=== PATIENT | female | born 1965 | race Caucasian/White ===

== ENCOUNTER 2023-02-08 13:30 | Outpatient (CLI) | payer OTHER, SELFPAY | END 2023-02-08 13:31 | disposition home or self-care (01) | LOC: SPT 02-09 10:35 | PROVIDERS: Visit Provider Nurse Practitioner Family | DX: Z46.89 Encounter for fitting and adjustment of other specified devices (principal); S52.1 Fracture of upper end of radius; X58.XXXD Exposure to other specified factors, subsequent encounter | CPT/HCPCS: 97760; L3761 ==

== ENCOUNTER → 2023-02-28 13:20 | Outpatient (BNVA) | payer OTHER, SELFPAY | PROVIDERS: Visit Provider Nurse Practitioner Family | DX: X58.XXXA Exposure to other specified factors, initial encounter; S52.121A Displaced fracture of head of right radius, initial encounter for closed fracture | CPT/HCPCS: 73070 ==

== ENCOUNTER → 2023-04-13 09:31 | Outpatient (BNVA) | payer MEDICAID, SELFPAY | PROVIDERS: Referring Provider Emergency Medicine; Visit Provider Podiatrist Foot & Ankle Surgery | DX: I73.9 Peripheral vascular disease, unspecified; L98.499 Non-pressure chronic ulcer of skin of other sites with unspecified severity; G62.9 Polyneuropathy, unspecified | CPT/HCPCS: 73630 ==

== ENCOUNTER 2023-06-05 11:08 | Emergency (ER) | payer OTHER, MEDICAID, SELFPAY ==
[2023-06-05 11:36] VITALS: BP 173/121; PULSE 84; RESP 16; TEMP 36.6; O2SAT 97; BMI 36.8
--- NOTE | 2023-06-05 11:39 | XRR_ITS ---
PROCEDURE INFORMATION: Exam: XR Chest Exam date and time: 06/05/2023 11:52 AM Age: 58 years old Clinical indication: Cough; Additional info: Covid symptoms TECHNIQUE: Imaging protocol: Radiologic exam of the chest. Views: 1 view. COMPARISON: No relevant prior studies available. FINDINGS: Lungs: Unremarkable. No consolidation. Pleural spaces: Unremarkable. No pleural effusion. No pneumothorax. Heart/Mediastinum: Unremarkable. No cardiomegaly. Bones/joints: Unremarkable. XR/XR chest 1V portable [id number] IMPRESSION: No acute findings.
--- NOTE | 2023-06-05 12:10 | ED_ITS ---
HPI - COVID General: Chief Complaint: COVID symptoms Stated Complaint: covid symptoms Time Seen by Provider: 06/05/23 11:57 Source: patient Mode of arrival: ambulatory Limitations: no limitations Triage information: Has fever, cough or shortness of breath . Exposure to COVID + person last 14 days History of Present Illness: Patient is a 58-year-old female presents to ED today for concerns of possible COVID. She states her boss and another individual tested positive recently. She is complaining of fever, body aches, shortness of breath, nonproductive cough, congestion, nausea/vomiting, and diarrhea. She states symptoms started on Monday. She is not having any abdominal pain. She denies chest pain. She states shortness of breath is worse with any form of exertion. MD complaint: has COVID symptoms Prior covid testing: no COVID 19 common symptoms: positive fever(s), chills, cough, non-productive cough, dyspnea, body aches, nasal congestion, nausea, vomiting and diarrhea; negative headache(s) COVID 19 other sytmptoms: negative dizziness Onset (ago): day(s) Severity: moderate Pertinent comorbid conditions: obesity Treatment prior to arrival: none COVID Results: SARS-CoV-2 (PCR) Detected (NOT DETECT) A 06/05/23 12:54 Coronavirus Type 229E (PCR) Not detected (NOT DETECT) 06/05/23 12:54 Review of Systems Const: Reports: fever(s), chills and body aches ENMT: Reports: nasal congestion Resp: Reports: dyspnea and non-productive cough GI: Reports: nausea, vomiting and diarrhea Musc: Denies: neck pain, back pain, extremity pain or joint pain Skin/Breast: Denies: rash Neuro: Denies: headache(s), numbness in extremities, weakness in extremities, sensory changes or dizziness Physical Exam Const: COMMON NORMALS: no acute distress, average body habitus, patient oriented x3, no limitations, healthy appearing, alert and well nourished GENERAL APPEARANCE: cooperative ORIENTATION/CONSCIOUSNESS: Yes awake, Yes oriented to person, Yes oriented to place and Yes oriented to time HENMT: COMMON NORMALS: normocephalic and atraumatic HEAD & SCALP: normal to inspection, normocephalic and atraumatic FACE & SINUS: normal facial exam Eye: GENERAL EYE: appearance normal, both eyes and all related structures Neck/C-Spine: COMMON NORMALS: full ROM, no lymphadenopathy, supple, no meningeal signs and no JVD Chest: COMMONS NORMALS: normal inspection of the chest and normal palpation of entire chest wall Resp: COMMON NORMALS: normal respiratory effort and clear to auscultation bilaterally AUSCULTATION: clear to auscultation bilaterally Cardio: COMMON NORMALS: no JVD, regular rate and regular rhythm RATE: regular rate RHYTHM: regular rhythm GI: COMMON NORMALS: Normal to inspection, nondistended, normoactive bowel sounds present, Soft to palpation, non-tender, No hepatosplenomegaly present and no masses PALPATION: Yes Soft to palpation and Yes No hepatosplenomegaly present : COMMON NORMALS: Yes no CVA tenderness BLADDER/KIDNEY EXAM: Yes no CVA tenderness Back/Pelvis: COMMON NORMALS: no CVA tenderness and thoracic and lumbar spine normal to inspection Extremity: COMMON NORMALS: normal to inspection, no clubbing, cyanosis or edema, no calf tenderness and no pedal edema GENERAL: Yes normal exam except as noted Neuro: AMANDA COMA SCALE: document GCS findings [place] coma scale eye opening: Spontaneous [place] coma scale verbal response: Orientated Amanda coma scale motor response: Obey commands Amanda coma scale total score: 15 COMMON NORMALS: patient oriented x3, moves all extremities, no focal motor deficits and no sensory deficits noted SENSORIUM/ORIENTATION: Yes alert, Yes oriented to person, Yes oriented to place and Yes oriented to time MENINGEAL SIGNS: Yes no meningeal signs Skin: COMMON NORMALS: no rashes or lesions noted GENERAL SKIN EXAM: no rashes or lesions noted Course Vital Signs: Vital signs: Vital Signs Temperature 97.9 F 06/05/23 11:36 Pulse Rate 84 06/05/23 11:36 Respiratory Rate 16 06/05/23 11:36 Blood Pressure 173/121 06/05/23 11:36 Pulse Oximetry 98 06/05/23 12:58 Oxygen Delivery Me thod Room Air 06/05/23 12:58 MDM - COVID Medical Decision Making Patient here with COVID symptoms and known positive exposure. Vital signs are stable apart from hypertension. Blood work is unremarkable apart from some hyperglycemia. Patient states she has a known diabetic treated with diet only. Respiratory panel collected and pending. She will be called with results. CXR is normal. Patient was later contacted and told that her COVID test was positive. Recommend she treat with Paxlovid. She requested [facility] so I contacted them but they do not carry oral Paxlovid. Patient was recontacted and stated that she needed a pharmacy that delivered. I reached out to [facility] pharmacy/[facility] and they will deliver patient's prescription tomorrow between the hours of 3-5. She was given quarantine precautions as well as return to ED precautions Lab Data 06/05/23 12:24 06/05/23 12:24 Radiology Impressions Chest X-Ray 06/05/23 11:39 IMPRESSION: No acute findings. Laboratory Results WBC 4.03 10^3/uL (3.29-11.43) 06/05/23 12:24 RBC 4.79 10^6/uL (3.85-5.65) 06/05/23 12:24 Hgb 13.90 g/dL (11.27-16.99) 06/05/23 12:24 Hct 42.2 % (36-47) 06/05/23 12:24 MCV 88.1 fl (85-98) 06/05/23 12:24 MCH 29.0 pg (27-33) 06/05/23 12:24 MCHC 32.9 g/dL (30-55) 06/05/23 12:24 RDW 14.4 % (12.1-15.1) 06/05/23 12:24 Plt Count 238 10^3/cmm (157-399) 06/05/23 12:24 MPV 10.5 fL (7.4-10.4) H 06/05/23 12:24 Neut % (Auto) 48.2 % 06/05/23 12:24 Lymph % (Auto) 29.5 % 06/05/23 12:24 [place] % (Auto) 17.1 % 06/05/23 12:24 Eos % (Auto) 4.5 % 06/05/23 12:24 Baso % (Auto) 0.5 % 06/05/23 12:24 Neut # (Auto) 1.94 10^3/uL (1.8-7.7) 06/05/23 12:24 Lymph # (Auto) 1.2 10^3/uL (0.8-4.8) 06/05/23 12:24 [place] # (Auto) 0.7 10^3/uL (0.2-0.9) 06/05/23 12:24 Eos # (Auto) 0.2 10^3/uL (0.0-0.8) 06/05/23 12:24 Baso # (Auto) 0.0 10^3/uL (0.0-0.1) 06/05/23 12:24 Nucleated RBC % (auto) 0 % 06/05/23 12:24 Nucleated RBCs # 0.0 /100WBC 06/05/23 12:24 Sodium 137 mmol/L (136-145) 06/05/23 12:24 Potassium 4.3 mmol/L (3.5-5.1) 06/05/23 12:24 Chloride 101 mmol/L (98-107) 06/05/23 12:24 Carbon Dioxide 25 mmol/L (22-29) 06/05/23 12:24 Anion Gap 15.3 (5-19) 06/05/23 12:24 BUN 13 mg/dL (6-20) 06/05/23 12:24 Creatinine 0.7 mg/dL (0.5-0.9) 06/05/23 12:24 GFR Calculation 85.6 mL/min (90-130) L 06/05/23 12:24 Glucose 190 mg/dL (65-115) H 06/05/23 12:24 Calculated Osmolality 289 mOsm/kg (285-295) 06/05/23 12:24 Calcium 8.8 mg/dL (8.5-10.5) 06/05/23 12:24 Total Bilirubin 0.2 mg/dL (0.15-1.2) 06/05/23 12:24 AST 22 U/L (0-32) 06/05/23 12:24 ALT 16 U/L (0-33) 06/05/23 12:24 Alkaline Phosphatase 88 U/L (35-105) 06/05/23 12:24 Total Protein 7.8 g/dL (6.6-8.7) 06/05/23 12:24 Albumin 4.4 g/dL (3.5-5.2) 06/05/23 12:24 Globulin 3.4 g/dL (1.3-4.6) 06/05/23 12:24 Nasal Influ A H1 2009 PCR Not detected (NOT DETECT) 06/05/23 12:54 Adenovirus (PCR) Not detected (NOT DETECT) 06/05/23 12:54 C. pneumoniae DNA (PCR) Not detected (NOT DETECT) 06/05/23 12:54 Coronavirus 229E (PCR) Not detected (NOT DETECT) 06/05/23 12:54 Human Metapneumovir PCR Not detected (NOT DETECT) 06/05/23 12:54 Influenza A (H1) PCR Not detected (NOT DETECT) 06/05/23 12:54 Influenza A (H3) PCR Not detected (NOT DETECT) 06/05/23 12:54 Influenza Type A (PCR) Not detected (NOT DETECT) 06/05/23 12:54 Influenza Type B (PCR) Not detected (NOT DETECT) 06/05/23 12:54 M. pneumoniae (PCR) Not detected (NOT DETECT) 06/05/23 12:54 Parainfluenza 1 (PCR) Not detected (NOT DETECT) 06/05/23 12:54 Parainfluenza 2 (PCR) Not detected (NOT DETECT) 06/05/23 12:54 Parainfluenza 3 (PCR) Not detected (NOT DETECT) 06/05/23 12:54 Parainfluenza 4 (PCR) Not detected (NOT DETECT) 06/05/23 12:54 RSV Type A (PCR) Not detected (NOT DETECT) 06/05/23 12:54 RSV Type B (PCR) Not detected (NOT DETECT) 06/05/23 12:54 Entero/Rhino (PCR) Not detected (NOT DETECT) 06/05/23 12:54 SARS-CoV-2 (PCR) Detected (NOT DETECT) A 06/05/23 12:54 SARS-CoV-2 (PCR) Detected (NOT DETECT) A 06/05/23 12:54 Coronavirus Type 229E (PCR) Not detected (NOT DETECT) 06/05/23 12:54 All radiology interpretation(s) finalized by discharge Discharge Plan Discharge Patient Disposition: Home Clinical Impression: Exposure to severe acute respiratory syndrome coronavirus 2 (SARS-CoV-2) Condition: Stable Discharge Orders: Discharge ED (Routine); Ordered 06/05/23 Ordered By: Ivory Smith Referrals: Shai Hill MD [Primary Care Provider] - Activity Restrictions/Additional Instructions: At this time blood work is unremarkable apart from your blood sugar was elevated. As you discussed you are a known diabetic normally controlled by diet. Chest x-ray was normal. As we discussed respiratory panel should result in several hours. I will reach out to you if something comes back positive. If positive for COVID I will call you in a prescription for Paxlovid to your pharmacy. Coding Level of Care Code ED Director Credit Risk for Ranjana Orellana
[2023-06-05 12:30] LABS: Basophils % 0.5 %; Eosinophils # 0.2 10^3/uL (0.0-0.8); Eosinophils % 4.5 %; Hematocrit 42.2 % (36-47); Lymphocytes # 1.2 10^3/uL (0.8-4.8); Lymphocytes % 29.5 %; Mean Corpuscular HGB Conc 32.9 g/dL (30-55); Mean Corpuscular Volume 88.1 fl (85-98); Mean Platelet Volume 10.5 fL (7.4-10.4); Monocytes # 0.7 10^3/uL (0.2-0.9); Monocytes % 17.1 %; Neutrophils # 1.94 10^3/uL (1.8-7.7); Neutrophils % 48.2 %; Nucleated Red Blood Cells % 0 %; Platelet Count 238 10^3/cmm (157-399); Red Blood Count 4.79 10^6/uL (3.85-5.65); Red Cell Distribution Width 14.4 % (12.1-15.1); White Blood Count 4.03 10^3/uL (3.29-11.43)
[2023-06-05 12:47] LABS: Alanine Aminotransferase 16 U/L (0-33); Albumin Level 4.4 g/dL (3.5-5.2); Alkaline Phosphatase 88 U/L (35-105); Anion Gap 15.3 (5-19); Aspartate Amino Transferase 22 U/L (0-32); Blood Urea Nitrogen 13 mg/dL (6-20); Calcium 8.8 mg/dL (8.5-10.5); Carbon Dioxide 25 mmol/L (22-29); Chloride 101 mmol/L (98-107); Globulin 3.4 g/dL (1.3-4.6); Glomerular Filtration Rate 85.6 mL/min (90-130); Glucose 190 mg/dL (65-115); Osmolality Calculated 289 mOsm/kg (285-295); Potassium 4.3 mmol/L (3.5-5.1); Sodium 137 mmol/L (136-145); Total Bilirubin 0.2 mg/dL (0.15-1.2); Total Protein 7.8 g/dL (6.6-8.7)
[2023-06-05 12:58] VITALS: O2SAT 98
[2023-06-05 14:47] LABS: Adenovirus Not Detected (NOT DETECT); Chlamydia Pneumoniae Not Detected (NOT DETECT); Coronavirus 229E,HKU1,NL63,OC4 Not Detected (NOT DETECT); Human Metapneumovirus Not Detected (NOT DETECT); Human Rhinovirus/Enterovirus Not Detected (NOT DETECT); Influenza A Not Detected (NOT DETECT); Influenza A H1 Not Detected (NOT DETECT); Influenza A H1-2009 Not Detected (NOT DETECT); Influenza A H3 Not Detected (NOT DETECT); Influenza B Not Detected (NOT DETECT); Mycoplasma Pneumoniae Not Detected (NOT DETECT); Parainfluenza Virus Type 1 Not Detected (NOT DETECT); Parainfluenza Virus Type 2 Not Detected (NOT DETECT); Parainfluenza Virus Type 3 Not Detected (NOT DETECT); Parainfluenza Virus Type 4 Not Detected (NOT DETECT); Respiratory Syncytial Virus A Not Detected (NOT DETECT); Respiratory Syncytial Virus B Not Detected (NOT DETECT)
[2023-06-05 14:52] LABS: SARS-COV-2 Detected (NOT DETECT)
--- NOTE | 2023-06-05 14:56 | PC.NURSE ---
PT NOTIFIED OF COVID RESULTS, PT WAS CALLED TO GET PHARMACY FOR PA TO CALL IN MEDICATIONS
--- NOTE | 2023-06-05 15:11 | PC.NURSE ---
Called pt to notify of covid results and get pharmacy to call in prescriptions. Pt requested [facility] but [facility] doesn't have the med.
== END 2023-06-05 13:08 | disposition home or self-care (01) ==
PROVIDERS: Emergency Provider Physician Assistant; PCP Family Medicine
DX: U07.1 COVID-19 (principal)
CPT/HCPCS: 36415; 71045; 80053; 85025; 87486; 87581; 87633; 99284

== ENCOUNTER 2023-07-06 04:17 | Emergency (ER) | payer OTHER, MEDICAID, SELFPAY ==
[2023-07-06 04:22] VITALS: BP 184/99; PULSE 77; RESP 18; TEMP 37.1; O2SAT 100; BMI 34.3
[2023-07-06 04:31] VITALS: BP 179/93; PULSE 73; RESP 18; O2SAT 99
--- NOTE | 2023-07-06 04:31 | XRR_ITS ---
PROCEDURE INFORMATION: Exam: XR Chest Exam date and time: 07/06/2023 4:36 AM Age: 58 years old Clinical indication: Chest wall pain; Patient HX: Chest pain and left arm pain/high blood pressure TECHNIQUE: Imaging protocol: Radiologic exam of the chest. Views: 1 view. COMPARISON: CR XR chest 1V portable [id number] 06/05/2023 11:52 AM FINDINGS: Lungs: No consolidation. Pleural spaces: Unremarkable. No pleural effusion. No pneumothorax. Heart/Mediastinum: Mild cardiomegaly. Bones/joints: Chronic right rib fractures. XR/XR chest 1V portable [id number] IMPRESSION: No acute findings.
--- NOTE | 2023-07-06 04:33 | W.ED.RECABL ---
Documented by User: Mannie DO Any 07/06/23 05:27 HPI - Recheck/Abnormal Lab/Rx General: Chief Complaint: Recheck/Abnormal Lab/Rx Stated Complaint: high bp Time Seen by Provider: 07/06/23 04:18 History of Present Illness: Patient presents to the ER with complaints of high blood pressure and intermittent left chest pain and left shoulder pain. Patient states she woke up not feeling good checked her blood pressure and it was really high. Patient then said she started having chest pain. Patient is on metoprolol for tachycardia. And benazepril for blood pressure. Patient states she has taken both there was not missed any doses. Review of Systems General: Reports: 10 or more systems reviewed and unremarkable except in HPI and below Physical Exam Const: COMMON NORMALS: no acute distress, average body habitus, patient oriented x3, no limitations, healthy appearing, alert and well nourished HENMT: COMMON NORMALS: normocephalic, atraumatic, hearing grossly normal bilaterally, external ears normal, Normal external nose present, moist oral mucous membranes and oropharynx normal HEAD & SCALP: normocephalic and atraumatic NOSE: Normal external nose present EXTERNAL EAR: Yes external ears normal Eye: COMMON NORMALS: Equal, round and reactive pupils present, EOMs intact bilaterally, conjunctivae normal and no scleral icterus CONJUNCTIVA: Yes conjunctivae normal PUPIL: Yes Equal, round and reactive pupils present Neck/C-Spine: COMMON NORMALS: no JVD Chest: COMMONS NORMALS: normal inspection of the chest; negative for normal palpation of entire chest wall (Tenderness with palpation over left side of the chest.) Resp: COMMON NORMALS: normal respiratory effort, No retractions, No use of accessory muscles and clear to auscultation bilaterally AUSCULTATION: clear to auscultation bilaterally Cardio: COMMON NORMALS: no JVD, regular rate, regular rhythm, S1 normal heart sound present, S2 normal heart sound present, No gallops present (Cardio), No clicks present (Cardio), No murmurs present (Cardio) and No rub (Cardio) RATE: regular rate RHYTHM: regular rhythm HEART SOUNDS: S1 normal heart sound present and S2 normal heart sound present GI: COMMON NORMALS: Normal to inspection, nondistended, normoactive bowel sounds present, Soft to palpation, non-tender, No hepatosplenomegaly present and no masses PALPATION: Yes Soft to palpation and Yes No hepatosplenomegaly present Neuro: COMMON NORMALS: patient oriented x3 SENSORIUM/ORIENTATION: Yes alert Course Vital Signs: Vital signs: Vital Signs Temperature 98.8 F 07/06/23 04:22 Pulse Rate 86 07/06/23 06:00 Respiratory Rate 16 07/06/23 06:00 Blood Pressure 184/81 07/06/23 06:32 Pulse Oximetry 99 07/06/23 06:00 MDM - Recheck/Abnormal Lab/Rx Differential Diagnosis Unlikely encounter for medication refill, encounter for wound recheck, encounter for recheck of burn, encounter for removal of sutures or warfarin-induced coagulopathy Medical Records I reviewed the patient's medical records. Lab Data I reviewed the patient's lab results. 07/06/23 04:07 07/06/23 04:07 Radiology Impressions Chest X-Ray 07/06/23 04:31 IMPRESSION: No acute findings. Laboratory Results WBC 7.13 10^3/uL (3.29-11.43) 07/06/23 04:07 RBC 4.29 10^6/uL (3.85-5.65) 07/06/23 04:07 Hgb 12.90 g/dL (11.27-16.99) 07/06/23 04:07 Hct 38.4 % (36-47) 07/06/23 04:07 MCV 89.5 fl (85-98) 07/06/23 04:07 MCH 30.1 pg (27-33) 07/06/23 04:07 MCHC 33.6 g/dL (30-55) 07/06/23 04:07 RDW 14.5 % (12.1-15.1) 07/06/23 04:07 Plt Count 288 10^3/cmm (157-399) 07/06/23 04:07 MPV 10.6 fL (7.4-10.4) H 07/06/23 04:07 Neut % (Auto) 56.4 % 07/06/23 04:07 Lymph % (Auto) 26.1 % 07/06/23 04:07 [place] % (Auto) 11.5 % 07/06/23 04:07 Eos % (Auto) 4.6 % 07/06/23 04:07 Baso % (Auto) 0.6 % 07/06/23 04:07 Neut # (Auto) 4.02 10^3/uL (1.8-7.7) 07/06/23 04:07 Lymph # (Auto) 1.9 10^3/uL (0.8-4.8) 07/06/23 04:07 [place] # (Auto) 0.8 10^3/uL (0.2-0.9) 07/06/23 04:07 Eos # (Auto) 0.3 10^3/uL (0.0-0.8) 07/06/23 04:07 Baso # (Auto) 0.0 10^3/uL (0.0-0.1) 07/06/23 04:07 Nucleated RBC % (auto) 0 % 07/06/23 04:07 Nucleated RBCs # 0.0 /100WBC 07/06/23 04:07 Sodium 135 mmol/L (136-145) L 07/06/23 04:07 Potassium 4.4 mmol/L (3.5-5.1) 07/06/23 04:07 Chloride 101 mmol/L (98-107) 07/06/23 04:07 Carbon Dioxide 24 mmol/L (22-29) 07/06/23 04:07 Anion Gap 14.4 (5-19) 07/06/23 04:07 BUN 16 mg/dL (6-20) 07/06/23 04:07 Creatinine 0.6 mg/dL (0.5-0.9) 07/06/23 04:07 GFR Calculation 102.3 mL/min (90-130) 07/06/23 04:07 Glucose 230 mg/dL (65-115) H 07/06/23 04:07 Calculated Osmolality 288 mOsm/kg (285-295) 07/06/23 04:07 Calcium 9.1 mg/dL (8.5-10.5) 07/06/23 04:07 Total Bilirubin 0.3 mg/dL (0.15-1.2) 07/06/23 04:07 AST 27 U/L (0-32) 07/06/23 04:07 ALT 20 U/L (0-33) 07/06/23 04:07 Alkaline Phosphatase 91 U/L (35-105) 07/06/23 04:07 Troponin T Baseline 65 ng/L (0-10) H 07/06/23 04:07 Troponin T 120 Minute 62.03 ng/L (0-10) H 07/06/23 06:00 Delta Troponin T -2.97 ABS# (0-10) L 07/06/23 06:00 Total Protein 7.4 g/dL (6.6-8.7) 07/06/23 04:07 Albumin 4.3 g/dL (3.5-5.2) 07/06/23 04:07 Globulin 3.1 g/dL (1.3-4.6) 07/06/23 04:07 Urine Color Yellow (Yellow) 07/06/23 06:14 Urine Appearance Clear (CLEAR) 07/06/23 06:14 Urine pH 6 (5-7) 07/06/23 06:14 Ur Specific [place] 1.005 (1.005-1.030) 07/06/23 06:14 Urine Protein Neg (Negative) 07/06/23 06:14 Urine Glucose (UA) Trace (Normal) H 07/06/23 06:14 Urine Ketones Negative (Negative) 07/06/23 06:14 Urine Blood Neg (Negative) 07/06/23 06:14 Urine Nitrate Negative (Negative) 07/06/23 06:14 Urine Bilirubin Neg (Negative) 07/06/23 06:14 Urine Urobilinogen Norm mg/dL (Negative) 07/06/23 06:14 Ur Leukocyte Esterase Trace (Negative) H 07/06/23 06:14 Urine RBC Rare /hpf (0-2) 07/06/23 06:14 Urine WBC 0-4 /hpf (0-5) H 07/06/23 06:14 Ur Squamous Epith Cells 0-4 /hpf (0-5) H 07/06/23 06:14 Amorphous Sediment Not Reportable 07/06/23 06:14 Urine Bacteria Trace /hpf (NONE) 07/06/23 06:14 Hyaline Casts Rare /lpf 07/06/23 06:14 Urine Opiates Screen Negative ng/mL (Negative) 07/06/23 06:14 Ur Barbiturates Screen Negative ng/mL (Negative) 07/06/23 06:14 Ur Phencyclidine Scrn Negative ng/mL (Negative) 07/06/23 06:14 Ur Amphetamines Screen Negative ng/mL (Negative) 07/06/23 06:14 U Benzodiazepines Scrn Negative ng/mL (Negative) 07/06/23 06:14 Urine Cocaine Screen Negative ng/mL (Negative) 07/06/23 06:14 U Marijuana (THC) Screen Negative ng/mL (Negative) 07/06/23 06:14 Ethyl Alcohol < 10 mg/dL (0-10) 07/06/23 04:07 All radiology interpretation(s) finalized by discharge EKG Data EKG 1: I personally reviewed and interpreted this EKG as follows: EKG interpretation date: 07/06/23 EKG interpretation time: 04:22 Prior EKG tracings: not available for review Interpretation: EKG shows ventricular rate 73 beats minute, AL interval 183, QRS duration 95, QTc of 418, sinus rhythm, possible right ventricular conduction delay Discharge Plan Discharge Patient Disposition: Home Clinical Impression: HTN (hypertension) Condition: Stable Prescriptions: New lisinopril 40 mg tablet 40 mg PO DAILY Qty: 30 0RF Toprol XL 25 mg tablet extended release 24 hr 25 mg PO DAILY Qty: 30 0RF Discharge Orders: Discharge ED (Routine); Ordered 07/06/23 Ordered By: Govind Hyde Referrals: Shai Hill MD [Primary Care Provider] - Discharge Diet: Usual diet Discharge Activity: Increase activity as tolerated Patient Instructions: Hypertension (ED), Opioid Safety, Pain Management Activity Restrictions/Additional Instructions: You were seen for hypertension. Your cardiac enzymes and EKGs were normal. Recommend that you increase your benazepril to 40 mg daily and metoprolol succinate to 25 mg once daily. Follow up with your prior doctor within the nest week. Sign Out Sign Out Data: Patient Sign Out occurred on 07/06/23 at 05:40. Patient's care was discussed, and care was transferred from to Govind Hyde DO. Coding Level of Care Code ED Ruby On Rails Engineer for Chg Fwd Documented by User: Govind Hyde DO 07/06/23 10:09 HPI - Recheck/Abnormal Lab/Rx General: Chief Complaint: Recheck/Abnormal Lab/Rx Stated Complaint: high bp Time Seen by Provider: 07/06/23 04:18 Course Vital Signs: Vital signs: Vital Signs Temperature 98.8 F 07/06/23 04:22 Pulse Rate 86 07/06/23 06:00 Respiratory Rate 16 07/06/23 06:00 Blood Pressure 184/81 07/06/23 06:32 Pulse Oximetry 99 07/06/23 06:00 MDM - Recheck/Abnormal Lab/Rx Medical Decision Making 07/06/2023 6:17 Chart reviewed. Patient reports taking metoprolol and benazepril at home for blood pressure is unsure of dose She was given hydralazine last night which improved her blood pressure for period of time now is worsening again. First Trope was elevated at 65 her second troponin is trending down she has no acute EKG changes. Given her IV push labetalol amlodipine and metoprolol 12.5 for her blood pressure. Discussing with her she takes 20 mg lisinopril daily and 12.5 mg of metoprolol once daily. Her second troponin is trending down. Increase metoprolol to 25 daily and lisinopril to 40 daily follow-up with her primary care doctor within the next week to reevaluate blood pressure. Lab Data 07/06/23 04:07 07/06/23 04:07 Radiology Impressions Chest X-Ray 07/06/23 04:31 IMPRESSION: No acute findings. Laboratory Results WBC 7.13 10^3/uL (3.29-11.43) 07/06/23 04:07 RBC 4.29 10^6/uL (3.85-5.65) 07/06/23 04:07 Hgb 12.90 g/dL (11.27-16.99) 07/06/23 04:07 Hct 38.4 % (36-47) 07/06/23 04:07 MCV 89.5 fl (85-98) 07/06/23 04:07 MCH 30.1 pg (27-33) 07/06/23 04:07 MCHC 33.6 g/dL (30-55) 07/06/23 04:07 RDW 14.5 % (12.1-15.1) 07/06/23 04:07 Plt Count 288 10^3/cmm (157-399) 07/06/23 04:07 MPV 10.6 fL (7.4-10.4) H 07/06/23 04:07 Neut % (Auto) 56.4 % 07/06/23 04:07 Lymph % (Auto) 26.1 % 07/06/23 04:07 [place] % (Auto) 11.5 % 07/06/23 04:07 Eos % (Auto) 4.6 % 07/06/23 04:07 Baso % (Auto) 0.6 % 07/06/23 04:07 Neut # (Auto) 4.02 10^3/uL (1.8-7.7) 07/06/23 04:07 Lymph # (Auto) 1.9 10^3/uL (0.8-4.8) 07/06/23 04:07 [place] # (Auto) 0.8 10^3/uL (0.2-0.9) 07/06/23 04:07 Eos # (Auto) 0.3 10^3/uL (0.0-0.8) 07/06/23 04:07 Baso # (Auto) 0.0 10^3/uL (0.0-0.1) 07/06/23 04:07 Nucleated RBC % (auto) 0 % 07/06/23 04:07 Nucleated RBCs # 0.0 /100WBC 07/06/23 04:07 Sodium 135 mmol/L (136-145) L 07/06/23 04:07 Potassium 4.4 mmol/L (3.5-5.1) 07/06/23 04:07 Chloride 101 mmol/L (98-107) 07/06/23 04:07 Carbon Dioxide 24 mmol/L (22-29) 07/06/23 04:07 Anion Gap 14.4 (5-19) 07/06/23 04:07 BUN 16 mg/dL (6-20) 07/06/23 04:07 Creatinine 0.6 mg/dL (0.5-0.9) 07/06/23 04:07 GFR Calculation 102.3 mL/min (90-130) 07/06/23 04:07 Glucose 230 mg/dL (65-115) H 07/06/23 04:07 Calculated Osmolality 288 mOsm/kg (285-295) 07/06/23 04:07 Calcium 9.1 mg/dL (8.5-10.5) 07/06/23 04:07 Total Bilirubin 0.3 mg/dL (0.15-1.2) 07/06/23 04:07 AST 27 U/L (0-32) 07/06/23 04:07 ALT 20 U/L (0-33) 07/06/23 04:07 Alkaline Phosphatase 91 U/L (35-105) 07/06/23 04:07 Troponin T Baseline 65 ng/L (0-10) H 07/06/23 04:07 Troponin T 120 Minute 62.03 ng/L (0-10) H 07/06/23 06:00 Delta Troponin T -2.97 ABS# (0-10) L 07/06/23 06:00 Total Protein 7.4 g/dL (6.6-8.7) 07/06/23 04:07 Albumin 4.3 g/dL (3.5-5.2) 07/06/23 04:07 Globulin 3.1 g/dL (1.3-4.6) 07/06/23 04:07 Urine Color Yellow (Yellow) 07/06/23 06:14 Urine Appearance Clear (CLEAR) 07/06/23 06:14 Urine pH 6 (5-7) 07/06/23 06:14 Ur Specific [place] 1.005 (1.005-1.030) 07/06/23 06:14 Urine Protein Neg (Negative) 07/06/23 06:14 Urine Glucose (UA) Trace (Normal) H 07/06/23 06:14 Urine Ketones Negative (Negative) 07/06/23 06:14 Urine Blood Neg (Negative) 07/06/23 06:14 Urine Nitrate Negative (Negative) 07/06/23 06:14 Urine Bilirubin Neg (Negative) 07/06/23 06:14 Urine Urobilinogen Norm mg/dL (Negative) 07/06/23 06:14 Ur Leukocyte Esterase Trace (Negative) H 07/06/23 06:14 Urine RBC Rare /hpf (0-2) 07/06/23 06:14 Urine WBC 0-4 /hpf (0-5) H 07/06/23 06:14 Ur Squamous Epith Cells 0-4 /hpf (0-5) H 07/06/23 06:14 Amorphous Sediment Not Reportable 07/06/23 06:14 Urine Bacteria Trace /hpf (NONE) 07/06/23 06:14 Hyaline Casts Rare /lpf 07/06/23 06:14 Urine Opiates Screen Negative ng/mL (Negative) 07/06/23 06:14 Ur Barbiturates Screen Negative ng/mL (Negative) 07/06/23 06:14 Ur Phencyclidine Scrn Negative ng/mL (Negative) 07/06/23 06:14 Ur Amphetamines Screen Negative ng/mL (Negative) 07/06/23 06:14 U Benzodiazepines Scrn Negative ng/mL (Negative) 07/06/23 06:14 Urine Cocaine Screen Negative ng/mL (Negative) 07/06/23 06:14 U Marijuana (THC) Screen Negative ng/mL (Negative) 07/06/23 06:14 Ethyl Alcohol < 10 mg/dL (0-10) 07/06/23 04:07 Discharge Plan Discharge Patient Disposition: Home Clinical Impression: HTN (hypertension) Condition: Stable Prescriptions: New lisinopril 40 mg tablet 40 mg PO DAILY Qty: 30 0RF Toprol XL 25 mg tablet extended release 24 hr 25 mg PO DAILY Qty: 30 0RF Discharge Orders: Discharge ED (Routine); Ordered 07/06/23 Ordered By: Govind Hyde Referrals: Shai Hill MD [Primary Care Provider] - Discharge Diet: Usual diet Discharge Activity: Increase activity as tolerated Patient Instructions: Hypertension (ED), Opioid Safety, Pain Management Activity Restrictions/Additional Instructions: You were seen for hypertension. Your cardiac enzymes and EKGs were normal. Recommend that you increase your benazepril to 40 mg daily and metoprolol succinate to 25 mg once daily. Follow up with your prior doctor within the nest week. Sign Out Sign Out Data: Patient Sign Out occurred on 07/06/23 at 05:40. Patient's care was discussed, and care was transferred from to Govind Hyde DO. Coding Level of Care Code ED Ruby On Rails Engineer for Ranjana Orellana
[2023-07-06 04:36] LABS: Basophils % 0.6 %; Eosinophils # 0.3 10^3/uL (0.0-0.8); Eosinophils % 4.6 %; Hematocrit 38.4 % (36-47); Lymphocytes # 1.9 10^3/uL (0.8-4.8); Lymphocytes % 26.1 %; Mean Corpuscular HGB Conc 33.6 g/dL (30-55); Mean Corpuscular Hemoglobin 30.1 pg (27-33); Mean Corpuscular Volume 89.5 fl (85-98); Mean Platelet Volume 10.6 fL (7.4-10.4); Monocytes # 0.8 10^3/uL (0.2-0.9); Monocytes % 11.5 %; Neutrophils # 4.02 10^3/uL (1.8-7.7); Neutrophils % 56.4 %; Nucleated Red Blood Cells % 0 %; Platelet Count 288 10^3/cmm (157-399); Red Blood Count 4.29 10^6/uL (3.85-5.65); Red Cell Distribution Width 14.5 % (12.1-15.1); White Blood Count 7.13 10^3/uL (3.29-11.43)
[2023-07-06 04:48] LABS: Alanine Aminotransferase 20 U/L (0-33); Albumin Level 4.3 g/dL (3.5-5.2); Alkaline Phosphatase 91 U/L (35-105); Blood Urea Nitrogen 16 mg/dL (6-20); Calcium 9.1 mg/dL (8.5-10.5); Carbon Dioxide 24 mmol/L (22-29); Chloride 101 mmol/L (98-107); Globulin 3.1 g/dL (1.3-4.6); Glomerular Filtration Rate 102.3 mL/min (90-130); Glucose 230 mg/dL (65-115); Osmolality Calculated 288 mOsm/kg (285-295); Sodium 135 mmol/L (136-145); Total Bilirubin 0.3 mg/dL (0.15-1.2); Total Protein 7.4 g/dL (6.6-8.7)
[2023-07-06 04:49] LABS: Troponin(5th) Baseline 65 ng/L (0-10)
[2023-07-06 04:50] LABS: Alcohol Level < 10 mg/dL (0-10); Anion Gap 14.4 (5-19); Aspartate Amino Transferase 27 U/L (0-32); Potassium 4.4 mmol/L (3.5-5.1)
[2023-07-06] MEDS: aspirin 81 mg Chew Tablet 324 MG PO (05:02)
[2023-07-06] MEDS: hyDRALAzine 20 mg/mL INJ 1 mL IVP (05:02)
[2023-07-06 05:04] VITALS: BP 179/104; PULSE 70; RESP 18; O2SAT 98
[2023-07-06 06:00] VITALS: BP 165/87; PULSE 86; RESP 16; O2SAT 99
[2023-07-06 06:27] LABS: Troponin 5 2HR 62.03 ng/L (0-10)
--- NOTE | 2023-07-06 06:31 | ECG_ITS ---
[facility] Test Date: 2023-07-06 Pat Name: Lucita Torres Department: Room: Gender: Female Outpatient Case Manager: : 1965 Requested By: Mannie Agarwal Order Number: [id number] Sanket MD: Aliya Lees M.D. Measurements Intervals [place] Rate: 73 P: 65 MD: 183 QRS: -17 QRSD: 95 T: -2 QT: 392 QTc: 434 Interpretive Statements SINUS RHYTHM LOW QRS VOLTAGE IN PRECORDIAL LEADS [QRS DEFLECTION < 1.0 mV IN CHEST LEADS] POSSIBLE RIGHT VENTRICULAR CONDUCTION DELAY [RSR (QR) IN V1/V2] VOLTAGE CRITERIA FOR LVH [MEETS CRITERIA IN ONE OF: R(aVL), S(V1), R(V5), R(V5/V6)+S(V1)] POSSIBLE ANTERIOR MYOCARDIAL INFARCTION , PROBABLY OLD [30 ms Q WAVE IN V3/V4, OR R < 0.2 mV IN V4] No previous ECG available for comparison Electronically Signed On 07-06-2023 11:33:28 CDT by Aliya Lees M.D. [id number]
[2023-07-06 06:32] VITALS: BP 184/81
[2023-07-06 06:32] LABS: Troponin 5 2HR Delta -2.97 ABS# (0-10)
[2023-07-06 06:36] LABS: Amphetamines Screen Urine Negative (Negative); Barbiturates Screen Urine Negative (Negative); Benzodiazepines Screen Urine Negative (Negative); Cocaine Screen Urine Negative (Negative); Opiate Screen Urine Negative (Negative); PCP Screen Urine Negative (Negative); THC Screen Urine Negative (Negative)
[2023-07-06] MEDS: amlodipine 10 mg Tablet PO (06:38)
[2023-07-06] MEDS: labetalol 5 mg/mL SDV 20mL 10 MG IVP (06:38)
[2023-07-06] MEDS: ondansetron 2 mg/ML SDV 2 mL 4 MG IVP (06:38)
[2023-07-06] MEDS: metoprolol tartrate 25 mg Tablet 12.5 MG PO (06:45)
--- NOTE | 2023-07-06 06:46 | ECG_ITS ---
[facility] Test Date: 2023-07-06 Pat Name: Lucita Torres Department: Room: Gender: Female Superintendent Tests: : 1965 Requested By: Mannie Agarwal Order Number: [id number] Sanket MD: Aliya Lees M.D. Measurements Intervals [place] Rate: 69 P: 65 MT: 186 QRS: -21 QRSD: 97 T: -15 QT: 406 QTc: 435 Interpretive Statements SINUS RHYTHM LOW QRS VOLTAGE IN PRECORDIAL LEADS [QRS DEFLECTION < 1.0 mV IN CHEST LEADS] INCOMPLETE RIGHT BUNDLE BRANCH BLOCK [90+ ms QRS DURATION, TERMINAL R IN V1/V2, 40+ ms S IN I/aVL/V4/V5/V6] VOLTAGE CRITERIA FOR LVH [MEETS CRITERIA IN ONE OF: R(aVL), S(V1), R(V5), R(V5/V6)+S(V1)] POSSIBLE ANTERIOR MYOCARDIAL INFARCTION , PROBABLY OLD [30 ms Q WAVE IN V3/V4, OR R < 0.2 mV IN V4] Compared to ECG 07/06/2023 04:22:36 Incomplete right bundle-branch block now present Myocardial infarct finding still present Electronically Signed On 07-06-2023 11:32:18 CDT by Aliya Lees M.D. [id number]
[2023-07-06 06:49] LABS: Add Urine Microscopic? YES; Bilirubin Urine Neg (Negative); Blood Urine Neg (Negative); Glucose Urine UA Trace (Normal); Ketones Urine Negative (Negative); Leukocyte Esterase Urine Trace (Negative); Nitrate Urine Negative (Negative); Protein Urine Neg (Negative); Specific Gravity, Urine 1.005 (1.005-1.030); Urine Appearance Clear (CLEAR); Urine Color Yellow (Yellow); Urobilinogen Urine Norm (Negative); pH Urine 6 (5-7)
[2023-07-06 06:50] LABS: Add Urine Culture? No; Bacteria Urine TRACE /hpf; Hyaline Casts Urine RARE /lpf; RBC Urine RARE /hpf (0-2); Squamous Epithelial Cell Urine 0-4 /hpf (0-5); WBC Urine 0-4 /hpf (0-5)
== END 2023-07-06 07:28 | disposition home or self-care (01) ==
PROVIDERS: Emergency Medicine; Emergency Provider Family Medicine; PCP Family Medicine
DX: I10 Essential (primary) hypertension (principal)
CPT/HCPCS: 36415; 71045; 80053; 80306; 80307; 81001; 84484; 85025; 93005; 96374; 96375; 99285; J0360; J2405; J3490

== ENCOUNTER 2023-07-25 10:44 | Inpatient (IN) | payer OTHER, MEDICAID, SELFPAY ==
--- NOTE | 2023-07-25 10:47 | ED.C_ITS ---
HPI - Psych General: Chief Complaint: Psychiatric Symptoms Stated Complaint: MHE Time Seen by Provider: 07/25/23 10:46 Source: patient Mode of arrival: ambulatory Limitations: no limitations History of Present Illness: Patient is a 58-year-old female presents to the ED today after the director of the [facility] told her to come to the emergency department for further evaluation. Patient tells me she does not know why she is here. She states she is not suicidal or homicidal. She states she was told to come here because the director thought she was depressed following a break-up with her boyfriend. On exam patient is very evasive and answers the majority of questions with one-word answers. We were able to contact the director who tells us over the past week patient has been delusional. She believes she has a boyfriend in the [place]. She feels like FBI agents are constantly trying to come and get her. She has been cussing out staff and other tenants. Director states she is currently sharing a room with a mother and a 4-year-old and feel like are in harm's way with her current mental state. , public relations director eventually faxed over an affidavit. According to affidavit patient believes she is to a professional concrete mixing plant superintendent from [place]. She tells people she does not know his name but that they are getting . She is showing people stock photos online of above tattooed man that she states is her boyfriend. She was getting depressed after this nonexistent boyfriend broke up with her. She reportedly told staff that she contacted the commander and that they were coming to get her along with a [employer] goodwill representative and 5 black SUVs and that the director should expect them at the residential shortly. 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 Director states her behaviors have been escalating and is now yelling and cursing at other residents. complaint: other ([facility] staff states she is delusional) Associated symptoms: Deny auditory hallucinations, visual hallucinations, depression, homicidal ideation or suicidal ideation Treatments prior to arrival: none Review of Systems Const: Denies: fever(s) or chills Card: Denies: chest pain, palpitations, lightheadedness or syncope Resp: Denies: dyspnea GI: Denies: abdominal pain, nausea, vomiting or diarrhea Skin/Breast: Denies: rash Neuro: Denies: headache(s), numbness in extremities, weakness in extremities or sensory changes Psych: Denies: anxiety, depression, visual hallucinations, auditory hallucinations, suicidal ideation or homicidal ideation Physical Exam Const: COMMON NORMALS: no acute distress, patient oriented x3, alert and well nourished GENERAL APPEARANCE: cooperative and well kempt Resp: COMMON NORMALS: normal respiratory effort and clear to auscultation bilaterally AUSCULTATION: clear to auscultation bilaterally Cardio: COMMON NORMALS: regular rate and regular rhythm RATE: regular rate RHYTHM: regular rhythm Neuro: COMMON NORMALS: patient oriented x3 SENSORIUM/ORIENTATION: Yes alert Psych: COMMON NORMALS: mental status grossly normal, normal affect, denies hallucinations, denies homicidal ideation and denies suicidal ideation APPEARANCE: Yes grossly normal and Yes well kempt ATTITUDE: Yes evasive ACTIVITY/MOTOR BEHAVIOR: Yes appropriate eye contact and No psychomotor agitation SPEECH: Yes minimal MOOD & AFFECT: Yes euthymic mood THOUGHT CONTENT: Yes Normal thought content present ATTENTION/CONCENTRATION: Yes attention grossly intact and Yes concentration grossly intact MEMORY/COGNITION: Yes memory grossly intact and Yes cognition grossly intact INSIGHT: Limited insight present (Psych) JUDGEMENT: Fair judgement present (Psych) Skin: COMMON NORMALS: no rashes or lesions noted GENERAL SKIN EXAM: no rashes or lesions noted Course ED course: We will fax affidavit to [facility] director so she can complete and we can keep patient. Vital Signs: Vital signs: Vital Signs Temperature 98.2 F 07/25/23 10:50 Pulse Rate 98 07/25/23 10:50 Respiratory Rate 18 07/25/23 12:46 Blood Pressure 157/102 07/25/23 12:59 Pulse Oximetry 99 07/25/23 10:50 Oxygen Delivery Me thod Room Air 07/25/23 10:50 MDM - Psych Medical Decision Making Patient will be an admit to NPU for treatment/evaluation of delusions. She has been placed on a 96-hour hold. Dr. Agarwal will write admit orders. Lab Data 07/25/23 11:48 07/25/23 11:48 Laboratory Results WBC 6.81 10^3/uL (3.29-11.43) 07/25/23 11:48 RBC 4.69 10^6/uL (3.85-5.65) 07/25/23 11:48 Hgb 14.00 g/dL (11.27-16.99) 07/25/23 11:48 Hct 42.9 % (36-47) 07/25/23 11:48 MCV 91.5 fl (85-98) 07/25/23 11:48 MCH 29.9 pg (27-33) 07/25/23 11:48 MCHC 32.6 g/dL (30-55) 07/25/23 11:48 RDW 14.5 % (12.1-15.1) 07/25/23 11:48 Plt Count 277 10^3/cmm (157-399) 07/25/23 11:48 MPV 10.5 fL (7.4-10.4) H 07/25/23 11:48 Neut % (Auto) 65.0 % 07/25/23 11:48 Lymph % (Auto) 22.0 % 07/25/23 11:48 [place] % (Auto) 9.8 % 07/25/23 11:48 Eos % (Auto) 2.2 % 07/25/23 11:48 Baso % (Auto) 0.6 % 07/25/23 11:48 Neut # (Auto) 4.42 10^3/uL (1.8-7.7) 07/25/23 11:48 Lymph # (Auto) 1.5 10^3/uL (0.8-4.8) 07/25/23 11:48 [place] # (Auto) 0.7 10^3/uL (0.2-0.9) 07/25/23 11:48 Eos # (Auto) 0.2 10^3/uL (0.0-0.8) 07/25/23 11:48 Baso # (Auto) 0.0 10^3/uL (0.0-0.1) 07/25/23 11:48 Nucleated RBC % (auto) 0 % 07/25/23 11:48 Nucleated RBCs # 0.0 /100WBC 07/25/23 11:48 Sodium 136 mmol/L (136-145) 07/25/23 11:48 Potassium 5.1 mmol/L (3.5-5.1) 07/25/23 11:48 Chloride 100 mmol/L (98-107) 07/25/23 11:48 Carbon Dioxide 25 mmol/L (22-29) 07/25/23 11:48 Anion Gap 16.1 (5-19) 07/25/23 11:48 BUN 18 mg/dL (6-20) 07/25/23 11:48 Creatinine 0.7 mg/dL (0.5-0.9) 07/25/23 11:48 GFR Calculation 85.6 mL/min (90-130) L 07/25/23 11:48 Glucose 208 mg/dL (65-115) H 07/25/23 11:48 Calculated Osmolality 290 mOsm/kg (285-295) 07/25/23 11:48 Calcium 9.7 mg/dL (8.5-10.5) 07/25/23 11:48 Total Bilirubin 0.4 mg/dL (0.15-1.2) 07/25/23 11:48 AST 26 U/L (0-32) 07/25/23 11:48 ALT 26 U/L (0-33) 07/25/23 11:48 Alkaline Phosphatase 97 U/L (35-105) 07/25/23 11:48 Total Protein 8.0 g/dL (6.6-8.7) 07/25/23 11:48 Albumin 4.4 g/dL (3.5-5.2) 07/25/23 11:48 Globulin 3.6 g/dL (1.3-4.6) 07/25/23 11:48 Salicylates < 0.3 mg/dL (3-10) L 07/25/23 11:48 Acetaminophen < 5.0 ug/mL (10-30) L 07/25/23 11:48 Ethyl Alcohol < 10 mg/dL (0-10) 07/25/23 11:48 No radiology studies performed this visit Discharge Plan Discharge Patient Disposition: Admitted As Inpatient Clinical Impression: Delusional ideas, Aggressive behavior Condition: Stable Prescriptions: No Action promethazine-DM 6.25-15 mg/5 mL Syrup 5 ml PO Q4H PRN (Reason: Cough) amitriptyline 75 mg tablet 75 mg PO BEDTIME gabapentin 300 mg capsule 600 mg PO TID allopurinol 300 mg tablet 300 mg PO QAM furosemide 20 mg tablet 20 mg PO BID PRN (Reason: Edema) Ventolin HFA 90 mcg/actuation Hfa Aerosol Inhaler 2 puff INHALATION Q4H PRN (Reason: Shortness Of Breath) colchicine (gout) 0.6 mg tablet 0.6 mg PO DAILY PRN (Reason: flares) Toprol XL 25 mg tablet extended release 24 hr 25 mg PO QAM lisinopril 40 mg tablet 40 mg PO QAM Referrals: Shai Hill MD [Primary Care Provider] - Coding Level of Care Code ED Furniture Painter for Ranjana Orellana
[2023-07-25 10:50] VITALS: BP 201/105; PULSE 98; RESP 18; TEMP 36.8; O2SAT 99; BMI 34.1
--- NOTE | 2023-07-25 11:24 | PC.PHAR ---
pt states she takes care of her own medications-pt states she is no longer taking benazepril 40mg daily rameys last filled 05/26/23 30d/s states has refills pt states came to er and er dr prescribed lisinopril 40mg qam and toprol xl 25mg daily both filled 07/07/23 30d/s-pt states she takes lasix 20mg bid prn filled 05/26/23 30d/s 20mg bid -pt states she also takes colchicine 0.6mg daily prn flares rx filled 05/26/23 30d/s 0.6mg daily-pt states had a build up and still takes gabapentin 300mg takes 600mg tid and allopurinol 300mg daily filled 05/26/23 30d/s
[2023-07-25] MEDS: metoprolol succinate ER (24 HR) 25 mg Tablet PO (11:43)
[2023-07-25] MEDS: lisinopril 20 mg Tablet 40 MG PO (11:43)
[2023-07-25 11:55] LABS: Basophils % 0.6 %; Eosinophils # 0.2 10^3/uL (0.0-0.8); Eosinophils % 2.2 %; Hematocrit 42.9 % (36-47); Lymphocytes # 1.5 10^3/uL (0.8-4.8); Mean Corpuscular HGB Conc 32.6 g/dL (30-55); Mean Corpuscular Hemoglobin 29.9 pg (27-33); Mean Corpuscular Volume 91.5 fl (85-98); Mean Platelet Volume 10.5 fL (7.4-10.4); Monocytes # 0.7 10^3/uL (0.2-0.9); Monocytes % 9.8 %; Neutrophils # 4.42 10^3/uL (1.8-7.7); Nucleated Red Blood Cells % 0 %; Platelet Count 277 10^3/cmm (157-399); Red Blood Count 4.69 10^6/uL (3.85-5.65); Red Cell Distribution Width 14.5 % (12.1-15.1); White Blood Count 6.81 10^3/uL (3.29-11.43)
[2023-07-25 12:22] LABS: Alanine Aminotransferase 26 U/L (0-33); Albumin Level 4.4 g/dL (3.5-5.2); Alkaline Phosphatase 97 U/L (35-105); Anion Gap 16.1 (5-19); Aspartate Amino Transferase 26 U/L (0-32); Blood Urea Nitrogen 18 mg/dL (6-20); Calcium 9.7 mg/dL (8.5-10.5); Carbon Dioxide 25 mmol/L (22-29); Chloride 100 mmol/L (98-107); Globulin 3.6 g/dL (1.3-4.6); Glomerular Filtration Rate 85.6 mL/min (90-130); Glucose 208 mg/dL (65-115); Osmolality Calculated 290 mOsm/kg (285-295); Potassium 5.1 mmol/L (3.5-5.1); Sodium 136 mmol/L (136-145); Total Bilirubin 0.4 mg/dL (0.15-1.2)
[2023-07-25 12:25] LABS: Acetaminophen < 5.0 ug/mL (10-30); Alcohol Level < 10 mg/dL (0-10); Salicylate < 0.3 mg/dL (3-10)
[2023-07-25 12:46] VITALS: RESP 18
[2023-07-25 12:59] VITALS: BP 157/102
--- NOTE | 2023-07-25 13:05 | PC.NURSE ---
96 hour hold rights reviewed and read to patient. Patient verbalized understandings. She stated she has an appointment to help get housing in two days. This nurse told patient she would notify case management. Copy of rights given to patient.
[2023-07-25 14:43] VITALS: BP 167/111; PULSE 87; RESP 15; TEMP 36.5; O2SAT 99
[2023-07-25] MEDS: flu vacc pf 2023-24 (6 mos+) 60 MCG IM (16:02)
--- NOTE | 2023-07-25 17:04 | PC.NURSE ---
patient takes benazepril 40mg PO 1 daily. Talked to Tadeo at Pharmacy. Because we don't carry this, the patient can take 10mg Lisinopril in its place. change made in orders
[2023-07-25 17:29] LABS: Glucose Point of Care 145 mg/dL (70-110)
[2023-07-25 20:28] LABS: Glucose Point of Care 140 mg/dL (70-110)
[2023-07-25] MEDS: gabapentin 300 mg Capsule 600 MG PO (20:37)
[2023-07-25] MEDS: amitriptyline 25 mg Tablet 75 MG PO (20:37)
[2023-07-25] MEDS: FUROsemide 20 mg Tablet PO (20:37)
[2023-07-25 20:52] VITALS: BP 125/78; PULSE 82; RESP 16; O2SAT 97
[2023-07-25 21:19] LABS: Amphetamines Screen Urine Negative (Negative); Barbiturates Screen Urine Negative (Negative); Benzodiazepines Screen Urine Negative (Negative); Cocaine Screen Urine Negative (Negative); Opiate Screen Urine Negative (Negative); PCP Screen Urine Negative (Negative); THC Screen Urine Negative (Negative)
[2023-07-25 22:49] VITALS: PULSE 83; O2SAT 98
[2023-07-26 06:00] VITALS: BP 138/84; PULSE 65; RESP 16; O2SAT 98
[2023-07-26] MEDS: allopurinol 100 mg Tablet 300 MG PO (06:10)
[2023-07-26] MEDS: metoprolol succinate ER (24 HR) 25 mg Tablet PO (06:10)
[2023-07-26 07:41] LABS: Glucose Point of Care 176 mg/dL (70-110)
[2023-07-26] MEDS: FUROsemide 20 mg Tablet PO ×2 (09:20→20:15)
[2023-07-26] MEDS: lisinopril 20 mg Tablet 10 MG PO (09:20)
[2023-07-26] MEDS: gabapentin 300 mg Capsule 600 MG PO ×3 (09:20→20:14)
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
[2023-07-26 11:49] LABS: Glucose Point of Care 163 mg/dL (70-110)
[2023-07-26 14:00] VITALS: BP 126/85; PULSE 84; RESP 17; TEMP 36.4; O2SAT 96
[2023-07-26] MEDS: acetaminophen 325 mg Tablet 650 MG PO (14:59)
[2023-07-26 15:06] LABS: Glucose Point of Care 168 mg/dL (70-110)
[2023-07-26 17:26] LABS: Glucose Point of Care 200 mg/dL (70-110)
--- NOTE | 2023-07-26 18:24 | PC.NURSE ---
ORDERED ONDANSETRON FOR NAUSEA FOR PATIENT. ONDANSETRON IS FLAGGED BECAUSE OF HER ALLERGY TO PEANUTS. TALKED TO PHARMACY. THEY SAID THAT IF SHE HAS HAD IT BEFORE WITH NO ISSUE, THEN IT IS OKAY. PATIENT REPORTS ROUTINE USE OF THIS MEDICATION. PHARMACY COULDN'T FIND ANYTHING IN THEIR RESEARCH THAT WOULD CAUSE A REACTION. PATIENT STATES THAT PHENERGAN MAKES HER NAUSEOUS
[2023-07-26] MEDS: ondansetron 4 MG Tablet 8 MG PO (18:33)
[2023-07-26] MEDS: amitriptyline 25 mg Tablet 75 MG PO (20:15)
[2023-07-26 20:41] LABS: Glucose Point of Care 187 mg/dL (70-110)
[2023-07-26 21:00] VITALS: O2SAT 97
[2023-07-26 21:24] VITALS: BP 100/63; PULSE 64; RESP 16; TEMP 36.6; O2SAT 96
[2023-07-27 06:00] VITALS: BP 101/69; PULSE 100; RESP 14; TEMP 36.4; O2SAT 95
[2023-07-27] MEDS: metoprolol succinate ER (24 HR) 25 mg Tablet PO (06:26)
[2023-07-27] MEDS: lisinopril 20 mg Tablet 10 MG PO (06:26)
[2023-07-27] MEDS: allopurinol 100 mg Tablet 300 MG PO (06:26)
[2023-07-27 06:38] LABS: Glucose Point of Care 176 mg/dL (70-110)
[2023-07-27 07:57] LABS: Glucose Point of Care 180 mg/dL (70-110)
[2023-07-27] MEDS: gabapentin 300 mg Capsule 600 MG PO ×3 (09:28→20:05)
[2023-07-27] MEDS: FUROsemide 20 mg Tablet PO ×2 (09:28→20:05)
[2023-07-27] MEDS: acetaminophen 325 mg Tablet 650 MG PO ×2 (09:34→20:08)
--- NOTE | 2023-07-27 10:04 | W.PM.NPUPNS ---
Subjective NPU Subjective: Patient presented today reporting that she is feeling okay. She continues to endorse the delusional content from yesterday and somewhat reluctantly agreed to a trial of Abilify after discussion of the risks, benefits and alternatives she understood and agreed to proceed as documented in this note. Mental Status Exam MSE Comments: This is an overweight versus obese, white female, in hospital scrubs, with limited grooming and adequate eye contact, looking older than her stated age. No abnormal movement, except for mild psychomotor retardation. Cooperative with exam in no acute distress. Speech was decreased rate and volume. Mood described as good; affect congruent. Thought process, organized. Thought content: patient denied any suicidal or homicidal ideation; no delusions reported but concerns for delusional thinking present; patient denied any auditory or visual hallucinations. Attention, concentration, and memory appeared intact, but none were formally tested. Alert and oriented times three. Insight and judgment appear limited. Impulse control is impaired. Vitals/I&O/Wt Last Vital Signs Temp 97.2 F 07/27/23 06:00 Pulse 100 07/27/23 06:00 Resp 14 07/27/23 06:00 BP 101/69 07/27/23 06:00 Pulse Ox 95 07/27/23 06:00 O2 Del Method Room Air 07/27/23 06:00 Data NPU 07/25/23 11:48 07/25/23 11:48 A&P Assessment and plan (1) Delusional ideas: (2) Aggressive behavior: (3) Psychosis: Plan This is a 58-year-old, white female, with a limited reported history of mental health issues or treatment, who presents on a 96-hour hold secondary to the homeless [place] [facility] she is staying at requiring that she be seen related to concerns they have about some odd behaviors and possible psychosis. 1.? Encourage individual, group, and milieu therapy. 2.? Continue q-15-minute checks for safety. 3. Start Abilify 5 mg now and 10 mg p.o. every morning starting tomorrow. Involuntary Hold Information 96 Hour Hold: 96 Hour Involuntary Admission: Yes 96 Hour Hold Ending Date: 07/31/23 96 Hour Hold Ending Time: 12:55 Attestations NPU Medical Necessity Statement*: Inpatient hospitalization is medically necessary and the clinically appropriate intervention, at this time. We will monitor medications and make changes as indicated. Likely length of stay is three to five days. Coding Level of Care Code Acute Code for Chg Fwd Diagnoses Delusional ideas F22 Aggressive behavior R46.89 Psychosis F29
[2023-07-27] MEDS: ARIPiprazole 10 mg Tablet 5 MG PO (11:31)
--- NOTE | 2023-07-27 11:33 | PC.NURSE ---
WHILE ADMINISTERING PT ONE TIME DOSE OF 5MG PO ABILIFY THIS NURSE REQUESTED TO SEE THAT SHE HAD SWALLOWED THE MEDICATION. PT THE STATED TO THIS NURSE GO GET MY SOME ICE WATER. THIS NURSE STATED THAT I NEED TO SEE THAT SHE HAD SWALLOWED THE PILL. PT THEN SHOWED THIS NURSE THAT SHE HAD NOT SWALLOWED THE PILL. THIS NURSE THEN GOT PT WATER OUT OF THE SINK AND GAVE IT TO THE PT SO SHE COULD TAKE THE MEDICATION. PT THE DRANK THE WATER AND THIS NURSE AGAIN ASKED IF SHE COULD VERIFY THAT THE PT HAD TAKEN THE MEDICATION THE PT DID SHOW THIS NURSE THAT HER MOUTH WAS EMPTY. THIS NURSE THEN CAME BACK TO THE NURSES STATION. THIS PT THEN CAME TO THE NURSES STATION AND REQUESTED THIS NURSE TO HAVE THEM STOP BRINGING HER MEALS. THIS NURSE STATED THAT SHE WOULD BE UNABLE TO DO THIS WE HAVE TO FEED EVERYBODY. PT THEN STATED WELL IM NOT HUNGRY ANYMORE. THIS NURSE OFFERED TO HELP PT FIND SOMETHING THAT SHE WOULD BE WILLING TO EAT AND PT STATED I JUST AM NOT EATING ANYMORE. PHYSICIAN HAS BEEN NOTIFIED NO NEW ORDERS AT THIS TIME.
[2023-07-27 13:54] VITALS: BP 114/71; PULSE 63; RESP 16; TEMP 36.6; O2SAT 96
[2023-07-27] MEDS: ondansetron 4 MG Tablet 8 MG PO (16:19)
[2023-07-27 16:49] LABS: Glucose Point of Care 148 mg/dL (70-110)
[2023-07-27] MEDS: amitriptyline 25 mg Tablet 75 MG PO (20:05)
[2023-07-27 20:25] LABS: Glucose Point of Care 213 mg/dL (70-110)
[2023-07-27 20:42] VITALS: BP 93/65; PULSE 73; RESP 18; TEMP 36.7; O2SAT 94
[2023-07-27 21:35] VITALS: PULSE 88; O2SAT 98
[2023-07-28 06:00] VITALS: BP 108/70; PULSE 89; RESP 16; TEMP 36.6; O2SAT 97
[2023-07-28] MEDS: lisinopril 20 mg Tablet 10 MG PO (06:41)
[2023-07-28] MEDS: allopurinol 100 mg Tablet 300 MG PO (06:41)
[2023-07-28] MEDS: metoprolol succinate ER (24 HR) 25 mg Tablet PO (06:42)
[2023-07-28 07:45] LABS: Glucose Point of Care 163 mg/dL (70-110)
[2023-07-28] MEDS: gabapentin 300 mg Capsule 600 MG PO ×3 (09:14→20:37)
[2023-07-28] MEDS: FUROsemide 20 mg Tablet PO ×2 (09:14→20:37)
[2023-07-28] MEDS: ARIPiprazole 10 mg Tablet PO (09:14)
[2023-07-28 12:14] LABS: Glucose Point of Care 182 mg/dL (70-110)
[2023-07-28] MEDS: ondansetron 4 MG Tablet 8 MG PO (12:53)
--- NOTE | 2023-07-28 13:10 | P.NPUPN_ITS ---
Subjective NPU Subjective: Patient presented today reporting that she is feeling okay. She denied any side effects from the Abilify and reports that she thinks it is helping her think more clearly. She assigned other benefits to it like her joints aching less. No overt psychotic thoughts forwarded. She inquired about discharge. We discussed the likelihood of her stay possibly extending beyond 07/31/2023. We discussed that we would need to submit a 21-day hold request if that were the case. Mental Status Exam MSE Comments: This is an overweight versus obese, white female, in hospital scrubs, with limited grooming and adequate eye contact, looking older than her stated age. No abnormal movement, except for mild psychomotor retardation. Cooperative with exam in no acute distress. Speech was decreased rate and volume. Mood described as good; affect congruent. Thought process, organized. Thought content: patient denied any suicidal or homicidal ideation; no delusions reported but concerns for delusional thinking present; patient denied any auditory or visual hallucinations. Attention, concentration, and memory appeared intact, but none were formally tested. Alert and oriented times three. Insight and judgment appear limited. Impulse control is impaired. Vitals/I&O/Wt Last Vital Signs Temp 97.8 F 07/28/23 06:00 Pulse 89 07/28/23 06:00 Resp 16 07/28/23 06:00 BP 108/70 07/28/23 06:00 Pulse Ox 97 07/28/23 06:00 O2 Del Method Room Air 07/28/23 06:00 FiO2 21 07/27/23 21:35 Data NPU 07/25/23 11:48 07/25/23 11:48 A&P Assessment and plan (1) Delusional ideas: (2) Aggressive behavior: (3) Psychosis: Plan This is a 58-year-old, white female, with a limited reported history of mental health issues or treatment, who presents on a 96-hour hold secondary to the homeless care home she is staying at requiring that she be seen related to concerns they have about some odd behaviors and possible psychosis. 1.? Encourage individual, group, and milieu therapy. 2.? Continue q-15-minute checks for safety. 3. Started Abilify 5 mg 07/27/2023 and 10 mg p.o. every morning today. Involuntary Hold Information 96 Hour Hold: 96 Hour Involuntary Admission: Yes 96 Hour Hold Ending Date: 07/31/23 96 Hour Hold Ending Time: 12:55 Attestations NPU Medical Necessity Statement*: Inpatient hospitalization is medically necessary and the clinically appropriate intervention, at this time. We will monitor medications and make changes as indicated. Likely length of stay is three to five days. Coding Level of Care Code Acute Code for Chg Fwd Diagnoses Delusional ideas F22 Aggressive behavior R46.89 Psychosis F29
[2023-07-28 14:00] VITALS: BP 135/74; PULSE 75; RESP 16; TEMP 37; O2SAT 98
[2023-07-28 17:46] LABS: Glucose Point of Care 178 mg/dL (70-110)
[2023-07-28 19:51] VITALS: BP 76/43; PULSE 85; RESP 18; TEMP 36.6; O2SAT 98
[2023-07-28 20:06] LABS: Glucose Point of Care 149 mg/dL (70-110)
[2023-07-28] MEDS: loperamide 2 mg Capsule PO (20:37)
[2023-07-28] MEDS: amitriptyline 25 mg Tablet 75 MG PO (20:37)
[2023-07-28 21:25] VITALS: O2SAT 97
[2023-07-29 06:00] VITALS: BP 136/85; PULSE 84; RESP 18; TEMP 36.4; O2SAT 96
--- NOTE | 2023-07-29 08:00 | P.NPUPN_ITS ---
Subjective NPU Subjective: Patient presented today reporting that she was feeling okay. When asked directly about some of her previously related likely delusional reports she endorsed that she was not thinking about those things and suggested being unclear about whether they were real. She was also asking about discharge so it is unclear whether that change is authentic or represents her trying to get discharge. We discussed that Dr. Connelly would be here tomorrow and he will be the arbiter of discharge. We discussed the possibility of a 21-day hold being filed Monday as concerns for psychosis remain. Mental Status Exam MSE Comments: This is an overweight versus obese, white female, in hospital scrubs, with limited grooming and adequate eye contact, looking older than her stated age. No abnormal movement, except for mild psychomotor retardation. Cooperative with exam in no acute distress. Speech was decreased rate and volume. Mood described as good; affect congruent. Thought process, organized. Thought content: patient denied any suicidal or homicidal ideation; no delusions reported but concerns for delusional thinking present; patient denied any auditory or visual hallucinations. Attention, concentration, and memory appeared intact, but none were formally tested. Alert and oriented times three. Insight and judgment appear limited. Impulse control is impaired. Vitals/I&O/Wt Last Vital Signs Temp 98.2 F 07/29/23 19:47 Pulse 77 07/29/23 21:40 Resp 14 07/29/23 19:47 BP 140/86 07/29/23 19:47 Pulse Ox 99 07/29/23 21:40 O2 Del Method Room Air 07/29/23 19:47 FiO2 21 07/29/23 21:40 Weight last 48 hrs Weight 99.337 kg Data NPU 07/25/23 11:48 07/25/23 11:48 A&P Assessment and plan (1) Delusional ideas: (2) Aggressive behavior: (3) Psychosis: Plan This is a 58-year-old, white female, with a limited reported history of mental health issues or treatment, who presents on a 96-hour hold secondary to the homeless assisted she is staying at requiring that she be seen related to concerns they have about some odd behaviors and possible psychosis. 1.? Encourage individual, group, and milieu therapy. 2.? Continue q-15-minute checks for safety. 3. Started Abilify 5 mg 07/27/2023 and 10 mg p.o. every morning thereafter.. Involuntary Hold Information 96 Hour Hold: 96 Hour Involuntary Admission: Yes 96 Hour Hold Ending Date: 07/31/23 96 Hour Hold Ending Time: 12:55 Attestations NPU Medical Necessity Statement*: Inpatient hospitalization is medically necessary and the clinically appropriate intervention, at this time. We will monitor medications and make changes as indicated. Likely length of stay is three to five days. Coding Level of Care Code Acute Code for Chg Fwd Diagnoses Delusional ideas F22 Aggressive behavior R46.89 Psychosis F29
[2023-07-29 08:06] LABS: Glucose Point of Care 206 mg/dL (70-110)
[2023-07-29] MEDS: allopurinol 100 mg Tablet 300 MG PO (08:25)
[2023-07-29] MEDS: ARIPiprazole 10 mg Tablet PO (08:25)
[2023-07-29] MEDS: gabapentin 300 mg Capsule 600 MG PO ×3 (08:25→20:29)
[2023-07-29] MEDS: lisinopril 20 mg Tablet 10 MG PO (08:25)
[2023-07-29] MEDS: FUROsemide 20 mg Tablet PO ×2 (08:26→20:29)
[2023-07-29] MEDS: metoprolol succinate ER (24 HR) 25 mg Tablet PO (08:26)
[2023-07-29 12:13] LABS: Glucose Point of Care 165 mg/dL (70-110)
[2023-07-29 12:37] VITALS: BP 159/93; PULSE 77; RESP 14; TEMP 36.3; O2SAT 99
[2023-07-29] MEDS: meclizine 25 mg tablet PO (14:38)
[2023-07-29 17:43] LABS: Glucose Point of Care 176 mg/dL (70-110)
[2023-07-29] MEDS: hyDROXYzine 25 mg Capsule 50 MG PO (18:43)
[2023-07-29 19:47] VITALS: BP 140/86; PULSE 78; RESP 14; TEMP 36.8; O2SAT 98
[2023-07-29] MEDS: amitriptyline 25 mg Tablet 75 MG PO (20:29)
[2023-07-29 20:53] LABS: Glucose Point of Care 175 mg/dL (70-110)
[2023-07-29 21:40] VITALS: PULSE 77; O2SAT 99
[2023-07-30 06:00] VITALS: BP 106/59; PULSE 71; RESP 16; TEMP 36.6; O2SAT 96
--- NOTE | 2023-07-30 07:58 | PC.NURSE ---
Watching tv in the dayroom this morning. Patient denies avh and si/hi. She denies any anxiety or depression as well. She stated, I just feel like drawing. This RN got the patient crayons, paper, and a pen. She endorses back pain at an 8/10.
[2023-07-30 08:10] LABS: Glucose Point of Care 190 mg/dL (70-110)
[2023-07-30] MEDS: lisinopril 20 mg Tablet 10 MG PO (09:18)
[2023-07-30] MEDS: ARIPiprazole 10 mg Tablet PO (09:18)
[2023-07-30] MEDS: FUROsemide 20 mg Tablet PO ×2 (09:18→20:04)
[2023-07-30] MEDS: allopurinol 100 mg Tablet 300 MG PO (09:18)
[2023-07-30] MEDS: metoprolol succinate ER (24 HR) 25 mg Tablet PO (09:19)
[2023-07-30] MEDS: gabapentin 300 mg Capsule 600 MG PO ×3 (09:19→20:04)
--- NOTE | 2023-07-30 10:02 | PC.NURSE ---
Patient resting in bed with eyes open. She did come ask this RN to come to her room to look at something. Once in the room, she pointed to a patchy spot on the wall and asked if it was moving. This RN stated it was not, but that it might appear that way due to the paint being patchy. Then the patient said, I think it might be a bug. Patient was reassured there was not a bug in or on the wall.
[2023-07-30 12:35] LABS: Glucose Point of Care 141 mg/dL (70-110)
[2023-07-30 13:33] VITALS: BP 114/67; PULSE 91; RESP 17; TEMP 36.5; O2SAT 98
[2023-07-30] MEDS: benzocaine 20% 7 gm 1 APPLIC MUCOUS MEM (14:19)
--- NOTE | 2023-07-30 15:02 | W.PM.NPUPNS ---
Subjective NPU Subjective: The patient is a 58-year-old white female with no previous history of inpatient hospitalizations who was admitted due to concerns of bizarre behavior while residing in the homeless group home. Patient had reported no side effects to her Abilify. She appeared to isolate herself on the milieu but stated that she had been stressed as she had been living in her homeless group home after enduring a divorce that it occurred approximately 10 months ago. She reported feeling depressed at this time due to her living situation. She had minimized any thoughts about being targeted by others. She did report that she felt like something was inside the [place] of her room. She had minimized any ideas or thoughts of having been brought here because she was unsafe at her group home. Mental Status Exam MSE Comments: This is an overweight versus obese, white female, in hospital scrubs, with poor grooming and adequate eye contact, looking older than her stated age. No abnormal movement, except for mild psychomotor retardation. She was cooperative with exam in no acute distress. Speech was decreased in rate and normal in volume. Mood described as okay. Her affect was flat. Her thought process was organized. Thought content: patient denied any suicidal or homicidal ideation; there was some paranoia present; patient denied any auditory or visual hallucinations. Attention, concentration, and memory appeared intact, but none were formally tested. Alert and oriented times three. Insight and judgment appear limited. Impulse control is impaired. Vitals/I&O/Wt Last Vital Signs Temp 97.7 F 07/30/23 13:33 Pulse 91 07/30/23 13:33 Resp 17 07/30/23 13:33 BP 114/67 07/30/23 13:33 Pulse Ox 98 07/30/23 13:33 O2 Del Method Room Air 07/30/23 06:00 FiO2 21 07/29/23 21:40 Weight last 48 hrs Weight 99.337 kg Weight 99.337 kg Data NPU 07/25/23 11:48 07/25/23 11:48 A&P Assessment and plan (1) Delusional ideas: (2) Aggressive behavior: (3) Psychosis: Plan This is a 58-year-old, white female, with a limited reported history of mental health issues or treatment, who presents on a 96-hour hold secondary to the homeless group home she is staying at requiring that she be seen related to concerns they have about some odd behaviors and possible psychosis. 1.? Encourage individual, group, and milieu therapy. 2.? Continue q-15-minute checks for safety. 3. Continue Abilify 10mg daily. Consider SSRI. Patient still appears quite paranoid. She may require continued stay here. Involuntary Hold Information 96 Hour Hold: 96 Hour Involuntary Admission: Yes 96 Hour Hold Ending Date: 07/31/23 96 Hour Hold Ending Time: 12:55 Attestations NPU Medical Necessity Statement*: Inpatient hospitalization is medically necessary and the clinically appropriate intervention, at this time. We will monitor medications and make changes as indicated. The patient's likely length of stay is three to five days. Coding Level of Care Code Acute Code for [facility] Fwd Diagnoses Delusional ideas F22 Aggressive behavior R46.89 Psychosis F29
[2023-07-30] MEDS: acetaminophen 325 mg Tablet 650 MG PO (15:16)
[2023-07-30 17:18] LABS: Glucose Point of Care 188 mg/dL (70-110)
--- NOTE | 2023-07-30 18:05 | PC.NURSE ---
Patient approached the nurses' station and asked, is any of this going to ruin my career later? This RN explained that we aren't allowed to discuss her information or her stay with anyone due to HIPAA.
[2023-07-30] MEDS: amitriptyline 25 mg Tablet 75 MG PO (20:04)
[2023-07-30 20:08] VITALS: BP 111/72; PULSE 90; RESP 16; O2SAT 99
[2023-07-30 21:38] LABS: Glucose Point of Care 262 mg/dL (70-110)
[2023-07-30 22:09] VITALS: PULSE 74; O2SAT 98
--- NOTE | 2023-07-30 23:52 | PC.NURSE ---
Pt states she no longer wants to wear cpap device at this time. Device removed and sitter removed.
[2023-07-31] MEDS: ibuprofen 600 mg Tablet PO (00:12)
[2023-07-31 06:00] VITALS: BP 94/62; PULSE 79; RESP 16; O2SAT 96
[2023-07-31] MEDS: acetaminophen 325 mg Tablet 650 MG PO (07:57)
[2023-07-31] MEDS: gabapentin 300 mg Capsule 600 MG PO ×2 (08:13→15:05)
[2023-07-31] MEDS: allopurinol 100 mg Tablet 300 MG PO (08:13)
[2023-07-31] MEDS: ARIPiprazole 10 mg Tablet PO (08:14)
[2023-07-31] MEDS: FUROsemide 20 mg Tablet PO (08:14)
[2023-07-31] MEDS: metoprolol succinate ER (24 HR) 25 mg Tablet PO (08:14)
[2023-07-31] MEDS: lisinopril 20 mg Tablet 10 MG PO (08:14)
[2023-07-31 08:30] LABS: Glucose Point of Care 197 mg/dL (70-110)
[2023-07-31 11:57] LABS: Glucose Point of Care 191 mg/dL (70-110)
[2023-07-31 12:26] LABS: Basophils # 0.1 10^3/uL (0.0-0.1); Basophils % 0.5 %; Eosinophils # 0.3 10^3/uL (0.0-0.8); Hematocrit 39.2 % (36-47); Lymphocytes # 1.8 10^3/uL (0.8-4.8); Lymphocytes % 19.6 %; Mean Corpuscular HGB Conc 33.7 g/dL (30-55); Mean Corpuscular Volume 89.1 fl (85-98); Mean Platelet Volume 10.8 fL (7.4-10.4); Monocytes # 1.3 10^3/uL (0.2-0.9); Monocytes % 13.7 %; Neutrophils # 5.69 10^3/uL (1.8-7.7); Neutrophils % 62.5 %; Nucleated Red Blood Cells % 0 %; Platelet Count 293 10^3/cmm (157-399); Red Cell Distribution Width 14.3 % (12.1-15.1); White Blood Count 9.11 10^3/uL (3.29-11.43)
[2023-07-31 14:00] VITALS: BP 90/64; PULSE 65; RESP 20; TEMP 36.9; O2SAT 97
[2023-07-31] MEDS: cephALEXin 500 mg Capsule PO (15:05)
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
[2023-07-31 16:11] VITALS: BP 90/64; PULSE 65; RESP 20; TEMP 36.9; O2SAT 97
== END 2023-07-31 17:06 | disposition home or self-care (01) | DRG 885 ==
LOC: ER 13:08 → NP 13:30
PROVIDERS: Psychiatry & Neurology Psychiatry; Admitting Provider Psychiatry & Neurology Psychiatry; Emergency Provider Physician Assistant; PCP Family Medicine; Visit Provider Psychiatry & Neurology Psychiatry
DX: F22 Delusional disorders (principal); Z59.00 Homelessness unspecified; Z81.8 Family history of other mental and behavioral disorders; Z81.4 Family history of other substance abuse and dependence; Z62.810 Personal history of physical and sexual abuse in childhood; Z62.811 Personal history of psychological abuse in childhood
CPT/HCPCS: 36415; 36416; 80053; 80306; 80307; 82962; 85025; 90471; 90686; 94660; 97150; 97165; 99285; J8597; Q0162

== ENCOUNTER 2023-09-12 08:03 | Emergency (ER) | payer OTHER, MEDICAID, SELFPAY ==
[2023-09-12 08:05] VITALS: BP 160/87; PULSE 79; TEMP 36.6; O2SAT 99; BMI 34.0
--- NOTE | 2023-09-12 08:26 | PC.PHAR ---
pt states she takes care of her own medications-pt states she dced her aripiprazole 10mg daily ext shows last filled 07/31/23 30d/s-
--- NOTE | 2023-09-12 08:29 | XRR_ITS ---
PROCEDURE INFORMATION: Exam: XR Right Knee Exam date and time: 09/12/2023 8:35 AM Age: 58 years old Clinical indication: Injury or trauma; Fall; Blunt trauma; Knee; Bilateral TECHNIQUE: Imaging protocol: Radiologic exam of the right knee. Views: 3 views. COMPARISON: No relevant prior studies available. FINDINGS: Bones/joints: Normal. No fracture or dislocation. No acute osseous or joint abnormality. Soft tissues: Normal. XR/XR knee RT 3V* [id number] IMPRESSION: No acute findings.
--- NOTE | 2023-09-12 08:29 | XRR_ITS ---
PROCEDURE INFORMATION: Exam: XR Left Knee Exam date and time: 09/12/2023 8:35 AM Age: 58 years old Clinical indication: Injury or trauma; Fall; Blunt trauma; Knee; Bilateral TECHNIQUE: Imaging protocol: Radiologic exam of the left knee. Views: 3 views. COMPARISON: No relevant prior studies available. FINDINGS: Bones/joints: Ghost tracks from prior hardware in the proximal tibia. Degenerative changes the faint chondrocalcinosis mild/moderate marginal spurring. No erosive changes. No fracture or dislocation. Soft tissues: Normal. XR/XR knee LT 3V* [id number] IMPRESSION: No acute findings.
--- NOTE | 2023-09-12 08:32 | W.ED.EXTPRO ---
HPI - Extremity Problem General: Chief complaint: Extremity Injury, Lower Stated complaint: fall Time Seen by Provider: 09/12/23 08:23 Source: patient Mode of arrival: EMS History of Present Illness: 58-year-old female who fell while taking out her trash complaining of bilateral knee pain she has contusions to her knees. She did note denies any other injuries not strike her head there is no loss of consciousness. No other injuries. She has previously had right knee arthroplasty. MD Complaint: joint pain Onset (ago): minute(s) Location: left, right and knee Quality: sharp Exacerbating factors: range of motion, weight bearing and palpation Associated symptoms: Deny chest pain, fever(s) or rash Review of Systems Const: Denies: fever(s) or chills Card: Denies: chest pain Resp: Denies: dyspnea GI: Denies: abdominal pain : Denies: dysuria, urinary frequency or urinary urgency Musc: Reports: joint pain; Denies: neck pain or back pain Skin/Breast: Denies: rash PFSH ED PFSH: Medical History Psychiatric care Physical Exam Const: GENERAL APPEARANCE: cooperative and comfortable ORIENTATION/CONSCIOUSNESS: Yes awake, Yes oriented to person, Yes oriented to place and Yes oriented to time HENMT: COMMON NORMALS: normocephalic, atraumatic and hearing grossly normal bilaterally HEAD & SCALP: normocephalic and atraumatic Resp: COMMON NORMALS: normal respiratory effort, No retractions, No use of accessory muscles and clear to auscultation bilaterally AUSCULTATION: clear to auscultation bilaterally Cardio: COMMON NORMALS: regular rate, regular rhythm and No murmurs present (Cardio) RATE: regular rate RHYTHM: regular rhythm GI: COMMON NORMALS: Soft to palpation and No hepatosplenomegaly present AUSCULTATION: Yes normoactive bowel sounds PALPATION: Yes Soft to palpation, No Tenderness to palpation present (GI), No Guarding due to palpation present (GI) and Yes No hepatosplenomegaly present Extremity: COMMON NORMALS: normal to inspection, capillary refill normal, no clubbing, cyanosis or edema, no calf tenderness and no pedal edema OTHER: Superficial abrasion to the left knee minor scrapes on the right knee. No acute obvious deformities Neuro: SENSORIUM/ORIENTATION: Yes oriented to person, Yes oriented to place and Yes oriented to time Skin: COMMON NORMALS: no rashes or lesions noted GENERAL SKIN EXAM: no rashes or lesions noted Course Vital Signs: Vital signs: Vital Signs Temperature 98 F 09/12/23 08:05 Pulse Rate 67 09/12/23 09:47 Blood Pressure 185/91 09/12/23 09:47 Pulse Oximetry 100 09/12/23 09:47 Oxygen Delivery Me thod Room Air 09/12/23 08:05 MDM - Extremity (Nontraumatic) Medical Decision Making No acute fractures increase activity as tolerated diclofenac for pain Medical Records I reviewed the patient's medical records. Lab Data Radiology Impressions Knee X-Ray 09/12/23 08:29 IMPRESSION: No acute findings. All radiology interpretation(s) finalized by discharge Discharge Plan Discharge Patient Disposition: Home Clinical Impression: Acute knee pain, Fall Condition: Stable Prescriptions: New diclofenac sodium 75 mg tablet,delayed release (DR/EC) 75 mg PO Q12H PRN (Reason: pain) Qty: 20 0RF No Action amitriptyline 75 mg tablet 75 mg PO BEDTIME gabapentin 300 mg capsule 600 mg PO TID allopurinol 300 mg tablet 300 mg PO QAM furosemide 20 mg tablet 20 mg PO BID PRN (Reason: Edema) albuterol sulfate [Ventolin HFA] 90 mcg/actuation Hfa Aerosol Inhaler 2 puff INHALATION Q4H PRN (Reason: Shortness Of Breath) colchicine 0.6 mg tablet 0.6 mg PO DAILY PRN (Reason: flares) metoprolol succinate [Toprol XL] 25 mg tablet extended release 24 hr 25 mg PO QAM benazepril 40 mg tablet 40 mg PO QPM Discharge Orders: Discharge ED (Routine); Ordered 09/12/23 Ordered By: Govind Hyde Referrals: Shai Hill MD [Primary Care Provider] - Discharge Diet: Usual diet Discharge Activity: Increase activity as tolerated Patient Instructions: Opioid Safety, Pain Management Activity Restrictions/Additional Instructions: Thank you for choosing [facility] for your healthcare needs today. Please realize this is an emergency room and that we are providing you with a medical screening exam and this may not be complete and all inclusive of all the testing and or work up that you may need to determine your ailment or severity of your illness. It is very important that you follow up as instructed or that you return to the Emergency Department should you have concerns or if your condition changes or worsens in any way. You are seen today after a fall x-rays of your knees are negative for acute fractures. You are likely to be uncomfortable for the next several days due to soft tissue injury. You were given diclofenac to use as needed for discomfort recommend ice your tetanus was updated as well follow-up with primary care doctor if not improving Coding Level of Care Code ED Health Care Aide for Ranjana Orellana
[2023-09-12] MEDS: HYDROcodone-acetaminophen 5-325 mg Tablet 1 TAB PO (08:56)
[2023-09-12] MEDS: tetanus-dipt-pertussis 0.5 mL SDV IM (08:57)
[2023-09-12 09:47] VITALS: BP 185/91; PULSE 67; O2SAT 100
== END 2023-09-12 09:48 | disposition home or self-care (01) ==
PROVIDERS: Emergency Provider Family Medicine; PCP Family Medicine
DX: M25.562 Pain in left knee (principal); M25.561 Pain in right knee; Z23 Encounter for immunization
CPT/HCPCS: 73562; 90471; 90715; 99283

== ENCOUNTER 2023-11-29 21:36 | Inpatient (IN) | payer OTHER, MEDICAID, SELFPAY ==
[2023-11-29 21:37] VITALS: BP 182/96; PULSE 82; RESP 18; TEMP 36.8; O2SAT 97; BMI 38.0
--- NOTE | 2023-11-29 21:46 | ECG_ITS ---
[facility] Test Date: 2023-11-29 Pat Name: Lucita Dunaway Department: Room: 102 Gender: Female Chief Clerk Shelter: : 1965 Requested By: Luis Harman Order Number: [id number] Sanket MD: Sonido Pablo M.D. Measurements Intervals [place] Rate: 75 P: 63 SD: 173 QRS: -7 QRSD: 94 T: 31 QT: 409 QTc: 457 Interpretive Statements SINUS RHYTHM POSSIBLE RIGHT VENTRICULAR CONDUCTION DELAY [RSR (QR) IN V1/V2] VOLTAGE CRITERIA FOR LVH [MEETS CRITERIA IN ONE OF: R(aVL), S(V1), R(V5), R(V5/V6)+S(V1)] No previous ECG available for comparison Electronically Signed On 11-30-2023 7:51:50 CDT by Sonido Pablo M.D. [id number]
[2023-11-29 22:08] LABS: Basophils % 0.5 %; Eosinophils # 0.4 10^3/uL (0.0-0.8); Eosinophils % 5.1 %; Hematocrit 38.3 % (36-47); Lymphocytes # 2.5 10^3/uL (0.8-4.8); Lymphocytes % 29.8 %; Mean Corpuscular HGB Conc 34.2 g/dL (30-55); Mean Corpuscular Hemoglobin 30.6 pg (27-33); Mean Corpuscular Volume 89.5 fl (85-98); Mean Platelet Volume 10.2 fL (7.4-10.4); Monocytes # 0.9 10^3/uL (0.2-0.9); Monocytes % 11.1 %; Neutrophils # 4.34 10^3/uL (1.8-7.7); Neutrophils % 52.6 %; Nucleated Red Blood Cells % 0 %; Platelet Count 274 10^3/cmm (157-399); Red Blood Count 4.28 10^6/uL (3.85-5.65); Red Cell Distribution Width 13.2 % (12.1-15.1); White Blood Count 8.23 10^3/uL (3.29-11.43)
[2023-11-29 22:28] LABS: HCG, Serum Qual Negative (Negative)
[2023-11-29 22:38] LABS: Alanine Aminotransferase 27 U/L (0-33); Albumin Level 3.9 g/dL (3.5-5.2); Alkaline Phosphatase 80 U/L (35-105); Aspartate Amino Transferase 21 U/L (0-32); Blood Urea Nitrogen 19 mg/dL (6-20); Calcium 8.8 mg/dL (8.5-10.5); Carbon Dioxide 23 mmol/L (22-29); Chloride 103 mmol/L (98-107); Globulin 3.3 g/dL (1.3-4.6); Glomerular Filtration Rate 163.4 mL/min (90-130); Glucose 235 mg/dL (65-115); Lipase 53 U/L (13-60); Osmolality Calculated 298 mOsm/kg (285-295); Sodium 139 mmol/L (136-145); Total Bilirubin 0.2 mg/dL (0.15-1.2); Total Protein 7.2 g/dL (6.6-8.7)
[2023-11-29 22:39] LABS: Creatinine Clr Calc Pharmacy 174.7528
[2023-11-29 22:41] LABS: Troponin(5th) Baseline 103 ng/L (0-10)
[2023-11-29 22:42] VITALS: BP 179/96; PULSE 71; RESP 18; O2SAT 97
[2023-11-29] MEDS: aspirin 81 mg Chew Tablet 324 MG PO (23:01)
[2023-11-29 23:18] LABS: NT Pro B Type Natriuretic Pept 433 pg/mL (0-125)
[2023-11-29 23:22] VITALS: BP 197/119; PULSE 70; RESP 18; O2SAT 99
[2023-11-29] MEDS: nitroglycerin 0.4 mg sublingual Tablet 0.400000000000000022 MG SUBLINGUAL (23:45)
[2023-11-29] MEDS: heparin 5,000 unit/mL INJ 1 mL 4000 UNIT IVP (23:45)
[2023-11-29] MEDS: heparin drip 25,000 UNIT/500 ML PREMIX 28.1999999999999993 UNIT IV (23:47)
[2023-11-29] MEDS: nitroglycerin 1 gm/inch oint Pkt 2 INCH TOPICAL (23:49)
[2023-11-30] VITALS (13 sets, daily range): BP systolic 105–177; BP diastolic 64–99; PULSE 65–98; RESP 14–19; TEMP 36.4–37.2; O2SAT 95–98
--- NOTE | 2023-11-30 00:07 | P.HP_ITS ---
Providers/Chief Complaint 2 Primary Care Provider: Shai Hill MD Chief Complaint: sob chest and back pressure History of Present Illness Lucita Dunaway is a 58 year old female without significant past medical or surgical history presenting today with chief complaint of shortness of breath nausea and chest pain. Patient stating that for last 2 months she has been vomiting, she is endorsing menopausal symptoms but stating that she could be stating that she has an embryo a month ago, she is not in distress, not complaining active chest pain has a Nitropaste, stating that her nausea and vomiting has worsened she has been struggling with her nausea and vomiting for last 2 months there is no relationship with food she has not noticed any fever now she started experiencing shortness of breath and chest pain. Chest pain started yesterday around 10 PM, she could not sleep all night this morning she decided to come to the hospital for further evaluation. She described her chest pain as pressure-like sensation, substernal radiating towards her back, improved with nitroglycerin paste, she was hypertensive, blood pressure 157/81 mmHg at the time of evaluation. She does not seem delusional or psychotic but she is firm on her perspective of . She thinks there is still a chance of . Troponin 103, negative delta, BNP 433, Review of Systems 2 Const: Denies: fever(s) Eyes: Denies: change in vision ENMT: Denies: throat pain Card: Reports: chest pain Resp: Reports: dyspnea GI: Reports: nausea and vomiting : Denies: flank pain Musc: Denies: neck pain Skin/Breast: Denies: rash Medications/Allergies Home Medications Medication Instructions Recorded Confirmed Last Taken Type Hinge Elbow Brace #1 ea 02/08/23 10/23/23 Unknown Rx hydrocodone 5 mg-acetaminophen 325 1 tab PO Q6H PRN pain 5 days #20 02/08/23 10/23/23 Unknown Rx mg tablet tabs gabapentin 300 mg capsule 300 mg PO BID #28 caps 04/13/23 10/23/23 Unknown Rx albuterol sulfate 90 mcg/actuation 2 puff inhalation Q4H PRN 07/25/23 10/23/23 Unknown History aerosol inhaler (Ventolin HFA) Shortness Of Breath allopurinol 300 mg tablet 300 mg PO QAM 07/25/23 10/23/23 09/11/23 History amitriptyline 75 mg tablet 75 mg PO BEDTIME 07/25/23 10/23/23 09/11/23 History colchicine 0.6 mg tablet 0.6 mg PO DAILY PRN flares 07/25/23 10/23/23 Unknown History furosemide 20 mg tablet 20 mg PO BID PRN Edema 07/25/23 10/23/23 Unknown History gabapentin 300 mg capsule 600 mg PO TID 07/25/23 10/23/23 07/24/23 History metoprolol succinate 25 mg 25 mg PO QAM 07/25/23 10/23/23 09/11/23 History tablet,extended release 24 hr (Toprol XL) benazepril 40 mg tablet 40 mg PO QPM 09/12/23 10/23/23 09/11/23 History diclofenac sodium 75 mg 75 mg PO Q12H PRN pain #20 tabs 09/12/23 10/23/23 Unknown Rx tablet,delayed release Allergies Allergy/AdvReac Type Severity Reaction Status Date / Time meperidine [From Demerol] Allergy Unknown Verified 10/23/23 16:34 peanut Allergy ALGY-Anaphy Verified 10/23/23 16:34 laxis Penicillins Allergy ALGY-Hives Verified 10/23/23 16:34 PFSH Acute 2 PFSH: Medical History Ischemic ulcer Pain in both feet Ischemic ulcer diabetic foot Right radial head fracture Fracture, radius, distal Psychiatric care Surgical History No pertinent past surgical history Family History Denies family history of CAD (coronary artery disease) Social History Smoking and tobacco/nicotine status: never used tobacco/nicotine Alcohol intake: never Vitals/I&O/Wt Last Vital Signs Temp 98.2 F 11/29/23 21:37 Pulse 70 11/29/23 23:22 Resp 18 11/29/23 23:22 BP 197/119 11/29/23 23:22 Pulse Ox 99 11/29/23 23:22 O2 Del Method Room Air 11/29/23 23:22 Weight last 48 hrs Weight 100.698 kg Physical Exam 2 Narrative: Euvolemic GCS 15 Awake and alert S1, S2 Hypertensive Nonfocal neuroexam No active chest pain Pleasant cough No sign of schizophrenia or delusional disorder Appears stated age Nonfocal neuroexam Currently doing well on room air Data 11/29/23 21:58 11/29/23 21:58 A&P Assessment and plan (1) PAD (peripheral artery disease): (2) Peripheral neuropathy: (3) NSTEMI (non-ST elevated myocardial infarction): (4) Hypertension, uncontrolled: Plan Non-STEMI No previous history of coronary disease or CHF Request echo Start ACS protocol Will give therapeutic dose of heparin along with loading dose of Plavix she has received loading dose of aspirin already Currently has Nitropaste Please call cardiology in the morning Uncontrolled hypertension Blood pressure currently controlled after getting nitroglycerin Will add lisinopril and metoprolol Check A1c level, TSH, Beta-hCG is negative Patient does not seem delusional or schizophrenic she still think there is a possibility of at her age although she is postmenopausal Nausea for last 2 months No sign of peritonitis or rigidity Request CT abdomen pelvis No abnormal liver enzymes She may need evaluation for gallbladder Full code Cardiac diet Attestations 2 Medical Necessity Statement*: More than 2 midnights anticipated Diagnoses PAD (peripheral artery disease) I73.9 Peripheral neuropathy G62.9 NSTEMI (non-ST elevated myocardial infarction) I21.4 Hypertension, uncontrolled I10
--- NOTE | 2023-11-30 00:10 | W.ED.CHESTPA ---
HPI - Chest Pain General: Chief Complaint: Shortness of Breath/Dyspnea Stated Complaint: sob chest and back pressure Time Seen by Provider: 11/29/23 21:54 History of Present Illness: 58-year-old female presents emergency department with complaints of substernal chest pain that radiates to her right shoulder and back. She states that she is also short of breath and unable to lie flat. She states that lying flat increases her shortness of breath and chest pain. She states this has been intermittently ongoing for several days and also states that she thinks that it may have occurred several times over the previous 9 weeks. She states she has had several episodes of nausea and vomiting with her chest pain. She states that her chest pain upon presentation today is a 8 out of 10. She does have significantly elevated blood pressure upon initial presentation. She states the pain is a pressure heavy type pain. Patient also states that she thinks she is 9 weeks . Associated symptoms: Reports dyspnea, nausea and vomiting Review of Systems General: Reports: 10 or more systems reviewed and unremarkable except in HPI and below Card: Reports: chest pain Resp: Reports: dyspnea; Denies: productive cough, non-productive cough or wheezing GI: Reports: nausea and vomiting [facility] ED PFSH: Medical History Psychiatric care Physical Exam Narrative: EXAM NARRATIVE: Constitutional: the patient appears well nourished and with normal development. Vital signs reviewed as documented. HENMT: Normocephalic, atraumatic. External ears normal appearance without drainage. Nose without drainage, normal appearance. Mucus membranes moist. Neck is supple, No jugular venous distension, trachea is midline, no appreciable carotid bruits. No lymphadenopathy. No meningeal signs. Flexion, extension and lateral rotation is without pain. Eyes: Pupils are equal, round, reactive to light and accommodation. No scleral icterus. Extra-ocular movement are intact. Thorax is symmetrical and with equal rise and fall with respirations. Resp: Lungs are clear to auscultation. No wheezes, rales, crackles or ronchi at present. Cardio: Regular rate and rhythm. Positive S1, S2. No appreciable murmurs, rubs or gallops. GI: Abdominal exam reveals normal bowel sounds to all quadrants. No organomegaly. No obvious palpable masses noted. No hepatomegally appreciated. Soft, non-tender to palpation. Extremity: Extremities are non-edematous and both femoral and pedal pulses are 2+ and equal bilaterally. Moves all extremities well, sensation in all extremities. Neuro: Alert and oriented x4, person, place, time and situation. Cranial nerves II through XII are grossly intact, there is no focal neurological deficits that I can appreciate at present. Sensation intact to all extremities. 2-point discrimination intact. Light touch intact to all extremities. Motor strength in the upper and lower extremities are equal and bilateral 5/5. Psych: Cooperative, calm, normal thought process, appropriate judgment. Skin: No lesions, rashes. No gross abnormalities noted. Back: Symmetrical, no obvious deformity, No CVA tenderness Course Vital Signs: Vital signs: Vital Signs Temperature 98.2 F 11/29/23 21:37 Pulse Rate 98 11/30/23 00:08 Respiratory Rate 18 11/30/23 00:08 Blood Pressure 157/81 11/30/23 00:08 Pulse Oximetry 98 11/30/23 00:08 Oxygen Delivery Me thod Room Air 11/30/23 00:08 MDM - Chest Pain Medical Decision Making Physical exam completed and documented, I will obtain serial cardiac enzymes, serial twelve-lead EKGs, chest x-ray, CBC, CMP, urinalysis, B-type natriuretic peptide, PT/PTT/INR, and a chest x-ray. I did obtain a serum hCG which was also negative and advised the patient that she was not . I will provide cardiac dose aspirin and nitroglycerin administration if indicated. I will also provide loading dose of heparin and heparin drip. I have reviewed previous and pertinent medical records for assist in obtaining beneficial medical information to improved the care and treatment of the patient. I have contacted the hospitalist to request admission given the patient's elevated cardiac enzymes and chest pain for concerns of a non-ST elevated myocardial infarction, uncontrolled hypertension. I did review the patient's previous medical record from her primary care provider's office on 10/23/2023 which did demonstrate a negative test. Medical Records I reviewed the patient's medical records. Lab Data I reviewed the patient's lab results. 11/29/23 21:58 11/29/23 21:58 Laboratory Results WBC 8.23 10^3/uL (3.29-11.43) 11/29/23 21:58 RBC 4.28 10^6/uL (3.85-5.65) 11/29/23 21:58 Hgb 13.10 g/dL (11.27-16.99) 11/29/23 21:58 Hct 38.3 % (36-47) 11/29/23 21:58 MCV 89.5 fl (85-98) 11/29/23 21:58 MCH 30.6 pg (27-33) 11/29/23 21:58 MCHC 34.2 g/dL (30-55) 11/29/23 21:58 RDW 13.2 % (12.1-15.1) 11/29/23 21:58 Plt Count 274 10^3/cmm (157-399) 11/29/23 21:58 MPV 10.2 fL (7.4-10.4) 11/29/23 21:58 Neut % (Auto) 52.6 % 11/29/23 21:58 Lymph % (Auto) 29.8 % 11/29/23 21:58 Blair % (Auto) 11.1 % 11/29/23 21:58 Eos % (Auto) 5.1 % 11/29/23 21:58 Baso % (Auto) 0.5 % 11/29/23 21:58 Neut # (Auto) 4.34 10^3/uL (1.8-7.7) 11/29/23 21:58 Lymph # (Auto) 2.5 10^3/uL (0.8-4.8) 11/29/23 21:58 Blair # (Auto) 0.9 10^3/uL (0.2-0.9) 11/29/23 21:58 Eos # (Auto) 0.4 10^3/uL (0.0-0.8) 11/29/23 21:58 Baso # (Auto) 0.0 10^3/uL (0.0-0.1) 11/29/23 21:58 Nucleated RBC % (auto) 0 % 11/29/23 21:58 Nucleated RBCs # 0.0 /100WBC 11/29/23 21:58 Sodium 139 mmol/L (136-145) 11/29/23 21:58 Potassium 4.0 mmol/L (3.5-5.1) 11/29/23 21:58 Chloride 103 mmol/L (98-107) 11/29/23 21:58 Carbon Dioxide 23 mmol/L (22-29) 11/29/23 21:58 Anion Gap 17.0 (5-19) 11/29/23 21:58 BUN 19 mg/dL (6-20) 11/29/23 21:58 Creatinine 0.4 mg/dL (0.5-0.9) L 11/29/23 21:58 GFR Calculation 163.4 mL/min (90-130) H 11/29/23 21:58 Glucose 235 mg/dL (65-115) H 11/29/23 21:58 Calculated Osmolality 298 mOsm/kg (285-295) H 11/29/23 21:58 Calcium 8.8 mg/dL (8.5-10.5) 11/29/23 21:58 Total Bilirubin 0.2 mg/dL (0.15-1.2) 11/29/23 21:58 AST 21 U/L (0-32) 11/29/23 21:58 ALT 27 U/L (0-33) 11/29/23 21:58 Alkaline Phosphatase 80 U/L (35-105) 11/29/23 21:58 Troponin T Baseline 103 ng/L (0-10) H* 11/29/23 21:58 NT-Pro-B Natriuret Pep 433 pg/mL (0-125) H 11/29/23 21:58 Total Protein 7.2 g/dL (6.6-8.7) 11/29/23 21:58 Albumin 3.9 g/dL (3.5-5.2) 11/29/23 21:58 Globulin 3.3 g/dL (1.3-4.6) 11/29/23 21:58 Lipase 53 U/L (13-60) 11/29/23 21:58 HCG, Qual Negative (Negative) 11/29/23 21:58 All radiology interpretation(s) finalized by discharge EKG Data EKG 1: Interpretation: Twelve-lead EKG obtained at 2145 and reviewed at 2147 demonstrates sinus rhythm with a ventricular rate of 75 bpm, [place] interval 173, QRS duration 94, QT 409 QTc [address] elevation or depression to demonstrate acute ischemia or infarction at present. Discharge Plan Discharge Patient Disposition: Admitted As Inpatient Clinical Impression: Non-ST elevation [place] (NSTEMI), Hypertension, uncontrolled Condition: Stable Prescriptions: No Action (DME) Hinge Elbow Brace See Rx Instructions .Route .MEDSUPPLY Qty: 1 0RF Rx Instructions: As directed hydrocodone-acetaminophen 5-325 mg tablet 1 tab PO Q6H PRN (Reason: pain) 5 Days Qty: 20 0RF gabapentin 300 mg capsule 300 mg PO BID Qty: 28 0RF amitriptyline 75 mg tablet 75 mg PO BEDTIME gabapentin 300 mg capsule 600 mg PO TID allopurinol 300 mg tablet 300 mg PO QAM furosemide 20 mg tablet 20 mg PO BID PRN (Reason: Edema) albuterol sulfate [Ventolin HFA] 90 mcg/actuation Hfa Aerosol Inhaler 2 puff INHALATION Q4H PRN (Reason: Shortness Of Breath) colchicine 0.6 mg tablet 0.6 mg PO DAILY PRN (Reason: flares) metoprolol succinate [Toprol XL] 25 mg tablet extended release 24 hr 25 mg PO QAM benazepril 40 mg tablet 40 mg PO QPM diclofenac sodium 75 mg tablet,delayed release (DR/EC) 75 mg PO Q12H PRN (Reason: pain) Qty: 20 0RF Referrals: Shai Hill MD [Primary Care Provider] - Coding Level of Care Code ED Call Or Contact Centre Operator for Ranjana Orellana
--- NOTE | 2023-11-30 00:16 | XRR_ITS ---
PROCEDURE INFORMATION: Exam: XR Chest Exam date and time: 11/30/2023 12:33 AM Age: 58 years old Clinical indication: Chest wall pain; Additional info: Chest pain TECHNIQUE: Imaging protocol: Radiologic exam of the chest. Views: 1 view. COMPARISON: CR (CHEST, ) 07/06/2023 4:36 AM FINDINGS: Lungs: Mild bibasilar opacities could represent superimposition of breast shadows, atelectasis, inflammation, or infection.. No consolidation. Pleural spaces: Unremarkable. No pleural effusion. No pneumothorax. Heart/Mediastinum: The cardiomediastinal silhouette is stable in appearance. Bones/joints: Unremarkable. XR/XR chest 1V portable [id number] IMPRESSION: 1. Mild bibasilar opacities could represent superimposition of breast shadows, atelectasis, inflammation, or subtle infection. 2. Otherwise, no acute radiographic findings in the chest.
[2023-11-30 00:22] LABS: D Dimer 0.36 ug/mLFEU (0-0.59)
--- NOTE | 2023-11-30 00:27 | CTR_ITS ---
PROCEDURE INFORMATION: Exam: CT Abdomen And Pelvis Without Contrast Exam date and time: 11/30/2023 12:45 AM Age: 58 years old Clinical indication: Vomiting; Additional info: Vomiting for 2 months TECHNIQUE: Imaging protocol: Computed tomography of the abdomen and pelvis without contrast. Radiation optimization: All CT scans at this facility use at least one of these dose optimization techniques: automated exposure control; mA and/or kV adjustment per patient size (includes targeted exams where dose is matched to clinical indication); or iterative reconstruction. COMPARISON: CR (CHEST, ) 11/30/2023 12:33 AM RADIATION DOSE METRICS: Total DLP (mGy-cm): 960.64 FINDINGS: Lungs: Minimal focal area of tree-in-bud opacities in the left lower lobe, (series 3, image 21 on lung windows sitting), could represent mild bronchiolitis. Otherwise, the visualized lung bases appear grossly clear. No pleural effusion. There is a calcified granuloma in the right middle lobe. There is a 5 mm indeterminate nodule in the lingula of the left lung. Heart: Suspected trace pericardial effusion or pericardial thickening. Mild cardiomegaly and left atrial enlargement. Esophagus: Mild thickening of the gastroesophageal duckworth. The lower esophagus is patulous versus small hiatal hernia. Liver: Mild hepatic steatosis. Borderline hepatomegaly. No hepatic focal lesions. Gallbladder and bile ducts: The gallbladder contains no calcified gallbladder stones. No intra or extrahepatic biliary dilation. Pancreas: The pancreas appears grossly unremarkable. Spleen: The spleen appears grossly unremarkable. Adrenal glands: Mild nodularity of the left adrenal gland with a prominent nodule measuring approximately 1.5 x 1.1 cm, (series 3, image 52), and additional nodule measuring approximately 1.6 x 1.1 cm, (3, image 59). The adrenal glands appear otherwise grossly unremarkable. Kidneys and ureters: There is a tiny calcific density in the left lung which could represent small papillary calcification or nonobstructing renal stone, (series, image 96). Additional nonobstructing renal stone in the lower calyx of the left kidney measuring less than 2 mm, (series 5, image 96). There is a tiny exophytic nodule also seen along the inferior aspect of the right kidney measuring less than 8 mm, (series 5, image 79). No hydronephrosis. Stomach and bowel: Scattered small amount of gas and minimal fluid within the small bowel. No evidence of small bowel obstruction. Scattered fecal matter and gas is in the colon. No large bowel obstruction. Appendix: No evidence of appendicitis. Intraperitoneal space: Unremarkable. No free air. No significant fluid collection. Vasculature: There are atherosclerotic calcifications of the abdominal aorta and its branches. Lymph nodes: Unremarkable. No enlarged lymph nodes. Urinary bladder: Unremarkable as visualized. Reproductive: Evidence of bilateral tubal ligation. Bones/joints: Grade 1 anterolisthesis of L4 on L5 with uncovering of the disc and diffuse disc bulge. Developmental lumbar spinal canal stenosis and superimposed multilevel degenerative disc and joint disease resulting in severe spinal canal stenosis at multiple levels. For reference, severe spinal canal stenosis noted at L3-L4 due to diffuse disc bulge, hypertrophy of the ligamentum flavum, and hypertrophic facet arthropathy. There is associated mild bilateral lateral recess stenosis and mild right and moderate left neural foraminal stenosis. There is moderate spinal canal stenosis at the level of L4-L5 due to diffuse disc bulge, with associated severe bilateral lateral recess stenosis and advanced facet arthrosis severely there is at least moderate bilateral neural foraminal stenosis at this level. Diffuse disc bulge at the L5-S1 without high-grade spinal canal stenosis. There is bilateral facet arthropathy and severe left and mild right neural foraminal stenosis at this level. Soft tissues: Evidence of prior repair of ventral abdominal hernia. Other findings: There is divarication of the recti. CT/CT abdomen pelvis wo con [id number] IMPRESSION: 1. Minimal tree-in-bud opacities in the left lower lobe may represent bronchiolitis. 2. Indeterminate 5 mm nodule in the lingula of the left lung. Optional 12 month follow-up chest CT could be obtained for further evaluation, according to Fleischner criteria. 3. Thickening of the gastric/gastroesophageal duckworth there is a nonspecific finding but can be seen in the setting of gastroesophageal reflux disease or gastritis, in the appropriate clinical setting. Clinical correlation is recommended. 4. Nonobstructing tiny left renal stones measuring less than 2 mm. There is correlate with urine analysis. Small exophytic lung renal are nonspecific. 5. Multilevel degenerative disc and joint disease of the lumbosacral spine, worst at L3-L4 and L4-L5 with associated severe spinal canal stenosis at L3-L4 and severe bilateral lateral recess stenosis at L4-L5, and varying degrees of neural foramina stenosis as outlined. MRI of the lumbar spine could be obtained for further evaluation, if clinically warranted. 6. Additional findings in the body of the report. COMMENTS: Consistent with the [employer]'s Incidental Findings Committee white paper (J Am Tuan Radiol 2017): For any incidental adrenal lesion greater than or equal to 1 cm but less than or equal to 4 cm classified in this report as benign, likely benign, or containing fat (including classification as an adenoma or myelolipoma), no follow-up imaging is recommended per consensus recommendations based on imaging criteria. Further lab evaluation could be pursued if warranted based on clinical findings.
[2023-11-30 01:03] LABS: Estmated Average Glucose 183
--- NOTE | 2023-11-30 01:27 | USCV_ITS ---
Lucita Dunaway Age: 58 Gender: F : 1965 Exam Date: 11/30/2023 01:54 Ordering Phys: Ra Shea MD Technologist: THANG Exam Location: [facility] [place] Indication: chest pain, shortness of breath, elevated Troponin. No history of cardiac intervention per patient. BP: 167 / 80 HR: 65 Rhythm: Sinus Technical Quality: Adequate MEASUREMENTS (Male / Female) Normal Values 2D ECHO LV Diastolic Diameter PLAX 4.9 cm 4.2 - 5.9 / 3.9 - 5.3 cm IVS Diastolic Thickness 1.3 cm 0.6 - 1.0 / 0.6 - 0.9 cm IVS Systolic Thickness 1.8 cm LVPW Diastolic Thickness 1.4 cm 0.6 - 1.0 / 0.6 - 0.9 cm LVPW Systolic Thickness 1.8 cm LVOT Diameter 1.8 cm LV Ejection Fraction 2D Teich 56.1 % LV Ejection Fraction MOD 2C 73.6 % LV Ejection Fraction 2C AL 74.5 % LA Diameter 2.9 cm Aorta at Sinotubular Diameter 2.4 cm IVC Diameter 1.5 cm M-MODE LA Ao Ratio MM 1.2 AV Cusp Separation MM 1.5 cm DOPPLER AV Peak Velocity 177.0 cm/s LVOT Peak Velocity 135.0 cm/s AV Area Cont Eq vti 2.4 cm squared AV Area Cont Eq pk 1.9 cm squared MV Peak Velocity 94.0 cm/s MV Area PHT 2.1 cm squared Mitral E to A Ratio 0.8 TV Peak E Velocity 52.0 cm/s PV Peak Velocity 99.0 cm/s FINDINGS Left Ventricle Normal left ventricular size and systolic function, EF 73%.mild left ventricular hypertrophy. No regional wall motion abnormalities. Right Ventricle The right ventricle is normal in size and function. Right Atrium The right atrium is normal in size. Left Atrium Mildly increased left atrial size. Mitral Valve No gross abnormalities noted Aortic Valve Thickened aortic valve. Tricuspid Valve No gross abnormalities noted Pulmonic Valve No gross abnormalities noted Pericardium Normal pericardium without effusion. Aorta Normal ascending aorta dimension. IVC The inferior vena cava appears normal. CONCLUSIONS Normal left ventricular size and systolic function, EF 73%.mild left ventricular hypertrophy. No regional wall motion abnormalities. Thickened aortic valve. There is no pericardial effusion. There are no intracardiac masses. No similar previous studies are available for comparison Dr Moy Cordero MD FACC (Electronically Signed) Final Date: 30 November 2023 15:29 S
[2023-11-30 02:28] LABS: Thyroid Stimulating Hormone 2.65 uIU/mL (0.27-4.20); Vitamin B12 418 pg/mL (232-1245)
[2023-11-30] MEDS: acetaminophen 500 mg Tablet PO ×3 (02:35→12:07)
[2023-11-30] MEDS: clopidogrel 300 mg Tablet PO (02:35)
[2023-11-30] MEDS: heparin drip 25,000 UNIT/500 ML PREMIX 28.1000000000000014 UNIT IV (02:37)
[2023-11-30] MEDS: allopurinol 300 mg Tablet PO (05:47)
[2023-11-30 05:50] LABS: Troponin 5 6HR 92.34 ng/L (0-10)
[2023-11-30 05:52] LABS: Troponin 5 6HR Delta -10.66 ng/L (0-12)
[2023-11-30 06:22] LABS: Basophils % 0.5 %; Eosinophils # 0.4 10^3/uL (0.0-0.8); Eosinophils % 5.4 %; Lymphocytes # 2.3 10^3/uL (0.8-4.8); Lymphocytes % 30.6 %; Mean Corpuscular Hemoglobin 30.7 pg (27-33); Mean Corpuscular Volume 90.4 fl (85-98); Monocytes # 0.9 10^3/uL (0.2-0.9); Monocytes % 12.5 %; Neutrophils # 3.72 10^3/uL (1.8-7.7); Neutrophils % 50.1 %; Nucleated Red Blood Cells % 0 %; Platelet Count 247 10^3/cmm (157-399); Red Blood Count 3.87 10^6/uL (3.85-5.65); Red Cell Distribution Width 13.2 % (12.1-15.1); White Blood Count 7.44 10^3/uL (3.29-11.43)
[2023-11-30 06:41] LABS: Partial Thromboplastin Time 79.3 SECONDS (23.9-36.7)
[2023-11-30 06:48] LABS: Blood Urea Nitrogen 18 mg/dL (6-20); C Reactive Protein 7.1 mg/L (0.0-4.9); Calcium 8.2 mg/dL (8.5-10.5); Carbon Dioxide 21 mmol/L (22-29); Chloride 103 mmol/L (98-107); Creatinine Clr Calc Pharmacy 174.9259; Glomerular Filtration Rate 163.4 mL/min (90-130); Glucose 219 mg/dL (65-115); Magnesium 1.6 mg/dL (1.7-2.3); Osmolality Calculated 291 mOsm/kg (285-295); Sodium 136 mmol/L (136-145)
--- NOTE | 2023-11-30 08:05 | PC.PHAR ---
PT STATES SHE STOPPED TAKING ALL MEDICATIONS 9 WEEKS AGO DUE TO THINKING SHE WAS . WE VERIFIED ALL MEDS SHE SHOULD BE TAKING AND LEFT THEM ON HER MEDICAL RECORD. 11/30/23
[2023-11-30] MEDS: ondansetron 2 mg/ML SDV 2 mL 4 MG IVP ×2 (08:18→08:47)
[2023-11-30] MEDS: metoprolol tartrate 25 mg Tablet PO ×2 (08:18→21:35)
[2023-11-30] MEDS: HYDROcodone-acetaminophen 5-325 mg Tablet 1 TAB PO (08:18)
[2023-11-30] MEDS: clopidogrel 75 mg Tablet PO (08:19)
[2023-11-30] MEDS: lisinopril 10 mg Tablet 40 MG PO (08:19)
[2023-11-30] MEDS: aspirin 81 mg EC Tablet PO (08:19)
--- NOTE | 2023-11-30 08:42 | ECG_ITS ---
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 Interpretive Statements NAME OF STUDY: LEXISCAN SESTAMIBI STRESS TEST INDICATION: Nstemi, PROCEDURE: At the baseline, the EKG revealed normal sinus rhythm with some nonspecific ST changes. The baseline heart was 143/93 bpm with a blood pressue of 71 mm of Hg Lexiscan was infused over a period of 20 seconds. A total of 0.4 milligrams of Lexiscan was infused. The stress phase was continued for a total of 5 minutes. Heart rate at the end of the stress phase was 83 bpm with a blood pressure 126/69 mm of Hg. The EKG at the peak infusion revealed no significant changes. Sestamibi was injected 20 seconds after the Lexiscan infusion. Heart rate at the end of the recovery phase was 79 bpm with a blood pressure of 128/66 mm of Hg. CONCLUSION: 1. No significant EKG changes with the LexiScan infusion 2. No LexiScan induced chest pain or cardiac arrhythmia 3. Normal blood pressure and heart rate response 4. Sestamibi/sestamibi perfusion scan pending; see separate report. Electronically Signed On 12-03-2023 20:26:43 CDT by Moy Cordero M.D. [email or web address]
--- NOTE | 2023-11-30 08:42 | PC.NURSE ---
Per phone call with Dr. Maldonado, an additional 4mg of Zofran will be given to patient. Dr Maldonado requested a total of 8mg. Patient to remain NPO for stress test.
[2023-11-30] MEDS: gabapentin 300 mg Capsule PO ×3 (09:35→21:35)
[2023-11-30 09:52] LABS: Chol HDL Ratio 4.89 mg/dL (0.0-4.40); Cholesterol 186 mg/dL (0-200); HDL Cholesterol 38 mg/dL (60-100); Iron 52 ug/dL (37-145); LDL Cholesterol Calculated 104 mg/dL (50-129); Percent Saturation 16.7 % (20-50); Total Iron Binding Capacity 311 mcg/dl; Triglycerides 220 mg/dL (0-150); Unsaturated Iron Binding 259 ug/dL (112-347); VLDL Cholestrol Calculation 44 mg/dL (0-30)
[2023-11-30 09:54] LABS: Alcohol Level < 10 mg/dL (0-10)
[2023-11-30 10:13] LABS: Amphetamines Screen Urine Negative (Negative); Barbiturates Screen Urine Negative (Negative); Benzodiazepines Screen Urine Negative (Negative); Cocaine Screen Urine Negative (Negative); Opiate Screen Urine Negative (Negative); PCP Screen Urine Negative (Negative); THC Screen Urine Positive (Negative)
[2023-11-30 10:21] LABS: Add Urine Microscopic? YES; Bilirubin Urine Neg (Negative); Blood Urine Neg (Negative); Glucose Urine UA Norm (Normal); Ketones Urine Negative (Negative); Leukocyte Esterase Urine 1+ (Negative); Nitrate Urine Negative (Negative); Protein Urine Neg (Negative); Specific Gravity, Urine 1.005 (1.005-1.030); Urine Appearance Clear (CLEAR); Urine Color Straw (Yellow); Urobilinogen Urine Norm (Negative); pH Urine 6 (5-7)
[2023-11-30 10:24] LABS: RBC Urine 0-4 /hpf (0-2); WBC Urine 0-4 /hpf (0-5)
[2023-11-30 10:25] LABS: Add Urine Culture? No; Bacteria Urine TRACE /hpf; Mucus Urine TRACE /hpf; Squamous Epithelial Cell Urine 0-4 /hpf (0-5)
--- NOTE | 2023-11-30 10:38 | PC.NURSE ---
Per Dr. Maldonado, heparin drip stopped.
[2023-11-30] MEDS: insulin lispro 100 unit/1 mL SUBCUT ×2 (12:07→21:34)
[2023-11-30 12:26] LABS: Glucose Point of Care 230 mg/dL (70-110)
[2023-11-30 13:35] LABS: Partial Thromboplastin Time 27.3 SECONDS (23.9-36.7)
[2023-11-30] MEDS: ipratropium-albuterol 3 mL Neb INHALATION ×2 (13:41→20:53)
--- NOTE | 2023-11-30 13:59 | P.PN_ITS ---
Subjective 2 Subjective: Admitted overnight. H&P and labs appreciated. Today morning seen with family at bedside. Patient denies any further chest pain. Complaining of nausea on eating anything. Complaining of epigastric heaviness on and off. Has remained hemodynamically stable and afebrile. Currently on heparin drip. Vitals/I&O/Wt Last Vital Signs Temp 98.1 F 11/30/23 11:35 Pulse 68 11/30/23 13:47 Resp 18 11/30/23 13:47 BP 105/64 11/30/23 11:35 Pulse Ox 98 11/30/23 13:47 O2 Del Method Room Air 11/30/23 13:47 11/29/23 11/30/23 11/30/23 22:59 06:59 14:59 Intake Total 597.352 / 597.352 593.6 / 593.6 Output Total 200 / 200 Balance 397.352 / 397.352 593.6 / 593.6 Weight last 48 hrs Weight 100.879 kg Weight 100.879 kg Weight 100.698 kg Physical Exam 2 Narrative: General: No acute distress, AO x3, anxious, obese HEENT: PERRLA, pupils bilaterally equal and reactive Chest: Normal vesicular breath sounds, no added sounds, equal good air entry bilaterally CVS: S1-S2 regular, no murmurs, no tachycardia, no gallops, no rubs Abdomen: Soft, nontender, no organomegaly, bowel sounds present Neuro: No focal deficits, no facial deformity, AO x3, power 5/5 in all limbs Data 11/30/23 06:07 11/30/23 06:07 Micro: Microbiology 11/30/23 09:09 Legionella Urinary Antigen - Final Unknown Source 11/30/23 09:09 Bacterial Antigens - Final Urine Kidney A&P Assessment and plan (1) Chest pain: Troponins elevated on admission but trended down. Delta troponins negative. Cannot rule out non-ST elevation OK versus demand ischemia versus symptoms in setting of GERD. No active chest pain. Appreciate A1c, check lipid panel. Aspirin 81 mg, continue with Plavix and metoprolol. Start on atorvastatin 40 mg daily. Stop heparin drip. For now we will switch to full dose Lovenox 1 mg/kg body weight every 12 hourly. Plan for Lexiscan stress test. N.p.o. after midnight. (2) Hypertension, uncontrolled: Goal blood pressure less than 140/90 mmHg. Continue with home dose of MELI inhibitor, beta-rakesh. Will uptitrate as for goal blood pressures. (3) Gastritis: Seen on CT abdomen pelvis with thickening of gastric mucosa and lower end of esophagus. Protonix 40 mg IV twice daily. Zofran as needed. Clear liquid diet for now. (4) GERD (gastroesophageal reflux disease): (5) Type 2 diabetes mellitus: Past history of diabetes. Patient states he has usually been prediabetic. Currently A1c around 8. Discussed in detail with the patient for her need to be on oral hypoglycemics. For now insulin sliding scale ACHS. Will plan to discharge on OHA's. Will advise patient to speak with a primary care provider about once weekly injectables. Plan Full code Clear liquid diet Protonix for PUD prophylaxis Full dose Lovenox will be sufficient for DVT prophylaxis. Attestations 2 Medical Necessity Statement*: Requires further hospitalization for further evaluation and management of chest pain in setting of GERD, possible non-ST elevation OK while ACS workup was completed Diagnoses Chest pain R07.9 Hypertension, uncontrolled I10 Gastritis K29.70 GERD (gastroesophageal reflux disease) K21.9 Type 2 diabetes mellitus E11.9
[2023-11-30 17:03] LABS: Glucose Point of Care 126 mg/dL (70-110)
--- NOTE | 2023-11-30 17:28 | PC.NURSE ---
Unable to collect accurate ins and outs because significant other is urinating in the patient's collection hate.
[2023-11-30] MEDS: pantoprazole 40 mg SDV IVP (17:53)
[2023-11-30] MEDS: enoxaparin 100 mg/mL Syringe SUBCUT (19:52)
[2023-11-30 21:22] LABS: Glucose Point of Care 169 mg/dL (70-110)
[2023-11-30] MEDS: atorvastatin 40 mg Tablet PO (21:34)
[2023-11-30] MEDS: amitriptyline 25 mg Tablet 75 MG PO (21:34)
[2023-12-01] VITALS (13 sets, daily range): BP systolic 103–152; BP diastolic 60–85; PULSE 67–81; RESP 13–21; TEMP 36.6–37; O2SAT 94–97
[2023-12-01 05:25] LABS: Basophils % 0.5 %; Eosinophils # 0.4 10^3/uL (0.0-0.8); Eosinophils % 5.8 %; Hematocrit 34.6 % (36-47); Lymphocytes % 31.6 %; Mean Corpuscular HGB Conc 32.9 g/dL (30-55); Mean Corpuscular Hemoglobin 30.4 pg (27-33); Mean Corpuscular Volume 92.3 fl (85-98); Mean Platelet Volume 10.4 fL (7.4-10.4); Monocytes # 0.9 10^3/uL (0.2-0.9); Monocytes % 13.6 %; Neutrophils % 47.9 %; Nucleated Red Blood Cells % 0 %; Platelet Count 228 10^3/cmm (157-399); Red Blood Count 3.75 10^6/uL (3.85-5.65); Red Cell Distribution Width 13.3 % (12.1-15.1); White Blood Count 6.26 10^3/uL (3.29-11.43)
[2023-12-01] MEDS: allopurinol 300 mg Tablet PO (05:40)
[2023-12-01 05:44] LABS: Magnesium 1.6 mg/dL (1.7-2.3)
[2023-12-01 05:45] LABS: Alanine Aminotransferase 23 U/L (0-33); Albumin Level 3.4 g/dL (3.5-5.2); Alkaline Phosphatase 74 U/L (35-105); Aspartate Amino Transferase 18 U/L (0-32); Blood Urea Nitrogen 15 mg/dL (6-20); Calcium 8.3 mg/dL (8.5-10.5); Carbon Dioxide 22 mmol/L (22-29); Chloride 107 mmol/L (98-107); Creatinine Clr Calc Pharmacy 116.3571; Globulin 2.9 g/dL (1.3-4.6); Glomerular Filtration Rate 102.3 mL/min (90-130); Glucose 184 mg/dL (65-115); Osmolality Calculated 296 mOsm/kg (285-295); Sodium 140 mmol/L (136-145); Total Bilirubin 0.3 mg/dL (0.15-1.2); Total Protein 6.3 g/dL (6.6-8.7)
[2023-12-01 06:03] LABS: Folate Level 13.5 ng/mL (4.8-37.3)
[2023-12-01 06:25] LABS: Glucose Point of Care 174 mg/dL (70-110)
[2023-12-01] MEDS: regadenoson 0.4 Mg/5 ml Syringe 0.400000000000000022 MG IVP (07:13)
--- NOTE | 2023-12-01 08:00 | NMCV_ITS ---
NM yancy perf SPECT r/s* [id number] Lucita Dunaway Age: 58 Gender: F : 1965 Exam Date: 12/01/2023 06:24 Ordering Phys: Ranjan Maldonado MD Technologist: JAROCHO Talbert Exam Location: [facility] Indications: CHEST PAIN STRESS TEST Please see separate stress test report in [facility] for full findings IMAGE PROTOCOL Rest/Stress 1 Lexiscan Day Radiopharmaceutical Dose (mCi) Administration Site Administered by Rest: Tc-99m 10.4 IV JAROCHO Mckenna Sestamibi Stress:Tc-99m 32.6 IV JAROCHO Mckenna Sestamibi Rest: 01-Dec-2023 60 Discovery 630 Stress: 01-Dec-2023 30 Discovery 630 0.4mg Lexiscan. Images obtained in supine and prone position. SPECT RESULTS Technical Quality: Excellent Raw Data Analysis: Normal Image Corrections: No attenuation or motion correction applied Summed Stress Score: 8 Summed Rest Score: 4 Summed Difference Score: 4 PERFUSION FINDINGS Moderate area of moderately decreased tracer uptake in the inferior and basal inferolateral wall segments. Significant reversibility was noted in the basal inferior and inferolateral segments. FUNCTIONAL RESULTS (calculated via Gated SPECT) Stress Image LV EF (%): 42 Stress EDV (mL):146 TID: 1.16 Stress ESV (mL):84 FUNCTIONAL FINDINGS: Segmental wall motion analysis revealed mild diffuse hypokinesia of the apex. Mildly dilated LV cavity with end-systolic volume of 84 mm IMPRESSIONS 1. Myocardial perfusion imaging revealing moderate area of moderately decreased tracer uptake in the inferior and inferolateral regions with significant reversibility suggesting myocardial scarring with ischemia in the distribution of the right coronary artery and left circumflex artery. Slightly elevated transischemic dilatation ratio (1.16) also may suggest endocardial ischemia 2. Slightly diminished LV ejection fraction of 42%. 3. LV wall motion analysis revealed mild diffuse hypokinesia of the LV apex. 4. Dilated LV cavity with an end-systolic volume of 84 mL No similar previous studies are available for comparison Dr Moy Cordero MD [facility] (Electronically Signed) Final Date: 01 December 2023 09:51 S
[2023-12-01] MEDS: aspirin 81 mg EC Tablet PO (08:34)
[2023-12-01] MEDS: clopidogrel 75 mg Tablet PO (08:34)
[2023-12-01] MEDS: enoxaparin 100 mg/mL Syringe SUBCUT ×2 (08:34→20:08)
[2023-12-01] MEDS: lisinopril 10 mg Tablet 40 MG PO (08:34)
[2023-12-01] MEDS: pantoprazole 40 mg SDV IVP ×2 (08:35→18:03)
[2023-12-01] MEDS: ipratropium-albuterol 3 mL Neb INHALATION ×2 (08:41→15:39)
[2023-12-01] MEDS: gabapentin 300 mg Capsule PO ×3 (08:48→20:07)
[2023-12-01] MEDS: metoprolol tartrate 25 mg Tablet PO ×2 (08:50→20:07)
[2023-12-01 10:44] LABS: Glucose Point of Care 188 mg/dL (70-110)
[2023-12-01] MEDS: insulin lispro 100 unit/1 mL SUBCUT ×3 (11:50→21:23)
--- NOTE | 2023-12-01 11:51 | P.PN_ITS ---
Subjective 2 Subjective: No acute vents overnight. Patient has remained chest pain-free. Denies any abdominal heaviness. Nausea and vomiting seems to be improving. Underwent stress test earlier in the morning today. Vitals/I&O/Wt Last Vital Signs Temp 98.0 F 12/01/23 08:00 Pulse 69 12/01/23 08:42 Resp 16 12/01/23 08:42 BP 152/85 12/01/23 08:00 Pulse Ox 97 12/01/23 08:42 O2 Del Method Room Air 12/01/23 08:42 11/30/23 12/01/23 12/01/23 22:59 06:59 14:59 Intake Total 900 / 1493.6 850 / 2343.6 Output Total 1300 / 1300 Balance -400 / 193.6 850 / 1043.6 Weight last 48 hrs Weight 100.471 kg Weight 100.879 kg Weight 100.879 kg Weight 100.698 kg Physical Exam 2 Narrative: General: No acute distress, AO x3, anxious, obese HEENT: PERRLA, pupils bilaterally equal and reactive Chest: Normal vesicular breath sounds, no added sounds, equal good air entry bilaterally CVS: S1-S2 regular, no murmurs, no tachycardia, no gallops, no rubs Abdomen: Soft, nontender, no organomegaly, bowel sounds present Neuro: No focal deficits, no facial deformity, AO x3, power 5/5 in all limbs Data 12/01/23 05:00 12/01/23 05:00 Micro: Microbiology 11/30/23 09:09 Legionella Urinary Antigen - Final Unknown Source 11/30/23 09:09 Bacterial Antigens - Final Urine Kidney A&P Assessment and plan (1) Chest pain: Blood work consistent with non-ST elevation MS. But cannot rule out symptoms in setting of severe GERD. Stress test positive. No further chest pain. Continue with full dose anticoagulation with Lovenox. Continue with aspirin, Plavix, statin, beta-rakesh. Will consult cardiology for further recommendation possible cardiac angiogram. Echocardiogram negative for regional wall motion abnormality with normal EF. (2) Hypertension, uncontrolled: Goal blood pressure less than 140/90 mmHg. Blood pressure is elevated. Continue with lisinopril 40 mg, metoprolol 25 mg twice daily. Add amlodipine 5 mg daily. Will uptitrate further as per goal blood pressures. (3) Gastritis: Seen on CT abdomen pelvis with thickening of gastric mucosa and lower end of esophagus. Protonix 40 mg IV twice daily. Zofran as needed. Clear liquid diet for now. (4) GERD (gastroesophageal reflux disease): (5) Type 2 diabetes mellitus: Past history of diabetes. Patient states he has usually been prediabetic. Currently A1c around 8. Discussed in detail with the patient for her need to be on oral hypoglycemics. For now insulin sliding scale ACHS. Will plan to discharge on OHA's. Will advise patient to speak with a primary care provider about once weekly injectables. Plan Full code Clear liquid diet Protonix for PUD prophylaxis Full dose Lovenox will be sufficient for DVT prophylaxis. Attestations 2 Medical Necessity Statement*: Requires further hospitalization for management of non-ST elevation MS with positive stress test as patient requires further management of ACS with possible cardiac angiogram Diagnoses Chest pain R07.9 Hypertension, uncontrolled I10 Gastritis K29.70 GERD (gastroesophageal reflux disease) K21.9 Type 2 diabetes mellitus E11.9
[2023-12-01] MEDS: HYDROcodone-acetaminophen 5-325 mg Tablet 1 TAB PO (12:12)
[2023-12-01] MEDS: amlodipine 5 mg Tablet PO (12:13)
--- NOTE | 2023-12-01 13:40 | P.CONIM_ITS ---
Providers/Reason For Consult 2 Consulting Physician/Specialty*: Sonido Pablo MD / Cardiology Reason for Consult*: Abnormal stress test/troponin elevationd Requesting Physician: Dr Maldonado Attending Physician: Ranjan Maldonado MD Primary Care Provider: Shai Hill MD History of Present Illness History of Present Illness Lucita Dunaway is a 58 year old female With no prior cardiac history presented to hospital with chest discomfort, nausea shortness of breath. She had stress test performed that is showing significant. Ischemia in RCA and left circumflex artery territory. EF on echocardiogram is normal. Troponin was elevated initiallyat 92 and trended down. No more chest pain episodes EKG not showing significant ST-T wave changes Review of Systems 2 Const: Denies: fever(s) Eyes: Denies: change in vision ENMT: Denies: throat pain Card: Reports: chest pain Resp: Reports: dyspnea GI: Reports: nausea and vomiting : Denies: flank pain Musc: Denies: neck pain Skin/Breast: Denies: rash Medications/Allergies Home Medications Medication Instructions Recorded Confirmed Last Taken Type Hinge Elbow Brace #1 ea 02/08/23 11/30/23 Unknown Rx albuterol sulfate 90 mcg/actuation 2 puff inhalation Q4H PRN 07/25/23 11/30/23 Unknown History aerosol inhaler (Ventolin HFA) Shortness Of Breath allopurinol 300 mg tablet 300 mg PO QAM 07/25/23 11/30/23 09/11/23 History amitriptyline 75 mg tablet 75 mg PO BEDTIME 07/25/23 11/30/23 09/11/23 History colchicine 0.6 mg tablet 0.6 mg PO DAILY PRN flares 07/25/23 11/30/23 Unknown History furosemide 20 mg tablet 20 mg PO BID PRN Edema 07/25/23 11/30/23 Unknown History gabapentin 300 mg capsule 600 mg PO TID 07/25/23 11/30/23 07/24/23 History metoprolol succinate 25 mg 25 mg PO QAM 07/25/23 11/30/23 09/11/23 History tablet,extended release 24 hr (Toprol XL) benazepril 40 mg tablet 40 mg PO QPM 09/12/23 11/30/23 09/11/23 History diclofenac sodium 75 mg 75 mg PO Q12H PRN pain #20 tabs 09/12/23 11/30/23 Unknown Rx tablet,delayed release Allergies Allergy/AdvReac Type Severity Reaction Status Date / Time meperidine [From Demerol] Allergy Unknown Verified 10/23/23 16:34 peanut Allergy ALGY-Anaphy Verified 10/23/23 16:34 laxis Penicillins Allergy ALGY-Hives Verified 10/23/23 16:34 Current Medications Generic Name Dose Route Start Last Admin Trade Name David PRN Reason Stop Dose Admin Acetaminophen 500 mg 11/30/23 01:27 11/30/23 12:07 Acetaminophen 500 Mg Tablet PO 500 mg Q4H PRN Administration fever Hydrocodone Bitart/Acetaminophen 1 tab 11/30/23 01:27 12/01/23 12:12 Hydrocodone-Acetaminophen 5-325 Mg Tablet PO 1 tab Q6H PRN Administration pain Albuterol/Ipratropium 3 ml 11/30/23 01:27 12/01/23 08:41 Ipratropium-Albuterol 3 Ml Neb INHALATION 3 ml Q6H PRN Administration SHORTNESS OF BREATH Allopurinol 300 mg 11/30/23 06:00 12/01/23 05:40 Allopurinol 300 Mg Tablet PO 300 mg QAM JUSTIN Administration Amitriptyline HCl 75 mg 11/30/23 21:00 11/30/23 21:34 Amitriptyline 25 Mg Tablet PO 75 mg BEDTIME JUSTIN Administration Amlodipine Besylate 5 mg 12/01/23 11:55 12/01/23 12:13 Amlodipine 5 Mg Tablet PO 5 mg DAILY JUSTIN Administration Aspirin 81 mg 11/30/23 09:00 12/01/23 08:34 Aspirin 81 Mg Ec Tablet PO 81 mg DAILY JUSTIN Administration Atorvastatin Calcium 40 mg 11/30/23 21:00 11/30/23 21:34 Atorvastatin 40 Mg Tablet PO 40 mg BEDTIME JSUTIN Administration Clopidogrel Bisulfate 75 mg 11/30/23 09:00 12/01/23 08:34 Clopidogrel 75 Mg Tablet PO 75 mg DAILY JUSTIN Administration Enoxaparin Sodium 100 mg 11/30/23 19:30 12/01/23 08:34 Enoxaparin 100 Mg/Ml Syringe 1 mg/kg (100 mg) 100 mg SUBCUT Administration Q12H JUSTIN Gabapentin 300 mg 11/30/23 09:00 12/01/23 08:48 Gabapentin 300 Mg Capsule PO 300 mg TID JUSTIN Administration Insulin Human Lispro 0 unit 11/30/23 12:00 12/01/23 11:50 Insulin Lispro 100 Unit/1 Ml SUBCUT 1 unit WM&BEDTIME JUSTIN Administration Protocol Lisinopril 40 mg 11/30/23 09:00 12/01/23 08:34 Lisinopril 10 Mg Tablet PO 40 mg DAILY JUSTIN Administration Metoprolol Tartrate 25 mg 11/30/23 09:00 12/01/23 08:50 Metoprolol Tartrate 25 Mg Tablet PO 25 mg BID@0900,2100 JUSTIN Administration Ondansetron HCl 4 mg 11/30/23 01:27 11/30/23 08:47 Ondansetron 2 Mg/Ml Sdv 2 Ml IVP 4 mg Q6H PRN Administration NAUSEA AND VOMITING Pantoprazole Sodium 40 mg 11/30/23 18:00 12/01/23 08:35 Pantoprazole 40 Mg Sdv IVP 40 mg BID JUSTIN Administration PFSH Acute 2 PFSH: Medical History Ischemic ulcer Pain in both feet Ischemic ulcer diabetic foot Right radial head fracture Fracture, radius, distal Psychiatric care Surgical History No pertinent past surgical history Family History Denies family history of CAD (coronary artery disease) Social History Smoking and tobacco/nicotine status: never used tobacco/nicotine Alcohol intake: never Vitals/I&O/Wt Last Vital Signs Temp 98.5 F 12/01/23 11:58 Pulse 75 12/01/23 11:58 Resp 17 12/01/23 11:58 BP 139/61 12/01/23 11:58 Pulse Ox 97 12/01/23 11:58 O2 Del Method Room Air 12/01/23 11:58 11/30/23 12/01/23 12/01/23 22:59 06:59 14:59 Intake Total 900 / 1493.6 850 / 2343.6 480 / 480 Output Total 1300 / 1300 Balance -400 / 193.6 850 / 1043.6 480 / 480 Weight last 48 hrs Weight 221 lb 8 oz Weight 222 lb 6.4 oz Weight 222 lb 6.4 oz Weight 222 lb Physical Exam 2 Narrative: GENERAL: Patient is alert, awake and oriented x3. [] NECK: No jugular vein distension. [] HEENT: No cyanosis. No icterus. No pallor. [] HEART: Regular S1 and S2. No murmur, rub or gallop. [] LUNGS: Clear to auscultate bilaterally. [] CENTRAL NERVOUS SYSTEM: Grossly nonfocal. [] EXTREMITIES: Lower extremities with 1+ edema bilaterally. Data 12/02/23 03:35 12/02/23 03:35 Micro: Microbiology 11/30/23 09:09 Legionella Urinary Antigen - Final Unknown Source 11/30/23 09:09 Bacterial Antigens - Final Urine Kidney A&P Assessment and plan (1) Chest pain: (2) Hypertension, uncontrolled: (3) Gastritis: (4) GERD (gastroesophageal reflux disease): (5) Type 2 diabetes mellitus: Plan Patient has presented with chest discomfort that has some atypical features. Troponins were elevated and stress test is abnormal. Will proceed with coronary angiogram with possible percutaneous coronary intervention. Risks and benefits of the procedure have been discussed. She understands them and wants to proceed. Continue aspirin and Plavix. Continue anticoagulation. N.p.o. past midnight Thank you for involving us with care of this patient. We will continue to follow. Please call with questions Consult Attestations 2 Medical Necessity Statement: Care expected to cross 2 midnights. Coding Level of Care Code Acute Code for [facility] Diagnoses Chest pain R07.9 Hypertension, uncontrolled I10 Gastritis K29.70 GERD (gastroesophageal reflux disease) K21.9 Type 2 diabetes mellitus E11.9
[2023-12-01 16:55] LABS: Glucose Point of Care 178 mg/dL (70-110)
[2023-12-01] MEDS: atorvastatin 40 mg Tablet PO (20:07)
[2023-12-01] MEDS: amitriptyline 25 mg Tablet 75 MG PO (20:08)
[2023-12-01 20:56] LABS: Glucose Point of Care 234 mg/dL (70-110)
[2023-12-02] VITALS (7 sets, daily range): BP systolic 101–152; BP diastolic 60–80; PULSE 60–79; RESP 14–21; TEMP 36.7–37; O2SAT 94–98
[2023-12-02 05:15] LABS: Basophils % 0.5 %; Eosinophils # 0.4 10^3/uL (0.0-0.8); Eosinophils % 7.5 %; Hematocrit 36.4 % (36-47); Lymphocytes # 1.8 10^3/uL (0.8-4.8); Lymphocytes % 30.6 %; Mean Corpuscular HGB Conc 32.1 g/dL (30-55); Mean Corpuscular Hemoglobin 30.9 pg (27-33); Mean Platelet Volume 10.7 fL (7.4-10.4); Monocytes # 0.9 10^3/uL (0.2-0.9); Monocytes % 15.1 %; Neutrophils # 2.68 10^3/uL (1.8-7.7); Neutrophils % 45.5 %; Nucleated Red Blood Cells % 0 %; Platelet Count 208 10^3/cmm (157-399); Red Blood Count 3.79 10^6/uL (3.85-5.65); Red Cell Distribution Width 13.4 % (12.1-15.1); White Blood Count 5.89 10^3/uL (3.29-11.43)
[2023-12-02 05:34] LABS: Magnesium 1.5 mg/dL (1.7-2.3)
[2023-12-02 05:35] LABS: Alanine Aminotransferase 23 U/L (0-33); Albumin Level 3.4 g/dL (3.5-5.2); Alkaline Phosphatase 72 U/L (35-105); Aspartate Amino Transferase 19 U/L (0-32); Blood Urea Nitrogen 13 mg/dL (6-20); Calcium 8.2 mg/dL (8.5-10.5); Carbon Dioxide 24 mmol/L (22-29); Chloride 109 mmol/L (98-107); Creatinine Clr Calc Pharmacy 119.2775; Globulin 2.5 g/dL (1.3-4.6); Glomerular Filtration Rate 102.3 mL/min (90-130); Glucose 189 mg/dL (65-115); Osmolality Calculated 299 mOsm/kg (285-295); Sodium 142 mmol/L (136-145); Total Bilirubin 0.3 mg/dL (0.15-1.2); Total Protein 5.9 g/dL (6.6-8.7)
[2023-12-02 06:23] LABS: Glucose Point of Care 180 mg/dL (70-110)
[2023-12-02] MEDS: diphenhydrAMINE 50 mg Capsule PO (06:54)
[2023-12-02] MEDS: sodium chloride 0.9% 1,000 ML 50 ML IV (06:54)
--- NOTE | 2023-12-02 07:30 | XACV_ITS ---
Exam Room: 2 Ht: 163 cm Wt: 100 kg BSA: 2.18 m2 Gender: Female : 1965 Any Known Allergies: Other Exam Priority: Routine Procedure(s): Procedure Description: Diagnostic procedure Procedure Description: Left Heart Catheterization Procedure Description: Left ventriculography Procedure Description: Coronary Angiography Diagnostic Cath Status: Elective Diagnostic Findings * INDICATION: Chest pain/abnromal stress test/ troponin elevation. * No significant disease noted in the Left Main, Left Anterior Descending, Right, or Circumflex coronary arteries. * Coronary angiography shows right dominance. Conclusions 1. No significant disease noted in the Left Main, Left Anterior Descending, Right, or Circumflex coronary arteries. 2. Mild left ventricular systolic dysfunction. Ejection fraction of 45%. Recommendations * Patient's symptoms likely secondary to vasospasms. Can be discharged on amlodipine and beta blockers. * Outpatient cardiology follow up in 4 weeks. Interventional RX Recommendation: medical therapy and/or counseling Diagnostic RX Recommendation: medical therapy and/or counseling Ventriculography Ejection Fraction: 45.0 % Pressures Phase:Rest AO : 104 / 67 ( 83 ) @ 9:16:00 AM 152 / 68 ( 99 ) @ 9:23:00 AM 146 / 65 ( 95 ) @ 9:23:00 AM LV : 161 / -4 / 19 @ 9:22:00 AM 155 / -1 / 22 @ 9:23:00 AM 152 / -3 / 19 @ 9:23:00 AM Valves Phase:DefaultPhase AV : 1.0 @ 8:37:34 AM AV Mean Gradient: 0.0 @ 8:37:34 AM 0.0 @ 8:37:34 AM Clinical Evaluation EBL: 5mL-10mL Procedural Details Procedure Consent Obtained. Current Diagnosis : Chest Pain. Pre-Procedure Time Out. Identified patient by full name and date of as verbalized by the patient/guarantor. Does the consent match the physician's order: Yes. Accurate & Complete Informed Consent: Yes. Inpatient/Outpatient History & Physical on Chart: Yes. If H&P is completed, is and addenduem needed: No; If yes, is the addendum complete: N/A. Visualize and Verify Site with Patient/Guarantor: N/A. Relevant Radiology Images available: Yes. Pre-op teaching completed and patient verbalized understanding. The risks, benefits, and alternatives of sedation and/or procedure were discussed by physician. The patient agrees to continue. Procedure started. [facility] Clinical Fraility Score: 4: Vulnerable. Cash Posting Specialist Indications: Worsening Angina. Chest Pain Symptom Assessment: Typical Angina Symptoms. Correct patient, site and procedure confirmed by cath team. Current diagnosis: Chest Pain. PERRLA. Strong, equal hand eyelet maker bilaterally. Lungs clear x 5 lobes. IV Site on Arrival: 18 gauge in the right anticubital. IV Fluids: 0.9% NaCl at KVO. 0 mL infused prior to clinical lab technologist. Pre Procedural Pulses: right radial was 1+. Oxygen started at 2liters/min via nasal canula. right groin was prepped with chloroprep then draped in the usual sterile fashion. right radial was prepped with chloroprep then draped in the usual sterile fashion. Physician notified. Baseline sample Acquired. HR: 68 BPM. Physician arrived. Physician scrubbed in. Immediate Pre-Procedure Time Out. Correct Patient: Yes; Correct Procedure: Yes; Correct Site: Yes; Correct Patient Position: Yes; Correct Supplies: Yes; Dried Flammable Prep: Yes; Blood Products Available: N/A;. Lidocaine 1% infiltrated to the right radial. Arterial access obtained. Wire and needle removed. Unable to obtain radial access. MD attempting to gain access in the Femoral artery. TR band placed. Hemostasis obtained. Lidocaine 1% infiltrated to the right groin. Arterial access obtained with micropuncture set. A 5 mexican JL4 catheter in over wire. Multiple views taken of left coronary artery. Catheter removed over the exchange wire. A 5 mexican JR4 catheter in over wire. Multiple views taken of right coronary artery. Catheter removed over the standard wire. A 5 mexican Angled Pig catheter in over wire. EDP Sample taken: LV 161/-5,19; HR: 70 BPM; SpO2: 99%. LV gram performed in CARR @ 10 mL/second for a total of 30 mL. EDP Sample taken: LV 155/-2,22; HR: 70 BPM; SpO2: 99%. Pullback taken: LV 152/-4,19; AO 152/68(99); Mean: 0mmHg, Peak to Peak: 1mmHg, SEP: 16sec/min; HR: 69 BPM; SpO2: 99%. Catheter removed over the standard wire. A Right femoral angiogram was performed to determine safe placement of closure device. A Mynx was successful obtaining hemostatsis at the Right Femoral artery insertion site. Post Procedure: Pulses reassessed and unchanged. PERRLA. Strong, equal hand eyelet maker bilaterally. No VTE prophylaxis required. Medication's Wasted: Heparin = 1000 units. Medication's Wasted: Nitro = 50 mg. Medication's Wasted: Other = Fentanyl 50 mcg. Total IV fluids: 25 mL. Complications: None. Estimated blood loss: 5mL-10mL. Responsiveness - Normal response to verbal stimuli; alert and oriented, PERRLA. Airway - Unaffected, no intervention required; spontaneous ventilation. Circulation: W/N/L, pulses unchanged. Nausea/Vomiting: No. Procedure completed. Patient transferred by bed to 1st floor. Vital chart was stopped. Access Site Site: Right Femoral artery Sheath Size: 6 Fr Hemostasis Method: Mynx Hemostasis Success: Successful Procedure Medications Start: 7:59 AM Stop: 7:59 AM Medication: Fentanyl Amount: 25 mcg Route: I.V. Start: 8:01 AM Stop: 8:01 AM Medication: Versed Amount: 1 mg Route: I.V. Start: 8:06 AM Stop: 8:06 AM Medication: Fentanyl Amount: 25 mcg Route: I.V. Start: 8:14 AM Stop: 8:14 AM Medication: Versed Amount: 1 mg Route: I.V. I, the attending physician, have reviewed and verified all procedure medications. Yes, all medications given per verbal order History/Risk Factors Hypertension: Yes Dyslipidemia: No Peripheral Arterial Disease (PAD): Yes Myocardial Infarction (ID): No Obesity: No Renal Disease: No Tobacco Use: Never Prior Interventions PCI: No CABG: No Valve Surgery: No Report Signatures Finalized by Sonido Pablo MD on 12/09/2023 11:22 AM
--- NOTE | 2023-12-02 07:54 | PC.NURSE ---
off unit pt taken to rn cardiac cath via bed.
--- NOTE | 2023-12-02 08:01 | W.PM.OPSUD ---
Surgery/Procedure H&P Update DATE OF PROCEDURE: December 02, 2023 DATE H&P PERFORMED: 12/01/23 H&P UPDATE INFORMATION: I have reviewed H&P completed within last 30 days, I have examined patient prior to procedure and No changes to prior documentation PREOP DIAGNOSIS: Chest pain/abnromal stress test/ troponin elevation PRIMARY INDICATION FOR PROCEDURE: Chest pain/abnromal stress test/ troponin elevation PLANNED PROCEDURE: Left heart cath with possible percutaneous coronary intervention PATIENT REASSESSED PRIOR TO SEDATION, WITH NO CHANGE NOTED: Yes PHYSICAL EXAM: alert, oriented x 3, clear to auscultation bilaterally and regular rate & rhythm AIRWAY EVAL/ANESTHESIA PLAN: normal airway, ASA III, Local Anesthesia, Risks, benefits & alternatives of sedation and/or procedure discussed and Patient agrees to continue as planned ADDITIONAL INFORMATION: Moderate sedation
[2023-12-02] MEDS: ipratropium-albuterol 3 mL Neb INHALATION (09:02)
--- NOTE | 2023-12-02 09:02 | PM.PN ---
Subjective Subjective: Patient underwent coronary angiogram showing non-obstructive CAD. No chest pain Vitals/I&O/Wt Last Vital Signs Temp 98.0 F 12/02/23 07:04 Pulse 70 12/02/23 07:04 Resp 21 H 12/02/23 04:00 BP 152/76 12/02/23 07:04 Pulse Ox 96 12/02/23 07:04 O2 Del Method Room Air 12/02/23 07:04 FiO2 28 12/02/23 04:30 12/01/23 12/02/23 12/02/23 22:59 06:59 14:59 Intake Total 980 / 1460 Balance 980 / 1460 Weight last 48 hrs Weight 231 lb 9.6 oz Weight 221 lb 8 oz Physical Exam Narrative: GENERAL: Patient is alert, awake and oriented x3. [] NECK: No jugular vein distension. [] HEENT: No cyanosis. No icterus. No pallor. [] HEART: Regular S1 and S2. No murmur, rub or gallop. [] LUNGS: Clear to auscultate bilaterally. [] CENTRAL NERVOUS SYSTEM: Grossly nonfocal. [] EXTREMITIES: Lower extremities with 1+ edema bilaterally. Data 12/02/23 03:35 12/02/23 03:35 A&P Assessment and plan (1) Chest pain: (2) Hypertension, uncontrolled: (3) Gastritis: (4) GERD (gastroesophageal reflux disease): (5) Type 2 diabetes mellitus: Plan Coronary angiogram demonstrates nonobstructive CAD. Presentation likely secondary to vasospasms. Can discharge home on aspirin, beta-rakesh and amlodipine. EF is mildly reduced to normal on LV gram. Thank you for involving us with care of this patient. Please call with questions Attestations Medical Necessity Statement*: Care expected to cross 2 midnights. Coding Level of Care Code Acute Code for [facility] Diagnoses Chest pain R07.9 Hypertension, uncontrolled I10 Gastritis K29.70 GERD (gastroesophageal reflux disease) K21.9 Type 2 diabetes mellitus E11.9
--- NOTE | 2023-12-02 09:30 | PC.NURSE ---
pt got out of bed by herself when rounding pt educated on activity restrictions that she needs a bedrest for 4 hrs, right groin area has no hematoma, bleeding or swelling. Right radial pulse is palpable +3. No hematoma, bleeding or swelling. tr band intact. Bed Alarm on.
[2023-12-02] MEDS: HYDROcodone-acetaminophen 5-325 mg Tablet 1 TAB PO (09:31)
[2023-12-02] MEDS: amlodipine 5 mg Tablet PO (09:31)
[2023-12-02] MEDS: gabapentin 300 mg Capsule PO (09:31)
[2023-12-02] MEDS: lisinopril 10 mg Tablet 40 MG PO (09:31)
[2023-12-02] MEDS: clopidogrel 75 mg Tablet PO (09:31)
[2023-12-02] MEDS: aspirin 81 mg EC Tablet PO (09:31)
[2023-12-02] MEDS: pantoprazole 40 mg SDV IVP (09:32)
--- NOTE | 2023-12-02 10:05 | P.DS_ITS ---
Discharge Providers Date of Admission: 11/30/23 00:47 Date of Discharge: December 02, 2023 Attending Provider at Admission: Ra Shea MD Attending Provider at Discharge: Ranjan Maldonado MD Consults: Cardiology: Dr. Pablo Primary Care Provider: Shai Hill MD Diagnoses at Discharge Discharge Diagnosis (1) Chest pain: Status: Acute (2) Hypertension, uncontrolled: Status: Acute (3) Gastritis: Status: Acute (4) GERD (gastroesophageal reflux disease): Status: Acute (5) Type 2 diabetes mellitus: Status: Acute Reason for Visit Reason for Visit: sob chest and back pressure Brief History: History as per HPI: Lucita Dunaway is a 58 year old female without significant past medical or surgical history presenting today with chief complaint of shortness of breath nausea and chest pain. Patient stating that for last 2 months she has been vomiting, she is endorsing menopausal symptoms but stating that she could be stating that she has an embryo a month ago, she is not in distress, not complaining active chest pain has a Nitropaste, stating that her nausea and vomiting has worsened she has been struggling with her nausea and vomiting for last 2 months there is no relationship with food she has not noticed any fever now she started experiencing shortness of breath and chest pain. Chest pain started yesterday around 10 PM, she could not sleep all night this morning she decided to come to the hospital for further evaluation. She described her chest pain as pressure-like sensation, substernal radiating towards her back, improved with nitroglycerin paste, she was hypertensive, blood pressure 157/81 mmHg at the time of evaluation. She does not seem delusional or psychotic but she is firm on her perspective of . She thinks there is still a chance of . Hospital Course Hospital Course Patient was admitted to the hospital further evaluation and management of chest pain. was ruled out with negative urine test. For persistent nausea she underwent CT abdomen pelvis on admission which was consistent with GERD or gastritis. During hospitalization she was found to have elevated troponins. She was started on treatment as per ACS protocol. She underwent cardiac stress test which was concerning for tristin-infarct ischemia in RCA and left circumflex Respiratory. Echocardiogram was done which showed normal EF without any wall motion abnormality. Cardiology was consulted and she underwent cardiac angiogram on 12/01 which showed nonobstructive CAD. During hospitalization she was also found to have elevated blood pressures for which her antihypertensives were adjusted and she was found to have type diabetes mellitus with elevated HbA1c. She is been discharged in stable condition on adjusted antihypertensives and OHA's. Physical Exam Narrative: General: No acute distress, AO x3, anxious, obese HEENT: PERRLA, pupils bilaterally equal and reactive Chest: Normal vesicular breath sounds, no added sounds, equal good air entry bilaterally CVS: S1-S2 regular, no murmurs, no tachycardia, no gallops, no rubs Abdomen: Soft, nontender, no organomegaly, bowel sounds present Neuro: No focal deficits, no facial deformity, AO x3, power 5/5 in all limbs Discharge Data Studies Completed and Pending Completed Studies During Hospitalization Category Date Time Status CT abdomen pelvis wo con [id number] Stat Cat Scan 11/30/23 00:27 Completed Sestamibi Stress Test Request Routine Exams 11/30/23 08:42 Draft XR chest 1V portable [id number] Stat Exams 11/30/23 00:16 Completed NM yancy perf SPECT r/s* [id number] Routine Nuc Med 12/01/23 08:00 Completed CV. echo complete* [id number] Routine Ultrasound 11/30/23 01:27 Completed Pending at discharge Category Date Time Status FABRICATION TECHNICIAN request for service Routine Exams 12/02/23 07:30 Ordered MAG [Magnesium] AM LABS Lab 12/03/23 04:00 Ordered Radiology Impressions Chest X-Ray 11/30/23 00:16 IMPRESSION: 1. Mild bibasilar opacities could represent superimposition of breast shadows, atelectasis, inflammation, or subtle infection. 2. Otherwise, no acute radiographic findings in the chest. Abdomen/Pelvis CT 11/30/23 00:27 IMPRESSION: 1. Minimal tree-in-bud opacities in the left lower lobe may represent bronchiolitis. 2. Indeterminate 5 mm nodule in the lingula of the left lung. Optional 12 month follow-up chest CT could be obtained for further evaluation, according to Fleischner criteria. 3. Thickening of the gastric/gastroesophageal duckworth there is a nonspecific finding but can be seen in the setting of gastroesophageal reflux disease or gastritis, in the appropriate clinical setting. Clinical correlation is recommended. 4. Nonobstructing tiny left renal stones measuring less than 2 mm. There is correlate with urine analysis. Small exophytic lung renal are nonspecific. 5. Multilevel degenerative disc and joint disease of the lumbosacral spine, worst at L3-L4 and L4-L5 with associated severe spinal canal stenosis at L3-L4 and severe bilateral lateral recess stenosis at L4-L5, and varying degrees of neural foramina stenosis as outlined. MRI of the lumbar spine could be obtained for further evaluation, if clinically warranted. 6. Additional findings in the body of the report. COMMENTS: Consistent with the [employer]'s Incidental Findings Committee white paper (J Am Tuan Radiol 2017): For any incidental adrenal lesion greater than or equal to 1 cm but less than or equal to 4 cm classified in this report as benign, likely benign, or containing fat (including classification as an adenoma or myelolipoma), no follow-up imaging is recommended per consensus recommendations based on imaging criteria. Further lab evaluation could be pursued if warranted based on clinical findings. Echocardiography: CONCLUSIONS Normal left ventricular size and systolic function, EF 73%.mild left ventricular hypertrophy. No regional wall motion abnormalities. Thickened aortic valve. There is no pericardial effusion. There are no intracardiac masses. No similar previous studies are available for comparison Myocardial Perfusion Scan PERFUSION FINDINGS Moderate area of moderately decreased tracer uptake in the inferior and basal inferolateral wall segments. Significant reversibility was noted in the basal inferior and inferolateral segments. FUNCTIONAL RESULTS (calculated via Gated SPECT) Stress Image LV EF (%): 42 Stress EDV (mL):146 TID: 1.16 Stress ESV (mL):84 FUNCTIONAL FINDINGS: Segmental wall motion analysis revealed mild diffuse hypokinesia of the apex. Mildly dilated LV cavity with end-systolic volume of 84 mm IMPRESSIONS 1. Myocardial perfusion imaging revealing moderate area of moderately decreased tracer uptake in the inferior and inferolateral regions with significant reversibility suggesting myocardial scarring with ischemia in the distribution of the right coronary artery and left circumflex artery. Slightly elevated transischemic dilatation ratio (1.16) also may suggest endocardial ischemia 2. Slightly diminished LV ejection fraction of 42%. 3. LV wall motion analysis revealed mild diffuse hypokinesia of the LV apex. 4. Dilated LV cavity with an end-systolic volume of 84 mL No similar previous studies are available for comparison Laboratory Results WBC 5.89 10^3/uL (3.29-11.43) 12/02/23 03:35 RBC 3.79 10^6/uL (3.85-5.65) L 12/02/23 03:35 Hgb 11.70 g/dL (11.27-16.99) 12/02/23 03:35 Hct 36.4 % (36-47) 12/02/23 03:35 MCV 96.0 fl (85-98) 12/02/23 03:35 MCH 30.9 pg (27-33) 12/02/23 03:35 MCHC 32.1 g/dL (30-55) 12/02/23 03:35 RDW 13.4 % (12.1-15.1) 12/02/23 03:35 Plt Count 208 10^3/cmm (157-399) 12/02/23 03:35 MPV 10.7 fL (7.4-10.4) H 12/02/23 03:35 Neut % (Auto) 45.5 % 12/02/23 03:35 Lymph % (Auto) 30.6 % 12/02/23 03:35 [place] % (Auto) 15.1 % 12/02/23 03:35 Eos % (Auto) 7.5 % 12/02/23 03:35 Baso % (Auto) 0.5 % 12/02/23 03:35 Neut # (Auto) 2.68 10^3/uL (1.8-7.7) 12/02/23 03:35 Lymph # (Auto) 1.8 10^3/uL (0.8-4.8) 12/02/23 03:35 [place] # (Auto) 0.9 10^3/uL (0.2-0.9) 12/02/23 03:35 Eos # (Auto) 0.4 10^3/uL (0.0-0.8) 12/02/23 03:35 Baso # (Auto) 0.0 10^3/uL (0.0-0.1) 12/02/23 03:35 Nucleated RBC % (auto) 0 % 12/02/23 03:35 Nucleated RBCs # 0.0 /100WBC 12/02/23 03:35 APTT 27.3 SECONDS (23.9-36.7) D 11/30/23 12:52 D-Dimer 0.36 ug/mLFEU (0-0.59) 11/29/23 21:58 Sodium 142 mmol/L (136-145) 12/02/23 03:35 Potassium 4.0 mmol/L (3.5-5.1) 12/02/23 03:35 Chloride 109 mmol/L (98-107) H 12/02/23 03:35 Carbon Dioxide 24 mmol/L (22-29) 12/02/23 03:35 Anion Gap 13.0 (5-19) 12/02/23 03:35 BUN 13 mg/dL (6-20) 12/02/23 03:35 Creatinine 0.6 mg/dL (0.5-0.9) 12/02/23 03:35 GFR Calculation 102.3 mL/min (90-130) 12/02/23 03:35 Glucose 189 mg/dL (65-115) H 12/02/23 03:35 POC Glucose 180 mg/dL (70-110) H 12/02/23 06:18 Estimat Average Glucose 183 11/29/23 21:58 Hemoglobin A1c 8.0 % (4.0-6.0) H 11/29/23 21:58 Calculated Osmolality 299 mOsm/kg (285-295) H 12/02/23 03:35 Calcium 8.2 mg/dL (8.5-10.5) L 12/02/23 03:35 Magnesium 1.5 mg/dL (1.7-2.3) L 12/02/23 03:35 Iron 52 ug/dL (37-145) 11/29/23 21:58 TIBC 311 mcg/dl 11/29/23 21:58 % Saturation 16.7 % (20-50) L 11/29/23 21:58 Unsat Iron Binding 259 ug/dL (112-347) 11/29/23 21:58 Total Bilirubin 0.3 mg/dL (0.15-1.2) 12/02/23 03:35 AST 19 U/L (0-32) 12/02/23 03:35 ALT 23 U/L (0-33) 12/02/23 03:35 Alkaline Phosphatase 72 U/L (35-105) 12/02/23 03:35 Troponin T Baseline 103 ng/L (0-10) H* 11/29/23 21:58 Troponin T 120 Minute 95.50 ng/L (0-10) H 11/29/23 23:46 Delta Troponin T -7.50 ABS# (0-10) L 11/29/23 23:46 Troponin T Hi Sens 6Hr 92.34 ng/L (0-10) H 11/30/23 03:58 Troponin T Hi Sens 6Hr Delta -10.66 ng/L (0-12) L 11/30/23 03:58 C-Reactive Protein 7.1 mg/L (0.0-4.9) H 11/30/23 06:07 NT-Pro-B Natriuret Pep 433 pg/mL (0-125) H 11/29/23 21:58 Total Protein 5.9 g/dL (6.6-8.7) L 12/02/23 03:35 Albumin 3.4 g/dL (3.5-5.2) L 12/02/23 03:35 Globulin 2.5 g/dL (1.3-4.6) 12/02/23 03:35 Triglycerides 220 mg/dL (0-150) H 11/29/23 21:58 Cholesterol 186 mg/dL (0-200) 11/29/23 21:58 LDL Cholesterol, Calc 104 mg/dL (50-129) 11/29/23 21:58 Total VLDL Cholesterol 44 mg/dL (0-30) H 11/29/23 21:58 HDL Cholesterol 38 mg/dL (60-100) L 11/29/23 21:58 Cholesterol/HDL Ratio 4.89 mg/dL (0.0-4.40) H 11/29/23 21:58 Lipase 53 U/L (13-60) 11/29/23 21:58 Vitamin B12 418 pg/mL (232-1245) 11/29/23 23:46 Folate 13.5 ng/mL (4.8-37.3) 12/01/23 05:00 TSH 2.65 uIU/mL (0.27-4.20) 11/29/23 23:46 HCG, Qual Negative (Negative) 11/29/23 21:58 Urine Color Straw (Yellow) 11/30/23 09:09 Urine Appearance Clear (CLEAR) 11/30/23 09:09 Urine pH 6 (5-7) 11/30/23 09:09 Ur Specific [place] 1.005 (1.005-1.030) 11/30/23 09:09 Urine Protein Neg (Negative) 11/30/23 09:09 Urine Glucose (UA) Norm (Normal) 11/30/23 09:09 Urine Ketones Negative (Negative) 11/30/23 09:09 Urine Blood Neg (Negative) 11/30/23 09:09 Urine Nitrate Negative (Negative) 11/30/23 09:09 Urine Bilirubin Neg (Negative) 11/30/23 09:09 Urine Urobilinogen Norm mg/dL (Negative) 11/30/23 09:09 Ur Leukocyte Esterase 1+ (Negative) H 11/30/23 09:09 Urine RBC 0-4 /hpf (0-2) H 11/30/23 09:09 Urine WBC 0-4 /hpf (0-5) H 11/30/23 09:09 Ur Squamous Epith Cells 0-4 /hpf (0-5) H 11/30/23 09:09 Amorphous Sediment Not Reportable 11/30/23 09:09 Urine Bacteria Trace /hpf (NONE) 11/30/23 09:09 Urine Mucus Trace /hpf 11/30/23 09:09 Urine Opiates Screen Negative ng/mL (Negative) 11/30/23 09:09 Ur Barbiturates Screen Negative ng/mL (Negative) 11/30/23 09:09 Ur Phencyclidine Scrn Negative ng/mL (Negative) 11/30/23 09:09 Ur Amphetamines Screen Negative ng/mL (Negative) 11/30/23 09:09 U Benzodiazepines Scrn Negative ng/mL (Negative) 11/30/23 09:09 Urine Cocaine Screen Negative ng/mL (Negative) 11/30/23 09:09 U Marijuana (THC) Screen Positive ng/mL (Negative) H 11/30/23 09:09 Ethyl Alcohol < 10 mg/dL (0-10) 11/29/23 21:58 Vitals Last Vital Signs Temp 98.0 F 12/02/23 07:04 Pulse 63 12/02/23 09:03 Resp 18 12/02/23 09:03 BP 152/76 12/02/23 07:04 Pulse Ox 94 12/02/23 09:03 O2 Del Method Room Air 12/02/23 09:03 FiO2 28 12/02/23 04:30 Discharge Plan Discharge Patient Disposition: Home Condition: Stable Prescriptions: New atorvastatin 40 mg Tablet 40 mg PO BEDTIME Qty: 30 0RF amlodipine 5 mg Tablet 5 mg PO DAILY Qty: 30 0RF aspirin 81 mg Tablet,Delayed Release (Dr/Ec) 81 mg PO DAILY Qty: 30 0RF Janumet 50-500 mg tablet 1 tab PO BID Qty: 60 0RF Protonix 40 mg tablet,delayed release (DR/EC) 40 mg PO DAILY Qty: 60 0RF Rx Instructions: Twice daily for 4 weeks an then daily. Continued (DME) Hinge Elbow Brace See Rx Instructions .Route .MEDSUPPLY Qty: 1 0RF Rx Instructions: As directed amitriptyline 75 mg tablet 75 mg PO BEDTIME gabapentin 300 mg capsule 600 mg PO TID allopurinol 300 mg tablet 300 mg PO QAM furosemide 20 mg tablet 20 mg PO BID PRN (Reason: Edema) albuterol sulfate [Ventolin HFA] 90 mcg/actuation Hfa Aerosol Inhaler 2 puff INHALATION Q4H PRN (Reason: Shortness Of Breath) colchicine 0.6 mg tablet 0.6 mg PO DAILY PRN (Reason: flares) metoprolol succinate [Toprol XL] 25 mg tablet extended release 24 hr 25 mg PO QAM benazepril 40 mg tablet 40 mg PO QPM diclofenac sodium 75 mg tablet,delayed release (DR/EC) 75 mg PO Q12H PRN (Reason: pain) Qty: 20 0RF Discharge Orders: Discharge Order (Routine); Ordered 12/02/23 Ordered By: Ranjan Maldonado Referrals: Shai Hill MD [Primary Care Provider] - 1 week (Please call Dr. Hill's Office on Monday at [phone] to schedule a follow up appointment for 1 week. Thank you.) Lavern Santamaria FNP [Nurse Practitioner] - (Please call Lavern Santamaria's Office on Monday at [phone] to schedule a follow up appointment. Thank you.) Discharge Diet: Cardiac and Diabetic Discharge Activity: Resume usual activity and Increase activity as tolerated Patient Instructions: Aspirin (By mouth) (Collin Extra Strength, Collin Aspirin Children[facility],..., Amlodipine (By mouth) (Hypertenipine-2.5, Norvasc, Norliqva), Atorvastatin (By mouth) (Lipitor, Atorvaliq), Pantoprazole (By mouth) (Protonix), Sitagliptin/Metformin (By mouth) (Janumet, Janumet XR), Opioid Safety, Post Angiogram Home Care Instructions Activity Restrictions/Additional Instructions: Please follow-up with a primary care provider within next 1 week. Your high blood pressure medications have been adjusted. Amlodipine 5 mg daily has been added to your medication list. For diabetes you will be taking Janumet which is a combination of Januvia and metformin. You will need to take that medication twice daily. Repeat A1c in neck 6 months. Discharge Attestations Time Spent in Discharge Care*: greater than 30 min Specific Discharge Activities: educating patient, educating and/or supporting family/caregiver, discussing with pcp/other providers, discussing with catalytic case operator/social workers/dc planners, documenting/other paperwork and evaluating patient/reviewing data Status at Discharge: Cognitive status at discharge: cognitively intact , Behavioral status at discharge: cooperative , Functional status at discharge: independent ambulation , Overall status at discharge: patient is back to baseline Quality Metrics Clinical Quality Measures [ No reported AMI, CVA or VTE this stay] Coding Level of Care Code 01433 Total time (in minutes) for Discharge: 60 Diagnoses Chest pain R07.9 Hypertension, uncontrolled I10 Gastritis K29.70 GERD (gastroesophageal reflux disease) K21.9 Type 2 diabetes mellitus E11.9
[2023-12-02] MEDS: metoprolol tartrate 25 mg Tablet PO (10:31)
[2023-12-02 12:12] LABS: Glucose Point of Care 158 mg/dL (70-110)
[2023-12-02] MEDS: insulin lispro 100 unit/1 mL SUBCUT (12:52)
--- NOTE | 2023-12-02 15:41 | PC.NURSE ---
pt now stated she does not have a ride we are calling car tender or ready transport.
--- NOTE | 2023-12-02 17:05 | PC.NURSE ---
Discharge Note Patient discharged to home via private vehicle accompanied by SO. Discharge instructions reviewed with patient and/or service representative. Mobile pharmacy medications and/or prescriptions provided. Belongings/home medications returned-ipad, cellphone, bags.
== END 2023-12-02 16:22 | disposition home or self-care (01) | DRG 287 ==
LOC: ER 11-30 00:18 → CSU 11-30 00:47
PROVIDERS: Internal Medicine; Admitting Provider Internal Medicine; Emergency Provider Internal Medicine; PCP Family Medicine; Visit Provider Student in an Organized Health Care Education/Training Program
DX: I25.10 Atherosclerotic heart disease of native coronary artery without angina pectoris (principal); I10 Essential (primary) hypertension; K29.70 Gastritis, unspecified, without bleeding; K21.9 Gastro-esophageal reflux disease without esophagitis; E11.9 Type 2 diabetes mellitus without complications
CPT/HCPCS: 36415; 36416; 71045; 74176; 78452; 80048; 80053; 80061; 80306; 80307; 81001; 81015; 82607; 82746; 82962; 83036; 83540; 83550; 83690; 83735; 83880; 84443; 84484; 84703; 85025; 85378; 85730; 86140; 86403; 87449; 93005; 93017; 93306; 93458; 94640; 96365; 96367; 96372; 96374; 96375; 96376; 99152; 99153; 99285; A9500; C1760; C1769; C1887; C1894; C9113; J1644; J1650; J1815; J2250; J2405; J2785; J3010; J3490; J7030; Q0163; Q9967

== ENCOUNTER 2023-12-30 13:12 | Emergency (ER) | payer MEDICAID, SELFPAY ==
[2023-12-30 13:15] VITALS: BP 195/103; PULSE 91; RESP 14; TEMP 36.8; O2SAT 96
--- NOTE | 2023-12-30 13:57 | W.ED.ABDPA2 ---
HPI - Abdominal Pain General: Chief Complaint: Abdominal Pain Stated Complaint: abd pain, lower back pain Time Seen by Provider: 12/30/23 13:19 History of Present Illness: Radha Dunaway is a 58-year-old female who presents to the emergency department with complaints of nausea for 4 months. Patient is not very forthcoming with details initially but during the course of my exam she reports that she believes she is . She reports . She says she recently underwent a tubal reversal and feels like she is She reports she is sexually acitve and went through menopause 20 years ago. She denies seeing her PCP or other provider recently. She was seen by family practice 3 days ago Admitted here 1 month ago Saw family practice in [place] for test. She is hypertensive here. She is a poor historian but reports she is on antihypertensives. She states she has not taken her morning meds. Associated Symptoms: Reports diarrhea, nausea and vomiting; Denies bloating, chills, constipation, GI cramping, dysuria, fever(s), hematochezia and hematuria Review of Systems General: Reports: 10 or more systems reviewed and unremarkable except in HPI and below Const: Reports: change in appetite; Denies: fever(s), chills, change in weight, fatigue or malaise Card: Denies: chest pain, palpitations, irregular heart rhythm, edema, dyspnea on exertion, orthopnea or leg pain with exertion Resp: Denies: dyspnea, productive cough, non-productive cough, wheezing, stridor or chest congestion GI: Reports: nausea, vomiting and diarrhea; Denies: abdominal pain, constipation, bloating, GI cramping or hematochezia : Denies: flank pain, difficulty voiding, dysuria, urinary frequency, urinary urgency, urinary hesitancy, oliguria, hematuria, vaginal bleeding, vaginal discharge or dysmenorrhea Musc: Denies: neck pain, back pain, extremity pain, joint pain, joint swelling, joint redness, joint warmth or muscle weakness Skin/Breast: Denies: rash, pruritus, erythema, photosensitivity or new lesions Neuro: Denies: headache(s), numbness in extremities, weakness in extremities, sensory changes, lack of coordination, difficulty walking, frequent falls, dizziness, confusion, Slurred speech present, difficulty communicating thoughts, seizure-like activity or involuntary movements Endo: Denies: polyuria, polydipsia or tired all the time Ash/Lymph: Denies: easy bruising or easy bleeding PFSH ED PFSH: Medical History Peripheral neuropathy Ischemic ulcer Pain in both feet Ischemic ulcer diabetic foot Right radial head fracture Fracture, radius, distal Psychiatric care Surgical History No pertinent past surgical history Family History Denies family history of CAD (coronary artery disease) Social History Smoking and tobacco/nicotine status: never used tobacco/nicotine Alcohol intake: never Physical Exam Const: COMMON NORMALS: no acute distress, patient oriented x3 and alert GENERAL APPEARANCE: cooperative ORIENTATION/CONSCIOUSNESS: Yes awake, Yes oriented to person, Yes oriented to place and Yes oriented to time HENMT: COMMON NORMALS: normocephalic and atraumatic HEAD & SCALP: normocephalic and atraumatic FACE & SINUS: normal facial exam MOUTH: Normal oral and palatal mucosa present THROAT: posterior oropharynx normal Eye: COMMON NORMALS: Equal, round and reactive pupils present, EOMs intact bilaterally, conjunctivae normal and no scleral icterus GENERAL EYE: appearance normal, both eyes and all related structures ALIGNMENT: Yes alignment normal PERIORBITAL: periorbital findings normal CONJUNCTIVA: Yes conjunctivae normal PUPIL: Yes Equal, round and reactive pupils present Neck/C-Spine: COMMON NORMALS: full ROM GENERAL: Yes normal visual inspection Lymph: LYMPHATIC: no lymphadenopathy noted Chest: COMMONS NORMALS: normal inspection of the chest Breast/axilla inspection: Yes no chest deformity, asymmetry, normal contours, no nodules, masses, tenderness Resp: COMMON NORMALS: normal respiratory effort, No retractions, No use of accessory muscles and clear to auscultation bilaterally EFFORT & INSPECTION: Yes able to speak in complete sentences and Yes symmetric chest movement AUSCULTATION: clear to auscultation bilaterally Cardio: COMMON NORMALS: regular rate, regular rhythm and Peripheral pulses 2+ throughout RATE: regular rate RHYTHM: regular rhythm PERIPHERAL PULSES: Peripheral pulses 2+ throughout GI: COMMON NORMALS: Normal to inspection, nondistended, normoactive bowel sounds present, Soft to palpation, non-tender and No hepatosplenomegaly present INSPECTION: Yes normal to inspection AUSCULTATION: Yes normoactive bowel sounds PALPATION: Yes Soft to palpation and Yes No hepatosplenomegaly present RECTAL EXAM: deferred Extremity: COMMON NORMALS: normal to inspection GENERAL: Yes normal exam except as noted Neuro: COMMON NORMALS: patient oriented x3 SENSORIUM/ORIENTATION: Yes alert, Yes oriented to person, Yes oriented to place and Yes oriented to time CRANIAL NERVES: Yes CN normal except as noted Psych: COMMON NORMALS: mental status grossly normal, Normal thought process present, cooperative, activity/motor behavior normal, denies homicidal ideation and denies suicidal ideation THOUGHT PROCESS: Normal thought process present Skin: COMMON NORMALS: no rashes or lesions noted, no wounds and turgor normal GENERAL SKIN EXAM: no rashes or lesions noted and turgor normal Course Vital Signs: Vital signs: Vital Signs Temperature 98.2 F 12/30/23 13:15 Pulse Rate 91 12/30/23 13:15 Respiratory Rate 14 12/30/23 13:15 Blood Pressure 195/103 12/30/23 13:15 Pulse Oximetry 96 12/30/23 13:15 Oxygen Delivery Me thod Room Air 12/30/23 13:15 MDM - Abdominal Pain Medical Decision Making Patient was evaluated in the emergency department today for complaints of nausea and vomiting x 4 months. Patient ultimately is concerned about . She is 20 years postmenopausal She has had numerous visit with family practice and inpatient services that included evaluation. All exams have been negative. She really wants an ultrasound today. I was concerned about her hypertension. Blood pressures were 240/120 patient states she has not taken any antihypertensives. Recheck of her blood pressure when she was calm and situated in bed was 195/103. To evaluate it further I ordered a urine test, CBC, CMP, lipase. Prior to any further evaluation, patient left AGAINST MEDICAL ADVICE. Documentation completed by nurse Lab Data Labs/Radiology: Laboratory Results HCG, Qual Negative (Negative) 12/30/23 13:13 No radiology studies performed this visit Discharge Plan Discharge Patient Disposition: Left Against Medical Advice Condition: Stable Prescriptions: No Action (DME) Hinge Elbow Brace See Rx Instructions .Route .MEDSUPPLY Qty: 1 0RF Rx Instructions: As directed amitriptyline 75 mg tablet 75 mg PO BEDTIME gabapentin 300 mg capsule 600 mg PO TID allopurinol 300 mg tablet 300 mg PO QAM furosemide 20 mg tablet 20 mg PO BID PRN (Reason: Edema) albuterol sulfate [Ventolin HFA] 90 mcg/actuation Hfa Aerosol Inhaler 2 puff INHALATION Q4H PRN (Reason: Shortness Of Breath) colchicine 0.6 mg tablet 0.6 mg PO DAILY PRN (Reason: flares) metoprolol succinate [Toprol XL] 25 mg tablet extended release 24 hr 25 mg PO QAM benazepril 40 mg tablet 40 mg PO QPM diclofenac sodium 75 mg tablet,delayed release (DR/EC) 75 mg PO Q12H PRN (Reason: pain) Qty: 20 0RF atorvastatin 40 mg Tablet 40 mg PO BEDTIME Qty: 30 0RF amlodipine 5 mg Tablet 5 mg PO DAILY Qty: 30 0RF aspirin 81 mg Tablet,Delayed Release (Dr/Ec) 81 mg PO DAILY Qty: 30 0RF Janumet 50-500 mg tablet 1 tab PO BID Qty: 60 0RF Protonix 40 mg tablet,delayed release (DR/EC) 40 mg PO DAILY Qty: 60 0RF Rx Instructions: Twice daily for 4 weeks an then daily. Coding Level of Care Code ED Technical Training Specialist for Ranjana Orellana
[2023-12-30 14:26] LABS: HCG Qualitative Urine. Negative (Negative)
== END 2023-12-30 14:20 | disposition left against medical advice (07) ==
PROVIDERS: Emergency Provider Nurse Practitioner; PCP Family Medicine
DX: R10.9 Unspecified abdominal pain (principal); R11.0 Nausea; Z53.29 Procedure and treatment not carried out because of patient's decision for other reasons; Z79.82 Long term (current) use of aspirin; I10 Essential (primary) hypertension
CPT/HCPCS: 81025; 99283

== ENCOUNTER 2024-01-13 11:16 | Emergency (ER) | payer MEDICAID, SELFPAY ==
[2024-01-13 11:35] VITALS: BP 212/96; PULSE 85; RESP 16; TEMP 36.9; O2SAT 96
--- NOTE | 2024-01-13 12:09 | W.ED.ABDPA2 ---
HPI - Abdominal Pain General: Chief Complaint: Abdominal Pain Stated Complaint: right side abd pain Time Seen by Provider: 01/13/24 11:45 History of Present Illness: Patient presents to the emergency room with right lower quadrant pain over the last couple of days. She says she is been nauseous for months now. And just started over the last day or so. She complains of a severe pain in her right lower quadrant. No diarrhea. No chest pain. No fevers. Review of Systems Narrative: Constitutional symptoms: Negative except as documented in HPI. Skin symptoms: Negative except as documented in HPI. Eye symptoms: Negative except as documented in HPI. ENMT symptoms: Negative except as documented in HPI. Respiratory symptoms: Negative except as documented in HPI. Cardiovascular symptoms: Negative except as documented in HPI. Gastrointestinal symptoms: Negative except as documented in HPI. Genitourinary symptoms: Negative except as documented in HPI. Musculoskeletal symptoms: Negative except as documented in HPI. Neurologic symptoms: Negative except as documented in HPI. Psychiatric symptoms: Negative except as documented in HPI. Endocrine symptoms: Negative except as documented in HPI. PFSH ED PFSH: Medical History Peripheral neuropathy Ischemic ulcer Pain in both feet Ischemic ulcer diabetic foot Right radial head fracture Fracture, radius, distal Psychiatric care Surgical History No pertinent past surgical history Family History Denies family history of CAD (coronary artery disease) Social History Smoking and tobacco/nicotine status: never used tobacco/nicotine Alcohol intake: never Physical Exam Narrative: EXAM NARRATIVE: General: Alert, no acute distress. Skin: Warm, dry. Head: Normocephalic, atraumatic. Neck: Supple, trachea midline. Eye: Extraocular movements are intact. Ears, nose, mouth and throat: mucosa moist. Cardiovascular: Regular, Normal peripheral perfusion. Respiratory: Lungs are clear to auscultation, respirations are non-labored, breath sounds are equal, Symmetrical chest wall expansion. Gastrointestinal: Soft, tenderness palpation in the right lower quadrant, Non distended, Normal bowel sounds. Musculoskeletal: Normal ROM, no deformity. Neurological: Alert and oriented, No focal neurological deficit observed. Psychiatric: Cooperative, appropriate mood & affect. Course Vital Signs: Vital signs: Vital Signs Temperature 98.4 F 01/13/24 11:35 Pulse Rate 77 01/13/24 13:05 Respiratory Rate 16 01/13/24 11:35 Blood Pressure 212/96 01/13/24 11:35 Pulse Oximetry 98 01/13/24 13:05 Oxygen Delivery Me thod Room Air 01/13/24 11:35 MDM - Abdominal Pain Medical Decision Making Medical decision making: Differential diagnosis for this patient with right lower quadrant abdominal pain including but not limited to and based on the above HPI, review of systems and physical exam: Ureterolithiasis. Urinary tract infection. Appendicitis. colitis. small bowel obstruction. Crohn's flare. Pancreatitis. Cholelithiasis or cholecystitis. Hepatitis. Diverticulitis. Constipation. ovarian cyst. ovarian torsion Workup: Orders were placed to evaluate differential diagnosis based on the above differential, HPI and exam: Lab Review: Laboratory results were reviewed and interpreted by myself the emergency room physician. Patient has a white count of 8. Hemoglobin is 13. BUN and creatinine are 15 and 0.6. Her glucose is high at 264. She has a urinary tract infection as well. I reviewed the patient's medical record Reexamination: Patient remained stable. Some improvement in her abdominal pain with Dilaudid. No altered mental status. No increased work of breathing. Assessment and plan: Urinary tract infection -IV Dilaudid, IV Zofran and IV Rocephin - Discharged home - Discussed findings and plan with patient. Answered any questions. - All laboratory values were reviewed and interpreted personally by myself, the ER physician - All imaging was reviewed and interpreted personally by myself, the ER physician. - Evaluation and treatment of this problem were appropriate in the emergency setting Lab Data 01/13/24 12:34 01/13/24 12:34 Labs/Radiology: Radiology Impressions Abdomen/Pelvis CT 01/13/24 13:51 IMPRESSION: No acute findings. Laboratory Results WBC 8.08 10^3/uL (3.29-11.43) 01/13/24 12:34 RBC 4.30 10^6/uL (3.85-5.65) 01/13/24 12:34 Hgb 13.10 g/dL (11.27-16.99) 01/13/24 12:34 Hct 39.7 % (36-47) 01/13/24 12:34 MCV 92.3 fl (85-98) 01/13/24 12:34 MCH 30.5 pg (27-33) 01/13/24 12:34 MCHC 33.0 g/dL (30-55) 01/13/24 12:34 RDW 13.3 % (12.1-15.1) 01/13/24 12:34 Plt Count 303 10^3/cmm (157-399) 01/13/24 12:34 MPV 10.1 fL (7.4-10.4) 01/13/24 12:34 Neut % (Auto) 59.2 % 01/13/24 12:34 Lymph % (Auto) 22.6 % 01/13/24 12:34 Dickey % (Auto) 12.5 % 01/13/24 12:34 Eos % (Auto) 4.5 % 01/13/24 12:34 Baso % (Auto) 0.6 % 01/13/24 12:34 Neut # (Auto) 4.78 10^3/uL (1.8-7.7) 01/13/24 12:34 Lymph # (Auto) 1.8 10^3/uL (0.8-4.8) 01/13/24 12:34 Dickey # (Auto) 1.0 10^3/uL (0.2-0.9) H 01/13/24 12:34 Eos # (Auto) 0.4 10^3/uL (0.0-0.8) 01/13/24 12:34 Baso # (Auto) 0.1 10^3/uL (0.0-0.1) 01/13/24 12:34 Nucleated RBC % (auto) 0 % 01/13/24 12:34 Nucleated RBCs # 0.0 /100WBC 01/13/24 12:34 Sodium 133 mmol/L (136-145) L 01/13/24 12:34 Potassium 4.3 mmol/L (3.5-5.1) 01/13/24 12:34 Chloride 96 mmol/L (98-107) L 01/13/24 12:34 Carbon Dioxide 23 mmol/L (22-29) 01/13/24 12:34 Anion Gap 18.3 (5-19) 01/13/24 12:34 BUN 15 mg/dL (6-20) 01/13/24 12:34 Creatinine 0.6 mg/dL (0.5-0.9) 01/13/24 12:34 GFR Calculation 102.3 mL/min (90-130) 01/13/24 12:34 Glucose 264 mg/dL (65-115) H 01/13/24 12:34 Calculated Osmolality 286 mOsm/kg (285-295) 01/13/24 12:34 Lactic Acid 2.5 mmol/L (0.5-2.2) H 01/13/24 12:34 Calcium 9.2 mg/dL (8.5-10.5) 01/13/24 12:34 Total Bilirubin 0.4 mg/dL (0.15-1.2) 01/13/24 12:34 AST 27 U/L (0-32) 01/13/24 12:34 ALT 28 U/L (0-33) 01/13/24 12:34 Alkaline Phosphatase 79 U/L (35-105) 01/13/24 12:34 C-Reactive Protein 10.9 mg/L (0.0-4.9) H 01/13/24 12:34 Total Protein 7.6 g/dL (6.6-8.7) 01/13/24 12:34 Albumin 4.0 g/dL (3.5-5.2) 01/13/24 12:34 Globulin 3.6 g/dL (1.3-4.6) 01/13/24 12:34 Urine Color Yellow (Yellow) 01/13/24 11:51 Urine Appearance Clear (CLEAR) 01/13/24 11:51 Urine pH 5 (5-7) 01/13/24 11:51 Ur Specific [place] 1.010 (1.005-1.030) 01/13/24 11:51 Urine Protein Neg (Negative) 01/13/24 11:51 Urine Glucose (UA) Trace (Normal) H 01/13/24 11:51 Urine Ketones Negative (Negative) 01/13/24 11:51 Urine Blood Neg (Negative) 01/13/24 11:51 Urine Nitrate Negative (Negative) 01/13/24 11:51 Urine Bilirubin Neg (Negative) 01/13/24 11:51 Urine Urobilinogen Norm mg/dL (Negative) 01/13/24 11:51 Ur Leukocyte Esterase Trace (Negative) H 01/13/24 11:51 Urine RBC None /hpf (0-2) 01/13/24 11:51 Urine WBC 5-10 /hpf (0-5) H 01/13/24 11:51 Ur Squamous Epith Cells 0-4 /hpf (0-5) H 01/13/24 11:51 Amorphous Sediment Not Reportable 01/13/24 11:51 Urine Bacteria 1+ /hpf (NONE) H 01/13/24 11:51 All radiology interpretation(s) finalized by discharge Discharge Plan Discharge Patient Disposition: Home Clinical Impression: Urinary tract infection, Abdominal pain, Hyperglycemia Condition: Stable Prescriptions: New tramadol 50 mg tablet 50 mg PO Q8H PRN (Reason: pain) Qty: 20 0RF ondansetron 8 mg tablet,disintegrating 8 mg PO .q6 PRN (Reason: nausea and vomiting) Qty: 14 0RF cefdinir 300 mg capsule 300 mg PO BID 5 Days Qty: 10 0RF No Action (DME) Hinge Elbow Brace See Rx Instructions .Route .MEDSUPPLY Qty: 1 0RF Rx Instructions: As directed amitriptyline 75 mg tablet 75 mg PO BEDTIME gabapentin 300 mg capsule 600 mg PO TID allopurinol 300 mg tablet 300 mg PO QAM furosemide 20 mg tablet 20 mg PO BID PRN (Reason: Edema) albuterol sulfate [Ventolin HFA] 90 mcg/actuation Hfa Aerosol Inhaler 2 puff INHALATION Q4H PRN (Reason: Shortness Of Breath) colchicine 0.6 mg tablet 0.6 mg PO DAILY PRN (Reason: flares) metoprolol succinate [Toprol XL] 25 mg tablet extended release 24 hr 25 mg PO QAM benazepril 40 mg tablet 40 mg PO QPM atorvastatin 40 mg Tablet 40 mg PO BEDTIME Qty: 30 0RF amlodipine 5 mg tablet 5 mg PO BEDTIME aspirin 81 mg tablet,delayed release (DR/EC) 81 mg PO BEDTIME Protonix 40 mg tablet,delayed release (DR/EC) See Rx Instructions .ROUTE .COMPLEX Rx Instructions: 40mg po bid for 4 weeks then 40mg daily. Adult Multivitamin Gummies 200 mcg Tablet,Chewable 1 tab PO DAILY Discharge Orders: Discharge ED (Routine); Ordered 01/13/24 Ordered By: Jazlyn Garza Referrals: Shai Hill MD [Primary Care Provider] - (You have been screened and evaluated and felt safe for discharge. Health conditions do change or evolve sometimes and as such it is important that you follow up with your Primary Doctor to be re checked, 3-5 days is a general good time frame for follow up. You are always welcome to return to the ED for re assessment if your symptoms are worsening or you have new concerns) Discharge Diet: Usual diet Discharge Activity: Resume usual activity Patient Instructions: Urinary Tract Infection in Women (ED), Abdominal Pain (ED) Coding Level of Care Code ED Foreign [employer] Student Coordinator for Ranjana Orellana
[2024-01-13 12:45] LABS: Basophils # 0.1 10^3/uL (0.0-0.1); Basophils % 0.6 %; Eosinophils # 0.4 10^3/uL (0.0-0.8); Eosinophils % 4.5 %; Hematocrit 39.7 % (36-47); Lymphocytes # 1.8 10^3/uL (0.8-4.8); Lymphocytes % 22.6 %; Mean Corpuscular Hemoglobin 30.5 pg (27-33); Mean Corpuscular Volume 92.3 fl (85-98); Mean Platelet Volume 10.1 fL (7.4-10.4); Monocytes % 12.5 %; Neutrophils # 4.78 10^3/uL (1.8-7.7); Neutrophils % 59.2 %; Nucleated Red Blood Cells % 0 %; Platelet Count 303 10^3/cmm (157-399); Red Cell Distribution Width 13.3 % (12.1-15.1); White Blood Count 8.08 10^3/uL (3.29-11.43)
--- NOTE | 2024-01-13 13:00 | PC.PHAR ---
pt states she takes care of her own medications-pt states she didnt take any medications today-pt states she hasnt taken janument 50-500mg bid for a month states she had to many bad side effects ext shows last filled 12/02/23 30d/s-pt states she is still taking metoprolol succ er 25mg qam ext shows last filled 08/01/23 30d/s and benazepril 40mg daily filled 09/06/23 30d/s and allopurinol 300mg daily filled 08/01/23 30d/s-notes are made in the pharmacy comments
[2024-01-13 13:05] VITALS: PULSE 77; O2SAT 98
[2024-01-13 13:05] LABS: Lactic Sepsis W/Reflex 2.5 mmol/L (0.5-2.2)
[2024-01-13 13:07] LABS: Alanine Aminotransferase 28 U/L (0-33); Alkaline Phosphatase 79 U/L (35-105); Anion Gap 18.3 (5-19); Aspartate Amino Transferase 27 U/L (0-32); Blood Urea Nitrogen 15 mg/dL (6-20); C Reactive Protein 10.9 mg/L (0.0-4.9); Calcium 9.2 mg/dL (8.5-10.5); Carbon Dioxide 23 mmol/L (22-29); Chloride 96 mmol/L (98-107); Creatinine Clr Calc Pharmacy 116.5019; Globulin 3.6 g/dL (1.3-4.6); Glomerular Filtration Rate 102.3 mL/min (90-130); Glucose 264 mg/dL (65-115); Osmolality Calculated 286 mOsm/kg (285-295); Potassium 4.3 mmol/L (3.5-5.1); Sodium 133 mmol/L (136-145); Total Bilirubin 0.4 mg/dL (0.15-1.2); Total Protein 7.6 g/dL (6.6-8.7)
[2024-01-13] MEDS: ondansetron 2 mg/ML SDV 2 mL 8 MG IVP (13:11)
[2024-01-13] MEDS: HYDROmorphone 1 mg/mL INJ 1 mL IVP (13:12)
--- NOTE | 2024-01-13 13:51 | CTR_ITS ---
PROCEDURE INFORMATION: Exam: CT Abdomen And Pelvis Without Contrast Exam date and time: 01/13/2024 1:56 PM Age: 58 years old Clinical indication: Abdominal pain; Localized; Right lower quadrant (rlq); Additional info: Abdominal pain, right lower quadrant TECHNIQUE: Imaging protocol: Computed tomography of the abdomen and pelvis without contrast. Radiation optimization: All CT scans at this facility use at least one of these dose optimization techniques: automated exposure control; mA and/or kV adjustment per patient size (includes targeted exams where dose is matched to clinical indication); or iterative reconstruction. COMPARISON: CT abdomen pelvis con [id number] 11/30/2023 12:45 AM RADIATION DOSE METRICS: Total DLP (mGy-cm): 987.74 FINDINGS: Liver: No acute findings Gallbladder and bile ducts: No acute findings. Pancreas: No ductal dilation. Spleen: No splenomegaly. Adrenal glands: Left adreniform thickening. Kidneys and ureters: Punctate nonobstructing left renal calculus. Stomach and bowel: No obstruction. Appendix: Normal appendix. Intraperitoneal space: No free air. No significant fluid collection. Vasculature: No abdominal aortic aneurysm. Lymph nodes: No enlarged lymph nodes. Urinary bladder: No acute findings. Reproductive: No acute findings. Bones/joints: No acute findings. Soft tissues: No acute findings. CT/CT abdomen pelvis con [id number] IMPRESSION: No acute findings.
[2024-01-13 14:03] LABS: Urine Color Yellow (Yellow)
[2024-01-13 14:04] LABS: Add Urine Culture? No; Bacteria Urine 1+ /hpf; Bilirubin Urine Neg (Negative); Blood Urine Neg (Negative); Glucose Urine UA Trace (Normal); Ketones Urine Negative (Negative); Leukocyte Esterase Urine Trace (Negative); Nitrate Urine Negative (Negative); Protein Urine Neg (Negative); Squamous Epithelial Cell Urine 0-4 /hpf (0-5); Urine Appearance Clear (CLEAR); Urobilinogen Urine Norm (Negative); pH Urine 5 (5-7)
[2024-01-13 14:27] LABS: Reflex Lactate Order REFLEX LACTIC ORDERD
[2024-01-13] MEDS: cefTRIAXone 1,000 MG in sodium chloride 0.9% (plus) 50 ML 100 MG IV (15:18)
[2024-01-13 15:29] LABS: Lactic Acid level (Lactate) 1.6 mmol/L (0.5-2.2)
== END 2024-01-13 16:10 | disposition home or self-care (01) ==
PROVIDERS: Emergency Provider Emergency Medicine; PCP Family Medicine
DX: N39.0 Urinary tract infection, site not specified (principal); R10.31 Right lower quadrant pain; R73.9 Hyperglycemia, unspecified
CPT/HCPCS: 36415; 74176; 80053; 81001; 83605; 85025; 86140; 96365; 96375; 99285; J0696; J1170; J2405

== ENCOUNTER 2024-01-19 03:07 | Emergency (ER) | payer MEDICAID, SELFPAY ==
[2024-01-19 03:11] VITALS: BP 155/103; PULSE 87; RESP 18; TEMP 36.4; O2SAT 95; BMI 37.8
--- NOTE | 2024-01-19 03:14 | CTR_ITS ---
PROCEDURE INFORMATION: Exam: CT Head Without Contrast Exam date and time: 01/19/2024 3:39 AM Age: 58 years old Clinical indication: Injury or trauma; Fall; Other: Pain; Additional info: Fall, head trauma, hematoma post occip, + loc TECHNIQUE: Imaging protocol: Computed tomography of the head without contrast. Radiation optimization: All CT scans at this facility use at least one of these dose optimization techniques: automated exposure control; mA and/or kV adjustment per patient size (includes targeted exams where dose is matched to clinical indication); or iterative reconstruction. COMPARISON: No relevant prior studies available. RADIATION DOSE METRICS: Total DLP (mGy-cm): 1076.6 FINDINGS: Brain: There is no evidence of acute parenchymal hemorrhage, extra-axial collection, or acute infarction. There is no mass effect, midline shift, or downward herniation. Cerebral ventricles: No ventriculomegaly. Paranasal sinuses: There is [id number] paranasal sinus mucosal thickening. Mastoid air cells: Visualized mastoid air cells are well aerated. Bones: Unremarkable. No acute fracture. Soft tissues: There is parietal scalp hematoma. CT/CT head wo con* [id number] IMPRESSION: No evidence of acute intracranial process.
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
[2024-01-19 05:37] VITALS: BP 132/63; PULSE 73; O2SAT 97
== END 2024-01-19 05:28 | disposition home or self-care (01) ==
PROVIDERS: Emergency Provider Emergency Medicine; PCP Family Medicine
DX: S00.03XA Contusion of scalp, initial encounter (principal); Z79.82 Long term (current) use of aspirin; W17.89XA Other fall from one level to another, initial encounter
CPT/HCPCS: 70450; 99284

== ENCOUNTER 2024-02-06 07:28 | Emergency (ER) | payer MEDICAID, SELFPAY ==
--- NOTE | 2024-02-06 07:42 | XR_ITS ---
WS: [id number] LEFT ANKLE: 3 VIEW(S) TECHNIQUE: AP, oblique(s) and lateral. HISTORY: pain COMPARISON: None available. Moderate degenerative changes at the tibiotalar joint. Age-indeterminate fracture involving the distal fibula. There is a small amount of adjacent edema. Ma rgins are well-corticated. Moderate size calcaneal spur. No significant joint effusion. XR/XR ankle LT min 3V* [id number] IMPRESSION: 1. Age-indeterminate distal fibular fracture. No significant joint effusion an d no significant soft tissue edema. May not be acute. 2. Moderate size calcaneal spur.
[2024-02-06 08:12] VITALS: BP 193/98; PULSE 79; RESP 16; TEMP 36.8; O2SAT 97
--- NOTE | 2024-02-06 08:42 | W.ED.EXTPRO ---
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 Complaint: joint pain Associated symptoms: Deny chest pain, fever(s) or rash Review of Systems Const: Denies: fever(s) or chills Card: Denies: chest pain Resp: Denies: dyspnea Musc: Denies: neck pain or back pain Skin/Breast: Denies: rash PFSH ED PFSH: Medical History Peripheral neuropathy Ischemic ulcer Pain in both feet Ischemic ulcer diabetic foot Right radial head fracture Fracture, radius, distal Psychiatric care Surgical History No pertinent past surgical history Family History Denies family history of CAD (coronary artery disease) Social History Smoking and tobacco/nicotine status: never used tobacco/nicotine Alcohol intake: never Physical Exam Const: COMMON NORMALS: no acute distress GENERAL APPEARANCE: cooperative and comfortable ORIENTATION/CONSCIOUSNESS: Yes awake, Yes oriented to person, Yes oriented to place and Yes oriented to time HENMT: COMMON NORMALS: normocephalic, atraumatic and hearing grossly normal bilaterally HEAD & SCALP: normocephalic and atraumatic Resp: COMMON NORMALS: normal respiratory effort, No retractions, No use of accessory muscles and clear to auscultation bilaterally AUSCULTATION: clear to auscultation bilaterally Cardio: COMMON NORMALS: regular rate, regular rhythm and No murmurs present (Cardio) RATE: regular rate RHYTHM: regular rhythm Neuro: SENSORIUM/ORIENTATION: Yes oriented to person, Yes oriented to place and Yes oriented to time Skin: COMMON NORMALS: no rashes or lesions noted GENERAL SKIN EXAM: no rashes or lesions noted Course Vital Signs: Vital signs: Vital Signs Temperature 98.3 F 02/06/24 08:12 Pulse Rate 79 02/06/24 08:12 Respiratory Rate 16 02/06/24 08:12 Blood Pressure 193/98 02/06/24 08:12 Pulse Oximetry 97 02/06/24 08:12 MDM - Extremity (Nontraumatic) Medical Decision Making Left distal fibula fracture she does have acute pain and radiology read it is possible that think it is likely acute. She also has a left second toe distal tuft fracture nondisplaced. Nonweightbearing in the splint referral to podiatry pain medications given follow-up with podiatry as recommended. Medical Records I reviewed the patient's medical records. Lab Data I reviewed the patient's lab results. Radiology Impressions Ankle X-Ray 02/06/24 07:42 IMPRESSION: 1. Age-indeterminate distal fibular fracture. No significant joint effusion and no significant soft tissue edema. May not be acute. 2. Moderate size calcaneal spur. Foot X-Ray 02/06/24 08:48 IMPRESSION: 1. Nondisplaced distal tuft fracture of the second toe with soft tissue swelling. All radiology interpretation(s) finalized by discharge Discharge Plan Discharge Patient Disposition: Home Clinical Impression: Fracture of distal end of fibula, Fracture of toe Condition: Stable Prescriptions: New tramadol 50 mg tablet 50 mg PO Q8H PRN (Reason: pain) Qty: 10 0RF No Action (DME) Hinge Elbow Brace See Rx Instructions .Route .MEDSUPPLY Qty: 1 0RF Rx Instructions: As directed amitriptyline 75 mg tablet 75 mg PO BEDTIME gabapentin 300 mg capsule 600 mg PO TID allopurinol 300 mg tablet 300 mg PO QAM furosemide 20 mg tablet 20 mg PO BID PRN (Reason: Edema) albuterol sulfate [Ventolin HFA] 90 mcg/actuation Hfa Aerosol Inhaler 2 puff INHALATION Q4H PRN (Reason: Shortness Of Breath) colchicine 0.6 mg tablet 0.6 mg PO DAILY PRN (Reason: flares) metoprolol succinate [Toprol XL] 25 mg tablet extended release 24 hr 25 mg PO QAM benazepril 40 mg tablet 40 mg PO QPM atorvastatin 40 mg Tablet 40 mg PO BEDTIME Qty: 30 0RF amlodipine 5 mg tablet 5 mg PO BEDTIME aspirin 81 mg tablet,delayed release (DR/EC) 81 mg PO BEDTIME Protonix 40 mg tablet,delayed release (DR/EC) See Rx Instructions .ROUTE .COMPLEX Rx Instructions: 40mg po bid for 4 weeks then 40mg daily. Adult Multivitamin Gummies 200 mcg Tablet,Chewable 1 tab PO DAILY tramadol 50 mg tablet 50 mg PO Q8H PRN (Reason: pain) Qty: 20 0RF ondansetron 8 mg tablet,disintegrating 8 mg PO .q6 PRN (Reason: nausea and vomiting) Qty: 14 0RF Discharge Orders: Discharge ED (Routine); Ordered 02/06/24 Ordered By: Govind Hyde Referrals: Shai Hill MD [Primary Care Provider] - Discharge Diet: Usual diet Discharge Activity: Resume usual activity Patient Instructions: Opioid Safety, Pain Management Activity Restrictions/Additional Instructions: Thank you for choosing [facility] for your healthcare needs today. Please realize this is an emergency room and that we are providing you with a medical screening exam and this may not be complete and all inclusive of all the testing and or work up that you may need to determine your ailment or severity of your illness. It is very important that you follow up as instructed or that you return to the Emergency Department should you have concerns or if your condition changes or worsens in any way. You were seen today with ankle and foot pain. There is a nondisplaced fracture of the distal part of your second toe on the left foot. There is also a nondisplaced distal fibula fracture on the left ankle. Case management will set you up for follow-up with podiatry. Leave the splint in place and you should be nonweightbearing on your left leg until released by podiatry Coding Level of Care Code ED Dynamometer Tester Engine for Ranjana Orellana
--- NOTE | 2024-02-06 08:48 | XR_ITS ---
NOTE: Report was unsigned for reason: Order was edited. Original Signature date and time was: 02/06/24 @0926 WS: [id number] Exam: XR foot LEFT min 3V* [id number] Date/Time of Exam: 02/06/2024 8:48 AM Reason For Exam: Pain trauma There is a nondisplaced fracture involving the distal tuft of the second toe with soft tissue swelling. No other acute fractures of the foot are noted. A fiberglass splint obscures some detail. Degenerative changes in the midfoot joints. Calcaneal spurs. [facility] XR/XR foot LT min 3V* [id number] IMPRESSION: 1. Nondisplaced distal tuft fracture of the second toe with soft tissue swellin g.
== END 2024-02-06 10:57 | disposition home or self-care (01) ==
PROVIDERS: Emergency Provider Family Medicine; PCP Family Medicine
DX: S82.832A Other fracture of upper and lower end of left fibula, initial encounter for closed fracture (principal); S92.535A Nondisplaced fracture of distal phalanx of left lesser toe(s), initial encounter for closed fracture; Z79.82 Long term (current) use of aspirin; X58.XXXA Exposure to other specified factors, initial encounter
CPT/HCPCS: 29515; 73610; 73630; 99283; E0114

== ENCOUNTER → 2024-02-26 06:44 | Outpatient (BNVA) | payer MEDICAID, SELFPAY | PROVIDERS: PCP Family Medicine; Visit Provider Podiatrist Foot & Ankle Surgery | DX: S82.832D Other fracture of upper and lower end of left fibula, subsequent encounter for closed fracture with routine healing; X58.XXXD Exposure to other specified factors, subsequent encounter | CPT/HCPCS: 73610 ==

== ENCOUNTER → 2024-02-29 14:30 | Outpatient (BNVA) | payer MEDICAID, SELFPAY | PROVIDERS: PCP Family Medicine; Referring Provider Family Medicine; Visit Provider Student in an Organized Health Care Education/Training Program | DX: M23.91 Unspecified internal derangement of right knee (principal); M23.92 Unspecified internal derangement of left knee | CPT/HCPCS: 73560; 73565 ==

== ENCOUNTER 2024-03-05 08:48 | Emergency (ER) | payer MEDICAID, SELFPAY ==
[2024-03-05 08:57] VITALS: BP 179/95; PULSE 84; TEMP 36.9; O2SAT 95; BMI 37.8
--- NOTE | 2024-03-05 09:12 | CTR_ITS ---
PROCEDURE INFORMATION: Exam: CT Abdomen And Pelvis With Contrast Exam date and time: 03/05/2024 9:56 AM Age: 58 years old Clinical indication: Nausea and vomiting; Abdominal pain; Generalized; Additional info: Abdominal pain, vomiting TECHNIQUE: Imaging protocol: Computed tomography of the abdomen and pelvis with contrast. Radiation optimization: All CT scans at this facility use at least one of these dose optimization techniques: automated exposure control; mA and/or kV adjustment per patient size (includes targeted exams where dose is matched to clinical indication); or iterative reconstruction. Contrast material: OMNI 350; Contrast volume: 100 ml; Contrast route: INTRAVENOUS (IV); COMPARISON: CT abdomen pelvis wo con [id number] 01/13/2024 1:56 PM RADIATION DOSE METRICS: Total DLP (mGy-cm): 930.69 FINDINGS: Lungs: Few small pulmonary nodules measuring up to 4 mm lower lung zones and indistinct focal ground-glass opacity right lower lung zone partially visualized. Liver: Liver is mildly enlarged with diffuse fatty infiltration present. Gallbladder and biliary ducts: Normal. No calcified stones. No ductal dilation. Pancreas: Unremarkable. Main pancreatic duct is not significantly dilated. Spleen: Spleen is borderline enlarged, stable. Adrenal glands: Small bilateral adrenal nodules measuring up to 1.5 cm more pronounced on the left stable from earlier study. Kidneys and ureters: There are few small hypodensities both kidneys some of which are too small to adequately characterize but statistically likely benign, otherwise kidneys are unremarkable. Stomach and bowel: Stomach is mildly distended with fluid retained ingested food. Small bowel loops are unremarkable. Scattered diverticuli large bowel without evidence of acute diverticulitis. Appendix: No evidence of acute appendicitis. Intraperitoneal space: Unremarkable. No free air. No significant fluid collection. Vasculature: Unremarkable. No abdominal aortic aneurysm. Lymph nodes: Mild pelvic lymphadenopathy along the iliac carlos chains, stable. Urinary bladder: Unremarkable as visualized. Reproductive: The uterus has a somewhat lobulated contour secondary to uterine fibroids. Questionable endocervical fibroid that should be confirmed on pelvic ultrasound. In addition endometrial lining is somewhat indistinct and mildly prominent for patient's age should be further assessed on pelvic ultrasound exam. Bones/joints: Degenerative spondylolisthesis L4-L5 accompanying disc bulge resulting in some degree of spinal stenosis unchanged. No acute bony abnormalities. Soft tissues: Thinning of the abdominal wall with lower abdominal wall mesh unchanged in location. CT/CT abdomen pelvis w con* [id number] IMPRESSION: 1. Fluid-filled distended stomach that may be due to ileus with gastritis to be excluded. 2. Colonic diverticulosis. No evidence of acute diverticulitis. 3. Few small pulmonary nodules lower lobes and partially visualized focal ground-glass opacity right lower lung zone. Recommend nonemergent CT chest for complete evaluation. 4. Stable nodularity both adrenal glands favoring benign etiology. One year follow-up study recommended further document stability. 5. Fibroid changes in the uterus with questionable cervical fibroid and nonspecific findings involving the endometrial lining for which follow-up nonemergent pelvic ultrasound recommended further evaluation. 6. Additional nonemergent findings as above.
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
[2024-03-05] MEDS: ondansetron 2 mg/ML SDV 2 mL 4 MG IVP (09:36)
[2024-03-05] MEDS: sodium chloride 0.9% 1,000 ML 999 ML IV (09:37)
[2024-03-05 09:38] VITALS: BP 179/95; PULSE 73; O2SAT 94
[2024-03-05 09:41] LABS: Basophils % 0.6 %; Eosinophils # 0.2 10^3/uL (0.0-0.8); Eosinophils % 2.6 %; Hematocrit 40.4 % (36-47); Lymphocytes # 1.3 10^3/uL (0.8-4.8); Lymphocytes % 20.6 %; Mean Corpuscular HGB Conc 33.2 g/dL (30-55); Mean Corpuscular Hemoglobin 30.5 pg (27-33); Mean Corpuscular Volume 91.8 fl (85-98); Mean Platelet Volume 10.4 fL (7.4-10.4); Monocytes # 0.7 10^3/uL (0.2-0.9); Monocytes % 10.5 %; Neutrophils # 4.07 10^3/uL (1.8-7.7); Neutrophils % 64.9 %; Nucleated Red Blood Cells % 0 %; Platelet Count 265 10^3/cmm (157-399); Red Cell Distribution Width 13.4 % (12.1-15.1); White Blood Count 6.27 10^3/uL (3.29-11.43)
[2024-03-05] MEDS: iohexol 350 mg/mL 500 mL Btl (per mL) IV (09:59)
[2024-03-05 10:01] LABS: Alanine Aminotransferase 24 U/L (0-33); Albumin Level 3.9 g/dL (3.5-5.2); Alkaline Phosphatase 74 U/L (35-105); Aspartate Amino Transferase 23 U/L (0-32); Blood Urea Nitrogen 22 mg/dL (6-20); Calcium 9.2 mg/dL (8.5-10.5); Carbon Dioxide 26 mmol/L (22-29); Chloride 101 mmol/L (98-107); Globulin 3.1 g/dL (1.3-4.6); Glomerular Filtration Rate 102.3 mL/min (90-130); Glucose 184 mg/dL (65-115); Lipase 51 U/L (13-60); Osmolality Calculated 300 mOsm/kg (285-295); Sodium 141 mmol/L (136-145); Total Bilirubin 0.5 mg/dL (0.15-1.2)
[2024-03-05 10:07] LABS: Creatine Phosphokinase 703 U/L (26-192)
[2024-03-05 11:01] VITALS: BP 179/95; PULSE 73; O2SAT 97
[2024-03-05 11:35] LABS: Add Urine Microscopic? YES; Bilirubin Urine Neg (Negative); Blood Urine Neg (Negative); Glucose Urine UA Norm (Normal); Ketones Urine Negative (Negative); Leukocyte Esterase Urine 1+ (Negative); Nitrate Urine Negative (Negative); Protein Urine Trace (Negative); Specific Gravity, Urine 1.005 (1.005-1.030); Urine Appearance Clear (CLEAR); Urine Color Yellow (Yellow); Urobilinogen Urine Norm (Negative); pH Urine 7 (5-7)
[2024-03-05] MEDS: sodium chloride 0.9% 500 ML 999 ML IV (11:35)
[2024-03-05] MEDS: metoprolol tartrate 1 mg/1 mL SDV 5 mL 2.5 MG IVP (11:38)
[2024-03-05] MEDS: metoclopramide 5 mg/mL SDV 2 mL 10 MG IVP (11:40)
[2024-03-05] MEDS: enalaprilat 2.5 mg/2 mL SDV 0.625 MG IVP (11:43)
[2024-03-05 11:49] LABS: Bacteria Urine TRACE /hpf; Hyaline Casts Urine 0-4 /lpf; Mucus Urine TRACE /hpf; RBC Urine RARE /hpf (0-2); Squamous Epithelial Cell Urine 0-4 /hpf (0-5); WBC Urine 0-4 /hpf (0-5)
[2024-03-05 11:50] LABS: Add Urine Culture? No
[2024-03-05] MEDS: acetaminophen 500 mg Tablet 1000 MG PO (12:07)
[2024-03-05] MEDS: metoprolol succinate ER (24 HR) 25 mg Tablet PO (12:07)
[2024-03-05] MEDS: lidocaine 2% viscous 15 ML, aluminum-mag hydrox-simethicon 30 ML, sucralfate oral liq 1 GM PO (12:08)
[2024-03-05 12:29] VITALS: BP 166/81
[2024-03-05 12:49] VITALS: BP 166/81; PULSE 73; TEMP 36.9; O2SAT 97
== END 2024-03-05 12:55 | disposition home or self-care (01) ==
PROVIDERS: Emergency Provider Physician Assistant; PCP Family Medicine
DX: K29.00 Acute gastritis without bleeding (principal); Z79.82 Long term (current) use of aspirin; Z79.85 Long-term (current) use of injectable non-insulin antidiabetic drugs
CPT/HCPCS: 74177; 80053; 81001; 82550; 83690; 85025; 96361; 96374; 96375; 99285; J2405; J2765; J3490; J7030; J7040; Q9967

== ENCOUNTER 2024-03-07 10:50 | Emergency (ER) | payer MEDICAID, SELFPAY ==
[2024-03-07 11:11] VITALS: BP 148/90; PULSE 78; RESP 16; TEMP 37.1; O2SAT 95; BMI 37.8
--- NOTE | 2024-03-07 11:14 | XR_ITS ---
WS: [id number] Exam: XR acute abdomen series [id number] Date/Time of Exam: 03/07/2024 11:51 AM Reason For Exam: abdominal pain AP portable chest compared to previous exam 11/30/2023. The lungs are clear and fully inflated. Normal cardiomediastinal silhouette. No pleural effusions. Un remarkable bony elements. Flat and erect abdomen. No bowel obstruction or free air. No sign of organ enlargement. Postoperative changes that may indicate previous hernia repair and tubal ligation. Surgical clips over the LEFT hi p. XR/XR acute abdomen series [id number] IMPRESSION: 1. Negative chest. 2. No acute abdominal process noted. Postop changes in the abdomen.
[2024-03-07 11:27] LABS: Basophils % 0.6 %; Eosinophils # 0.2 10^3/uL (0.0-0.8); Eosinophils % 2.5 %; Lymphocytes # 1.7 10^3/uL (0.8-4.8); Lymphocytes % 24.8 %; Mean Corpuscular HGB Conc 33.6 g/dL (30-55); Mean Corpuscular Hemoglobin 30.3 pg (27-33); Mean Corpuscular Volume 90.1 fl (85-98); Mean Platelet Volume 10.1 fL (7.4-10.4); Monocytes # 0.8 10^3/uL (0.2-0.9); Monocytes % 12.3 %; Neutrophils # 4.07 10^3/uL (1.8-7.7); Neutrophils % 59.4 %; Nucleated Red Blood Cells % 0 %; Platelet Count 304 10^3/cmm (157-399); Red Blood Count 4.33 10^6/uL (3.85-5.65); Red Cell Distribution Width 13.1 % (12.1-15.1); White Blood Count 6.85 10^3/uL (3.29-11.43)
[2024-03-07] MEDS: ketorolac 30 mg/mL INJ IVP (11:29)
[2024-03-07] MEDS: ondansetron 2 mg/ML SDV 2 mL 8 MG IVP (11:29)
--- NOTE | 2024-03-07 11:29 | W.ED.ABDPA2 ---
HPI - Abdominal Pain General: Chief Complaint: Abdominal Pain Stated Complaint: abd pains Time Seen by Provider: 03/07/24 11:05 History of Present Illness: 58-year-old female who presents to the emergency room with abdominal pain. Apparently she was seen a few days with similar type symptoms and was told she had some fibroids that need follow-up with gynecology with an ultrasound. Says today she started having diffuse cramping. Her abdomen hurts everywhere she says. Nonfocal. She has had some nausea but no vomiting. Review of Systems Narrative: Constitutional symptoms: Negative except as documented in HPI. Skin symptoms: Negative except as documented in HPI. Eye symptoms: Negative except as documented in HPI. ENMT symptoms: Negative except as documented in HPI. Respiratory symptoms: Negative except as documented in HPI. Cardiovascular symptoms: Negative except as documented in HPI. Gastrointestinal symptoms: Negative except as documented in HPI. Genitourinary symptoms: Negative except as documented in HPI. Musculoskeletal symptoms: Negative except as documented in HPI. Neurologic symptoms: Negative except as documented in HPI. Psychiatric symptoms: Negative except as documented in HPI. Endocrine symptoms: Negative except as documented in HPI. PFSH ED PFSH: Medical History Peripheral neuropathy Ischemic ulcer Pain in both feet Ischemic ulcer diabetic foot Right radial head fracture Fracture, radius, distal Psychiatric care Surgical History No pertinent past surgical history Family History Denies family history of CAD (coronary artery disease) Social History Smoking and tobacco/nicotine status: never used tobacco/nicotine Alcohol intake: never Physical Exam Narrative: EXAM NARRATIVE: General: Alert, no acute distress. Skin: Warm, dry. Head: Normocephalic, atraumatic. Neck: Supple, trachea midline. Eye: Extraocular movements are intact. Ears, nose, mouth and throat: mucosa moist. Cardiovascular: Regular, Normal peripheral perfusion. Respiratory: Lungs are clear to auscultation, respirations are non-labored, breath sounds are equal, Symmetrical chest wall expansion. Gastrointestinal: Soft, diffuse abdominal pain, Non distended Musculoskeletal: Normal ROM, no deformity. Neurological: Alert and oriented, No focal neurological deficit observed. Psychiatric: Cooperative, appropriate mood & affect. Course Vital Signs: Vital signs: Vital Signs Temperature 98.7 F 03/07/24 11:11 Pulse Rate 76 03/07/24 12:22 Respiratory Rate 18 03/07/24 12:22 Blood Pressure 159/89 03/07/24 12:22 Pulse Oximetry 97 03/07/24 12:22 Oxygen Delivery Me thod Room Air 03/07/24 12:22 MDM - Abdominal Pain Medical Decision Making Medical decision making: Differential diagnosis including but not limited to and based on the above HPI, review of systems and physical exam: Diffuse abdominal pain. Would have concern for urinary infection, ileus, bowel obstruction, Orders placed to evaluate differential diagnosis based on the above differential, HPI and physical exam Lab Review: Laboratory results were reviewed and interpreted by myself the emergency room physician. Lab work is unremarkable other than urine which shows a slight infection. No leukocytosis. No renal failure. Acute abdominal series: chest x-ray: No acute process. No obvious infiltrates. No pneumothorax. No cardiomegaly. This was reviewed and interpreted by myself the emergency room physician Abdomen x-ray: Nonspecific bowel gas pattern. No evidence of free air or obstruction. This was reviewed and interpreted by myself the emergency room physician. I reviewed the patient's medical record. Assessment and plan: Abdominal pain Urinary tract infection -Toradol and Zofran. Then a [place]. She also received IV Rocephin - Discharged home - Discussed findings and plan with patient. Answered any questions. - All laboratory values were reviewed and interpreted personally by myself, the ER physician - All imaging was reviewed and interpreted personally by myself, the ER physician. - Evaluation and treatment of this problem were appropriate in the emergency setting Lab Data 03/07/24 11:20 03/07/24 11:20 Labs/Radiology: Radiology Impressions Chest/Abdomen X-ray 03/07/24 11:14 IMPRESSION: 1. Negative chest. 2. No acute abdominal process noted. Postop changes in the abdomen. Laboratory Results WBC 6.85 10^3/uL (3.29-11.43) 03/07/24 11:20 RBC 4.33 10^6/uL (3.85-5.65) 03/07/24 11:20 Hgb 13.10 g/dL (11.27-16.99) 03/07/24 11:20 Hct 39.0 % (36-47) 03/07/24 11:20 MCV 90.1 fl (85-98) 03/07/24 11:20 MCH 30.3 pg (27-33) 03/07/24 11:20 MCHC 33.6 g/dL (30-55) 03/07/24 11:20 RDW 13.1 % (12.1-15.1) 03/07/24 11:20 Plt Count 304 10^3/cmm (157-399) 03/07/24 11:20 MPV 10.1 fL (7.4-10.4) 03/07/24 11:20 Neut % (Auto) 59.4 % 03/07/24 11:20 Lymph % (Auto) 24.8 % 03/07/24 11:20 [place] % (Auto) 12.3 % 03/07/24 11:20 Eos % (Auto) 2.5 % 03/07/24 11:20 Baso % (Auto) 0.6 % 03/07/24 11:20 Neut # (Auto) 4.07 10^3/uL (1.8-7.7) 03/07/24 11:20 Lymph # (Auto) 1.7 10^3/uL (0.8-4.8) 03/07/24 11:20 [place] # (Auto) 0.8 10^3/uL (0.2-0.9) 03/07/24 11:20 Eos # (Auto) 0.2 10^3/uL (0.0-0.8) 03/07/24 11:20 Baso # (Auto) 0.0 10^3/uL (0.0-0.1) 03/07/24 11:20 Nucleated RBC % (auto) 0 % 03/07/24 11:20 Nucleated RBCs # 0.0 /100WBC 03/07/24 11:20 Sodium 140 mmol/L (136-145) 03/07/24 11:20 Potassium 4.2 mmol/L (3.5-5.1) 03/07/24 11:20 Chloride 102 mmol/L (98-107) 03/07/24 11:20 Carbon Dioxide 23 mmol/L (22-29) 03/07/24 11:20 Anion Gap 19.2 (5-19) H 03/07/24 11:20 BUN 12 mg/dL (6-20) 03/07/24 11:20 Creatinine 0.6 mg/dL (0.5-0.9) 03/07/24 11:20 GFR Calculation 102.3 mL/min (90-130) 03/07/24 11:20 Glucose 157 mg/dL (65-115) H 03/07/24 11:20 Calculated Osmolality 293 mOsm/kg (285-295) 03/07/24 11:20 Calcium 9.2 mg/dL (8.5-10.5) 03/07/24 11:20 Total Bilirubin 0.6 mg/dL (0.15-1.2) 03/07/24 11:20 AST 27 U/L (0-32) 03/07/24 11:20 ALT 26 U/L (0-33) 03/07/24 11:20 Alkaline Phosphatase 75 U/L (35-105) 03/07/24 11:20 C-Reactive Protein 5.7 mg/L (0.0-4.9) H 03/07/24 11:20 Total Protein 7.4 g/dL (6.6-8.7) 03/07/24 11:20 Albumin 4.0 g/dL (3.5-5.2) 03/07/24 11:20 Globulin 3.4 g/dL (1.3-4.6) 03/07/24 11:20 Urine Color Yellow (Yellow) 03/07/24 11:28 Urine Appearance Slightly cloudy (CLEAR) 03/07/24 11:28 Urine pH 5 (5-7) 03/07/24 11:28 Ur Specific [place] 1.015 (1.005-1.030) 03/07/24 11:28 Urine Protein Neg (Negative) 03/07/24 11:28 Urine Glucose (UA) Norm (Normal) 03/07/24 11:28 Urine Ketones Negative (Negative) 03/07/24 11:28 Urine Blood Neg (Negative) 03/07/24 11:28 Urine Nitrate Negative (Negative) 03/07/24 11:28 Urine Bilirubin Neg (Negative) 03/07/24 11:28 Urine Urobilinogen Norm mg/dL (Negative) 03/07/24 11:28 Ur Leukocyte Esterase 1+ (Negative) H 03/07/24 11:28 Urine RBC 0-4 /hpf (0-2) H 03/07/24 11:28 Urine WBC 5-10 /hpf (0-5) H 03/07/24 11:28 Ur Squamous Epith Cells 5-10 /hpf (0-5) H 03/07/24 11:28 Amorphous Sediment Not Reportable 03/07/24 11:28 Urine Bacteria 2+ /hpf (NONE) H 03/07/24 11:28 Urine Mucus None /hpf 03/07/24 11:28 All radiology interpretation(s) finalized by discharge Discharge Plan Discharge Patient Disposition: Home Clinical Impression: Urinary tract infection Abdominal pain Qualifiers: Abdominal location: unspecified location Qualified Code(s): R10.9 - Unspecified abdominal pain Condition: Stable Prescriptions: New ondansetron 8 mg tablet,disintegrating 8 mg PO .q6 PRN (Reason: nausea and vomiting) Qty: 14 0RF cephalexin 500 mg capsule 500 mg PO BID 5 Days Qty: 10 0RF diclofenac sodium 50 mg tablet,delayed release (DR/EC) 50 mg PO Q12H Qty: 20 0RF No Action (DME) CAM walker See Rx Instructions .Route .MEDSUPPLY Qty: 1 0RF Rx Instructions: As directed (DME) Hinge Elbow Brace See Rx Instructions .Route .MEDSUPPLY Qty: 1 0RF Rx Instructions: As directed (DME) Hinged Knee Brace See Rx Instructions .Route .MEDSUPPLY Qty: 1 0RF Rx Instructions: As directed amitriptyline 75 mg tablet 75 mg PO BEDTIME gabapentin 300 mg capsule 600 mg PO TID furosemide 20 mg tablet 20 mg PO BID PRN (Reason: Edema) albuterol sulfate [Ventolin HFA] 90 mcg/actuation Hfa Aerosol Inhaler 2 puff INHALATION Q4H PRN (Reason: Shortness Of Breath) colchicine 0.6 mg tablet 0.6 mg PO DAILY PRN (Reason: flares) metoprolol succinate [Toprol XL] 25 mg tablet extended release 24 hr 25 mg PO QAM benazepril 40 mg tablet 40 mg PO QPM atorvastatin 40 mg Tablet 40 mg PO BEDTIME Qty: 30 0RF aspirin 81 mg tablet,delayed release (DR/EC) 81 mg PO BEDTIME multivit with min-folic acid [Adult Multivitamin Gummies] 200 mcg Tablet,Chewable 1 tab PO DAILY tramadol 50 mg tablet 50 mg PO Q8H PRN (Reason: pain) Qty: 20 0RF Ozempic 2 mg/dose (8 mg/3 mL) pen injector 2 mg SUBCUT Q7D Rx Instructions: MONDAYS sucralfate [Carafate] 1 gram tablet 1 g PO TID 14 Days Qty: 42 0RF pantoprazole [Protonix] 40 mg tablet,delayed release (DR/EC) 40 mg PO DAILY 28 Days Qty: 28 0RF ondansetron 8 mg tablet,disintegrating 8 mg PO Q6H PRN (Reason: Nausea And Vomiting) Discharge Orders: Discharge ED (Routine); Ordered 03/07/24 Ordered By: Jazlyn Garza Referrals: Shai Hill MD [Primary Care Provider] - Discharge Diet: Advance as tolerated Discharge Activity: Increase activity as tolerated Patient Instructions: Abdominal Pain (ED), Opioid Safety, Pain Management Activity Restrictions/Additional Instructions: Thank you for choosing [facility] for your healthcare needs today. Please realize this is an emergency room and that we are providing you with a medical screening exam and this may not be complete and all inclusive of all the testing and or work up that you may need to determine your ailment or severity of your illness. You have been screened and evaluated and felt safe for discharge. Health conditions do change or evolve sometimes and as such it is important that you follow up with your Primary Doctor to be re checked, 3-5 days is a general good time frame for follow up. You are always welcome to return to the ED for re assessment if your symptoms are worsening or you have new concerns Coding Level of Care Code ED Ex Assistant/Program Director for Ranjana Orellana
[2024-03-07 11:44] LABS: Alanine Aminotransferase 26 U/L (0-33); Alkaline Phosphatase 75 U/L (35-105); Anion Gap 19.2 (5-19); Aspartate Amino Transferase 27 U/L (0-32); Blood Urea Nitrogen 12 mg/dL (6-20); C Reactive Protein 5.7 mg/L (0.0-4.9); Calcium 9.2 mg/dL (8.5-10.5); Carbon Dioxide 23 mmol/L (22-29); Chloride 102 mmol/L (98-107); Globulin 3.4 g/dL (1.3-4.6); Glomerular Filtration Rate 102.3 mL/min (90-130); Glucose 157 mg/dL (65-115); Osmolality Calculated 293 mOsm/kg (285-295); Potassium 4.2 mmol/L (3.5-5.1); Sodium 140 mmol/L (136-145); Total Bilirubin 0.6 mg/dL (0.15-1.2); Total Protein 7.4 g/dL (6.6-8.7)
[2024-03-07 11:45] VITALS: BP 148/90; PULSE 77; RESP 18; O2SAT 95
[2024-03-07 12:18] LABS: Bilirubin Urine Neg (Negative); Blood Urine Neg (Negative); Glucose Urine UA Norm (Normal); Ketones Urine Negative (Negative); Leukocyte Esterase Urine 1+ (Negative); Nitrate Urine Negative (Negative); Protein Urine Neg (Negative); Specific Gravity, Urine 1.015 (1.005-1.030); Urine Appearance Slightly Cloudy (CLEAR); Urine Color Yellow (Yellow); Urobilinogen Urine Norm (Negative); pH Urine 5 (5-7)
[2024-03-07 12:20] LABS: Add Urine Culture? Yes; Bacteria Urine 2+ /hpf; RBC Urine 0-4 /hpf (0-2)
[2024-03-07 12:22] VITALS: BP 159/89; PULSE 76; RESP 18; O2SAT 97
--- NOTE | 2024-03-07 12:45 | PC.PHAR ---
PT STATES SOME OF HER MEDICATIONS WERE STOLEN FROM HER CAR DURING THE CARNIVAL.
[2024-03-07 13:00] VITALS: BP 127/72; PULSE 75; RESP 17; O2SAT 93
[2024-03-07] MEDS: cefTRIAXone 1,000 MG in sodium chloride 0.9% (plus) 50 ML 100 MG IV (13:01)
[2024-03-07] MEDS: HYDROcodone-acetaminophen 5-325 mg Tablet 1 TAB PO (13:05)
[2024-03-07 13:27] VITALS: PULSE 66; O2SAT 95
== END 2024-03-07 13:29 | disposition home or self-care (01) ==
PROVIDERS: Emergency Provider Emergency Medicine; PCP Family Medicine
DX: N39.0 Urinary tract infection, site not specified (principal); R10.9 Unspecified abdominal pain; Z79.82 Long term (current) use of aspirin; Z79.85 Long-term (current) use of injectable non-insulin antidiabetic drugs
CPT/HCPCS: 74022; 80053; 81001; 85025; 86140; 87077; 87086; 87186; 96374; 96375; 99284; J0696; J1885; J2405

== ENCOUNTER → 2024-03-20 07:05 | Outpatient (BNVA) | payer OTHER, MEDICAID, SELFPAY | PROVIDERS: PCP Family Medicine; Visit Provider Podiatrist Foot & Ankle Surgery | DX: S82.832D Other fracture of upper and lower end of left fibula, subsequent encounter for closed fracture with routine healing; X58.XXXD Exposure to other specified factors, subsequent encounter | CPT/HCPCS: 73610 ==

== ENCOUNTER 2024-03-28 15:43 | Outpatient (CLI) | payer OTHER, MEDICAID, SELFPAY ==
--- NOTE | 2024-03-28 16:00 | MR_ITS ---
WS: [id number] MRI LEFT KNEE HISTORY: left knee meniscal injury COMPARISON: None available. Significant amount of motion artifact on this examination. Anterior cruciate ligament: Intact. Posterior cruciate ligament: Intact. Medial collateral ligament: Poorly visualized. There is a small amount of increased T2 signal adjacen t to the proximal MCL but no full-thickness tear. Posterior lateral corner structures: Intact. Medial menisci: Intact. Normal signal, size and shape. Lateral meniscus: Intact. Normal signal, size and shape. Extensor mechanism: Distal quadriceps tendon and patellar tendons are intact. Fluid and soft tissue: Small suprapatellar joint effusion. No Lauren's cyst. Osseous and articular structures: Patellofemoral compartment: Mild chondromalacia lateral patellar facet. Slight lateral subluxation of the patella. No marrow edema. Medial compartment: Moderate narrowing of the medial compartment. Chondromalacia. There is a small am ount of marrow edema in the medial femoral condyle extending along the weightbearing surface. Lateral compartment: Mild narrowing lateral compartment with diffuse chondromalacia. Extent of cartil age disease is not evident with this amount of motion. MR/MR knee LT wo con* [id number] IMPRESSION: 1. This study is significantly compromised by motion. 2. Marrow edema in the medial femoral condyle involving the nonweightbearing s urface. 3. No meniscal or ligament tear identified. 4. Tricompartment osteoarthritis with chondromalacia. 5. Small joint effusion.
== END 2024-03-28 15:44 | disposition home or self-care (01) ==
LOC: RAD 15:46
PROVIDERS: PCP Family Medicine; Visit Provider Student in an Organized Health Care Education/Training Program
DX: S83.8X2A Sprain of other specified parts of left knee, initial encounter (principal); M17.12 Unilateral primary osteoarthritis, left knee; M94.262 Chondromalacia, left knee
CPT/HCPCS: 73721

== ENCOUNTER → 2024-04-01 15:36 | Outpatient (BNVA) | payer OTHER, MEDICAID, SELFPAY | PROVIDERS: PCP Family Medicine; Visit Provider Podiatrist Foot & Ankle Surgery | DX: S82.832G Other fracture of upper and lower end of left fibula, subsequent encounter for closed fracture with delayed healing; X58.XXXD Exposure to other specified factors, subsequent encounter | CPT/HCPCS: 73610 ==

== ENCOUNTER 2024-05-15 00:57 | Emergency (ER) | payer OTHER, MEDICAID, SELFPAY ==
[2024-05-15 00:59] VITALS: BP 201/99; PULSE 96; RESP 18; TEMP 36.9; O2SAT 99
[2024-05-15 01:03] VITALS: BP 193/87; PULSE 87; O2SAT 97
--- NOTE | 2024-05-15 01:20 | W.ED.ALLEREA ---
HPI - Allergic Reaction General: Chief complaint: Allergic Reaction Stated complaint: Allergic Reaction Time Seen by Provider: 05/15/24 01:16 History of Present Illness: HPI narrative: Patient presents to the ER after eating some trail mix of head pain and oral intake. Patient is very allergic to peanuts. Patient feels like she is mildly short of breath with a thick tongue she did use an EpiPen about an hour ago. Patient is able to talk, appears in no acute distress at this time. Related Data Home Medications Medication Instructions Recorded Confirmed albuterol sulfate 90 mcg/actuation 2 puff inhalation Q4H PRN 07/25/23 04/02/24 aerosol inhaler (Ventolin HFA) Shortness Of Breath amitriptyline 75 mg tablet 75 mg PO BEDTIME 07/25/23 04/02/24 colchicine 0.6 mg tablet 0.6 mg PO DAILY PRN flares 07/25/23 04/02/24 furosemide 20 mg tablet 20 mg PO BID PRN Edema 07/25/23 04/02/24 gabapentin 300 mg capsule 600 mg PO TID 07/25/23 04/02/24 metoprolol succinate 25 mg 25 mg PO QAM 07/25/23 04/02/24 tablet,extended release 24 hr (Toprol XL) benazepril 40 mg tablet 40 mg PO QPM 09/12/23 04/02/24 aspirin 81 mg tablet,delayed 81 mg PO BEDTIME 01/13/24 04/02/24 release multivitamin with minerals-folic 1 tab PO DAILY 01/13/24 04/02/24 acid 200 mcg chewable tablet (Adult Multivitamin Gummies) semaglutide 2 mg/dose (8 mg/3 mL) 2 mg SUBCUT Q7D 03/05/24 04/02/24 subcutaneous pen injector (Ozempic) ondansetron 8 mg disintegrating 8 mg PO Q6H PRN Nausea And Vomiting 03/07/24 04/02/24 tablet Previous Rx's Medication Instructions Recorded Hinge Elbow Brace #1 ea 02/08/23 atorvastatin 40 mg tablet 40 mg PO BEDTIME #30 tabs 12/02/23 tramadol 50 mg tablet 50 mg PO Q8H PRN pain #20 tabs 01/13/24 CAM walker #1 ea 02/08/24 Hinged Knee Brace #1 ea 02/29/24 diclofenac sodium 50 mg 50 mg PO Q12H #20 tabs 03/07/24 tablet,delayed release ondansetron 8 mg disintegrating 8 mg PO .q6 PRN nausea and 03/07/24 tablet vomiting #14 tabs aso #1 ea 03/20/24 diazepam 5 mg tablet (Valium) 5 mg PO BID PRN anxiety #2 tabs 04/02/24 epinephrine 0.3 mg/0.3 mL 0.3 mg (0.3 mL) IM Q10M PRN 05/15/24 injection, auto-injector (EpiPen anaphylaxis #2 ea 2-Anthony) Allergies Allergy/AdvReac Type Severity Reaction Status Date / Time meperidine [From Demerol] Allergy Unknown Verified 05/15/24 01:03 peanut Allergy ALGY-Anaphy Verified 05/15/24 01:03 laxis Penicillins Allergy ALGY-Hives Verified 05/15/24 01:03 Review of Systems General: Reports: 10 or more systems reviewed and unremarkable except in HPI and below PFSH ED PFSH: Medical History Peripheral neuropathy Ischemic ulcer Pain in both feet Ischemic ulcer diabetic foot Right radial head fracture Fracture, radius, distal Psychiatric care Surgical History No pertinent past surgical history Family History Denies family history of CAD (coronary artery disease) Social History Smoking and tobacco/nicotine status: never used tobacco/nicotine Alcohol intake: never Physical Exam Const: COMMON NORMALS: no acute distress, average body habitus, patient oriented x3, no limitations, healthy appearing, alert and well nourished HENMT: COMMON NORMALS: normocephalic, atraumatic, hearing grossly normal bilaterally, external ears normal, Normal external nose present and moist oral mucous membranes HEAD & SCALP: normocephalic and atraumatic NOSE: Normal external nose present EXTERNAL EAR: Yes external ears normal Neck/C-Spine: COMMON NORMALS: no JVD Chest: COMMONS NORMALS: normal inspection of the chest and normal palpation of entire chest wall Resp: COMMON NORMALS: normal respiratory effort, No retractions and No use of accessory muscles; negative for clear to auscultation bilaterally (Diffuse wheezing bilaterally) AUSCULTATION: not clear to auscultation bilaterally (Diffuse wheezing bilaterally) Cardio: COMMON NORMALS: no JVD, regular rate, regular rhythm, S1 normal heart sound present, S2 normal heart sound present, No gallops present (Cardio), No clicks present (Cardio), No murmurs present (Cardio) and No rub (Cardio) RATE: regular rate RHYTHM: regular rhythm HEART SOUNDS: S1 normal heart sound present and S2 normal heart sound present GI: COMMON NORMALS: Normal to inspection, nondistended, normoactive bowel sounds present, Soft to palpation, non-tender, No hepatosplenomegaly present and no masses PALPATION: Yes Soft to palpation and Yes No hepatosplenomegaly present Neuro: COMMON NORMALS: patient oriented x3 SENSORIUM/ORIENTATION: Yes alert Course Vital Signs: Vital signs: Vital Signs Temperature 98.5 F 05/15/24 00:59 Pulse Rate 96 05/15/24 00:59 Respiratory Rate 18 05/15/24 00:59 Blood Pressure 201/99 05/15/24 00:59 Pulse Oximetry 99 05/15/24 00:59 Oxygen Delivery Me thod Room Air 05/15/24 00:59 MDM - Allergic Reaction Medical Decision Making Patient was given Benadryl Solu-Medrol and Pepcid and she said she is feeling much better. Patient is ready to go home. We will send in a prescription for an EpiPen to be placed when she used prior to arrival. Differential Diagnosis Likely anaphylaxis and allergic reaction Medical Records I reviewed the patient's medical records. Lab Data I reviewed the patient's lab results. No radiology studies performed this visit Discharge Plan Discharge Patient Disposition: Home Clinical Impression: Allergic reaction Qualifiers: Encounter type: initial encounter Qualified Code(s): T78.40XA - Allergy, unspecified, initial encounter Condition: Stable Prescriptions: New EpiPen 2-Anthony 0.3 mg/0.3 mL auto-injector 0.3 mg IM Q10M PRN (Reason: anaphylaxis) Qty: 2 0RF Rx Instructions: for 2 doses No Action (DME) CAM walker See Rx Instructions .Route .MEDSUPPLY Qty: 1 0RF Rx Instructions: As directed (DME) Hinge Elbow Brace See Rx Instructions .Route .MEDSUPPLY Qty: 1 0RF Rx Instructions: As directed (DME) Hinged Knee Brace See Rx Instructions .Route .MEDSUPPLY Qty: 1 0RF Rx Instructions: As directed (DME) aso See Rx Instructions .Route .MEDSUPPLY Qty: 1 0RF Rx Instructions: As directed diazepam [Valium] 5 mg tablet 5 mg PO BID PRN (Reason: anxiety) Qty: 2 0RF Rx Instructions: Take 1 tab PO 30mins before procedure amitriptyline 75 mg tablet 75 mg PO BEDTIME gabapentin 300 mg capsule 600 mg PO TID furosemide 20 mg tablet 20 mg PO BID PRN (Reason: Edema) albuterol sulfate [Ventolin HFA] 90 mcg/actuation Hfa Aerosol Inhaler 2 puff INHALATION Q4H PRN (Reason: Shortness Of Breath) colchicine 0.6 mg tablet 0.6 mg PO DAILY PRN (Reason: flares) metoprolol succinate [Toprol XL] 25 mg tablet extended release 24 hr 25 mg PO QAM benazepril 40 mg tablet 40 mg PO QPM atorvastatin 40 mg Tablet 40 mg PO BEDTIME Qty: 30 0RF aspirin 81 mg tablet,delayed release (DR/EC) 81 mg PO BEDTIME multivit with min-folic acid [Adult Multivitamin Gummies] 200 mcg Tablet,Chewable 1 tab PO DAILY tramadol 50 mg tablet 50 mg PO Q8H PRN (Reason: pain) Qty: 20 0RF Ozempic 2 mg/dose (8 mg/3 mL) pen injector 2 mg SUBCUT Q7D Rx Instructions: MONDAYS ondansetron 8 mg tablet,disintegrating 8 mg PO Q6H PRN (Reason: Nausea And Vomiting) ondansetron 8 mg tablet,disintegrating 8 mg PO .q6 PRN (Reason: nausea and vomiting) Qty: 14 0RF diclofenac sodium 50 mg tablet,delayed release (DR/EC) 50 mg PO Q12H Qty: 20 0RF Discharge Orders: Discharge ED (Routine); Ordered 05/15/24 Ordered By: Mannie Agarwal Referrals: Shai Hill MD [Primary Care Provider] - 1 week Patient Instructions: Food Allergy (ED) Activity Restrictions/Additional Instructions: An EpiPen 2 pack was sent to your pharmacy, please use as directed. Please follow-up with your family practice physician in the next 7 days for further evaluation and treatment as needed. Coding Level of Care Code ED Vacuum Form Operator for Ranjana Orellana
[2024-05-15 01:33] VITALS: BP 173/89; PULSE 86; O2SAT 97
[2024-05-15] MEDS: methylPREDNISolone sod succ 125 mg/2 mL INJ IVP (01:45)
[2024-05-15] MEDS: hyDRALAzine 20 mg/mL INJ 1 mL 10 MG IVP (01:45)
[2024-05-15] MEDS: famotidine 20 mg/2 mL INJ 40 MG IVP (01:46)
[2024-05-15] MEDS: diphenhydrAMINE 50 mg/mL SDV 1mL IVP (01:46)
[2024-05-15 02:03] VITALS: BP 181/91; PULSE 90; O2SAT 100
--- NOTE | 2024-05-15 02:03 | PC.NURSE ---
WARM BLANKETS PROVIDED PER PT REQUEST, PT DENIES FURTHER NEEDS.
[2024-05-15 02:33] VITALS: BP 165/73; PULSE 93; O2SAT 99
[2024-05-15 02:39] VITALS: BP 158/84; PULSE 85; O2SAT 99
== END 2024-05-15 02:38 | disposition home or self-care (01) ==
PROVIDERS: Emergency Provider Emergency Medicine; PCP Family Medicine
DX: T78.1XXA Other adverse food reactions, not elsewhere classified, initial encounter (principal); Z91.010 Allergy to peanuts; Z79.82 Long term (current) use of aspirin; Z79.85 Long-term (current) use of injectable non-insulin antidiabetic drugs; X58.XXXA Exposure to other specified factors, initial encounter
CPT/HCPCS: 96374; 96375; 99284; J0360; J1200; J2919; J3490

== ENCOUNTER → 2024-06-10 10:26 | Outpatient (BNVA) | payer MEDICAID, SELFPAY | PROVIDERS: PCP Family Medicine; Visit Provider Obstetrics & Gynecology | DX: N92.6 Irregular menstruation, unspecified (principal) | CPT/HCPCS: 81025 ==

== ENCOUNTER 2024-11-02 15:38 | Emergency (ER) | payer OTHER, MEDICAID, SELFPAY ==
[2024-11-02 15:40] VITALS: BP 134/85; PULSE 78; RESP 16; TEMP 36.9; O2SAT 98; BMI 34.0
--- NOTE | 2024-11-02 15:47 | ECG_ITS ---
Augment Test Date: 2024-11-02 Pat Name: Lucita Dunaway Department: Room: Gender: Female Social Media Specialist: : [id number] Requested By: Govind Cisneros Order Number: [id number] Reading MD: NU MAGDALENO Measurements Intervals [place] Rate: 86 P: 87 HI: 156 QRS: -1 QRSD: 106 T: 67 QT: 398 QTc: 478 Interpretive Statements SINUS RHYTHM WITH FREQUENT VENTRICULAR PREMATURE COMPLEXES POSSIBLE RIGHT VENTRICULAR CONDUCTION DELAY [RSR (QR) IN V1/V2] VOLTAGE CRITERIA FOR LVH [MEETS CRITERIA IN ONE OF: R(aVL), S(V1), R(V5), R(V5/V6)+S(V1)] NONSPECIFIC ST & T-WAVE ABNORMALITY Compared to ECG 11/29/2023 21:46:04 Ventricular premature complex(es) now present T-wave abnormality now present Electronically Signed On 11-05-2024 23:41:26 CENTRAL OFFICE ASSOCIATE by NU MAGDALENO [email or web address]
--- NOTE | 2024-11-02 16:09 | XRR_ITS ---
PROCEDURE INFORMATION: Exam: XR Chest Exam date and time: 11/02/2024 4:19 PM Age: 59 years old Clinical indication: Pain; Chest pressure; Additional info: Sudden onset left side chest pain that radiates posteriorly TECHNIQUE: Imaging protocol: Radiologic exam of the chest. Views: 1 view. COMPARISON: CR XR chest 1V portable [id number] 11/30/2023 12:33 AM FINDINGS: Lungs: The lungs are clear. No pulmonary consolidation. Pleural spaces: No pleural effusion or pneumothorax. Heart/Mediastinum: The cardiomediastinal silhouette is within normal limits. Bones/joints: No acute osseous abnormalities are seen. XR/XR chest 1V portable [id number] IMPRESSION: No acute cardiopulmonary disease.
[2024-11-02 16:52] LABS: Basophils # 0.1 10^3/uL (0.0-0.1); Basophils % 0.8 %; Eosinophils # 0.2 10^3/uL (0.0-0.8); Eosinophils % 2.9 %; Hematocrit 42.4 % (36-47); Lymphocytes % 29.5 %; Mean Corpuscular Hemoglobin 29.9 pg (27-33); Mean Corpuscular Volume 90.4 fl (85-98); Mean Platelet Volume 10.5 fL (7.4-10.4); Monocytes # 0.7 10^3/uL (0.2-0.9); Monocytes % 11.2 %; Neutrophils # 3.68 10^3/uL (1.8-7.7); Neutrophils % 55.4 %; Nucleated Red Blood Cells % 0 %; Platelet Count 338 10^3/cmm (157-399); Red Blood Count 4.69 10^6/uL (3.85-5.65); Red Cell Distribution Width 13.7 % (12.1-15.1); White Blood Count 6.62 10^3/uL (3.29-11.43)
[2024-11-02 17:15] LABS: Troponin(5th) Baseline 75 ng/L (0-10)
[2024-11-02 17:24] VITALS: BP 138/82; PULSE 79; O2SAT 98
--- NOTE | 2024-11-02 17:37 | W.ED.CHESTPA ---
HPI - Chest Pain General: Chief Complaint: Chest Pain Stated Complaint: chest pain Time Seen by Provider: 11/02/24 17:21 History of Present Illness: Lucita is a 59-year-old female that presents to the emergency department with complaints of left-sided chest pain that is sharp in nature. Onset of symptoms 3 weeks ago. She denies radiation of pain. She reports nausea and vomiting but that has been going on approximately 6 months longer. She denies fever, chills, shortness of breath. She notes the pain is reproducible and worsens with movement. She describes it as sharp in nature. Patient states pain is worse today than it has been in 3 weeks. Has not seen primary care or cardiology despite cardiac history. She notes that she has been taking her medication as prescribed History includes diabetes, hypertension, hyperlipidemia, cardiovascular disease, prior NSTEMI Associated symptoms: Reports nausea and vomiting; Deny abdominal pain, dyspnea, fever(s), palpitations or syncope Related Data Home Medications ?Medication ?Instructions ?Recorded ?Confirmed albuterol sulfate 90 mcg/actuation 2 puff inhalation Q4H PRN 07/25/23 09/10/24 aerosol inhaler (Ventolin HFA) Shortness Of Breath amitriptyline 75 mg tablet 75 mg PO BEDTIME 07/25/23 09/10/24 colchicine 0.6 mg tablet 0.6 mg PO DAILY PRN flares 07/25/23 09/10/24 furosemide 20 mg tablet 20 mg PO BID PRN Edema 07/25/23 09/10/24 gabapentin 300 mg capsule 600 mg PO TID 07/25/23 09/10/24 metoprolol succinate 25 mg 25 mg PO QAM 07/25/23 09/10/24 tablet,extended release 24 hr (Toprol XL) benazepril 40 mg tablet 40 mg PO QPM 09/12/23 09/10/24 aspirin 81 mg tablet,delayed 81 mg PO BEDTIME 01/13/24 09/10/24 release multivitamin with minerals-folic 1 tab PO DAILY 01/13/24 09/10/24 acid 200 mcg chewable tablet (Adult Multivitamin Gummies) semaglutide 2 mg/dose (8 mg/3 mL) 2 mg SUBCUT Q7D 03/05/24 09/10/24 subcutaneous pen injector (Ozempic) ondansetron 8 mg disintegrating 8 mg PO Q6H PRN Nausea And Vomiting 03/07/24 09/10/24 tablet Previous Rx's ?Medication ?Instructions ?Recorded Hinge Elbow Brace #1 ea 02/08/23 atorvastatin 40 mg tablet 40 mg PO BEDTIME #30 tabs 12/02/23 tramadol 50 mg tablet 50 mg PO Q8H PRN pain #20 tabs 01/13/24 CAM walker #1 ea 02/08/24 Hinged Knee Brace #1 ea 02/29/24 diclofenac sodium 50 mg 50 mg PO Q12H #20 tabs 03/07/24 tablet,delayed release ondansetron 8 mg disintegrating 8 mg PO .q6 PRN nausea and 03/07/24 tablet vomiting #14 tabs aso #1 ea 03/20/24 diazepam 5 mg tablet (Valium) 5 mg PO BID PRN anxiety #2 tabs 04/02/24 epinephrine 0.3 mg/0.3 mL 0.3 mg (0.3 mL) IM Q10M PRN 05/15/24 injection, auto-injector (EpiPen anaphylaxis #2 ea 2-Anthony) prednisone 20 mg tablet 40 mg (2 x 20 mg) PO DAILY 3 days 11/02/24 #6 tabs Allergies Allergy/AdvReac Type Severity Reaction Status Date / Time meperidine (From Demerol) Allergy Unknown Verified 09/10/24 12:02 peanut Allergy ALGY-Anaphy Verified 09/10/24 12:02 laxis Penicillins Allergy ALGY-Hives Verified 09/10/24 12:02 Review of Systems Const: Denies: fever(s), chills, body aches, fatigue or malaise Eyes: Denies: change in vision or blurry vision Card: Reports: chest pain and orthopnea; Denies: palpitations, irregular heart rhythm, lightheadedness, syncope or dyspnea on exertion Resp: Denies: dyspnea, productive cough or pain on inspiration GI: Reports: nausea and vomiting; Denies: abdominal pain, hematemesis, heartburn, diarrhea, hematochezia or melena : Denies: flank pain, difficulty voiding, dysuria, urinary frequency, urinary urgency or urinary hesitancy Musc: Denies: neck pain, back pain, extremity pain, extremity swelling or joint pain Skin/Breast: Denies: rash Neuro: Denies: headache(s), numbness in extremities, weakness in extremities, sensory changes or dizziness PFSH ED PFSH: Medical History Peripheral neuropathy Ischemic ulcer Pain in both feet Ischemic ulcer diabetic foot Right radial head fracture Fracture, radius, distal Surgical History No pertinent past surgical history Family History (Updated 06/10/24 @ 09:06 by Deepthi Rodrigues CMA) Mother Hypertension Thyroid disease Denies family history of CAD (coronary artery disease) Social History Smoking and tobacco/nicotine status: never used tobacco/nicotine Alcohol intake: never Physical Exam Const: COMMON NORMALS: no acute distress, patient oriented x3, no limitations, alert and well nourished GENERAL APPEARANCE: cooperative NUTRITIONAL APPEARANCE: obese ORIENTATION/CONSCIOUSNESS: Yes awake, Yes oriented to person, Yes oriented to place and Yes oriented to time Eye: COMMON NORMALS: no scleral icterus Neck/C-Spine: COMMON NORMALS: no lymphadenopathy GENERAL: Yes normal visual inspection Resp: COMMON NORMALS: normal respiratory effort and clear to auscultation bilaterally AUSCULTATION: clear to auscultation bilaterally Cardio: COMMON NORMALS: regular rate and regular rhythm RATE: regular rate RHYTHM: regular rhythm GI: COMMON NORMALS: Normal to inspection, nondistended, normoactive bowel sounds present, Soft to palpation, No hepatosplenomegaly present and no masses INSPECTION: Yes normal to inspection AUSCULTATION: Yes normoactive bowel sounds PALPATION: Yes Soft to palpation, Yes Tenderness to palpation present (GI) (diffusely ), No Guarding due to palpation present (GI), No Rigid due to palpation and Yes No hepatosplenomegaly present : COMMON NORMALS: No no CVA tenderness BLADDER/KIDNEY EXAM: No no CVA tenderness Back/Pelvis: COMMON NORMALS: thoracic and lumbar spine normal to inspection; negative for no CVA tenderness Extremity: GENERAL: Yes normal exam except as noted Neuro: AMANDA COMA SCALE: document GCS findings Amanda coma scale eye opening: Spontaneous [place] coma scale verbal response: Orientated [place] coma scale motor response: Obey commands [place] coma scale total score: 15 COMMON NORMALS: patient oriented x3, moves all extremities, no focal motor deficits and no sensory deficits noted SENSORIUM/ORIENTATION: Yes alert, Yes oriented to person, Yes oriented to place and Yes oriented to time Skin: COMMON NORMALS: no rashes or lesions noted GENERAL SKIN EXAM: no rashes or lesions noted Course Vital Signs: Vital signs: Vital Signs Temperature 98.5 F 11/02/24 15:40 Pulse Rate 86 11/02/24 19:14 Respiratory Rate 16 11/02/24 19:14 Blood Pressure 144/95 11/02/24 19:14 Pulse Oximetry 100 11/02/24 19:14 Oxygen Delivery Me thod Room Air 11/02/24 17:52 MDM - Chest Pain Medical Decision Making Patient is a 65-year-old female that presents to the emergency department with 3-week history of reproducible positional chest pain. Described as sharp in nature. Differential diagnosis includes cardiac vascular event?AMI, ACS, pleurisy, pneumonia In the emergency department she underwent a chest x-ray which reveals no acute cardiopulmonary abnormalities. Lung fulton are clear on x-ray She does have wheezing diffusely on expiratory. DuoNeb treatment ordered Her CBC reveals no leukocytosis anemias or thrombocytopenia. Her initial troponin was 75 so a 2-hour delta was obtained. 2-hour delta -2 EKGs were completed and reveals a sinus rhythm with a ventricular rate of 77 beats a minute and a QTc of 463. No ectopy, ST elevation or abnormal T wave inversion. Patient responded well to the DuoNeb Her pain improved with ketorolac and steroid And to discharge her home with a short course of steroids. She needs to continue using her inhaler. She is to follow-up with primary care doctor this week Return to the emergency department for new concerning or worsening symptoms Lab Data 11/02/24 16:44 11/02/24 16:44 Radiology Impressions Chest X-Ray 11/02/24 16:09 IMPRESSION: No acute cardiopulmonary disease. Laboratory Results WBC 6.62 10^3/uL (3.29-11.43) 11/02/24 16:44 RBC 4.69 10^6/uL (3.85-5.65) 11/02/24 16:44 Hgb 14.00 g/dL (11.27-16.99) 11/02/24 16:44 Hct 42.4 % (36-47) 11/02/24 16:44 MCV 90.4 fl (85-98) 11/02/24 16:44 MCH 29.9 pg (27-33) 11/02/24 16:44 MCHC 33.0 g/dL (30-55) 11/02/24 16:44 RDW 13.7 % (12.1-15.1) 11/02/24 16:44 Plt Count 338 10^3/cmm (157-399) 11/02/24 16:44 MPV 10.5 fL (7.4-10.4) H 11/02/24 16:44 Neut % (Auto) 55.4 % 11/02/24 16:44 Lymph % (Auto) 29.5 % 11/02/24 16:44 Oliver % (Auto) 11.2 % 11/02/24 16:44 Eos % (Auto) 2.9 % 11/02/24 16:44 Baso % (Auto) 0.8 % 11/02/24 16:44 Neut # (Auto) 3.68 10^3/uL (1.8-7.7) 11/02/24 16:44 Lymph # (Auto) 2.0 10^3/uL (0.8-4.8) 11/02/24 16:44 Oliver # (Auto) 0.7 10^3/uL (0.2-0.9) 11/02/24 16:44 Eos # (Auto) 0.2 10^3/uL (0.0-0.8) 11/02/24 16:44 Baso # (Auto) 0.1 10^3/uL (0.0-0.1) 11/02/24 16:44 Nucleated RBC % (auto) 0 % 11/02/24 16:44 Nucleated RBCs # 0.0 /100WBC 11/02/24 16:44 Sodium 138 mmol/L (136-145) 11/02/24 16:44 Potassium 3.9 mmol/L (3.5-5.1) 11/02/24 16:44 Chloride 103 mmol/L (98-107) 11/02/24 16:44 Carbon Dioxide 21 mmol/L (22-29) L 11/02/24 16:44 Anion Gap 17.9 (5-19) 11/02/24 16:44 BUN 18 mg/dL (8-23) 11/02/24 16:44 Creatinine 0.7 mg/dL (0.5-0.9) 11/02/24 16:44 GFR Calculation 85.4 mL/min (90-130) L 11/02/24 16:44 Glucose 159 mg/dL (65-115) H 11/02/24 16:44 Calculated Osmolality 291 mOsm/kg (285-295) 11/02/24 16:44 Calcium 9.1 mg/dL (8.5-10.5) 11/02/24 16:44 Total Bilirubin 0.4 mg/dL (0.15-1.2) 11/02/24 16:44 AST 19 U/L (0-32) 11/02/24 16:44 ALT 21 U/L (0-33) 11/02/24 16:44 Alkaline Phosphatase 86 U/L (35-105) 11/02/24 16:44 Troponin T Baseline 75 ng/L (0-10) H 11/02/24 16:44 Troponin T 120 Minute 73.60 ng/L (0-10) H 11/02/24 19:14 Delta Troponin T -1.40 ABS# (0-10) L 11/02/24 19:14 Total Protein 7.5 g/dL (6.6-8.7) 11/02/24 16:44 Albumin 4.2 g/dL (3.5-5.2) 11/02/24 16:44 Globulin 3.3 g/dL (1.3-4.6) 11/02/24 16:44 Influenza A (PCR) Negative (Negative) 11/02/24 17:40 Influenza Type B (PCR) Negative (Negative) 11/02/24 17:40 RSV (PCR) Negative (Negative) 11/02/24 17:40 SARS-CoV-2 (PCR) Negative (Negative) 11/02/24 17:40 All radiology interpretation(s) finalized by discharge Discharge Plan Discharge Patient Disposition: Home Clinical Impression: Chest pain, URI (upper respiratory infection) Condition: Stable Prescriptions: New prednisone 20 mg tablet 40 mg PO DAILY 3 Days Qty: 6 0RF No Action (DME) CAM walker See Rx Instructions .Route .MEDSUPPLY Qty: 1 0RF Rx Instructions: As directed (DME) Hinge Elbow Brace See Rx Instructions .Route .MEDSUPPLY Qty: 1 0RF Rx Instructions: As directed (DME) Hinged Knee Brace See Rx Instructions .Route .MEDSUPPLY Qty: 1 0RF Rx Instructions: As directed (DME) aso See Rx Instructions .Route .MEDSUPPLY Qty: 1 0RF Rx Instructions: As directed diazepam [Valium] 5 mg tablet 5 mg PO BID PRN (Reason: anxiety) Qty: 2 0RF Rx Instructions: Take 1 tab PO 30mins before procedure amitriptyline 75 mg tablet 75 mg PO BEDTIME gabapentin 300 mg capsule 600 mg PO TID furosemide 20 mg tablet 20 mg PO BID PRN (Reason: Edema) albuterol sulfate [Ventolin HFA] 90 mcg/actuation Hfa Aerosol Inhaler 2 puff INHALATION Q4H PRN (Reason: Shortness Of Breath) colchicine 0.6 mg tablet 0.6 mg PO DAILY PRN (Reason: flares) metoprolol succinate [Toprol XL] 25 mg tablet extended release 24 hr 25 mg PO QAM benazepril 40 mg tablet 40 mg PO QPM atorvastatin 40 mg Tablet 40 mg PO BEDTIME Qty: 30 0RF aspirin 81 mg tablet,delayed release (DR/EC) 81 mg PO BEDTIME multivit with min-folic acid [Adult Multivitamin Gummies] 200 mcg Tablet,Chewable 1 tab PO DAILY tramadol 50 mg tablet 50 mg PO Q8H PRN (Reason: pain) Qty: 20 0RF Ozempic 2 mg/dose (8 mg/3 mL) pen injector 2 mg SUBCUT Q7D Rx Instructions: MONDAYS EpiPen 2-Anthony 0.3 mg/0.3 mL auto-injector 0.3 mg IM Q10M PRN (Reason: anaphylaxis) Qty: 2 0RF Rx Instructions: for 2 doses ondansetron 8 mg tablet,disintegrating 8 mg PO Q6H PRN (Reason: Nausea And Vomiting) ondansetron 8 mg tablet,disintegrating 8 mg PO .q6 PRN (Reason: nausea and vomiting) Qty: 14 0RF diclofenac sodium 50 mg tablet,delayed release (DR/EC) 50 mg PO Q12H Qty: 20 0RF Discharge Orders: Discharge ED (Routine); Ordered 11/02/24 [facility] By: [facility] [place] Referrals: Shai Hill MD [Primary Care Provider] - Discharge Diet: Advance as tolerated Discharge Activity: Resume usual activity Patient Instructions: Acute Bronchitis (ED), Pain Management Activity Restrictions/Additional Instructions: Please return to the emergency department for new, concerning, worsening symptoms Print Language: Bulgarian Coding Level of Care Code ED Elect Equip Maint Eng for Ranjana Orellana
[2024-11-02 17:45] LABS: Alanine Aminotransferase 21 U/L (0-33); Albumin Level 4.2 g/dL (3.5-5.2); Alkaline Phosphatase 86 U/L (35-105); Anion Gap 17.9 (5-19); Aspartate Amino Transferase 19 U/L (0-32); Blood Urea Nitrogen 18 mg/dL (8-23); Calcium 9.1 mg/dL (8.5-10.5); Carbon Dioxide 21 mmol/L (22-29); Chloride 103 mmol/L (98-107); Creatinine Clr Calc Pharmacy 92.7504; Globulin 3.3 g/dL (1.3-4.6); Glomerular Filtration Rate 85.4 mL/min (90-130); Glucose 159 mg/dL (65-115); Osmolality Calculated 291 mOsm/kg (285-295); Potassium 3.9 mmol/L (3.5-5.1); Sodium 138 mmol/L (136-145); Total Bilirubin 0.4 mg/dL (0.15-1.2); Total Protein 7.5 g/dL (6.6-8.7)
[2024-11-02 17:52] VITALS: PULSE 77; RESP 18; O2SAT 96
[2024-11-02] MEDS: ipratropium-albuterol 3 mL Neb INHALATION (17:52)
--- NOTE | 2024-11-02 18:04 | ECG_ITS ---
ConsiderC zappit Test Date: 2024-11-02 Pat Name: Lucita Dunaway Department: Room: Gender: Female Pharmacy Manager: : 1965 Requested By: Govind Cisneros Order Number: [id number] Reading MD: UN MAGDALENO Measurements Intervals [place] Rate: 77 P: 82 VA: 162 QRS: -4 QRSD: 114 T: 47 QT: 432 QTc: 489 Interpretive Statements SINUS RHYTHM POSSIBLE RIGHT VENTRICULAR CONDUCTION DELAY [RSR (QR) IN V1/V2] VOLTAGE CRITERIA FOR LVH [MEETS CRITERIA IN ONE OF: R(aVL), S(V1), R(V5), R(V5/V6)+S(V1)] NONSPECIFIC ST & T-WAVE ABNORMALITY Compared to ECG 11/02/2024 15:47:47 Ventricular premature complex(es) no longer present T-wave abnormality still present Electronically Signed On 11-05-2024 23:51:15 DAIRY ASSOCIATE by NU MAGDALENO [email or web address]
[2024-11-02 18:27] LABS: Influenza A NEGATIVE (Negative); Influenza B NEGATIVE (Negative); Respiratory Syncytial Virus Ce NEGATIVE (Negative); SARS-CoV-2 PCR NEGATIVE (Negative)
[2024-11-02 19:14] VITALS: BP 144/95; PULSE 86; RESP 16; O2SAT 100
[2024-11-02 19:49] VITALS: BP 154/100; PULSE 86; RESP 16; O2SAT 96
[2024-11-02] MEDS: ketorolac 30 mg/mL INJ IVP (20:11)
[2024-11-02] MEDS: predniSONE 20 mg Tablet 40 MG PO (20:11)
[2024-11-02 20:18] VITALS: BP 144/98; PULSE 90; RESP 16; O2SAT 95
== END 2024-11-02 20:18 | disposition home or self-care (01) ==
PROVIDERS: Family Medicine; Emergency Provider Nurse Practitioner; PCP Family Medicine
DX: R07.9 Chest pain, unspecified (principal); J06.9 Acute upper respiratory infection, unspecified; Z11.52 Encounter for screening for COVID-19; Z79.82 Long term (current) use of aspirin
CPT/HCPCS: 36415; 71045; 80053; 84484; 85025; 87637; 93005; 94640; 96374; 99285; J1885; J7512

== ENCOUNTER 2024-12-18 16:11 | Emergency (ER) | payer OTHER, MEDICAID, SELFPAY ==
[2024-12-18 16:15] VITALS: BP 161/98; PULSE 89; RESP 17; TEMP 36.7; O2SAT 97; BMI 34.0
--- NOTE | 2024-12-18 17:37 | XRR_ITS ---
PROCEDURE INFORMATION: Exam: XR Left Knee Exam date and time: 12/18/2024 6:07 PM Age: 59 years old Clinical indication: Injury or trauma; Fall; Other: Pain; Additional info: Fall/pain TECHNIQUE: Imaging protocol: Radiologic exam of the left knee. Views: 3 views. COMPARISON: MR knee LT wo con* [id number] 04/02/2024 4:11 PM FINDINGS: Bones/joints: Acute displaced fracture. [id number] tricompartmental degenerative changes. No dislocation. Soft tissues: Normal. XR/XR knee LT 3V* [id number] IMPRESSION: No acute findings.
--- NOTE | 2024-12-18 17:37 | XRR_ITS ---
PROCEDURE INFORMATION: Exam: XR Right Foot Exam date and time: 12/18/2024 6:04 PM Age: 59 years old Clinical indication: Pain; Foot; Right TECHNIQUE: Imaging protocol: Radiologic exam of the right foot. Views: 3 or more views. COMPARISON: CR (LOW EXM, ) 12/18/2024 6:03 PM FINDINGS: Bones/joints: No definite acute fracture or traumatic malalignment of the mid and forefoot. Plantar calcaneal spurring. Please see same-day ankle radiograph for further findings. Soft tissues: Soft tissue swelling surrounding the ankle joint. XR/XR foot RT min 3V* [id number] IMPRESSION: As above.
--- NOTE | 2024-12-18 17:37 | XRR_ITS ---
PROCEDURE INFORMATION: Exam: XR Right Knee Exam date and time: 12/18/2024 6:06 PM Age: 59 years old Clinical indication: Injury or trauma; Fall; Other: Pain; Additional info: Fall/pain TECHNIQUE: Imaging protocol: Radiologic exam of the right knee. Views: 3 views. COMPARISON: MR knee RT wo con* [id number] 03/28/2024 3:53 PM FINDINGS: Bones/joints: Moderate to severe tricompartmental degenerative changes of the knee joint. No dislocation. There are ghost tracks within the proximal tibia prior injury. No definite acute displaced fracture. Soft tissues: Normal. XR/XR knee RT 3V* [id number] IMPRESSION: No acute findings. Chronic changes as above.
--- NOTE | 2024-12-18 17:37 | XRR_ITS ---
PROCEDURE INFORMATION: Exam: XR Right Ankle Exam date and time: 12/18/2024 6:03 PM Age: 59 years old Clinical indication: Injury or trauma; Fall; Other: Pain; Additional info: Fall/pain TECHNIQUE: Imaging protocol: Radiologic exam of the right ankle. Views: 3 or more views. COMPARISON: MR knee RT wo con* [id number] 03/28/2024 3:53 PM FINDINGS: Bones/joints: There is a comminuted spiral fracture through the distal fibula at the level of the distal. No dislocation. Additional ossific density identified at the tip of the medial malleolus which may relate to remote injury. Soft tissues: Soft tissue swelling surrounding the ankle joint. XR/XR ankle RT min 3V* [id number] IMPRESSION: As above.
--- NOTE | 2024-12-18 17:40 | W.ED.FALL ---
HPI - Fall General: Chief Complaint: Fall Stated Complaint: fall Time Seen by Provider: 12/18/24 16:29 Source: patient Mode of arrival: wheelchair Limitations: no limitations History of Present Illness: Patient is a 59-year-old female presents the emergency department due to a fall about an hour and a half prior to arrival. States that she simply tripped, and landed on both knees also had injury to right foot and ankle in the process. Previous surgery on the right knee from trauma, also reports scattered abrasions from the fall. Did not hit her head or lose consciousness, and no other injuries are reported with this fall. States that the primary pain is to the arch of the right foot, has not been ambulatory since and does arrive in a wheelchair. No distal neurovascular symptoms reported. No obvious deformity to the extremities. MD complaint: fall Onset (ago): hour(s) Fall from: standing Fall witnessed: yes, by family Place fall occurred: other (Store) Loss of consciousness: None Prolonged down time: no Symptoms prior to fall: none Context: tripped/slipped Location of injury - extremities: Right: ankle and foot and Bilateral: knee Associated symptoms-after fall: Denies abdominal pain, chest pain, headache(s), lightheadedness or neck pain Related Data Home Medications ?Medication ?Instructions ?Recorded ?Confirmed albuterol sulfate 90 mcg/actuation 2 puff inhalation Q4H PRN 07/25/23 09/10/24 aerosol inhaler (Ventolin HFA) Shortness Of Breath amitriptyline 75 mg tablet 75 mg PO BEDTIME 07/25/23 09/10/24 colchicine 0.6 mg tablet 0.6 mg PO DAILY PRN flares 07/25/23 09/10/24 furosemide 20 mg tablet 20 mg PO BID PRN Edema 07/25/23 09/10/24 gabapentin 300 mg capsule 600 mg PO TID 07/25/23 09/10/24 metoprolol succinate 25 mg 25 mg PO QAM 07/25/23 09/10/24 tablet,extended release 24 hr (Toprol XL) benazepril 40 mg tablet 40 mg PO QPM 09/12/23 09/10/24 aspirin 81 mg tablet,delayed 81 mg PO BEDTIME 01/13/24 09/10/24 release multivitamin with minerals-folic 1 tab PO DAILY 01/13/24 09/10/24 acid 200 mcg chewable tablet (Adult Multivitamin Gummies) semaglutide 2 mg/dose (8 mg/3 mL) 2 mg SUBCUT Q7D 03/05/24 09/10/24 subcutaneous pen injector (Ozempic) ondansetron 8 mg disintegrating 8 mg PO Q6H PRN Nausea And Vomiting 03/07/24 09/10/24 tablet Previous Rx's ?Medication ?Instructions ?Recorded Hinge Elbow Brace #1 ea 02/08/23 atorvastatin 40 mg tablet 40 mg PO BEDTIME #30 tabs 12/02/23 tramadol 50 mg tablet 50 mg PO Q8H PRN pain #20 tabs 01/13/24 CAM walker #1 ea 02/08/24 Hinged Knee Brace #1 ea 02/29/24 diclofenac sodium 50 mg 50 mg PO Q12H #20 tabs 03/07/24 tablet,delayed release ondansetron 8 mg disintegrating 8 mg PO .q6 PRN nausea and 03/07/24 tablet vomiting #14 tabs aso #1 ea 03/20/24 diazepam 5 mg tablet (Valium) 5 mg PO BID PRN anxiety #2 tabs 04/02/24 epinephrine 0.3 mg/0.3 mL 0.3 mg (0.3 mL) IM Q10M PRN 05/15/24 injection, auto-injector (EpiPen anaphylaxis #2 ea 2-Anthony) Allergies Allergy/AdvReac Type Severity Reaction Status Date / Time meperidine (From Demerol) Allergy Unknown Verified 12/18/24 16:19 peanut Allergy ALGY-Anaphy Verified 12/18/24 16:19 laxis Penicillins Allergy ALGY-Hives Verified 12/18/24 16:19 cephalexin (From Keflex) AdvReac ADR-Gastrointestinal Verified 12/18/24 16:19 Upset Review of Systems General: Reports: 10 or more systems reviewed and unremarkable except in HPI and below Const: Reports: other (Reports fall); Denies: fever(s), chills or fatigue Eyes: Denies: change in vision ENMT: Denies: throat pain, ear or mastoid pain or nasal discharge Card: Denies: chest pain, palpitations, swelling of feet/ankles or lightheadedness Resp: Denies: dyspnea, productive cough or wheezing GI: Denies: abdominal pain, nausea, vomiting, diarrhea or constipation : Denies: flank pain, difficulty voiding, dysuria or urinary frequency Musc: Reports: extremity pain (Right foot) and joint pain (Bilateral knees and right ankle); Denies: neck pain or back pain Skin/Breast: Reports: new lesions (Abrasions to bilateral knees and right foot); Denies: rash Neuro: Denies: headache(s), numbness in extremities or weakness in extremities PFSH ED PFSH: Medical History Peripheral neuropathy Ischemic ulcer Pain in both feet Ischemic ulcer diabetic foot Right radial head fracture Fracture, radius, distal Surgical History No pertinent past surgical history Family History Mother Hypertension Thyroid disease Denies family history of CAD (coronary artery disease) Social History Smoking and tobacco/nicotine status: never used tobacco/nicotine Alcohol intake: never Physical Exam Const: COMMON NORMALS: no acute distress, patient oriented x3, no limitations, healthy appearing, alert and well nourished HENMT: COMMON NORMALS: normocephalic and atraumatic HEAD & SCALP: normocephalic and atraumatic Neck/C-Spine: COMMON NORMALS: full ROM, supple and no meningeal signs Resp: COMMON NORMALS: normal respiratory effort, No use of accessory muscles and clear to auscultation bilaterally AUSCULTATION: clear to auscultation bilaterally Cardio: COMMON NORMALS: regular rate and regular rhythm RATE: regular rate RHYTHM: regular rhythm Extremity: NARRATIVE EXTREMITY EXAM: Tender to palpation to plantar aspect of right foot, as well as to lateral malleolus. No bruising or swelling noted. Tender to palpation to left medial knee, nontender to palpation of right knee. No swelling of the knees. Full range of motion at bilateral knees as well as bilateral ankles. Gait unable to be assessed. Positive inversion ankle testing on the right. Distal pulses palpable. Neuro: COMMON NORMALS: patient oriented x3, moves all extremities, no focal motor deficits and no sensory deficits noted SENSORIUM/ORIENTATION: Yes alert MENINGEAL SIGNS: Yes no meningeal signs Skin: NARRATIVE SKIN EXAM: Abrasions to bilateral knees as well as to right foot Course Vital Signs: Vital signs: Vital Signs Temperature 98.1 F 12/18/24 16:15 Pulse Rate 89 12/18/24 16:15 Respiratory Rate 17 12/18/24 16:15 Blood Pressure 161/98 12/18/24 16:15 Pulse Oximetry 97 12/18/24 16:15 Oxygen Delivery Me thod Room Air 12/18/24 16:15 MDM - Fall Medical Decision Making Patient fell earlier today, injuring right lower extremity at the ankle and knee, as well as to her left knee. Pain and swelling noted to right ankle with scattered abrasions, x-ray showed evidence of bimalleolar fracture. Was able to speak to boom stick worker, Dr. Ivey, in regards to these findings he recommended CT and kindly agrees to follow-up with this patient in the office tomorrow. CT confirms these findings, serial examination of patient's vascular status shows that there have been no color or temperature changes and she has remained with good pulses. Was given Toradol here for pain, is splinted in short leg posterior splint with stirrup and made nonweightbearing with crutches. Po splint neurovascular status was intact and she is told to return if pain severely worsens, with any paralysis, or any other major concerns that she has. Otherwise plan to follow-up outpatient with podiatry for further workup. Lab Data Radiology Impressions Ankle X-Ray 12/18/24 17:37 IMPRESSION: As above. Foot X-Ray 12/18/24 17:37 IMPRESSION: As above. Knee X-Ray 12/18/24 17:37 IMPRESSION: No acute findings. Chronic changes as above. Ankle CT 12/18/24 18:11 IMPRESSION: As above. All radiology interpretation(s) finalized by discharge Discharge Plan Discharge Patient Disposition: Home Clinical Impression: Ankle fracture, right Qualifiers: Encounter type: initial encounter Fracture type: closed Qualified Code(s): S82.891A - Other fracture of right lower leg, initial encounter for closed fracture Condition: Stable Prescriptions: No Action (DME) CAM walker See Rx Instructions .Route .MEDSUPPLY Qty: 1 0RF Rx Instructions: As directed (DME) Hinge Elbow Brace See Rx Instructions .Route .MEDSUPPLY Qty: 1 0RF Rx Instructions: As directed (DME) Hinged Knee Brace See Rx Instructions .Route .MEDSUPPLY Qty: 1 0RF Rx Instructions: As directed (DME) aso See Rx Instructions .Route .MEDSUPPLY Qty: 1 0RF Rx Instructions: As directed diazepam [Valium] 5 mg tablet 5 mg PO BID PRN (Reason: anxiety) Qty: 2 0RF Rx Instructions: Take 1 tab PO 30mins before procedure amitriptyline 75 mg tablet 75 mg PO BEDTIME gabapentin 300 mg capsule 600 mg PO TID furosemide 20 mg tablet 20 mg PO BID PRN (Reason: Edema) albuterol sulfate [Ventolin HFA] 90 mcg/actuation Hfa Aerosol Inhaler 2 puff INHALATION Q4H PRN (Reason: Shortness Of Breath) colchicine 0.6 mg tablet 0.6 mg PO DAILY PRN (Reason: flares) metoprolol succinate [Toprol XL] 25 mg tablet extended release 24 hr 25 mg PO QAM benazepril 40 mg tablet 40 mg PO QPM atorvastatin 40 mg Tablet 40 mg PO BEDTIME Qty: 30 0RF aspirin 81 mg tablet,delayed release (DR/EC) 81 mg PO BEDTIME multivit with min-folic acid [Adult Multivitamin Gummies] 200 mcg Tablet,Chewable 1 tab PO DAILY tramadol 50 mg tablet 50 mg PO Q8H PRN (Reason: pain) Qty: 20 0RF Ozempic 2 mg/dose (8 mg/3 mL) pen injector 2 mg SUBCUT Q7D Rx Instructions: MONDAYS EpiPen 2-Anthony 0.3 mg/0.3 mL auto-injector 0.3 mg IM Q10M PRN (Reason: anaphylaxis) Qty: 2 0RF Rx Instructions: for 2 doses ondansetron 8 mg tablet,disintegrating 8 mg PO Q6H PRN (Reason: Nausea And Vomiting) ondansetron 8 mg tablet,disintegrating 8 mg PO .q6 PRN (Reason: nausea and vomiting) Qty: 14 0RF diclofenac sodium 50 mg tablet,delayed release (DR/EC) 50 mg PO Q12H Qty: 20 0RF Discharge Orders: Discharge ED (Routine); Ordered 12/18/24 Ordered By: Hector Barlow Referrals: Shai Hill MD [Primary Care Provider] - Patient Instructions: Ankle Fracture (ED), Opioid Safety, Pain Management Activity Restrictions/Additional Instructions: Splint for immobilization and crutches, nonweightbearing as we discussed. [id number] pain medication such as ibuprofen and Tylenol, elevation of the extremity. Please await call for follow-up with podiatry as we discussed. Return with any severe increase of pain, paralysis, or any other major concerns that you have. Print Language: Telugu Coding Level of Care Code ED Dealer Sales Rep for Ranjana Orellana
--- NOTE | 2024-12-18 18:11 | CTR_ITS ---
PROCEDURE INFORMATION: Exam: CT Right Lower Extremity Without Contrast, Ankle Exam date and time: 12/18/2024 7:04 PM Age: 59 years old Clinical indication: Injury or trauma; Fall; Blunt trauma; Ankle; Right; Additional info: Ankle FX TECHNIQUE: Imaging protocol: CT of the right lower extremity without contrast was performed. Exam focused on the ankle. Radiation optimization: All CT scans at this facility use at least one of these dose optimization techniques: automated exposure control; mA and/or kV adjustment per patient size (includes targeted exams where dose is matched to clinical indication); or iterative reconstruction. COMPARISON: CR (LOW EXM, ) 12/18/2024 6:03 PM RADIATION DOSE METRICS: Total DLP (mGy-cm): 128.52 FINDINGS: Bones/joints: Comminuted intra-articular fracture involving the distal fibula at the level of the distal tib fib syndesmosis. Posterior malleolar fracture. Possible additional injury of the medial malleolar. No dislocation. The talar dome is intact. Posterior and plantar calcaneal spurring. Soft tissues: Soft tissue swelling surrounding the fracture sites. CT/CT ankle RT wo con* [id number] IMPRESSION: As above.
[2024-12-18] MEDS: ketorolac 60 mg/2 mL INJ IM (19:45)
[2024-12-18 20:36] VITALS: BP 130/74; PULSE 77; O2SAT 96
--- NOTE | 2024-12-19 07:58 | DCPLANNER ---
messaged podiatry for er f/u
== END 2024-12-18 20:35 | disposition home or self-care (01) ==
PROVIDERS: Emergency Provider Physician Assistant; PCP Family Medicine
DX: S82.891A Other fracture of right lower leg, initial encounter for closed fracture (principal); Z79.82 Long term (current) use of aspirin; W19.XXXA Unspecified fall, initial encounter
CPT/HCPCS: 29515; 73562; 73610; 73630; 73700; 96372; 99284; E0114; J1885

== ENCOUNTER 2024-12-27 06:33 | Day surgery (SDC) | payer MEDICAID, SELFPAY ==
[2024-12-27] VITALS (15 sets, daily range): BP systolic 128–153; BP diastolic 67–121; PULSE 76–83; RESP 10–18; TEMP 36.2–36.6; O2SAT 93–100; BMI 34.0
--- NOTE | 2024-12-27 07:18 | P.ANESASSM_ITS ---
Pre-Anesthetic Assessment Height/Weight: Height 1.63 m Preop Diagnosis: Right ankle fracture Operation Date: 12/27/24 08:20 Proposed Procedures p ORIF Ankle right trimalleolar fracture; ORIF Ankle right distal tibia fracture(Right) - CRISTINE Rosales Syndesmotic Repair(Right) - CRISTINE Rosales Ankle Arthroscopy(Right) - Merrick Ivey DPM Familial anesthetic complications: none Was Beta Dilip taken within 24 hours: Yes Was Clonidine taken within 24 hours: N/A Social No alcohol and No tobacco Exam alert, oriented x 3, clear to auscultation bilaterally and regular rate & rhythm Airway Submandibular: within normal limits Cervical ROM: within normal limits Mallampati: Class II Dentition: full CV/HEM Coronary Artery Disease, Hypertension, Myocardial Infarction and Peripheral Vas cular Disease GI Gastroesophageal Reflux Disease Metabolic Diabetes Mellitus and Morbid Obesity Neuropsych Neuropathy Anesthetic Plan ASA status: 3 Anesthesia: General and Regional (specify below) (Right popliteal and adductor blk) Medications/Allergies Home Medications ?Medication ?Instructions ?Recorded ?Confirmed ?Last Taken ?Type Hinge Elbow Brace #1 ea 02/08/23 12/19/24 Unkn own Rx albuterol sulfate 90 mcg/actuation 2 puff inhalation Q 4H PRN 07/25/23 12/27/24 12/27/24 History aerosol inhaler (Ventolin HFA) Shortness Of Breath 0 630 amitriptyline 75 mg tablet 75 mg PO BEDTIME 07/25/23 0 12/27/24 1 Week Ago History ~12/20/24 gabapentin 300 mg capsule 600 mg PO TID 07/25/2312/2712/27/24 History 0530 metoprolol succinate 25 mg 25 mg PO QAM 07/25/2312/2712/27/24 05:30 History tablet,extended release 24 hr (Toprol XL) multivitamin with minerals-folic 1 tab PO DAILY 12/27/24 12/26/24 History acid 200 mcg chewable tablet (Adult Multivitamin Gummies) CAM walker #1 ea 02/08/24 12/19/24 Unkn own Rx Hinged Knee Brace #1 ea 02/29/24 12/19/24 Unkn own Rx aso #1 ea 03/20/24 12/19/24 Unkn own Rx epinephrine 0.3 mg/0.3 mL 0.3 mg (0.3 mL) IM Q10M PRN 05/15/24 12/27/24 6 Months Ago Rx injection, auto-injector (EpiPen anaphylaxis #2 ea ~ 06/28/24 2-Anthony) amlodipine 5 mg tablet 5 mg PO DAILY 12/26/2412/2712/27/24 05:30 History Allergies Allergy/AdvReac Type Severity Reaction Status Date / Time meperidine (From Demerol) Allergy Unknown Verified 12/27/24 06:49 peanut Allergy ALGY-Anaphy Verified 12/27/24 06:49 laxis Penicillins Allergy ALGY-Hives Verified 12/27/24 06:49 cephalexin (From Keflex) AdvReac ADR-Gastrointestinal Verified 12/27/24 06:49 Upset [facility] Anesthesia Medical History Peripheral neuropathy Ischemic ulcer Pain in both feet Ischemic ulcer diabetic foot Right radial head fracture Fracture, radius, distal Surgical History No pertinent past surgical history Family History Mother Hypertension Thyroid disease Denies family history of CAD (coronary artery disease) Social History Smoking and tobacco/nicotine status: never used tobacco/nicotine Alcohol intake: never Data Anesthesia Cardiac Studies: Echocardiogram 11/30/23 Sestamibi Stress Test (Cardiology) 11/29
[2024-12-27] MEDS: CELEcoxib 200 mg Capsule 400 MG PO (07:28)
[2024-12-27] MEDS: sodium chloride 0.9% 1,000 ML 30 ML IV (07:28)
--- NOTE | 2024-12-27 07:47 | W.PM.OPSUD ---
Surgery/Procedure H&P Update DATE OF PROCEDURE: December 27, 2024 DATE H&P PERFORMED: 12/19/24 H&P UPDATE INFORMATION: I have reviewed H&P completed within last 30 days, I have examined patient prior to procedure, No changes to prior documentation and Risks and benefits of the procedure reviewed PREOP DIAGNOSIS: Right ankle fracture PLANNED PROCEDURE: Operation Date: 12/27/24 08:20 Proposed Procedures p ORIF Ankle right trimalleolar fracture; ORIF Ankle right distal tibia fracture(Right) - CRISTINE Rosales Syndesmotic Repair(Right) - CRISTINE Rosales Ankle Arthroscopy(Right) - Merrick Ivey DPM
[2024-12-27] MEDS: clindamycin 600 MG/50 ML PREMIX 100 MG IV (08:07)
[2024-12-27] MEDS: tranexamic acid 1,000 mg/10mL SDV 1000 MG IV (08:25)
--- NOTE | 2024-12-27 08:34 | ANES.PROC ---
Anesthesia Procedures Procedure/Date: 12/27/24 Nerve Block ^: Nerve Block 1: Main Anesthesia: general anesthesia Time Out Performed: Yes Consent: requested by attending/covering physician and patient agrees to proceed Nerve block location: adductor canal (right) Anesthesia monitors applied: pulse oximetry, EKG, BP cuff and oxygen Nerve block position: supine Anesthetic Used: ropivicaine 0.5% Amount of anesthesia used (mL): 10 Ultrasound used to: recognize landmarks Nerve Stimulator Used?: No Interscalene/Femoral BLK: 4 stimuplex 21 g needle used for position and inplane approach Injection: neg aspiration of heme Patient Tolerated Procedure: well Complications: none
--- NOTE | 2024-12-27 08:35 | ANES.PROC ---
Anesthesia Procedures Procedure/Date: 12/27/24 Nerve Block ^: Nerve Block 2: Main Anesthesia: general anesthesia Time Out Performed: Yes Consent: requested by attending/covering physician and patient agrees to proceed Nerve block location: popliteal (right) Anesthesia monitors applied: pulse oximetry, EKG, BP cuff and oxygen Nerve block position: supine Anesthetic Used: ropivicaine 0.5% Amount of anesthesia used (mL): 20 Ultrasound used to: recognize landmarks Nerve Stimulator Used?: No Interscalene/Femoral BLK: 4 stimuplex 21 g needle used for position and inplane approach Injection: neg aspiration of heme Patient Tolerated Procedure: well Complications: none
--- NOTE | 2024-12-27 09:42 | P.BOP_ITS ---
Date of Procedure: 11/24/23 Surgeon: Merrick Ivey DPM Complaint Investigator(s): Vasu Stovall Procedure(s) performed: Open reduction internal fixation right trimalleolar fracture. Open reduction internal fixation right distal tibia, open reduction internal fixation right syndesmosis, right ankle scope. Findings of the procedure(s): Syndesmotic disruption, trimalleolar fracture, intra-articular fracture of the anterior lateral aspect of the right distal tibia. Estimated blood loss: 5 mL Specimen(s) removed: None Post-operative diagnosis: Right trimalleolar fracture. Right distal tibial fracture. Right syndesmotic disruption.
--- NOTE | 2024-12-27 09:44 | P.OP_ITS ---
Operative Report Date of procedure: December 27, 2024 Pre-op diagnosis: Closed trimalleolar fracture of right ankle, initial encounter S82.851A Fracture of lateral malleolus of right fibula at syndesmosis S82.61XA Syndesmotic disruption of right ankle S93.431A Closed fracture of right distal tibia S82.301A Post-op diagnosis: Closed trimalleolar fracture of right ankle, initial encounter S82.851A Fracture of lateral malleolus of right fibula at syndesmosis S82.61XA Syndesmotic disruption of right ankle S93.431A Closed fracture of right distal tibia S82.301A Procedure done: 1) open reduction internal fixation right trimalleolar fracture. CPT code 61115 2) right ankle syndesmotic repair. CPT code 84049 3) open reduction internal fixation right distal tibia fracture. CPT code 40181 4) right ankle scope. CPT code 13678 Implants: [place] anatomic fibular plate. [place] 2 mm screw [place] react syndesmotic screw 2-0 Vicryl 3-0 Vicryl Skin wanda Specimens removed/disposition: None Pathology: None Surgeon: Merrick Ivey DPM Casing In Line Setter: Wilman Leone Estimated blood loss: 5 mL 66 minutes IV fluids: See intraoperative documentation Urine output: No urine output Complications: No complications Findings: Right distal fibular fracture, right distal tibial fracture that is intra- articular anterior lateral aspect of the distal tibia. Syndesmotic disruption. Synovitis left ankle joint, no osteochondral defect. Brief History: Patient examined and evaluated, findings and treatment options discussed with patient at length. She is diabetic our last A1c on file was in 2023 was 8.0. Will require updated A1c from primary care office to make sure she is safe to proceed with open right ankle surgery. CT is complex shows a trimalleolar fracture as well as a syndesmotic disruption and a anterior weightbearing smiley face of the tibia fracture on the anterior lateral tibia that is greater than 2 mm displaced and rotated nearly 180 degrees. I reviewed at length with the patient, the risks, potential complications, benefits, alternatives, expectations, and typical outcomes associated with the surgery. The risks and potential complications were explained in detail, including but not limited to infection, wound dehiscence or soft tissue complications, bleeding and hematoma, chronic edema, neuritis or nerve damage producing numbness or chronic pain, CRPS, failure to relieve pain or worsening pain, thick / painful / unsightly scar, limited motion / stiffness, malposition, delayed union, malunion, or nonunion, fracture, reaction to implants, anesthetic complications, venous thromboembolism, and deformity recurrence. I discussed the notion of no regrets with the patient as it pertains to complications and outcomes. The patient seemed to understand the nature of the proposed care and required convalescence. They asked appropriate questions, answered to their satisfaction. They are aware no guarantees can be made as to a satisfactory outcome and they understand there may be other possible unforeseen complications or outcomes not listed here that will be treated accordingly if they arise. There were no written or implied guarantees given to the patient. They gave informed consent to proceed. Procedure: Under mild sedation the patient was brought to the operating room and placed onto the operating table in supine position. A timeout was performed. Anesthesia was administered by the anesthesia service. Of note right popliteal block was performed per anesthesia department preoperatively. Well-padded pneumatic tourniquet was applied to the right high calf. The right lower extremity was scrubbed, prepped and draped utilizing normal aseptic technique. Right foot and ankle were then exanguinated with an Esmarch bandage and the tourniquet was inflated to 250 mmHg. 1) open reduction internal fixation right trimalleolar fracture. CPT code 13332 2) right ankle syndesmotic repair. CPT code 61908 3) open reduction internal fixation right distal tibia fracture. CPT code 50169 4) right ankle scope. CPT code 18273
[2024-12-27] MEDS: HYDROcodone-acetaminophen 10-325 mg Tablet 1 TAB PO (10:24)
--- NOTE | 2024-12-27 10:55 | XR_ITS ---
WS: [id number] Portable AP upright chest, 12/27/2024 Clinical Data: post procedure SOB Comparison: Portable chest, 11/02/2024 Findings: No nodules, masses or effusions are seen. The heart is slightly enlarged. The pulmonary vascularity is not increased. No pneumonia or pneumothorax is seen. XR/XR chest 1V portable [id number] Impression: Cardiomegaly.
[2024-12-27] MEDS: HYDROmorphone 1 mg/mL INJ 1ml 0.5 MG IVP (11:15)
--- NOTE | 2024-12-27 11:25 | XR_ITS ---
WS: [id number] Right ankle, 3 views, 12/27/2024 Clinical Data: post op Comparison: Right ankle, 12/18/2024 Findings: There is internal fixation of the distal right fibular fracture with a lateral plate fixed with screws. There is a screw across the distal right fibula entering the distal tibia. Surgical wanda are adjacent to the lateral plate. XR/XR ankle RT min 3V* [id number] Impression: Internal fixation of distal right fibular fracture.
--- NOTE | 2024-12-27 11:45 | ANE.PACU2 ---
Inpatient post-anesthesia follow up: Airway intact: Yes Vital signs: Temperature 97.8 F Pulse Rate 81 Respiratory Rate 18 Blood Pressure 143/93 Pulse Oximetry 94 Oxygen Delivery Me thod Room Air Oxygen Flow Rate 2 Fraction of Inspir ed Oxygen Hydration adequate: Yes Nausea and vomiting: No Pain level: 1 Mental status: Baseline Additional Comments: Some SOB in phase II postop, no chest pain or diaphoresis, lungs clear and CXR unremarkable...panic attack? Improved after some time.
== END 2024-12-27 12:01 | disposition home or self-care (01) ==
PROVIDERS: PCP Family Medicine; Visit Provider Podiatrist Foot & Ankle Surgery
PROC: (CPT 27827; principal; 2024-12-27 08:10)
PROC: (CPT 27827; 2024-12-27 08:10)
PROC: (CPT 27827; 2024-12-27 08:10)
DX: S82.851A Displaced trimalleolar fracture of right lower leg, initial encounter for closed fracture (principal); S93.431A Sprain of tibiofibular ligament of right ankle, initial encounter; M65.971 Unspecified synovitis and tenosynovitis, right ankle and foot; I25.10 Atherosclerotic heart disease of native coronary artery without angina pectoris; I10 Essential (primary) hypertension; I25.2 Old myocardial infarction; E11.51 Type 2 diabetes mellitus with diabetic peripheral angiopathy without gangrene; K21.9 Gastro-esophageal reflux disease without esophagitis; E66.01 Morbid (severe) obesity due to excess calories; Z68.34 Body mass index [BMI] 34.0-34.9, adult; Z88.0 Allergy status to penicillin; Z88.8 Allergy status to other drugs, medicaments and biological substances; E11.42 Type 2 diabetes mellitus with diabetic polyneuropathy; W19.XXXA Unspecified fall, initial encounter; Z79.899 Other long term (current) drug therapy
CPT/HCPCS: 27827; 27822; 29898; 27829; 71045; 73610; 76000; C1713; C1734; J1100; J1171; J2405; J2704; J2795; J3010; J3490; J7030; J9999

== ENCOUNTER → 2025-01-09 12:58 | Outpatient (BNVA) | payer MEDICAID, SELFPAY | PROVIDERS: PCP Family Medicine; Visit Provider Podiatrist Foot & Ankle Surgery | DX: Z98.890 Other specified postprocedural states (principal); S82.851A Displaced trimalleolar fracture of right lower leg, initial encounter for closed fracture; S82.61XA Displaced fracture of lateral malleolus of right fibula, initial encounter for closed fracture; S93.431A Sprain of tibiofibular ligament of right ankle, initial encounter; X58.XXXA Exposure to other specified factors, initial encounter | CPT/HCPCS: 73610 ==

== ENCOUNTER → 2025-01-23 12:34 | Outpatient (BNVA) | payer MEDICAID, SELFPAY | PROVIDERS: PCP Family Medicine; Visit Provider Podiatrist Foot & Ankle Surgery | DX: Z98.890 Other specified postprocedural states (principal); S82.851D Displaced trimalleolar fracture of right lower leg, subsequent encounter for closed fracture with routine healing; S82.61XD Displaced fracture of lateral malleolus of right fibula, subsequent encounter for closed fracture with routine healing; S93.431D Sprain of tibiofibular ligament of right ankle, subsequent encounter; X58.XXXD Exposure to other specified factors, subsequent encounter | CPT/HCPCS: 73610 ==

== ENCOUNTER → 2025-02-06 12:47 | Outpatient (BNVA) | payer MEDICAID, SELFPAY | PROVIDERS: PCP Family Medicine; Visit Provider Podiatrist Foot & Ankle Surgery | DX: S82.851A Displaced trimalleolar fracture of right lower leg, initial encounter for closed fracture (principal); Z98.890 Other specified postprocedural states; S82.61XA Displaced fracture of lateral malleolus of right fibula, initial encounter for closed fracture; S93.431A Sprain of tibiofibular ligament of right ankle, initial encounter; X58.XXXA Exposure to other specified factors, initial encounter | CPT/HCPCS: 73610 ==

== ENCOUNTER → 2025-02-20 08:57 | Outpatient (BNVA) | payer MEDICAID, SELFPAY | PROVIDERS: PCP Family Medicine; Visit Provider Podiatrist Foot & Ankle Surgery | DX: Z98.890 Other specified postprocedural states (principal); S82.61XD Displaced fracture of lateral malleolus of right fibula, subsequent encounter for closed fracture with routine healing; S93.431D Sprain of tibiofibular ligament of right ankle, subsequent encounter; S82.391D Other fracture of lower end of right tibia, subsequent encounter for closed fracture with routine healing; X58.XXXD Exposure to other specified factors, subsequent encounter | CPT/HCPCS: 73610 ==

== ENCOUNTER 2025-03-03 13:07 | Emergency (ER) | payer MEDICAID, SELFPAY ==
[2025-03-03 13:11] VITALS: BP 149/73; PULSE 82; RESP 16; TEMP 36.8; O2SAT 97; BMI 34.0
[2025-03-03 13:15] VITALS: BP 149/73; O2SAT 96
--- NOTE | 2025-03-03 13:29 | ECG_ITS ---
[email or web address]25[facility]03 Pat Name: Lucita Dunaway Department: Room: Gender: Female Wire Taper: : 1965 Requested By: Galdino Guevara Order Number: [id number] Sanket MD: Sonido Pablo M.D. Measurements Intervals [place] Rate: 77 P: 79 [place]: 184 QRS: -31 QRSD: 102 T: -25 QT: 380 QTc: 431 Interpretive Statements SINUS RHYTHM LEFT AXIS DEVIATION [QRS AXIS < -30] PATTERN CONSISTENT WITH PULMONARY DISEASE VOLTAGE CRITERIA FOR LVH [MEETS CRITERIA IN ONE OF: R(aVL), S(V1), R(V5), R(V5/V6)+S(V1)] NONSPECIFIC T-WAVE ABNORMALITY Compared to ECG 11/02/2024 18:04:11 Left-axis deviation now present T-wave abnormality still present Electronically Signed On 03-04-2025 17:22:14 CDT by Sonido Pablo M.D. [email or web address]
--- NOTE | 2025-03-03 13:30 | W.ED.WEAKNES ---
HPI - Weakness General: Chief complaint: Weakness Stated complaint: weakness Time Seen by Provider: 03/03/25 13:09 Source: patient and EMS Mode of arrival: EMS Limitations: no limitations History of Present Illness: 59-year-old female states she fell like she got overheated today. She states she been out in the sun all day and started to feel weak tired has not been urinating and feels dehydrated. She denies any pain denies passing out denies any vomiting or diarrhea but has had some nausea Associated symptoms: Reports nausea; Denies chest pain, chills, fever(s), headache(s) or vomiting Review of Systems Const: Denies: fever(s), chills, body aches or change in appetite ENMT: Denies: throat pain or dental pain Card: Denies: chest pain Resp: Denies: dyspnea GI: Reports: nausea; Denies: abdominal pain, vomiting or diarrhea Musc: Denies: neck pain or back pain Skin/Breast: Denies: rash Neuro: Denies: headache(s) PFSH ED PFSH: Medical History Peripheral neuropathy Ischemic ulcer Pain in both feet Ischemic ulcer diabetic foot Right radial head fracture Fracture, radius, distal Surgical History No pertinent past surgical history Family History Mother Hypertension Thyroid disease Denies family history of CAD (coronary artery disease) Social History Smoking and tobacco/nicotine status: never used tobacco/nicotine Alcohol intake: never Physical Exam Const: COMMON NORMALS: no acute distress, patient oriented x3 and healthy appearing HENMT: COMMON NORMALS: normocephalic and atraumatic HEAD & SCALP: normocephalic and atraumatic Eye: COMMON NORMALS: conjunctivae normal CONJUNCTIVA: Yes conjunctivae normal Neck/C-Spine: COMMON NORMALS: full ROM and supple Chest: COMMONS NORMALS: normal inspection of the chest Resp: COMMON NORMALS: normal respiratory effort, No retractions, No use of accessory muscles and clear to auscultation bilaterally AUSCULTATION: clear to auscultation bilaterally Cardio: COMMON NORMALS: regular rate, regular rhythm and No murmurs present (Cardio) RATE: regular rate RHYTHM: regular rhythm GI: COMMON NORMALS: Normal to inspection, nondistended, normoactive bowel sounds present, Soft to palpation, non-tender and no masses PALPATION: Yes Soft to palpation Extremity: COMMON NORMALS: normal to inspection and full ROM Neuro: COMMON NORMALS: patient oriented x3, moves all extremities and no focal motor deficits Psych: COMMON NORMALS: mental status grossly normal, Normal thought process present and cooperative THOUGHT PROCESS: Normal thought process present Skin: COMMON NORMALS: no rashes or lesions noted and no wounds GENERAL SKIN EXAM: no rashes or lesions noted Course Vital Signs: Vital signs: Vital Signs Temperature 98.3 F 03/03/25 13:11 Pulse Rate 82 03/03/25 13:11 Respiratory Rate 16 03/03/25 13:11 Blood Pressure 149/73 03/03/25 13:15 Pulse Oximetry 96 03/03/25 13:15 Oxygen Delivery Me thod Room Air 03/03/25 13:11 MDM - Weakness Medical Decision Making Patient presents here with heat exposure she feels much improved after fluids blood works normal she does have a UTI we will prescribe antibiotics she stable for discharge follow-up PCP return if worsening. Medical Records I reviewed the patient's medical records. Lab Data I reviewed the patient's lab results. 03/03/25 13:37 03/03/25 13:37 Laboratory Results WBC 6.76 10^3/uL (3.29-11.43) 03/03/25 13:37 RBC 4.31 10^6/uL (3.85-5.65) 03/03/25 13:37 Hgb 12.80 g/dL (11.27-16.99) 03/03/25 13:37 Hct 39.2 % (36-47) 03/03/25 13:37 MCV 91.0 fl (85-98) 03/03/25 13:37 MCH 29.7 pg (27-33) 03/03/25 13:37 MCHC 32.7 g/dL (30-55) 03/03/25 13:37 RDW 13.4 % (12.1-15.1) 03/03/25 13:37 Plt Count 281 10^3/cmm (157-399) 03/03/25 13:37 MPV 10.4 fL (7.4-10.4) 03/03/25 13:37 Neut % (Auto) 59.9 % 03/03/25 13:37 Lymph % (Auto) 25.0 % 03/03/25 13:37 [place] % (Auto) 10.7 % 03/03/25 13:37 Eos % (Auto) 3.1 % 03/03/25 13:37 Baso % (Auto) 0.7 % 03/03/25 13:37 Neut # (Auto) 4.05 10^3/uL (1.8-7.7) 03/03/25 13:37 Lymph # (Auto) 1.7 10^3/uL (0.8-4.8) 03/03/25 13:37 [place] # (Auto) 0.7 10^3/uL (0.2-0.9) 03/03/25 13:37 Eos # (Auto) 0.2 10^3/uL (0.0-0.8) 03/03/25 13:37 Baso # (Auto) 0.1 10^3/uL (0.0-0.1) 03/03/25 13:37 Nucleated RBC % (auto) 0 % 03/03/25 13:37 Nucleated RBCs # 0.0 /100WBC 03/03/25 13:37 Sodium 140 mmol/L (136-145) 03/03/25 13:37 Potassium 4.2 mmol/L (3.5-5.1) 03/03/25 13:37 Chloride 103 mmol/L (98-107) 03/03/25 13:37 Carbon Dioxide 22 mmol/L (22-29) 03/03/25 13:37 Anion Gap 19.2 (5-19) H 03/03/25 13:37 BUN 16 mg/dL (8-23) 03/03/25 13:37 Creatinine 0.6 mg/dL (0.5-0.9) 03/03/25 13:37 GFR Calculation 102.0 mL/min (90-130) 03/03/25 13:37 Glucose 251 mg/dL (65-115) H 03/03/25 13:37 Calculated Osmolality 300 mOsm/kg (285-295) H 03/03/25 13:37 Calcium 8.9 mg/dL (8.5-10.5) 03/03/25 13:37 Total Bilirubin 0.4 mg/dL (0.15-1.2) 03/03/25 13:37 AST 23 U/L (0-32) 03/03/25 13:37 ALT 22 U/L (0-33) 03/03/25 13:37 Alkaline Phosphatase 157 U/L (35-105) H 03/03/25 13:37 Total Protein 7.5 g/dL (6.6-8.7) 03/03/25 13:37 Albumin 4.2 g/dL (3.5-5.2) 03/03/25 13:37 Globulin 3.3 g/dL (1.3-4.6) 03/03/25 13:37 Urine Color Yellow (Yellow) 03/03/25 14:49 Urine Appearance Cloudy (CLEAR) A 03/03/25 14:49 Urine pH 5.5 (5-7) 03/03/25 14:49 Ur Specific [place] 1.028 (1.005-1.030) 03/03/25 14:49 Urine Protein 1+ (Negative) A 03/03/25 14:49 Urine Glucose (UA) 1+ (Normal) H 03/03/25 14:49 Urine Ketones Trace (Negative) 03/03/25 14:49 Urine Blood Negative (Negative) 03/03/25 14:49 Urine Nitrate Positive (Negative) A 03/03/25 14:49 Urine Bilirubin Negative (Negative) 03/03/25 14:49 Urine Urobilinogen 1.0 mg/dL (Negative) 03/03/25 14:49 Ur Leukocyte Esterase 2+ (Negative) A 03/03/25 14:49 Urine RBC 0-2 /hpf (0-2) 03/03/25 14:49 Urine WBC >100 /hpf (0-5) H 03/03/25 14:49 Ur Squamous Epith Cells 21-50 /hpf (0-5) H 03/03/25 14:49 Amorphous Sediment Not Reportable 03/03/25 14:49 Urine Bacteria 4+ /hpf (NONE) H 03/03/25 14:49 Hyaline Casts 4.95 /lpf 03/03/25 14:49 All radiology interpretation(s) finalized by discharge EKG Data EKG 1: I personally reviewed and interpreted this EKG as follows: EKG interpretation date: 03/03/25 EKG interpretation time: 13:29 Interpretation: nsr hr [address] elevation qrs 102 qtc 412 Discharge Plan Discharge Patient Disposition: Home Clinical Impression: UTI (urinary tract infection), Heat exposure Condition: Stable Prescriptions: New sulfamethoxazole-trimethoprim [Bactrim DS] 800-160 mg tablet 1 tab PO BID 10 Days Qty: 20 0RF No Action (DME) CAM walker See Rx Instructions .Route .MEDSUPPLY Qty: 1 0RF Rx Instructions: As directed (DME) Hinge Elbow Brace See Rx Instructions .Route .MEDSUPPLY Qty: 1 0RF Rx Instructions: As directed (DME) Hinged Knee Brace See Rx Instructions .Route .MEDSUPPLY Qty: 1 0RF Rx Instructions: As directed (DME) aso See Rx Instructions .Route .MEDSUPPLY Qty: 1 0RF Rx Instructions: As directed (DME) ASO See Rx Instructions .Route .MEDSUPPLY Qty: 1 0RF Rx Instructions: As directed mupirocin 2 % ointment 1 applic topical TID Qty: 15 0RF Rx Instructions: apply to wound TID and as needed with dressing changes, cover with band-aid amitriptyline 75 mg tablet 75 mg PO BEDTIME albuterol sulfate [Ventolin HFA] 90 mcg/actuation Hfa Aerosol Inhaler 2 puff INHALATION Q4H PRN (Reason: Shortness Of Breath) metoprolol succinate [Toprol XL] 25 mg tablet extended release 24 hr 25 mg PO QAM epinephrine [EpiPen 2-Anthony] 0.3 mg/0.3 mL auto-injector 0.3 mg IM Q10M PRN (Reason: anaphylaxis) Qty: 2 0RF Rx Instructions: for 2 doses amlodipine 5 mg tablet 5 mg PO DAILY gabapentin 600 mg tablet 600 mg PO QID allopurinol 300 mg tablet 300 mg PO DAILY PRN (Reason: gout) Discharge Orders: Discharge ED (Routine); Ordered 03/03/25 Ordered By: Galdino Guevara Referrals: Shai Hill MD [Primary Care Provider, Family Practice] - 4-7 days Discharge Diet: Advance as tolerated Discharge Activity: Resume usual activity Patient Instructions: Urinary Tract Infection in Women (ED), Heat Exhaustion (ED) Print Language: Cook Islander Coding Level of Care Code ED 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 Operator Asbestos Shingle for Chg Fwd Related Data Home Medications ?Medication ?Instructions ?Recorded ?Confirmed albuterol sulfate 90 mcg/actuation 2 puff inhalation Q4H PRN 07/25/23 03/03/25 aerosol inhaler (Ventolin HFA) Shortness Of Breath amitriptyline 75 mg tablet 75 mg PO BEDTIME 07/25/23 03/03/25 metoprolol succinate 25 mg 25 mg PO QAM 07/25/23 03/03/25 tablet,extended release 24 hr (Toprol XL) amlodipine 5 mg tablet 5 mg PO DAILY 12/26/24 03/03/25 allopurinol 300 mg tablet 300 mg PO DAILY PRN gout 03/03/25 03/03/25 gabapentin 600 mg tablet 600 mg PO QID 03/03/25 03/03/25 Previous Rx's ?Medication ?Instructions ?Recorded Hinge Elbow Brace #1 ea 02/08/23 CAM walker #1 ea 02/08/24 Hinged Knee Brace #1 ea 02/29/24 aso #1 ea 03/20/24 epinephrine 0.3 mg/0.3 mL 0.3 mg (0.3 mL) IM Q10M PRN 05/15/24 injection, auto-injector (EpiPen anaphylaxis #2 ea 2-Anthony) ASO #1 ea 02/20/25 mupirocin 2 % topical ointment 1 applic topical TID #15 grams 02/20/25 sulfamethoxazole 800 1 tab PO BID 10 days #20 tabs 03/03/25 mg-trimethoprim 160 mg tablet (Bactrim DS) Allergies Allergy/AdvReac Type Severity Reaction Status Date / Time meperidine (From Demerol) Allergy Unknown Verified 02/20/25 09:00 peanut Allergy ALGY-Anaphy Verified 02/20/25 09:00 laxis Penicillins Allergy ALGY-Hives Verified 02/20/25 09:00 cephalexin (From Keflex) AdvReac ADR-Gastrointestinal Verified 02/20/25 09:00 Upset
[2025-03-03] MEDS: ondansetron 2 mg/ML SDV 2 mL 4 MG IVP (13:36)
[2025-03-03] MEDS: sodium chloride 0.9% 1,000 ML 999 ML IV ×2 (13:36→15:11)
[2025-03-03 13:47] LABS: Basophils # 0.1 10^3/uL (0.0-0.1); Basophils % 0.7 %; Eosinophils # 0.2 10^3/uL (0.0-0.8); Eosinophils % 3.1 %; Hematocrit 39.2 % (36-47); Lymphocytes # 1.7 10^3/uL (0.8-4.8); Mean Corpuscular HGB Conc 32.7 g/dL (30-55); Mean Corpuscular Hemoglobin 29.7 pg (27-33); Mean Platelet Volume 10.4 fL (7.4-10.4); Monocytes # 0.7 10^3/uL (0.2-0.9); Monocytes % 10.7 %; Neutrophils # 4.05 10^3/uL (1.8-7.7); Neutrophils % 59.9 %; Nucleated Red Blood Cells % 0 %; Platelet Count 281 10^3/cmm (157-399); Red Blood Count 4.31 10^6/uL (3.85-5.65); Red Cell Distribution Width 13.4 % (12.1-15.1); White Blood Count 6.76 10^3/uL (3.29-11.43)
[2025-03-03 14:03] LABS: Alanine Aminotransferase 22 U/L (0-33); Albumin Level 4.2 g/dL (3.5-5.2); Alkaline Phosphatase 157 U/L (35-105); Anion Gap 19.2 (5-19); Aspartate Amino Transferase 23 U/L (0-32); Blood Urea Nitrogen 16 mg/dL (8-23); Calcium 8.9 mg/dL (8.5-10.5); Carbon Dioxide 22 mmol/L (22-29); Chloride 103 mmol/L (98-107); Creatinine Clr Calc Pharmacy 108.2088; Globulin 3.3 g/dL (1.3-4.6); Glucose 251 mg/dL (65-115); Osmolality Calculated 300 mOsm/kg (285-295); Potassium 4.2 mmol/L (3.5-5.1); Sodium 140 mmol/L (136-145); Total Bilirubin 0.4 mg/dL (0.15-1.2); Total Protein 7.5 g/dL (6.6-8.7)
[2025-03-03 15:03] LABS: Bilirubin Urine Negative (Negative); Blood Urine Negative (Negative); Glucose Urine UA 1+ (Normal); Ketones Urine Trace (Negative); Leukocyte Esterase Urine 2+ (Negative); Nitrate Urine Positive (Negative); Protein Urine 1+ (Negative); Specific Gravity, Urine 1.028 (1.005-1.030); Urine Appearance Cloudy (CLEAR); Urine Color Yellow (Yellow); pH Urine 5.5 (5-7)
[2025-03-03 15:06] LABS: Add Urine Microscopic? YES; Bacteria Urine 4+ /hpf; Hyaline Casts Urine 4.95 /lpf; RBC Urine 0-2 /hpf (0-2); Squamous Epithelial Cell Urine 21-50 /hpf (0-5); WBC Urine >100 /hpf (0-5)
[2025-03-03 15:17] LABS: Add Urine Culture? Yes; UA Slide Review UA Slide Review Perf
[2025-03-03 15:20] LABS: HCG Qualitative Urine. Negative (Negative)
[2025-03-03 15:35] VITALS: BP 163/95; PULSE 84; RESP 16; O2SAT 93
== END 2025-03-03 15:36 | disposition home or self-care (01) ==
PROVIDERS: Emergency Provider Emergency Medicine; PCP Family Medicine
DX: N39.0 Urinary tract infection, site not specified (principal); X30.XXXA Exposure to excessive natural heat, initial encounter; X58.XXXA Exposure to other specified factors, initial encounter
CPT/HCPCS: 80053; 81001; 81025; 85025; 87077; 87086; 87186; 93005; 96374; 99284; J2405; J7030

== ENCOUNTER 2025-04-08 08:31 | Observation (INO) | payer MEDICAID, SELFPAY ==
[2025-04-08] VITALS (9 sets, daily range): BP systolic 135–175; BP diastolic 75–93; PULSE 66–89; RESP 13–24; TEMP 36.6–36.8; O2SAT 95–99; BMI 34.1
--- NOTE | 2025-04-08 08:35 | ECG_ITS ---
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 Measurements Intervals [place] Rate: 89 P: 51 IN: 182 QRS: -33 QRSD: 98 T: 82 QT: 351 QTc: 428 Interpretive Statements SINUS RHYTHM LEFT AXIS DEVIATION [QRS AXIS < -30] VOLTAGE CRITERIA FOR LVH [MEETS CRITERIA IN ONE OF: R(aVL), S(V1), R(V5), R(V5/V6)+S(V1)] T-WAVE ABNORMALITY, CONSIDER LATERAL ISCHEMIA [-0.1+ mV T-WAVE IN I/aVL/V5/V6] Compared to ECG 03/03/2025 13:29:56 T-wave abnormality still present Electronically Signed On 04-09-2025 13:44:06 CDT by Antonio Greenberg M.D. [id number]
--- NOTE | 2025-04-08 08:35 | XRR_ITS ---
PROCEDURE INFORMATION: Exam: XR Chest Exam date and time: 04/08/2025 8:41 AM Age: 60 years old Clinical indication: Pain; Angina pectoris; Additional info: Chest pain TECHNIQUE: Imaging protocol: Radiologic exam of the chest. Views: 1 view. COMPARISON: CR XR chest 1V portable [id number] 12/27/2024 11:01 AM FINDINGS: Lungs: Unremarkable. No consolidation. Pleural spaces: No pneumothorax. Heart/Mediastinum: Unremarkable. No cardiomegaly. Bones/joints: Unremarkable. XR/XR chest 1V portable [id number] IMPRESSION: No acute findings.
--- OUTSIDE RECORDS SUMMARY | 2025-04-08 08:38 | XMS_ITS | Clinical Summary ---
Author Organization [facility] Address [address] [place] [address] Phone Care Team Providers Care Rehabilitation Aide/Scheduler Name Role Phone Unavailable Primary Care Provider Unavailabl e Allergies Active Allergy Reactions Criticality Noted Date Comments Cephalexin Nausea and Vomiting Low 04/04/2023 Cephalosporins Nausea and Vomiting Low 04/04/2023 Penicillins Hives,Nausea and Vomiting High Medications GABAPENTIN ORAL Take 1,000 mg by mouth 2 times daily. Active metoprolol succinate (TOPROL XL) 25 mg Extended Release 24 hour tablet Take 25 mg by mouth daily. Active amLODIPine (NORVASC) 5 mg tablet Take 5 mg by mouth daily. Active atorvastatin calcium (ATORVASTATIN ORAL) Take by mouth. Active Active Problems Problem Noted Date Diagnosed Date Closed nondisplaced fracture of head of right ra dius 02/08/2023 Social History Tobacco Use Types Packs/Day Years Used Date Smoking Tobacco: Never Smokeless Tobacco: Never Tobacco Cessation:Counseling Given: Not Answered Alcohol Use Standard Drinks/Week Comments Never 0 (1 standard drink = 0.6 oz pur e alcohol) Comments No Sex and Gender Information Value Date Recorded Sex Assigned at Not on file Legal Sex Female 8:49 PM CDT Gender Identity Not on file Sexual Orientation Not on file Last Filed Vital Signs Vital Sign Reading Time Taken Comments Blood Pressure 161/84 04/13/2024 8:00 PM CDT Pulse 86 04/13/2024 8:10 PM CDT Temperature 36.5 C (97.7 F) 04/13/2024 7:58 PM CDT Respiratory Rate 14 04/13/2024 7:58 PM CDT Oxygen Saturation 97% 04/13/2024 8:00 PM CDT Inhaled Oxygen Concentration - - Weight 98.2 kg (216 lb 9.6 oz) 04/13/2024 7:58 P M CDT Height 162.6 cm (5' 4 ) 04/13/2024 7:58 PM CDT Body Mass Index 37.18 04/13/2024 7:58 PM CDT Plan of Treatment Health Maintenance Due Date Last Done Comments Pre-Diabetes and Diabetes Screening 1965 DTAP/TDAP/TD VACCINES (1 - Tdap) 1983 HPV/Cotest (21-29) 1985 CERVICAL CANCER SCREENING 1994 HPV/Cotest (30-65) 1994 PAP SMEAR 1994 BREAST CANCER SCREENING 2004 COLORECTAL SCREENING 2009 Colorectal Cancer Screening 2009 FIT-DNA Q 3 years 2009 FIT/FOBT Q 1 year 2009 Flex Sig/CT Colonography Q 5 years 2009 ZOSTER VACCINE (1 of 2) 2014 INFLUENZA VACCINE (#1) 2025 RSV VACCINE (60+ or ) (1 - 1-dose 75+ series) 2039
[2025-04-08 09:03] LABS: Hematocrit 39.4 % (36-47); Hemoglobin 13.50 g/dL (11.27-16.99); Mean Corpuscular HGB Conc 34.3 g/dL (30-55); Mean Corpuscular Hemoglobin 31.0 pg (27-33); Mean Corpuscular Volume 90.6 fl (85-98); Nucleated Red Blood Cells % 0 %; Platelet Count 280 10^3/cmm (157-399); Red Blood Count 4.35 10^6/uL (3.85-5.65); White Blood Count 5.54 10^3/uL (3.29-11.43)
[2025-04-08 09:08] LABS: Troponin(5th) Baseline 89 ng/L (0-10)
[2025-04-08 09:27] LABS: Alanine Aminotransferase 20 U/L (0-33); Albumin Level 3.9 g/dL (3.5-5.2); Alkaline Phosphatase 137 U/L (35-105); Blood Urea Nitrogen 17 mg/dL (8-23); Calcium 8.8 mg/dL (8.5-10.5); Carbon Dioxide 20 mmol/L (22-29); Chloride 97 mmol/L (98-107); Creatinine Clr Calc Pharmacy 107.1384; Globulin 3.6 g/dL (1.3-4.6); Glucose 300 mg/dL (65-115); NT Pro B Type Natriuretic Pept 1625 pg/mL (0-125); Osmolality Calculated 293 mOsm/kg (285-295); Sodium 135 mmol/L (136-145); Total Protein 7.5 g/dL (6.6-8.7)
[2025-04-08 09:39] LABS: Anion Gap 22.2 (5-19); Aspartate Amino Transferase 23 U/L (0-32); Potassium 4.2 mmol/L (3.5-5.1)
[2025-04-08 09:49] LABS: Respiratory Syncytial Virus Ce NEGATIVE (Negative); SARS-CoV-2 PCR NEGATIVE (Negative)
--- NOTE | 2025-04-08 10:26 | ED_ITS ---
HPI - Chest Pain 2 General: Chief Complaint: Chest Pain Stated Complaint: chest pain History of Present Illness: 60-year-old female presents emergency ro om complaining of substernal chest pain. Patient had episode this morning while she was sleeping that woke her up it resolved after nitro. She had another episode a few days ago with much less intense. No known history of coronary artery disease she has no radiation of the pain she did get somewhat nauseous and diaphoretic it was very transient is resolved now. She has a history of intermittent atrial fibrillation and is on metoprolol but is not on any anticoagulants. She does not take aspirin daily. Associated symptoms: Deny abdominal pain, dyspnea or fever(s) Related Data Home Medications ?Medication ?Instructions ?Recorded ?Confirmed albuterol sulfate 90 mcg/actuation 2 puff inhalation Q 4H PRN 07/25/23 03/03/25 aerosol inhaler (Ventolin HFA) Shortness Of Breath amitriptyline 75 mg tablet 75 mg PO BEDTIME 07/25/23 0 03/03/25 metoprolol succinate 25 mg 25 mg PO QAM 07/25/2303/03 tablet,extended release 24 hr (Toprol XL) amlodipine 5 mg tablet 5 mg PO DAILY 12/26/2403/03 allopurinol 300 mg tablet 300 mg PO DAILY PRN gout 03/03/25 gabapentin 600 mg tablet 600 mg PO QID 03/03/2503/03 Previous Rx's ?Medication ?Instructions ?Recorded Hinge Elbow Brace #1 ea 02/08/23 CAM walker #1 ea 02/08/24 Hinged Knee Brace #1 ea 02/29/24 aso #1 ea 03/20/24 epinephrine 0.3 mg/0.3 mL 0.3 mg (0.3 mL) IM Q10M PRN 05/15/24 injection, auto-injector (EpiPen anaphylaxis #2 ea 2-Anthony) ASO #1 ea 02/20/25 mupirocin 2 % topical ointment 1 applic topical TID #1 5 grams 02/20/25 Allergies Allergy/AdvReac Type Severity Reaction Status Date / Time meperidine (From Demerol) Allergy Unknown Verified 02/20/25 09:00 peanut Allergy ALGY-Anaphy Verified 02/20/25 09:00 laxis Penicillins Allergy ALGY-Hives Verified 02/20/25 09:00 cephalexin (From Keflex) AdvReac ADR-Gastrointestinal Verified 02/20/25 09:00 Upset Review of Systems 2 Const: Denies: fever(s) or chills Card: Denies: chest pain Resp: Denies: dyspnea GI: Denies: abdominal pain : Denies: dysuria, urinary frequency or urinary urgency Musc: Denies: neck pain or back pain Skin/Breast: Denies: rash PFSH ED 2 PFSH: Medical History Peripheral neuropathy Ischemic ulcer Pain in both feet Ischemic ulcer diabetic foot Right radial head fracture Fracture, radius, distal Surgical History No pertinent past surgical history Family History Mother Hypertension Thyroid disease Denies family history of CAD (coronary artery disease) Social History Smoking and tobacco/nicotine status: never used tobacco/nicotine Alcohol intake: never Physical Exam 2 Const: GENERAL APPEARANCE: cooperative ORIENTATION/CONSCIOUSNESS: Yes awake, Yes oriented to person, Yes oriented to place and Yes oriented to time HENMT: COMMON NORMALS: normocephalic, atraumatic and hearing grossly normal bilaterally HEAD & SCALP: normocephalic and atraumatic Resp: COMMON NORMALS: normal respiratory effort, No retractions, No use of accessory muscles and clear to auscultation bilaterally AUSCULTATION: clear to auscultation bilaterally Cardio: COMMON NORMALS: regular rate, regular rhythm and No murmurs present (Cardio) RATE: regular rate RHYTHM: regular rhythm GI: COMMON NORMALS: Soft to palpation and No hepatosplenomegaly present A USCULTATION: Yes normoactive bowel sounds PALPATION: Yes Soft to palpation, No Tenderness to palpation present (GI), No Guarding due to palpation present (GI) and Yes No hepatosplenomegaly present Extremity: COMMON NORMALS: normal to inspection, capillary refill normal, no clubbing, cyanosis or edema, no calf tenderness and no pedal edema Neuro: SENSORIUM/ORIENTATION: Yes oriented to person, Yes oriented to place and Yes oriented to time Skin: COMMON NORMALS: no rashes or lesions noted GENERAL SKIN EXAM: no rashes or lesions noted Course 2 Vital Signs: Vital signs: Vital Signs Temperature 97.8 F 04/08/25 12:54 Pulse Rate 74 04/08/25 14:00 Respiratory Rate 13 04/08/25 12:54 Blood Pressure 135/75 04/08/25 12:54 Pulse Oximetry 97 04/08/25 12:54 Oxygen Delivery Me thod Room Air 04/08/25 11:45 MDM - Chest Pain Medical Decision Making Patient having persistent chest discomfort. In November of last year she was admitted had a positive stress test had an angiogram done which showed diffuse disease but nothing that seemed to culprit or intervenable. It was thought to be caused by coronary spasm. She was discharged home on Toprol and Norvasc she has not taken that this morning.. EKG shows T wave inversions that was present in February but not present prior to that of this year. No acute ST elevation discussed with cardiology they recommend admission for further evaluation consideration of heart cath versus repeat stress testing. Medical Records I reviewed the patient's medical records. Reviewed previous hospitalization in November 2023, as well as previous echocardiograms stress test and heart catheterizations Lab Data I reviewed the patient's lab results. 04/08/25 08:39 04/08/25 08:39 Radiology Impressions Chest X-Ray 04/08/25 08:35 IMPRESSION: No acute findings. Laboratory Results WBC 5.54 10^3/uL (3.29-11.43) 04/08/25 08:39 RBC 4.35 10^6/uL (3.85-5.65) 04/08/25 08:39 Hgb 13.50 g/dL (11.27-16.99) 04/08/25 08:39 Hct 39.4 % (36-47) 04/08/25 08:39 MCV 90.6 fl (85-98) 04/08/25 08:39 MCH 31.0 pg (27-33) 04/08/25 08:39 MCHC 34.3 g/dL (30-55) 04/08/25 08:39 RDW 13.3 % (12.1-15.1) 04/08/25 08:39 Plt Count 280 10^3/cmm (157-399) 04/08/25 08:39 MPV 10.5 fL (7.4-10.4) H 04/08/25 08:39 Neut % (Auto) 40.9 % 04/08/25 08:39 Lymph % (Auto) 41.2 % 04/08/25 08:39 [place] % (Auto) 11.2 % 04/08/25 08:39 Eos % (Auto) 5.8 % 04/08/25 08:39 Baso % (Auto) 0.5 % 04/08/25 08:39 Neut # (Auto) 2.27 10^3/uL (1.8-7.7) 04/08/25 08:39 Lymph # (Auto) 2.3 10^3/uL (0.8-4.8) 04/08/25 08:39 [place] # (Auto) 0.6 10^3/uL (0.2-0.9) 04/08/25 08:39 Eos # (Auto) 0.3 10^3/uL (0.0-0.8) 04/08/25 08:39 Baso # (Auto) 0.0 10^3/uL (0.0-0.1) 04/08/25 08:39 Nucleated RBC % (auto) 0 % 04/08/25 08:39 Nucleated RBCs # 0.0 /100WBC 04/08/25 08:39 Sodium 135 mmol/L (136-145) L 04/08/25 08:39 Potassium 4.2 mmol/L (3.5-5.1) 04/08/25 08:39 Chloride 97 mmol/L (98-107) L 04/08/25 08:39 Carbon Dioxide 20 mmol/L (22-29) L 04/08/25 08:39 Anion Gap 22.2 (5-19) H 04/08/25 08:39 BUN 17 mg/dL (8-23) 04/08/25 08:39 Creatinine 0.6 mg/dL (0.5-0.9) 04/08/25 08:39 GFR Calculation 101.6 mL/min (90-130) 04/08/25 08:39 Glucose 300 mg/dL (65-115) H 04/08/25 08:39 Estimat Average Glucose 203 04/08/25 08:39 Hemoglobin A1c 8.7 % (4.0-6.0) H 04/08/25 08:39 Calculated Osmolality 293 mOsm/kg (285-295) 04/08/25 08:39 Calcium 8.8 mg/dL (8.5-10.5) 04/08/25 08:39 Total Bilirubin 0.5 mg/dL (0.15-1.2) 04/08/25 08:39 AST 23 U/L (0-32) 04/08/25 08:39 ALT 20 U/L (0-33) 04/08/25 08:39 Alkaline Phosphatase 137 U/L (35-105) H 04/08/25 08:39 Troponin T Baseline 89 ng/L (0-10) H 04/08/25 08:39 Troponin T 120 Minute 83.26 ng/L (0-10) H 04/08/25 10:36 Delta Troponin T -5.74 ABS# (0-10) L 04/08/25 10:36 NT-Pro-B Natriuret Pep 1625 pg/mL (0-125) H 04/08/25 08:39 Total Protein 7.5 g/dL (6.6-8.7) 04/08/25 08:39 Albumin 3.9 g/dL (3.5-5.2) 04/08/25 08:39 Globulin 3.6 g/dL (1.3-4.6) 04/08/25 08:39 Triglycerides 214 mg/dL (0-150) H 04/08/25 08:39 Cholesterol 200 mg/dL (0-200) 04/08/25 08:39 LDL Cholesterol, Calc 120 mg/dL (50-129) 04/08/25 08:39 HDL Cholesterol 37 mg/dL (60-100) L 04/08/25 08:39 LDL/HDL Ratio 3.24 RATIO (0.00-3.22) H 04/08/25 08:39 Cholesterol/HDL Ratio 5.41 mg/dL (0.0-4.40) H 04/08/25 08:39 Influenza A (PCR) Negative (Negative) 04/08/25 08:49 Influenza Type B (PCR) Negative (Negative) 04/08/25 08:49 RSV (PCR) Negative (Negative) 04/08/25 08:49 SARS-CoV-2 (PCR) Negative (Negative) 04/08/25 08:49 All radiology interpretation(s) finalized by discharge Discharge Plan Discharge Patient Disposition: Admitted As Inpatient Admit Provider: Jeremiah Carver Clinical Impression: Chest pain, Hypertension, uncontrolled, Type 2 diabetes mellitus Condition: Stable Coding Level of Care Code ED Lead Radiologic Technologist for Ranjana Orellana
--- NOTE | 2025-04-08 10:39 | ECG_ITS ---
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 Measurements Intervals [place] Rate: 72 P: 51 [place]: 171 QRS: -21 QRSD: 96 T: -22 QT: 410 QTc: 450 Interpretive Statements SINUS RHYTHM BORDERLINE LEFT AXIS DEVIATION [QRS AXIS < -20] VOLTAGE CRITERIA FOR LVH [MEETS CRITERIA IN ONE OF: R(aVL), S(V1), R(V5), R(V5/V6)+S(V1)] NONSPECIFIC T-WAVE ABNORMALITY Compared to ECG 04/08/2025 08:33:55 T wave inversion in the lateral limb leads no longer present Electronically Signed On 04-09-2025 13:46:54 CDT by Antonio Greenberg M.D. [email or web address] [id number]
[2025-04-08 11:13] LABS: Troponin 5 2HR 83.26 ng/L (0-10)
[2025-04-08 11:14] LABS: Troponin 5 2HR Delta -5.74 ABS# (0-10)
[2025-04-08] MEDS: metoprolol succinate ER (24 HR) 25 mg Tablet PO (11:45)
--- NOTE | 2025-04-08 12:55 | USCV_ITS ---
Lucita Dunaway Age: 60 Gender: F : 1965 Exam Date: 04/08/2025 18:34 Ordering Phys: Jeremiah Carver MD Technologist: THANG Exam Location: [facility] [place] Indication: chest pain, History of decreased EF, DM, CAD BP: 143 / 86 HR: 74 Rhythm: Sinus Technical Quality: Adequate MEASUREMENTS (Male / Female) Normal Values 2D ECHO LV Diastolic Diameter PLAX 6.1 cm 4.2 - 5.9 / 3.9 - 5.3 cm IVS Diastolic Thickness 1.2 cm 0.6 - 1.0 / 0.6 - 0.9 cm IVS Systolic Thickness 1.4 cm LVPW Diastolic Thickness 1.6 cm 0.6 - 1.0 / 0.6 - 0.9 cm LVPW Systolic Thickness 1.6 cm LVOT Diameter 2.3 cm LV Ejection Fraction 2D Teich 30.3 % LV Ejection Fraction MOD 4C 23.4 % LV Ejection Fraction MOD 2C 33.4 % LV Ejection Fraction 2C AL 35.9 % LA Diameter 5.0 cm Aorta at Sinotubular Diameter 2.5 cm IVC Diameter 1.4 cm M-MODE LA Ao Ratio MM 1.9 AV Cusp Separation MM 1.8 cm DOPPLER AV Peak Velocity 158.0 cm/s LVOT Peak Velocity 59.0 cm/s AV Area Cont Eq vti 1.8 cm squared AV Area Cont Eq pk 1.5 cm squared MV Peak Velocity 112.0 cm/s MV Area PHT 2.4 cm squared Mitral E to A Ratio 0.9 TV Peak E Velocity 52.0 cm/s PV Peak Velocity 89.0 cm/s FINDINGS Left Ventricle Left ventricle is dilated. LV systolic function is moderate to severely reduced with EF of 30 to 35%. Moderate global hypokinesis with severe hypokinesis of the inferior and inferoseptal duckworth. Grade 1 diastolic dysfunction Right Ventricle Normal in size and function Right Atrium Normal in size Left Atrium Normal in size Mitral Valve Mild mitral annular calcification. Mild mitral regurgitation Aortic Valve Structurally normal aortic valve. No significant stenosis. Tricuspid Valve Insufficient TR jet to calculate RVSP. Pulmonic Valve Not well visualized Pericardium Normal Aorta Normal in size IVC Appears to be normal CONCLUSIONS Left ventricle is dilated. LV systolic function is moderate to severely reduced with EF of 30-35%. Above-mentioned regional wall motion abnormalities. Grade 1 diastolic dysfunction. Mild mitral regurgitation. Sonido Pablo MD (Electronically Signed) Final Date: 09 April 2025 11:08 S
--- NOTE | 2025-04-08 12:58 | PM.HP ---
Providers/Chief Complaint Admitting Physician: Jeremiah Carver Primary Care Provider: Shai Hill MD Chief Complaint: chest pain History of Present Illness Lucita Dunaway is a 60 year old woman with a history of diabetes mellitus, diabetic foot ulcer, non-obstructive coronary artery disease (CAD), suspected coronary vasospasm, peripheral neuropathy, gout, and uterine fibroids who awoke this morning with severe (10/10) central chest pain. One sublingual nitroglycerin tablet lowered the intensity to 7/10. A similar episode occurred a few days ago. Today?s pain was associated with nausea and diaphoresis. In the emergency department (ED) the pain improved but did not fully resolve. Home blood-pressure readings were not provided. Prior cardiac evaluation (November 2023) showed an abnormal myocardial perfusion scan with reversible inferior and inferolateral defects, transient ischemic dilation 1.16, and left-ventricular ejection fraction (LVEF) 42 %. Coronary angiography on 12/02/2023 demonstrated unobstructed coronaries and mildly reduced LVEF (45 %), raising concern for coronary vasospasm; calcium-channel rakesh and beta-rakesh therapy was started at that time. Current ED labs revealed glucose 300 mg/dL, anion gap 22 mEq/L, bicarbonate 20 mEq/L, NT-proBNP 1 625 pg/mL, and serial troponins 89 ? 83 ng/L. Chest X-ray was without acute findings; electrocardiogram (EKG) showed sinus rhythm, incomplete right bundle-branch block, T-wave changes in III, aVF, and anterolateral precordial leads. She was treated in the ED with aspirin 324 mg, metoprolol 25 mg, and amlodipine 5 mg. She reports recent febrile illness about a week ago and was also recently treated for a UTI. She reports she had been coughing with productive cough. She reports that her pain has not completely gone away, and current residual pain is triggered by taking breaths in. She reports some discomfort in her chest when she is laying back. Review of Systems Const: Reports: fever(s) (last week); Denies: chills, body aches or malaise ENMT: Denies: throat pain Card: Reports: chest pain; Denies: edema, pre-syncope or dyspnea on exertion Resp: Reports: productive cough; Denies: dyspnea, change in phlegm color or hemoptysis GI: Denies: abdominal pain, nausea, vomiting, diarrhea, constipation, hematochezia or melena : Denies: flank pain, urinary frequency or hematuria Musc: Denies: back pain, joint swelling or joint redness Skin/Breast: Denies: rash or new lesions Neuro: Denies: headache(s) or confusion Medications/Allergies Home Medications ?Medication ?Instructions ?Recorded ?Confirmed ?Last Taken ?Type Hinge Elbow Brace #1 ea 02/08/23 03/03/25 Unknown Rx albuterol sulfate 90 mcg/actuation 2 puff inhalation Q4H PRN 07/25/23 03/03/25 12/27/24 History aerosol inhaler (Ventolin HFA) Shortness Of Breath 0630 amitriptyline 75 mg tablet 75 mg PO BEDTIME 07/25/23 03/03/25 03/02/25 20:00 History metoprolol succinate 25 mg 25 mg PO QAM 07/25/23 03/03/25 03/03/25 History tablet,extended release 24 hr (Toprol XL) CAM walker #1 ea 02/08/24 03/03/25 Unknown Rx Hinged Knee Brace #1 ea 02/29/24 03/03/25 Unknown Rx aso #1 ea 03/20/24 03/03/25 Unknown Rx epinephrine 0.3 mg/0.3 mL 0.3 mg (0.3 mL) IM Q10M PRN 05/15/24 03/03/25 6 Months Ago Rx injection, auto-injector (EpiPen anaphylaxis #2 ea ~06/28/24 2-Anthony) amlodipine 5 mg tablet 5 mg PO DAILY 12/26/24 03/03/25 03/03/25 History ASO #1 ea 02/20/25 03/03/25 Unknown Rx mupirocin 2 % topical ointment 1 applic topical TID #15 grams 02/20/25 03/03/25 02/27/25 Rx allopurinol 300 mg tablet 300 mg PO DAILY PRN gout 03/03/25 03/03/25 03/03/25 History gabapentin 600 mg tablet 600 mg PO QID 03/03/25 03/03/25 03/03/25 History Allergies Allergy/AdvReac Type Severity Reaction Status Date / Time meperidine (From Demerol) Allergy Unknown Verified 02/20/25 09:00 peanut Allergy ALGY-Anaphy Verified 02/20/25 09:00 laxis Penicillins Allergy ALGY-Hives Verified 02/20/25 09:00 cephalexin (From Keflex) AdvReac ADR-Gastrointestinal Verified 02/20/25 09:00 Upset PFSH Acute PFSH: Medical History Peripheral neuropathy Ischemic ulcer Pain in both feet Ischemic ulcer diabetic foot Right radial head fracture Fracture, radius, distal Surgical History No pertinent past surgical history Family History Mother Hypertension Thyroid disease Denies family history of CAD (coronary artery disease) Social History Smoking and tobacco/nicotine status: never used tobacco/nicotine Alcohol intake: never Vitals/I&O/Wt Last Vital Signs Temp 97.8 F 04/08/25 12:54 Pulse 66 04/08/25 12:54 Resp 13 04/08/25 12:54 BP 135/75 04/08/25 12:54 Pulse Ox 97 04/08/25 12:54 O2 Del Method Room Air 04/08/25 11:45 Weight last 48 hrs Weight 90.265 kg Physical Exam Const: COMMON NORMALS: patient oriented x3 and alert GENERAL APPEARANCE: cooperative ORIENTATION/CONSCIOUSNESS: Yes awake HENMT: COMMON NORMALS: oropharynx normal Neck/C-Spine: COMMON NORMALS: no JVD Resp: COMMON NORMALS: normal respiratory effort and clear to auscultation bilaterally AUSCULTATION: clear to auscultation bilaterally Cardio: COMMON NORMALS: no JVD, regular rhythm, S1 normal heart sound present, S2 normal heart sound present and No murmurs present (Cardio) RHYTHM: regular rhythm HEART SOUNDS: S1 normal heart sound present and S2 normal heart sound present GI: COMMON NORMALS: Normal to inspection, nondistended, normoactive bowel sounds present, Soft to palpation and non-tender PALPATION: Yes Soft to palpation Extremity: COMMON NORMALS: no joint enlargement and no pedal edema Neuro: COMMON NORMALS: patient oriented x3 and moves all extremities SENSORIUM/ORIENTATION: Yes alert Skin: COMMON NORMALS: no rashes or lesions noted GENERAL SKIN EXAM: no rashes or lesions noted Data 04/08/25 08:39 04/08/25 08:39 A&P Assessment and plan 1. Chest pain: Chest pain (recurrent, possible coronary vasospasm vs ischemia) : Recurrent central chest pain with partial nitroglycerin response; history of non-obstructive CAD and prior angiogram suggesting vasospasm. Differential includes coronary vasospasm, microvascular angina, unstable angina with non-obstructive coronary arteries, and non-cardiac etiologies. Troponin trend down (89->83 ng/L) argues against evolving myocardial infarction; EKG shows non-specific T-wave changes; NT-proBNP elevated, likely reflecting baseline cardiomyopathy and possibly recent respiratory illness. Check lipid profile. A1c. Reviewed vitals, CBC, CMP, troponin, chest x-ray, respiratory studies for influenza COVID RSV troponin baseline and 2-hour NT-proBNP EKG on my interpretation with T wave inversion in 3 flattening in aVF T wave flattening in anterolateral precordial leads, pending official read. Reviewed ED provider note, discussed with ED provider. Discussed with cardiology. - Continue aspirin daily - Monitor on telemetry for arrhythmia/ischemic changes - Obtain transthoracic echocardiogram to reassess LVEF and wall motion - With pleuritic component recent respiratory illness assess D-dimer - Continue amlodipine and metoprolol (for possible vasospasm) - Nitroglycerin PRN for recurrent chest pain - Morphine IV PRN for severe breakthrough pain - Discussed with cardiology; follow any additional recommendations Plan: Recovering after recent respiratory illness with productive cough recent episode of fever last week. Pain is reported pleuritic. Anion gap metabolic acidosis. Check lactic acid. Check UA for ketones, order serum ketones, VBG. Diabetes mellitus with hyperglycemia complicated by peripheral neuropathy: Known diabetes with glucose 300 mg/dL in ED and anion gap 22 mEq/L; no ketoacidosis symptoms reported. Risk of worsening hyperglycemia during hospitalization. - [id number] glucose monitoring - Administer sliding-scale insulin per protocol - hemoglobin A1c - Check serum ketones and venous blood gas because of elevated anion gap Possible costochondritis : Anterior chest wall tenderness reported; symptom increase with breathing raises possibility of musculoskeletal inflammation versus pleuritic process. Considered as alternative explanation for residual pain. - Provide symptomatic relief with acetaminophen, lidocaine patch, or capsaicin as needed Mild left ventricular systolic dysfunction : Prior imaging showed LVEF 42?45 %. Need current assessment to guide medical therapy. - Transthoracic echocardiogram (same study ordered for chest-pain evaluation) - Monitor blood pressure response. Consider addition of MELI inhibitor or ARB Requested to confirm home medications. PDMP PDMP Reviewed: Not Reviewed Attestations Medical Necessity Statement*: Place an observation for additional assessment and management of chest pain with possible vasospasm history of nonobstructive coronary disease additional assessment of risk factors of coronary disease cardiac evaluation echocardiogram additional assessment after recovering from recent respiratory illness and lady with underlying diabetes and additional comorbidities. and High MDM includes amount and/or complexity of data reviewed/ordered [ previous or external records, resulted lab(s)/test(s), ordered lab(s)/test(s) and other healthcare professional discussion] and described risk of complication, morbidity or mortality of management as documented Diagnoses Chest pain R07.9
[2025-04-08 13:33] LABS: Estmated Average Glucose 203; Hemoglobin A1C 8.7 % (4.0-6.0)
[2025-04-08 13:39] LABS: Cholesterol 200 mg/dL (0-200); HDL Cholesterol 37 mg/dL (60-100); Triglycerides 214 mg/dL (0-150)
--- NOTE | 2025-04-08 14:35 | ECG_ITS ---
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 Measurements Intervals [place] Rate: 74 P: 67 MA: 183 QRS: -20 QRSD: 114 T: -14 QT: 400 QTc: 446 Interpretive Statements SINUS RHYTHM POSSIBLE LEFT VENTRICULAR HYPERTROPHY [VOLTAGE CRITERIA PLUS LAE OR QRS WIDENING] NONSPECIFIC T-WAVE ABNORMALITY Compared to ECG 04/08/2025 10:39:38 T-wave abnormality still present Electronically Signed On 04-09-2025 13:48:01 CDT by Antonio Greenberg M.D. [id number]
--- NOTE | 2025-04-08 14:50 | ECG_ITS ---
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 Interpretive Statements LEXISCAN SESTAMIBI STRESS TEST Procedure: At the baseline, the blood pressure was 148/84 mmHg with a heart rate of 75 bpm. The electrocardiogram showed normal sinus rhythm, leftward axis, poor R wave progression, left ventricular hypertrophy with slight ST T wave abnormality The Lexiscan was infused over a period of 20 seconds. A total of 0.4 mg of Lexiscan was infused. The stress phase was continued for a total of 5 minutes. Heart rate was at the end of stress phase was 80 bpm and a blood pressure of 123/77 mmHg. The EKG at the peak infusion revealed normal sinus rhythm with no significant ST-T wave changes. Sestamibi was injected 20 seconds after the Lexiscan infusion. Blood pressure at the end of recovery phase was 128/77 mmHg with a heart rate of 82 bpm. Conclusion: 1. Normal EKG response to Lexiscan infusion 2. No Lexiscan induced chest pain or cardiac arrhythmia. 3. Normal blood pressure and heart rate response. 4. Nuclear myocardial perfusion scan pending; see separate report. Electronically Signed On 04-13-2025 12:45:40 CDT by Antonio Greenberg M.D. [email or web address] [id number]
[2025-04-08 15:03] LABS: Base Excess VBG 3.0 mmol/L (-3.0-3.0); Blood Gas Operator Identificat WALCI; Blood Gas Sample Type Venous; HCO3 VBG 29.2 mmol/L (24-28); PCO2 VBG 49.9 mmHg (41-51); PO2 VBG 30.0 mmHg (25-40); Venous Blood Gas Hematocrit 42.6 % (37-47); pH VBG 7.38 (7.32-7.42)
--- NOTE | 2025-04-08 15:34 | P.CONIM_ITS ---
<Statement entered by Sonido Pablo M.D - 04/10/25 12:12> Patient was evaluated and cared for in conjunction with an advanced practice practitioner.? I personally examined the patient and reviewed the chart and all pertinent data including imaging, telemetry, and laboratory results.? I discussed the patient in detail with the advanced practice practitioner.? Please see? their note for complete consult note, testing results and agreed upon plan of care for the patient. Patient has chest pain. Troponin elevation noted. However no significant abnormality. Had coronary angiogram last year not showing significant CAD. Will obtain stress test and echocardiogram. Further decisions based on that. GENERAL: Patient is alert, awake and oriented x3. HEART: Regular S1 and S2 LUNGS: Clear to auscultate bilaterally. CENTRAL NERVOUS SYSTEM: Grossly nonfocal. EXTREMITIES: Lower extremities without edema bilaterally. Providers/Reason For Consult 2 Consulting Physician/Specialty*: Dr Pablo, cardiology Reason for Consult*: chest pain, elevated troponin Requesting Physician: Jeremiah Carver Attending Physician: Jeremiah Carver Primary Care Provider: Shai Hill MD History of Present Illness History of Present Illness Lucita Dunaway is a 60 year old female with past medical history of diabetes, nonobstructive CAD, possible asthma/COPD presented to the emergency room earlier today with chest pain, which began at 730 this morning upon waking. Described as heavy but also sharp like a ice pick in her chest and constant. She has had fever intermittently for the last week Tmax 102 ?F, coughing for the last 1- 1/2 weeks productive of clear sputum, pain in the chest when laying down as well as with deep inspiration. Viral panel so far has been negative. Troponin series: 89-> 83. EKG does not show any acute ST or T wave changes, sinus rhythm. Most recent echocardiogram in November of last year showed normal LV function, mild LVH. Review of Systems 2 Const: Reports: fever(s) (in the last week, 102); Denies: chills, change in weight, fatigue or diaphoresis Eyes: Denies: change in vision ENMT: Denies: epistaxis Card: Reports: chest pain; Denies: palpitations, irregular heart rhythm, edema, syncope, pre-syncope, dyspnea on exertion, orthopnea or leg pain with exertion Resp: Reports: dyspnea and productive cough (clear sputum); Denies: wheezing, change in phlegm color or hemoptysis GI: Denies: nausea, vomiting, hematemesis, hematochezia or melena : Denies: hematuria Musc: Denies: extremity swelling Sah/Lymph: Denies: easy bruising or easy bleeding Medications/Allergies Home Medications ?Medication ?Instructions ?Recorded ?Confirmed ?Last Taken ?Type Hinge Elbow Brace #1 ea 02/08/23 03/03/25 Unkn own Rx albuterol sulfate 90 mcg/actuation 2 puff inhalation Q 4H PRN 07/25/23 03/03/25 12/27/24 History aerosol inhaler (Ventolin HFA) Shortness Of Breath 0 630 amitriptyline 75 mg tablet 75 mg PO BEDTIME 07/25/23 0 03/03/25 03/02/25 20:00 History metoprolol succinate 25 mg 25 mg PO QAM 07/25/2303/0303/03/25 History tablet,extended release 24 hr (Toprol XL) CAM walker #1 ea 02/08/24 03/03/25 Unkn own Rx Hinged Knee Brace #1 ea 02/29/24 03/03/25 Unkn own Rx aso #1 ea 03/20/24 03/03/25 Unkn own Rx epinephrine 0.3 mg/0.3 mL 0.3 mg (0.3 mL) IM Q10M PRN 05/15/24 03/03/25 6 Months Ago Rx injection, auto-injector (EpiPen anaphylaxis #2 ea ~ 06/28/24 2-Anthony) amlodipine 5 mg tablet 5 mg PO DAILY 12/26/2403/0303/03/25 History ASO #1 ea 02/20/25 03/03/25 Unkn own Rx mupirocin 2 % topical ointment 1 applic topical TID #1 5 grams 02/20/25 03/03/25 02/27/25 Rx allopurinol 300 mg tablet 300 mg PO DAILY PRN gout 03/03/25 03/03/25 History gabapentin 600 mg tablet 600 mg PO QID 03/03/2503/0303/03/25 History Allergies Allergy/AdvReac Type Severity Reaction Status Date / Time meperidine (From Demerol) Allergy Unknown Verified 06/12/25 09:00 peanut Allergy ALGY-Anaphy Verified 02/20/25 09:00 laxis Penicillins Allergy ALGY-Hives Verified 02/20/25 09:00 cephalexin (From Keflex) AdvReac ADR-Gastrointestinal Verified 02/20/25 09:00 Upset PFSH Acute 2 PFSH: Medical History Peripheral neuropathy Ischemic ulcer Pain in both feet Ischemic ulcer diabetic foot Right radial head fracture Fracture, radius, distal Surgical History No pertinent past surgical history Family History Mother Hypertension Thyroid disease Denies family history of CAD (coronary artery disease) Social History Smoking and tobacco/nicotine status: never used tobacco/nicotine Alcohol intake: never Vitals/I&O/Wt Last Vital Signs Temp 97.8 F 04/08/25 12:54 Pulse 74 04/08/25 14:00 Resp 13 04/08/25 12:54 BP 135/75 04/08/25 12:54 Pulse Ox 97 04/08/25 12:54 O2 Del Method Room Air 04/08/25 11:45 Weight last 48 hrs Weight 199 lb Physical Exam 2 Const: COMMON NORMALS: no acute distress and patient oriented x3 GENERAL APPEARANCE: cooperative and comfortable ORIENTATION/CONSCIOUSNESS: Yes awake, Yes oriented to person, Yes oriented to place and Yes oriented to time Chest: COMMONS NORMALS: normal inspection of the chest and normal palpation of entire chest wall CHEST: Yes Symmetrical chest wall rise Resp: COMMON NORMALS: normal respiratory effort, No retractions, No use of accessory muscles and clear to auscultation bilaterally EFFORT & INSPECTION: Yes symmetric chest movement AUSCULTATION: clear to auscultation bilaterally Cardio: COMMON NORMALS: regular rate, regular rhythm, S1 normal heart sound present, S2 normal heart sound present, No gallops present (Cardio), No clicks present (Cardio), No murmurs present (Cardio) and No rub (Cardio) RATE: r egular rate RHYTHM: regular rhythm HEART SOUNDS: S1 normal heart sound present and S2 normal heart sound present PERIPHERAL PULSES: radial pulses present Extremity: COMMON NORMALS: no pedal edema Neuro: COMMON NORMALS: patient oriented x3 and moves all extremities S ENSORIUM/ORIENTATION: Yes oriented to person, Yes oriented to place and Yes oriented to time Data 04/08/25 08:39 04/08/25 08:39 A&P Assessment and plan 1. Chest pain: 2. Hypertension, uncontrolled: 3. Elevated troponin: 4. Type 2 diabetes mellitus: Plan: She has atypical chest pain symptoms which are more consistent with costochondritis related to viral illness, chest pain worsening with deep inspiration. Continue to trend troponin, recommend complete echocardiogram. Given the troponin elevation, will plan on Lexiscan stress test for tomorrow morning. PDMP PDMP Reviewed: Not Reviewed Coding Level of Care Code Acute Code for Chg Fwd Diagnoses Chest pain R07.9 Hypertension, uncontrolled I10 Elevated troponin R79.89 Type 2 diabetes mellitus E11.9
[2025-04-08 15:51] LABS: Ketone (Acetest) Serum Negative (Negative)
[2025-04-08 15:54] LABS: Troponin 5 6HR 84.60 ng/L (0-10)
[2025-04-08 15:57] LABS: Lactate (Lactic Acid level) 2.0 mmol/L (0.5-2.2)
[2025-04-08 15:59] LABS: Troponin 5 6HR Delta -4.40 ng/L (0-12)
--- OUTSIDE RECORDS SUMMARY | 2025-04-08 16:41 | XMS_ITS | Clinical Summary ---
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
[2025-04-08] MEDS: guaiFENesin-dextromethorphan UDC 10 mL PO (20:18)
[2025-04-09] VITALS (15 sets, daily range): BP systolic 123–163; BP diastolic 54–92; PULSE 77–809; RESP 15–22; TEMP 36.4–36.9; O2SAT 93–98
[2025-04-09 03:10] LABS: Hematocrit 39.1 % (36-47); Hemoglobin 13.30 g/dL (11.27-16.99); Mean Corpuscular HGB Conc 34.0 g/dL (30-55); Mean Corpuscular Hemoglobin 30.6 pg (27-33); Mean Corpuscular Volume 89.9 fl (85-98); Nucleated Red Blood Cells % 0 %; Platelet Count 273 10^3/cmm (157-399); Red Blood Count 4.35 10^6/uL (3.85-5.65); White Blood Count 7.29 10^3/uL (3.29-11.43)
[2025-04-09 03:31] LABS: Blood Urea Nitrogen 17 mg/dL (8-23); Calcium 9.2 mg/dL (8.5-10.5); Carbon Dioxide 28 mmol/L (22-29); Chloride 100 mmol/L (98-107); Creatinine Clr Calc Pharmacy 107.1384; Glucose 203 mg/dL (65-115); Osmolality Calculated 295 mOsm/kg (285-295); Sodium 139 mmol/L (136-145)
[2025-04-09 03:35] LABS: Anion Gap 15.4 (5-19); Potassium 4.4 mmol/L (3.5-5.1)
[2025-04-09] MEDS: ondansetron 2 mg/ML SDV 2 mL 4 MG IVP (07:22)
[2025-04-09] MEDS: morphine 4 mg/mL SDV 1 mL 2 MG IVP ×2 (08:48→21:44)
[2025-04-09] MEDS: guaiFENesin-dextromethorphan UDC 10 mL PO (12:16)
--- NOTE | 2025-04-09 14:00 | P.PN_ITS ---
<Statement entered by Sonido Pablo M.D - 04/10/25 11:48> Patient was cared for in conjunction with an advanced practice practitioner.? I reviewed the chart and all pertinent data including imaging, telemetry, and laboratory results.? I discussed the patient in detail with the advanced practice practitioner.? Please see?their note for progress note, testing results and agreed upon plan of care for the patient. Subjective 2 Subjective: She still has chest discomfort with coughing, no chest tightness or pressure noted so far today. Troponin series was flat in the 80s. Echocardiogram obtained yesterday shows LVEF 30 to 35%, dilated LV, moderate global hypokinesis with severe hypokinesis of the inferior and inferoseptal duckworth with grade 1 diastolic dysfunction, mild mitral regurgitation. Lexiscan stress test performed this morning shows a medium sized area of fixed defect with small amount of tristin-infarct ischemia in the inferior wall, LVEF 26%. Blood pressure better controlled with amlodipine added by hospitalist service. Vitals/I&O/Wt Last Vital Signs Temp 97.6 F 04/09/25 11:26 Pulse 77 04/09/25 11:26 Resp 16 04/09/25 11:26 BP 123/54 04/09/25 11:26 Pulse Ox 94 04/09/25 11:26 O2 Del Method Room Air 04/09/25 09:14 04/08/25 04/09/25 04/09/25 22:59 06:59 14:59 Intake Total 720 / 1200 480 / 1200 1240 / 1240 Balance 720 / 1200 480 / 1200 1240 / 1240 Weight last 48 hrs Weight 210 lb 4.8 oz Weight 210 lb 5.136 oz Weight 199 lb Weight 199 lb Physical Exam 2 Const: COMMON NORMALS: no acute distress and patient oriented x3 GENERAL APPEARANCE: cooperative and comfortable ORIENTATION/CONSCIOUSNESS: Yes awake, Yes oriented to person, Yes oriented to place and Yes oriented to time Chest: COMMONS NORMALS: normal inspection of the chest and normal palpation of entire chest wall CHEST: Yes Symmetrical chest wall rise Resp: COMMON NORMALS: normal respiratory effort, No retractions and No use of accessory muscles EFFORT & INSPECTION: Yes symmetric chest movement and Yes Actively coughing non-productive AUSCULTATION: wheezes expiratory wheezes, anterior and posterior Cardio: COMMON NORMALS: regular rate, regular rhythm, S1 normal heart sound present, S2 normal heart sound present, No gallops present (Cardio), No clicks present (Cardio), No murmurs present (Cardio) and No rub (Cardio) RATE: r egular rate RHYTHM: regular rhythm HEART SOUNDS: S1 normal heart sound present and S2 normal heart sound present PERIPHERAL PULSES: radial pulses present Extremity: COMMON NORMALS: no pedal edema Neuro: COMMON NORMALS: patient oriented x3 and moves all extremities S ENSORIUM/ORIENTATION: Yes oriented to person, Yes oriented to place and Yes oriented to time Data 04/09/25 02:30 04/09/25 02:30 A&P Assessment and plan 1. Systolic CHF, acute: 2. Abnormal stress test: 3. Elevated troponin: 4. Chest pain: 5. Hypertension, uncontrolled: 6. Type 2 diabetes mellitus: Plan: Given the troponin elevation, new onset LV dysfunction and abnormal stress test plan for coronary angiogram tomorrow morning at 0700. Test results have been discussed with the patient this afternoon, risks and benefits of coronary angiogram reviewed along with risk of bleeding, contrast-induced nephropathy. She has normal renal function. N.p.o. after midnight tonight. PDMP PDMP Reviewed: Not Reviewed Attestations 2 Medical Necessity Statement*: Ischemic workup for new onset LV dysfunction elevated troponin Coding Level of Care Code Acute Code for [facility] Fwd Diagnoses Systolic CHF, acute I50.21 Abnormal stress test R94.39 Elevated troponin R79.89 Chest pain R07.9 Hypertension, uncontrolled I10 Type 2 diabetes mellitus E11.9
--- NOTE | 2025-04-09 14:00 | P.PN_ITS ---
Subjective 2 Subjective: She is feeling better today. No active chest pain or pressure. Doing well in terms of breathing. Cough has improved. Lidocaine has helped with sternal pain. Underwent stress testing Vitals/I&O/Wt Last Vital Signs Temp 97.6 F 04/09/25 11:26 Pulse 77 04/09/25 11:26 Resp 16 04/09/25 11:26 BP 123/54 04/09/25 11:26 Pulse Ox 94 04/09/25 11:26 O2 Del Method Room Air 04/09/25 09:14 04/08/25 04/09/25 04/09/25 22:59 06:59 14:59 Intake Total 720 / 720 480 / 1200 1240 / 1240 Balance 720 / 720 480 / 1200 1240 / 1240 Weight last 48 hrs Weight 95.39 kg Weight 95.4 kg Weight 90.265 kg Weight 90.265 kg Physical Exam 2 Const: COMMON NORMALS: patient oriented x3 and alert GENERAL APPEARANCE: c ooperative ORIENTATION/CONSCIOUSNESS: Yes awake HENMT: COMMON NORMALS: oropharynx normal Neck/C-Spine: COMMON NORMALS: no JVD Resp: COMMON NORMALS: normal respiratory effort AUSCULTATION: wheezes Cardio: COMMON NORMALS: no JVD, regular rhythm, S1 normal heart sound present, S2 normal heart sound present and No murmurs present (Cardio) RHYTHM: regular rhythm HEART SOUNDS: S1 normal heart sound present and S2 normal heart sound present GI: COMMON NORMALS: Normal to inspection, nondistended, normoactive bowel sounds present, Soft to palpation and non-tender PALPATION: Yes Soft to palpation Extremity: COMMON NORMALS: no joint enlargement and no pedal edema Neuro: COMMON NORMALS: patient oriented x3 and moves all extremities S ENSORIUM/ORIENTATION: Yes alert Skin: COMMON NORMALS: no rashes or lesions noted GENERAL SKIN EXAM: no rashes or lesions noted Data 04/09/25 02:30 04/09/25 02:30 A&P Assessment and plan 1. Chest pain: Underwent stress testing, reviewed vitals, CBC, BMP, stress test, echocardiogram, discussed with cardiology. Noted acute worsening cardiomyopathy with decrease in ejection fraction, down to 25%, as well as inferior wall medium sized area of suspect infarction with small amount of tristin-infarct ischemia. Plans for further diagnostic evaluation by cardiology and/or intervention with coronary angiography in the morning. She is made n.p.o. after midnight. Repeat blood counts, chemistry. Receiving IV hydration, monitor for risk of fluid overload and acute CHF. For pleuritic component of chest pain continue lidocaine patch. She has not tried capsaicin. Tylenol as needed. Antitussive. Reviewed lipid profile. A1c. Discussed with her worsening diabetes, hemoglobin A1c up to 8.7. Will benefit from optimization. She is agreeable to start metformin and glipizide. She had previously not tolerated Ozempic as well as cannot tolerate Januvia. Discussed with nursing, rn case manager hospice. - Continue aspirin daily - Monitor on telemetry for arrhythmia/ischemic changes - Continue amlodipine and metoprolol (for possible vasospasm) - Nitroglycerin PRN for recurrent chest pain - Morphine IV PRN for severe breakthrough pain Plan: Bronchitis: With history of COPD and asthma, noted wheezing on exam, requesting breathing treatments as well as inhaled budesonide. Antitussives. Recovering after recent respiratory illness with productive cough recent episode of fever last week. Pleuritic component of pain additional management as above with symptomatic relief. Anion gap metabolic acidosis. Reviewed lactic acid. Reviewed serum ketones, VBG. No suggestion of DKA. Diabetes mellitus with hyperglycemia complicated by peripheral neuropathy: Discussed with her worsening diabetes. Continue sliding scale while in the hospital. For outpatient she is agreeable to start metformin and after discussion of options has not been able to tolerate Ozempic or Januvia, agreeable to cautious addition of glipizide with discussed risks of hypoglycemia. Will need follow-up as discussed with primary provider for reassessment, further optimization. Discussed continued consistent carbohydrate diet which she states has been maintaining. - [id number] glucose monitoring - Administer sliding-scale insulin per protocol - Reviewed with her hemoglobin A1c - Check serum ketones and venous blood gas because of elevated anion gap Possible costochondritis : Anterior chest wall tenderness reported; symptom increase with breathing raises possibility of musculoskeletal inflammation versus pleuritic process. Considered as alternative explanation for residual pain. - Provide symptomatic relief with acetaminophen, lidocaine patch, or capsaicin as needed Mild left ventricular systolic dysfunction : Worsening LV dysfunction noted on stress test, down to 25%. Echocardiogram reviewed, 30 to 35%, grade 1 diastolic dysfunction. Regional wall motion abnormality. Pending additional assessment with coronary angiography. Prior imaging showed LVEF 42?45 %. - Reviewed transthoracic echocardiogram (same study ordered for chest-pain evaluation) - Monitor blood pressure response. Consider addition of MELI inhibitor or ARB. So far blood pressure with improvement. Reviewed and reconciled home medications, resume amitriptyline, morphine, gabapentin, metoprolol. Hold allopurinol, diclofenac. PDMP PDMP Reviewed: Not Reviewed Attestations 2 Medical Necessity Statement*: Continue hospitalization for additional assessment and management of acute worsening of cardiomyopathy, assessment for ischemic heart disease, treatment of bronchitis, optimization of hyperglycemia with uncontrolled diabetes. and High MDM includes amount and/or complexity of data reviewed/ordered [ resulted lab(s)/test(s), ordered lab(s)/test(s) and other healthcare professional discussion] and described risk of complication, morbidity or mortality of management as documented Diagnoses Chest pain R07.9
--- NOTE | 2025-04-09 14:50 | NMCV_ITS ---
NM yancy perf SPECT r/s* [id number] Lucita Dunaway Age: 60 Gender: F : 1965 Exam Date: 04/09/2025 06:37 Ordering Phys: Lavern Santamaria Technologist: JAROCHO Nguyen Exam Location: [facility] Indications: cp STRESS TEST Please [facility] for [facility] IMAGE PROTOCOL Rest/Stress 1 Lexiscan Day Radiopharmaceutical Dose (mCi) Administration Site Administered by Rest: Tc-99m 10.8 IV JAROCHO Mckenna Sestamibi Stress:Tc-99m 32.3 IV JAROCHO Nguyen Sestamisusan Rest: 09-Apr-2025 60 Discovery 630 Stress: 09-Apr-2025 30 Discovery 630 Images obtained in supine and prone position. 0.4mg Lexiscan. SPECT RESULTS Technical Quality: Good Raw Data Analysis: Normal Image Corrections: No attenuation or motion correction applied Summed Stress Score: 14 Summed Rest Score: 12 Summed Difference Score: 3 PERFUSION FINDINGS There is a medium sized area of severely reduced tracer counts in the inferior wall. There is a small region of reversibility of the perfusion defect from stress to rest imaging in the inferior wall. Findings are consistent with an inferior wall myocardial infarction with mild tristin-infarct ischemia. The left ventricular cavity size is dilated at rest. FUNCTIONAL RESULTS (calculated via Gated SPECT) Stress Image LV EF (%): 26 Stress EDV (mL):208 TID: 1.02 Stress ESV (mL):154 FUNCTIONAL FINDINGS: Severe left ventricular systolic dysfunction with an ejection fraction of 26% IMPRESSIONS 1. Medium sized area of inferior wall myocardial infarction with a small amount of tristin-infarct ischemia 2. Left ventricular cavity dilatation at rest 3. Severely reduced left ventricular systolic function with an ejection fraction of 26% Antonio Greenberg MD, FACC (Electronically Signed) Final Date: 09 April 2025 11:48 S
[2025-04-10] VITALS (36 sets, daily range): BP systolic 110–138; BP diastolic 63–90; PULSE 65–89; RESP 10–27; TEMP 36.4–37.1; O2SAT 87–99
[2025-04-10 02:05] LABS: Hematocrit 36.8 % (36-47); Hemoglobin 12.30 g/dL (11.27-16.99); Mean Corpuscular HGB Conc 33.4 g/dL (30-55); Mean Corpuscular Hemoglobin 29.7 pg (27-33); Mean Corpuscular Volume 88.9 fl (85-98); Nucleated Red Blood Cells % 0 %; Platelet Count 257 10^3/cmm (157-399); Red Blood Count 4.14 10^6/uL (3.85-5.65); White Blood Count 6.78 10^3/uL (3.29-11.43)
[2025-04-10 02:23] LABS: Anion Gap 16.2 (5-19); Blood Urea Nitrogen 18 mg/dL (8-23); Calcium 8.7 mg/dL (8.5-10.5); Carbon Dioxide 25 mmol/L (22-29); Chloride 100 mmol/L (98-107); Creatinine Clr Calc Pharmacy 107.2846; Glucose 121 mg/dL (65-115); Osmolality Calculated 287 mOsm/kg (285-295); Potassium 4.2 mmol/L (3.5-5.1); Sodium 137 mmol/L (136-145)
[2025-04-10 06:04] LABS: Glucose Urine UA Negative (Normal); Nitrate Urine Negative (Negative); Specific Gravity, Urine 1.007 (1.005-1.030)
[2025-04-10 06:09] LABS: Add Urine Microscopic? YES
[2025-04-10] MEDS: metoprolol succinate ER (24 HR) 25 mg Tablet PO (06:24)
--- NOTE | 2025-04-10 07:00 | XACV_ITS ---
Exam Room: [facility] Ht: 163 cm Wt: 95 kg BSA: 2.12 m2 Gender: Female : 1965 Any Known Allergies: Other Exam Priority: Routine Procedure(s): Procedure Description: Diagnostic procedure Procedure Description: Coronary Angiography Procedure Description: Left heart catheterization Diagnostic Cath Status: Urgent Diagnostic Findings * INDICATION: Chest pain/abnormal stress test/ LV dysfunction. * No significant disease noted in the Left Main, Left Anterior Descending, Right, or Circumflex coronary arteries. * Coronary angiography shows right dominance. Conclusions 1. No significant disease noted in the Left Main, Left Anterior Descending, Right, or Circumflex coronary arteries. 2. Moderate to severe left ventricular systolic dysfunction. Ejection fraction of 30%. 3. Non-ischemic cardiomyopathy. Recommendations * Aggressive medical therapy for congestive heart failure. * Outpatient cardiology follow up in 2 weeks. Interventional RX Recommendation: medical therapy and/or counseling Diagnostic RX Recommendation: medical therapy and/or counseling Anticoagulation: Heparin Ventriculography Ejection Fraction: 30.0 % Pressures Phase:Rest AO : 124 / 76 ( 92 ) @ 8:36:00 AM 139 / 72 ( 98 ) @ 8:43:00 AM 134 / 70 ( 95 ) @ 8:43:00 AM LV : 137 / 1 / 18 @ 8:42:00 AM 134 / 2 / 21 @ 8:42:00 AM 129 / 1 / 18 @ 8:43:00 AM Valves Phase:DefaultPhase AV : 0.0 @ 7:48:35 AM AV Mean Gradient: 0.0 @ 7:48:35 AM Clinical Evaluation EBL: 5mL-10mL Procedural Details Procedure Consent Obtained. Pre-Procedure Time Out. Identified patient by full name and date of as verbalized by the patient/guarantor. Does the consent match the physician's order: Yes. Accurate & Complete Informed Consent: Yes. Inpatient/Outpatient History & Physical on Chart: Yes. If H&P is completed, is and addenduem needed: No. Visualize and Verify Site with Patient/Guarantor: N/A. Relevant Radiology Images available: Yes. The risks, benefits, and alternatives of sedation and/or procedure were discussed by physician. The patient agrees to continue. Procedure started. [facility] Clinical Fraility Score: 3: Managing Well. Consumer Educator Indications: New Onset Angina/+ stress test/LV dysfunction. Chest Pain Symptom Assessment: Typical Angina Symptoms. Cardiovascular Instability: No. Correct patient, site and procedure confirmed by cath team. PERRLA. Strong, equal hand manager life bilaterally. Lungs clear x 5 lobes. IV Site on Arrival: 20 gauge in the left forearm. IV Fluids: 0.9% NaCl at KVO. 100 mL infused prior to quality assurance qa lab technician. Pre Procedural Pulses: bilateral dorsalis pedis was 1+. Pre Procedural Pulses: bilateral posterior tibial was 1+. Pre Procedural Pulses: bilateral radial was 1+. Oxygen started at 2liters/min via nasal canula. right groin was prepped with chloroprep then draped in the usual sterile fashion. right radial was prepped with chloroprep then draped in the usual sterile fashion. Physician notified. Baseline sample Acquired. HR: 79 BPM. Patient's family unavailable. The patient stated that she will contact her friend/family after the procedure. Equipment: 6F - Radial. Cardiac Cath Pack. ACIST Manifold Kit Model BT 2000. Heparinized Saline (2 units/mL), 1000 mL bag. Physician arrived. Physician scrubbed in. Immediate Pre-Procedure Time Out. Correct Patient: Yes; Correct Procedure: Yes; Correct Site: Yes; Correct Patient Position: Yes; Correct Supplies: Yes; Dried Flammable Prep: Yes; Blood Products Available: N/A;. Lidocaine 1% infiltrated to the right radial. Arterial access obtained. A 5 nicaraguan TIG catheter in over the exchange J wire. Multiple views taken of right coronary artery. Catheter redirected to the LCA. Multiple views taken of left coronary artery. Catheter removed over the exchange J wire. A 5 nicaraguan Angled Pig catheter in over the exchange J wire. EDP Sample taken: LV 137/1,18; HR: 74 BPM; SpO2: 98%. LV gram performed in CARR @ 10 mL/second for a total of 30 mL. EDP Sample taken: LV 134/2,21; HR: 73 BPM; SpO2: 98%. Pullback taken: LV 129/1,18; AO 139/72(98); Mean: 0mmHg, Peak to Peak: 0mmHg, SEP: 10sec/min; HR: 74 BPM; SpO2: 98%. Catheter removed over the exchange J wire. Physician scrubbed out. A TR Band was successful obtaining hemostatsis at the Right Radial artery insertion site. Post Procedure: Pulses reassessed and unchanged. PERRLA. Strong, equal hand manager life bilaterally. No VTE prophylaxis required. Medication's Wasted: Lidocaine 1% = 18 mL. Medication's Wasted: Nitro = 49.8 mg. Medication's Wasted: Heparin = 1000 units. Medication's Wasted: Other = Fentanyl 75 mcg. Total IV fluids: 20 mL. Post-op diagnosis: Non-ischemic cardomyopathy. Complications: none. Estimated blood loss: 5mL-10mL. Responsiveness - Normal response to verbal stimuli; alert and oriented, PERRLA. Airway - Unaffected, no intervention required; spontaneous ventilation. Circulation: W/N/L, pulses unchanged. Nausea/Vomiting: No. Procedure completed. Patient transferred by bed to 1st floor. Vital chart was stopped. Access Site Site: Right Radial artery Sheath Size: 6 Fr Hemostasis Method: TR Band Hemostasis Success: Successful Procedure Medications Start: 7:26 AM Stop: 7:26 AM Medication: Versed Amount: 1 mg Route: I.V. Start: 7:26 AM Stop: 7:26 AM Medication: Fentanyl Amount: 25 mcg Route: I.V. Start: 7:31 AM Stop: 7:31 AM Medication: Versed Amount: 1 mg Route: I.V. Start: 7:33 AM Stop: 7:33 AM Medication: Nitrogylcerin Amount: 200 mcg Route: I.A. Start: 7:39 AM Stop: 7:39 AM Medication: Heparin Amount: 5000 units Route: I.V. I, the attending physician, have reviewed and verified all procedure medications. Yes, all medications given per verbal order History/Risk Factors Hypertension: Yes Dyslipidemia: No Peripheral Arterial Disease (PAD): No Myocardial Infarction (SC): No Obesity: Yes Renal Disease: No Tobacco Use: Never Prior Interventions PCI: No CABG: No Valve Surgery: No Report Signatures Finalized by Sonido Pablo MD on 04/10/2025 07:51 AM
--- NOTE | 2025-04-10 07:24 | W.PM.OPSUD ---
Surgery/Procedure H&P Update DATE OF PROCEDURE: April 10, 2025 DATE H&P PERFORMED: 04/08/25 H&P UPDATE INFORMATION: I have reviewed H&P completed within last 30 days, I have examined patient prior to procedure and Changes to prior documentation as noted here PREOP DIAGNOSIS: LV dysfunction/ chest pain/ abnormal stress test PRIMARY INDICATION FOR PROCEDURE: LV dysfunction/ chest pain/ abnormal stress test PLANNED PROCEDURE: Operation Date: 04/10/25 09:05 Proposed Procedures p Cardiac Catheterization(Left) - Sonido Pablo M.D Possible percutaneous coronary intervention PATIENT REASSESSED PRIOR TO SEDATION, WITH NO CHANGE NOTED: Yes PHYSICAL EXAM: alert, oriented x 3, clear to auscultation bilaterally and regular rate & rhythm AIRWAY EVAL/ANESTHESIA PLAN: normal airway, ASA III, Local Anesthesia, Risks, benefits & alternatives of sedation and/or procedure discussed and Patient agrees to continue as planned ADDITIONAL INFORMATION: Moderate sedation
--- NOTE | 2025-04-10 07:47 | P.PCN_ITS ---
Procedure Note: Date of procedure: 04/10/25 Pre-procedure diagnosis: LV dysfunction/ abnormal stress test Post-procedure diagnosis: other (Non- ischemic cardiomyopathy) Procedure: Patent coronary arteries. Nonischemic cardiomyopathy. Aggressive guideline directed medical therapy for heart failure Performing Provider: Sonido Pablo Estimated blood loss (mL): 5 Complications: None Condition: stable Disposition: floor Coding Level of Care Code Acute Code for [facility] Fwd
--- NOTE | 2025-04-10 08:27 | PC.NURSE ---
Patient received from laborer cook house via bed. Patient is s/p [facility] with right radaial access and tr band in place. No s/s of bleeding or hematoma formation observed. Instructed patient on site care with restrictions. Patient verbalized complete understanding.
--- NOTE | 2025-04-10 09:00 | P.PN_ITS ---
<Statement entered by Sonido Pablo M.D - 04/15/25 07:40> Patient was cared for in conjunction with an advanced practice practitioner.? I reviewed the chart and all pertinent data including imaging, telemetry, and laboratory results.? I discussed the patient in detail with the advanced practice practitioner.? Please see?their note for progress note, testing results and agreed upon plan of care for the patient. Subjective 2 Subjective: She had coronary angiogram this morning finding no significant coronary stenosis, nonischemic cardiomyopathy. No complications with right radial cath site. No chest pain or shortness of breath. Vitals/I&O/Wt Last Vital Signs Temp 97.5 F L 04/10/25 11:43 Pulse 75 04/10/25 13:52 Resp 16 04/10/25 11:43 BP 115/75 04/10/25 11:43 Pulse Ox 95 04/10/25 11:43 O2 Del Method Room Air 04/10/25 11:43 O2 Flow Rate 1 04/10/25 09:58 04/09/25 04/10/25 04/10/25 22:59 06:59 14:59 Intake Total 960 / 2200 600 / 600 Balance 960 / 2200 600 / 600 Weight last 48 hrs Weight 202 lb 12.8 oz Weight 202 lb 9.677 oz Weight 199 lb 8.293 oz Weight 210 lb 4.8 oz Weight 210 lb 5.136 oz Physical Exam 2 Const: COMMON NORMALS: no acute distress and patient oriented x3 GENERAL APPEARANCE: cooperative ORIENTATION/CONSCIOUSNESS: Yes awake, Yes oriented to person, Yes oriented to place and Yes oriented to time Chest: COMMONS NORMALS: normal inspection of the chest and normal palpation of entire chest wall CHEST: Yes Symmetrical chest wall rise Resp: COMMON NORMALS: normal respiratory effort, No retractions, No use of accessory muscles and clear to auscultation bilaterally AUSCULTATION: clear to auscultation bilaterally Cardio: COMMON NORMALS: regular rate, regular rhythm, S1 normal heart sound present, S2 normal heart sound present, No gallops present (Cardio), No clicks present (Cardio), No murmurs present (Cardio) and No rub (Cardio) RATE: r egular rate RHYTHM: regular rhythm HEART SOUNDS: S1 normal heart sound present and S2 normal heart sound present PERIPHERAL PULSES: radial pulses present positive right 2+ and femoral pulses present positive right 2+ Neuro: COMMON NORMALS: patient oriented x3 and moves all extremities S ENSORIUM/ORIENTATION: Yes oriented to person, Yes oriented to place and Yes oriented to time Skin: WOUNDS: Yes surgical site (no hematoma palpable) Details: no odor Data 04/10/25 01:31 04/10/25 01:31 A&P Assessment and plan 1. Systolic CHF, acute: 2. Abnormal stress test: 3. Elevated troponin: 4. Chest pain: 5. Hypertension, uncontrolled: 6. Type 2 diabetes mellitus: Plan: Will start her on Entresto 24/26 mg 1 tablet twice a day, discontinue amlodipine. I have discussed with her use of a LifeVest for secondary prevention of arrhythmia, she is in agreement to use. Will plan for limited echocardiogram in 3 months to reassess LVEF and make determination on ICD placement. Will plan to keep her overnight and possible discharge tomorrow if she is stable on Entresto. Continue metoprolol succinate 25 mg daily, may discontinue aspirin. PDMP PDMP Reviewed: Not Reviewed Attestations 2 Medical Necessity Statement*: Possible discharge tomorrow Coding Level of Care Code Acute Code for [facility] Fwd Diagnoses Systolic CHF, acute I50.21 Abnormal stress test R94.39 Elevated troponin R79.89 Chest pain R07.9 Hypertension, uncontrolled I10 Type 2 diabetes mellitus E11.9
[2025-04-10] MEDS: morphine 4 mg/mL SDV 1 mL 2 MG IVP ×2 (10:13→20:23)
--- NOTE | 2025-04-10 10:34 | P.PN_ITS ---
Subjective 2 Subjective: No chest pain. No additional changes. Awaiting coronary angiogram. Vitals/I&O/Wt Last Vital Signs Temp 97.6 F 04/10/25 08:00 Pulse 70 04/10/25 09:58 Resp 20 H 04/10/25 10:13 BP 136/79 04/10/25 09:15 Pulse Ox 98 04/10/25 09:58 O2 Del Method Nasal Cannula 04/10/25 09:58 O2 Flow Rate 1 04/10/25 09:58 04/09/25 04/10/25 04/10/25 22:59 06:59 14:59 Intake Total 960 / 2200 360 / 360 Balance 960 / 2200 360 / 360 Weight last 48 hrs Weight 91.989 kg Weight 91.9 kg Weight 90.5 kg Weight 95.39 kg Weight 95.4 kg Weight 90.265 kg Physical Exam 2 Const: COMMON NORMALS: patient oriented x3 and alert GENERAL APPEARANCE: c ooperative ORIENTATION/CONSCIOUSNESS: Yes awake HENMT: COMMON NORMALS: oropharynx normal Neck/C-Spine: COMMON NORMALS: no JVD Resp: COMMON NORMALS: normal respiratory effort and clear to auscultation bilaterally AUSCULTATION: clear to auscultation bilaterally and wheezes Cardio: COMMON NORMALS: no JVD, regular rhythm, S1 normal heart sound present, S2 normal heart sound present and No murmurs present (Cardio) RHYTHM: regular rhythm HEART SOUNDS: S1 normal heart sound present and S2 normal heart sound present GI: COMMON NORMALS: Normal to inspection, nondistended, normoactive bowel sounds present, Soft to palpation and non-tender PALPATION: Yes Soft to palpation Extremity: COMMON NORMALS: no joint enlargement and no pedal edema Neuro: COMMON NORMALS: patient oriented x3 and moves all extremities S ENSORIUM/ORIENTATION: Yes alert Skin: COMMON NORMALS: no rashes or lesions noted GENERAL SKIN EXAM: no rashes or lesions noted Data 04/10/25 01:31 04/10/25 01:31 A&P Assessment and plan 1. Chest pain: Awaiting coronary artery gram this morning. Discussed with cardiology, without finding of obstructive coronary disease, appears this having nonischemic cardiomyopathy. She is started on Entresto. LifeVest is ordered. Reassess renal function. Per discussion with cardiology tentative discharge in the morning. Reviewed vitals, CBC, BMP, stress test, discussed with nursing and case management. Receiving post cath IV hydration, monitor for risk of fluid overload and acute CHF. For pleuritic component of chest pain continue lidocaine patch. She has not tried capsaicin. Tylenol as needed. Antitussive. Reviewed lipid profile. A1c. Discussed with her worsening diabetes, hemoglobin A1c up to 8.7. Will benefit from optimization. She is agreeable to start metformin and glipizide. She had previously not tolerated Ozempic as well as cannot tolerate Januvia. Discussed with nursing, case managers. - Likely will not continue aspirin after discharge. Confirm with cardiology. - Monitor on telemetry for arrhythmia/ischemic changes - Continue amlodipine and metoprolol (for possible vasospasm) - Nitroglycerin PRN for recurrent chest pain - Morphine IV PRN for severe breakthrough pain Plan: Bronchitis: With history of COPD and asthma, noted wheezing on exam, requesting breathing treatments as well as inhaled budesonide. Antitussives. Recovering after recent respiratory illness with productive cough recent episode of fever last week. Pleuritic component of pain additional management as above with symptomatic relief. Anion gap metabolic acidosis. Reviewed lactic acid. Reviewed serum ketones, VBG. No suggestion of DKA. Diabetes mellitus with hyperglycemia complicated by peripheral neuropathy: Discussed with her worsening diabetes. Continue sliding scale while in the hospital. For outpatient she is agreeable to start metformin and after discussion of options has not been able to tolerate Ozempic or Januvia, agreeable to cautious addition of glipizide with discussed risks of hypoglycemia. Will need follow-up as discussed with primary provider for reassessment, further optimization. Discussed continued consistent carbohydrate diet which she states has been maintaining. - [id number] glucose monitoring - Administer sliding-scale insulin per protocol - Reviewed with her hemoglobin A1c - Check serum ketones and venous blood gas because of elevated anion gap Possible costochondritis : Anterior chest wall tenderness reported; symptom increase with breathing raises possibility of musculoskeletal inflammation versus pleuritic process. Considered as alternative explanation for residual pain. - Provide symptomatic relief with acetaminophen, lidocaine patch, or capsaicin as needed Mild left ventricular systolic dysfunction : Worsening LV dysfunction noted on stress test, down to 25%. Echocardiogram reviewed, 30 to 35%, grade 1 diastolic dysfunction. Regional wall motion abnormality. Pending additional assessment with coronary angiography. Prior imaging showed LVEF 42?45 %. - Reviewed transthoracic echocardiogram (same study ordered for chest-pain evaluation) - Monitor blood pressure response. Consider addition of MELI inhibitor or ARB. So far blood pressure with improvement. Reviewed and reconciled home medications, resume amitriptyline, morphine, gabapentin, metoprolol. Hold allopurinol, diclofenac. PDMP PDMP Reviewed: Not Reviewed Attestations 2 Medical Necessity Statement*: Continue hospitalization for additional assessment and management of acute worsening of cardiomyopathy, post angiogram care. and High MDM includes amount and/or complexity of data reviewed/ordered [ resulted lab(s)/test(s), ordered lab(s)/test(s) and other healthcare professional discussion] and described risk of complication, morbidity or mortality of management as documented Diagnoses Chest pain R07.9
--- NOTE | 2025-04-10 12:45 | PC.NURSE ---
TR band removed at this time no bleeding or hematoma formation patient educated on Signs and symptoms and when to be concerned patient verbalized teaching
--- NOTE | 2025-04-10 13:54 | PC.NURSE ---
insulin dose missed bg 221 at lunch time upon recheck noted to be 195 notified no further instructions received medication non administered
--- NOTE | 2025-04-10 15:17 | PC.NURSE ---
TR band removed at 1245. No s/s of bleeding or hematoma formation observed during 15min checks. Air removed from band every 15-30min until band removed. Instructed patient on site and restrictions. Patient verbalized complete understanding. Denies pain or needs. No distress observed.
[2025-04-11 04:06] LABS: Hematocrit 40.3 % (36-47); Hemoglobin 13.10 g/dL (11.27-16.99); Mean Corpuscular HGB Conc 32.5 g/dL (30-55); Mean Corpuscular Hemoglobin 29.2 pg (27-33); Mean Corpuscular Volume 90.0 fl (85-98); Nucleated Red Blood Cells % 0 %; Platelet Count 273 10^3/cmm (157-399); Red Blood Count 4.48 10^6/uL (3.85-5.65); White Blood Count 6.60 10^3/uL (3.29-11.43)
[2025-04-11 04:16] VITALS: BP 144/86; PULSE 69; RESP 12; O2SAT 92
[2025-04-11 04:25] LABS: Anion Gap 17.3 (5-19); Blood Urea Nitrogen 17 mg/dL (8-23); Calcium 8.8 mg/dL (8.5-10.5); Carbon Dioxide 27 mmol/L (22-29); Chloride 98 mmol/L (98-107); Creatinine Clr Calc Pharmacy 108.2104; Glucose 156 mg/dL (65-115); Osmolality Calculated 291 mOsm/kg (285-295); Potassium 4.3 mmol/L (3.5-5.1); Sodium 138 mmol/L (136-145)
[2025-04-11] MEDS: metoprolol succinate ER (24 HR) 25 mg Tablet PO (06:14)
[2025-04-11 06:24] VITALS: RESP 18
[2025-04-11] MEDS: morphine 4 mg/mL SDV 1 mL 2 MG IVP (06:24)
[2025-04-11] MEDS: ondansetron 2 mg/ML SDV 2 mL 4 MG IVP (07:04)
[2025-04-11 07:37] VITALS: BP 109/52; PULSE 68; RESP 14; TEMP 36.4; O2SAT 92
[2025-04-11 07:52] VITALS: PULSE 69; RESP 16; O2SAT 97
--- NOTE | 2025-04-11 10:42 | P.PN_ITS ---
<Statement entered by Sonido Pablo M.D - 04/15/25 07:55> Patient was cared for in conjunction with an advanced practice practitioner.? I reviewed the chart and all pertinent data including imaging, telemetry, and laboratory results.? I discussed the patient in detail with the advanced practice practitioner.? Please see?their note for progress note, testing results and agreed upon plan of care for the patient. Subjective 2 Subjective: She has done well overnight, no chest pain, no shortness of breath. Cough is improved. She received her LifeVest yesterday. Has been tolerating Entresto well. Normal renal function this morning. No complications with cath site. Vitals/I&O/Wt Last Vital Signs Temp 97.6 F 04/11/25 07:37 Pulse 69 04/11/25 07:52 Resp 16 04/11/25 07:52 BP 109/52 04/11/25 07:37 Pulse Ox 97 04/11/25 07:52 O2 Del Method Room Air 04/11/25 07:52 O2 Flow Rate 1 04/10/25 09:58 04/10/25 04/11/25 04/11/25 22:59 06:59 14:59 Intake Total 895 / 1615 120 / 1615 240 / 240 Balance 895 / 1615 120 / 1615 240 / 240 Weight last 48 hrs Weight 201 lb 6.4 oz Weight 202 lb 12.8 oz Weight 202 lb 9.677 oz Weight 199 lb 8.293 oz Physical Exam 2 Const: COMMON NORMALS: no acute distress and patient oriented x3 GENERAL APPEARANCE: cooperative ORIENTATION/CONSCIOUSNESS: Yes awake, Yes oriented to person, Yes oriented to place and Yes oriented to time Chest: COMMONS NORMALS: normal inspection of the chest and normal palpation of entire chest wall CHEST: Yes Symmetrical chest wall rise Resp: COMMON NORMALS: normal respiratory effort, No retractions, No use of accessory muscles and clear to auscultation bilaterally AUSCULTATION: clear to auscultation bilaterally Cardio: COMMON NORMALS: regular rate, regular rhythm, S1 normal heart sound present, S2 normal heart sound present, No gallops present (Cardio), No clicks present (Cardio), No murmurs present (Cardio) and No rub (Cardio) RATE: r egular rate RHYTHM: regular rhythm HEART SOUNDS: S1 normal heart sound present and S2 normal heart sound present PERIPHERAL PULSES: radial pulses present positive right 2+ and femoral pulses present positive right 2+ Neuro: COMMON NORMALS: patient oriented x3 and moves all extremities S ENSORIUM/ORIENTATION: Yes oriented to person, Yes oriented to place and Yes oriented to time Skin: WOUNDS: Yes surgical site (no hematoma palpable) Details: no odor Data 04/11/25 03:56 04/11/25 03:56 A&P Assessment and plan 1. Systolic CHF, acute: 2. Abnormal stress test: 3. Non-ischemic cardiomyopathy: 4. Elevated troponin: 5. Chest pain: 6. Hypertension, uncontrolled: 7. Type 2 diabetes mellitus: Plan: Nonischemic cardiomyopathy by coronary angiogram. Will continue Entresto 24/26 mg 1 tablet twice a day for 2 weeks, then uptitrate as blood pressure and labs allow. Follow-up in the cardiology clinic in 10 days for labs and dose adjustment. Continue metoprolol succinate 25 mg daily. She has been educated on use of the LifeVest. Repeat limited echo in 3 months. PDMP PDMP Reviewed: Not Reviewed Attestations 2 Medical Necessity Statement*: Discharge home today Coding Level of Care Code Acute Code for [facility] Fwd Diagnoses Systolic CHF, acute I50.21 Abnormal stress test R94.39 Non-ischemic cardiomyopathy I42.8 Elevated troponin R79.89 Chest pain R07.9 Hypertension, uncontrolled I10 Type 2 diabetes mellitus E11.9
[2025-04-11 11:05] VITALS: BP 109/52; PULSE 74; RESP 20; TEMP 36.4; O2SAT 97
--- NOTE | 2025-04-11 13:01 | PC.NURSE ---
patient approached nurses' station stating she couldnt wait any longer and needed to leave. Discharge orders were in and inpatient had tried to deliver meds to bed but patient stated she was allergic to jardiance and couldn't afford the other ones. She did not accept the cough medicine, jardiance, metformin, entresto, or lidocaine patich from the pharmacy. Patient stated she wanted an order from the doctor that she could keep snacks at her bedside. Nurse advised patient to ask Dr Hill at her follow up appointment. Patient stated she couldn't get in, and nurse reminded patient that she already had a follow up scheduled for April 18. Patient verbalized understanding. Dr Carver notified that patient could not afford Entresto and he replied that he would likely swtich it to Losartan. Patient asked if all prescriptions be sent to [facility] location.
--- NOTE | 2025-04-11 13:18 | PM.DCS ---
Discharge Providers Date of Admission: 04/08/25 11:34 Date of Discharge: April 11, 2025 Attending Provider at Admission: Jeremiah Carver Attending Provider at Discharge: Jeremiah Carver Primary Care Provider: Shai Hill MD Diagnoses at Discharge Discharge Diagnosis 1. Systolic CHF, acute: 2. Abnormal stress test: 3. Elevated troponin: 4. Chest pain: 5. Hypertension, uncontrolled: 6. Type 2 diabetes mellitus: Reason for Visit Reason for Visit: chest pain Brief History: Lucita Dunaway is a 60 year old woman with a history of diabetes mellitus, diabetic foot ulcer, non-obstructive coronary artery disease (CAD), suspected coronary vasospasm, peripheral neuropathy, gout, and uterine fibroids who awoke this morning with severe (10/10) central chest pain. One sublingual nitroglycerin tablet lowered the intensity to 7/10. A similar episode occurred a few days ago. Today?s pain was associated with nausea and diaphoresis. In the emergency department (ED) the pain improved but did not fully resolve. Home blood-pressure readings were not provided. Prior cardiac evaluation (November 2023) showed an abnormal myocardial perfusion scan with reversible inferior and inferolateral defects, transient ischemic dilation 1.16, and left-ventricular ejection fraction (LVEF) 42 %. Coronary angiography on 12/02/2023 demonstrated unobstructed coronaries and mildly reduced LVEF (45 %), raising concern for coronary vasospasm; calcium-channel rakesh and beta-rakesh therapy was started at that time. Current ED labs revealed glucose 300 mg/dL, anion gap 22 mEq/L, bicarbonate 20 mEq/L, NT-proBNP 1 625 pg/mL, and serial troponins 89 ? 83 ng/L. Chest X-ray was without acute findings; electrocardiogram (EKG) showed sinus rhythm, incomplete right bundle-branch block, T-wave changes in III, aVF, and anterolateral precordial leads. She was treated in the ED with aspirin 324 mg, metoprolol 25 mg, and amlodipine 5 mg. She reports recent febrile illness about a week ago and was also recently treated for a UTI. She reports she had been coughing with productive cough. She reports that her pain has not completely gone away, and current residual pain is triggered by taking breaths in. She reports some discomfort in her chest when she is laying back. Hospital Course Hospital Course She underwent additional assessment with stress test and echocardiogram as well as manage symptomatically for pleuritic pain after recent respiratory infection including with lidocaine patch and acetaminophen. Stress test was found abnormal with medium sized area of inferior wall myocardial infarction with small amount of tristin-infarct ischemia, severely reduced ejection fraction by MIBI scan 26%. Echocardiogram showed ejection fraction of 30 to 35%, grade 1 diastolic dysfunction, moderate global hypokinesis with severe hypokinesis of inferior and inferoseptal [place]. She underwent coronary angiography which found unobstructed coronaries. She was started on Entresto but cannot afford it so was switched to losartan alone. She is found to have uncontrolled diabetes with hemoglobin A1c worsening up to 8.7 and has not been on any medications although has been maintaining consistent carbohydrate diet. She as per discussion with her has been intolerant of Ozempic in the past as well as Januvia. She is agreeable to start on metformin. As well as some discussion of risks started on dapagliflozin given also underlying cardiac disease. She is referred for follow-up with cardiology. Please follow-up cardiomyopathy as well as diabetes control. Glucometer supplies are e-prescribed to her to allow for her to resume glucose monitoring. Physical Exam Const: COMMON NORMALS: patient oriented x3 and alert GENERAL APPEARANCE: cooperative ORIENTATION/CONSCIOUSNESS: Yes awake HENMT: COMMON NORMALS: oropharynx normal Neck/C-Spine: COMMON NORMALS: no JVD Resp: COMMON NORMALS: normal respiratory effort and clear to auscultation bilaterally AUSCULTATION: clear to auscultation bilaterally Cardio: COMMON NORMALS: no JVD, regular rhythm, S1 normal heart sound present, S2 normal heart sound present and No murmurs present (Cardio) RHYTHM: regular rhythm HEART SOUNDS: S1 normal heart sound present and S2 normal heart sound present GI: COMMON NORMALS: Normal to inspection, nondistended, normoactive bowel sounds present, Soft to palpation and non-tender PALPATION: Yes Soft to palpation Extremity: COMMON NORMALS: no joint enlargement and no pedal edema NARRATIVE EXTREMITY EXAM: No issues with access site on right wrist. Discussed with her to avoid lifting more than 2 pounds for 3 days. 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 echo complete* [id number] Routine Ultrasound 04/08/25 12:55 Completed Pending at discharge Category Date Time Status Cardiac Stress Test MIBI [Sestamibi Stress Test Request Exams 04/08/25 14:50 Ordered ] Routine VBG [Venous Blood Gas] Routine Lab 04/08/25 15:00 Results Radiology Impressions Chest X-Ray 04/08/25 08:35 IMPRESSION: No acute findings. Laboratory Results WBC 6.60 10^3/uL (3.29-11.43) 04/11/25 03:56 RBC 4.48 10^6/uL (3.85-5.65) 04/11/25 03:56 Hgb 13.10 g/dL (11.27-16.99) 04/11/25 03:56 Hct 40.3 % (36-47) 04/11/25 03:56 MCV 90.0 fl (85-98) 04/11/25 03:56 MCH 29.2 pg (27-33) 04/11/25 03:56 MCHC 32.5 g/dL (30-55) 04/11/25 03:56 RDW 13.2 % (12.1-15.1) 04/11/25 03:56 Plt Count 273 10^3/cmm (157-399) 04/11/25 03:56 MPV 9.8 fL (7.4-10.4) 04/11/25 03:56 Neut % (Auto) 51.0 % 04/11/25 03:56 Lymph % (Auto) 33.3 % 04/11/25 03:56 [place] % (Auto) 8.9 % 04/11/25 03:56 Eos % (Auto) 5.5 % 04/11/25 03:56 Baso % (Auto) 0.5 % 04/11/25 03:56 Neut # (Auto) 3.37 10^3/uL (1.8-7.7) 04/11/25 03:56 Lymph # (Auto) 2.2 10^3/uL (0.8-4.8) 04/11/25 03:56 [place] # (Auto) 0.6 10^3/uL (0.2-0.9) 04/11/25 03:56 Eos # (Auto) 0.4 10^3/uL (0.0-0.8) 04/11/25 03:56 Baso # (Auto) 0.0 10^3/uL (0.0-0.1) 04/11/25 03:56 Nucleated RBC % (auto) 0 % 04/11/25 03:56 Nucleated RBCs # 0.0 /100WBC 04/11/25 03:56 D-Dimer 0.35 ug/mLFEU (0-0.59) 04/08/25 15:00 Specimen Type Venous 04/08/25 15:00 Ahsan Test N/a 04/08/25 15:00 VBG pH 7.38 (7.32-7.42) 04/08/25 15:00 VBG pCO2 49.9 mmHg (41-51) 04/08/25 15:00 VBG pO2 30.0 mmHg (25-40) 04/08/25 15:00 VBG HCO3 29.2 mmol/L (24-28) H 04/08/25 15:00 VBG Base Excess 3.0 mmol/L (-3.0-3.0) 04/08/25 15:00 VBG Hematocrit 42.6 % (37-47) 04/08/25 15:00 O2 Delivery Device None 04/08/25 15:00 Admitting Officer ID [place] 04/08/25 15:00 Sodium 138 mmol/L (136-145) 04/11/25 03:56 Potassium 4.3 mmol/L (3.5-5.1) 04/11/25 03:56 Chloride 98 mmol/L (98-107) 04/11/25 03:56 Carbon Dioxide 27 mmol/L (22-29) 04/11/25 03:56 Anion Gap 17.3 (5-19) 04/11/25 03:56 BUN 17 mg/dL (8-23) 04/11/25 03:56 Creatinine 0.6 mg/dL (0.5-0.9) 04/11/25 03:56 GFR Calculation 101.6 mL/min (90-130) 04/11/25 03:56 Glucose 156 mg/dL (65-115) H 04/11/25 03:56 POC Glucose 157 mg/dL (70-110) H 04/11/25 06:24 Estimat Average Glucose 203 04/08/25 08:39 Hemoglobin A1c 8.7 % (4.0-6.0) H 04/08/25 08:39 Calculated Osmolality 291 mOsm/kg (285-295) 04/11/25 03:56 Lactate 2.0 mmol/L (0.5-2.2) 04/08/25 15:00 Calcium 8.8 mg/dL (8.5-10.5) 04/11/25 03:56 Total Bilirubin 0.5 mg/dL (0.15-1.2) 04/08/25 08:39 AST 23 U/L (0-32) 04/08/25 08:39 ALT 20 U/L (0-33) 04/08/25 08:39 Alkaline Phosphatase 137 U/L (35-105) H 04/08/25 08:39 Troponin T Baseline 89 ng/L (0-10) H 04/08/25 08:39 Troponin T 120 Minute 83.26 ng/L (0-10) H 04/08/25 10:36 Delta Troponin T -5.74 ABS# (0-10) L 04/08/25 10:36 Troponin T Hi Sens 6Hr 84.60 ng/L (0-10) H 04/08/25 15:00 Troponin T Hi Sens 6Hr Delta -4.40 ng/L (0-12) L 04/08/25 15:00 NT-Pro-B Natriuret Pep 1625 pg/mL (0-125) H 04/08/25 08:39 Total Protein 7.5 g/dL (6.6-8.7) 04/08/25 08:39 Albumin 3.9 g/dL (3.5-5.2) 04/08/25 08:39 Globulin 3.6 g/dL (1.3-4.6) 04/08/25 08:39 Triglycerides 214 mg/dL (0-150) H 04/08/25 08:39 Cholesterol 200 mg/dL (0-200) 04/08/25 08:39 LDL Cholesterol, Calc 120 mg/dL (50-129) 04/08/25 08:39 HDL Cholesterol 37 mg/dL (60-100) L 04/08/25 08:39 LDL/HDL Ratio 3.24 RATIO (0.00-3.22) H 04/08/25 08:39 Cholesterol/HDL Ratio 5.41 mg/dL (0.0-4.40) H 04/08/25 08:39 Urine Color Yellow (Yellow) 04/10/25 05:10 Urine Appearance Clear (CLEAR) 04/10/25 05:10 Urine pH 5.5 (5-7) 04/10/25 05:10 Ur Specific [place] 1.007 (1.005-1.030) 04/10/25 05:10 Urine Protein Negative (Negative) 04/10/25 05:10 Urine Glucose (UA) Negative (Normal) 04/10/25 05:10 Urine Ketones Negative (Negative) 04/10/25 05:10 Urine Blood Negative (Negative) 04/10/25 05:10 Urine Nitrate Negative (Negative) 04/10/25 05:10 Urine Bilirubin Negative (Negative) 04/10/25 05:10 Urine Urobilinogen 0.2 mg/dL (Negative) 04/10/25 05:10 Ur Leukocyte Esterase Trace (Negative) A 04/10/25 05:10 Urine RBC 0-2 /hpf (0-2) 04/10/25 05:10 Urine WBC 0-5 /hpf (0-5) 04/10/25 05:10 Ur Squamous Epith Cells 0-5 /hpf (0-5) 04/10/25 05:10 Amorphous Sediment Not Reportable 04/10/25 05:10 Urine Bacteria None seen /hpf (NONE) 04/10/25 05:10 Hyaline Casts 0.40 /lpf 04/10/25 05:10 Serum Ketones Negative (Negative) 04/08/25 15:00 Influenza A (PCR) Negative (Negative) 04/08/25 08:49 Influenza Type B (PCR) Negative (Negative) 04/08/25 08:49 RSV (PCR) Negative (Negative) 04/08/25 08:49 SARS-CoV-2 (PCR) Negative (Negative) 04/08/25 08:49 Vitals Last Vital Signs Temp 97.6 F 04/11/25 11:05 Pulse 74 04/11/25 11:05 Resp 20 H 04/11/25 11:05 BP 109/52 04/11/25 11:05 Pulse Ox 97 04/11/25 11:05 O2 Del Method Room Air 04/11/25 07:52 O2 Flow Rate 1 04/10/25 09:58 Discharge Plan Discharge Patient Disposition: Home Condition: Stable Prescriptions: New lidocaine 5 % Adhesive Patch,Medicated 1 patch topical [id number] Qty: 30 0RF dextromethorphan-guaifenesin 20-400 mg/5 mL liquid 5 ml PO Q6H PRN (Reason: cough) Qty: 120 1RF metformin 500 mg tablet 500 mg PO BID Qty: 180 0RF empagliflozin 10 mg tablet 10 mg PO DAILY Qty: 90 0RF losartan 25 mg tablet 25 mg PO DAILY Qty: 90 0RF (DME) diabetic supplies, miscellan. Misc See Rx Instructions .Route Qty: 1 0RF Rx Instructions: Glucometer, 90 lancets and 90 strips Continued (DME) CAM walker See Rx Instructions .Route .MEDSUPPLY Qty: 1 0RF Rx Instructions: As directed (DME) Hinge Elbow Brace See Rx Instructions .Route .MEDSUPPLY Qty: 1 0RF Rx Instructions: As directed (DME) Hinged Knee Brace See Rx Instructions .Route .MEDSUPPLY Qty: 1 0RF Rx Instructions: As directed (DME) aso See Rx Instructions .Route .MEDSUPPLY Qty: 1 0RF Rx Instructions: As directed (DME) ASO See Rx Instructions .Route .MEDSUPPLY Qty: 1 0RF Rx Instructions: As directed mupirocin 2 % ointment 1 applic topical TID Qty: 15 0RF Rx Instructions: apply to wound TID and as needed with dressing changes, cover with band-aid amitriptyline 75 mg tablet 75 mg PO BEDTIME albuterol sulfate [Ventolin HFA] 90 mcg/actuation Hfa Aerosol Inhaler 2 puff INHALATION Q4H PRN (Reason: Shortness Of Breath) metoprolol succinate [Toprol XL] 25 mg tablet extended release 24 hr 25 mg PO QAM epinephrine [EpiPen 2-Anthony] 0.3 mg/0.3 mL auto-injector 0.3 mg IM Q10M PRN (Reason: anaphylaxis) Qty: 2 0RF Rx Instructions: for 2 doses amlodipine 5 mg tablet 5 mg PO DAILY gabapentin 600 mg tablet 600 mg PO QID allopurinol 300 mg tablet 300 mg PO DAILY PRN (Reason: gout) loperamide 2 mg capsule 2 mg PO BID ondansetron 4 mg tablet,disintegrating 4 mg PO TID diclofenac sodium 1 % gel 2 g TOPICAL QID PRN (Reason: joint pain ) 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: Cardiology Discharge Order = DC NOW: Discharge Order (Routine); Ordered 04/11/25 Ordered By: Jeremiah Carver Referrals: Ivory Alvarenga NP [Nurse Practitioner, Cardiology] - 04/21/25 3:00 pm Shai Hill MD [Primary Care Provider, Family Practice] - 04/18/25 9:30 am Discharge Diet: Cardiac and Diabetic Discharge Activity: Increase activity as tolerated Patient Instructions: Dextromethorphan (By mouth), Lidocaine (On the skin), Metformin (By mouth), Empagliflozin (By mouth), Chest Pain (DC), Meal Planning with Diabetes Exchanges (DC), Heart Catheterization (DC), Diabetes and Your Skin (DC), CHF Stoplight, Opioid Safety, Post Angiogram Home Care Instructions, Patient Portal & Fran Instructions Activity Restrictions/Additional Instructions: Follow up with your primary provider and cardiology for reassessment after recent illness and chest pain with worsening weakness of the heart (decrease in ejection fraction). Limit fluid intake to less than 1.5 L per day. Avoid high heat and overexertion. In case of progressive swelling or rapid weight gain of >2 pounds in 3 days, take Lasix. Seek medical attention in case of worsening or new concerning symptoms. Stand Alone Forms: Work/School Release Discharge Attestations Time Spent in Discharge Care*: greater than 30 min Status at Discharge: Cognitive status at discharge: cognitively intact, Behavioral status at discharge: cooperative, Quality Metrics Clinical Quality Measures [ No reported AMI, CVA or VTE this stay] Coding Level of Care Code 83855 Total time (in minutes) for Discharge: 45 Diagnoses Systolic CHF, acute I50.21 Abnormal stress test R94.39 Elevated troponin R79.89 Chest pain R07.9 Hypertension, uncontrolled I10 Type 2 diabetes mellitus E11.9
== END 2025-04-11 12:35 | disposition home or self-care (01) ==
LOC: ER 10:28 → CSU 15:09
PROVIDERS: Internal Medicine; Nurse Practitioner Family; Admitting Provider Internal Medicine; Emergency Provider Family Medicine; PCP Family Medicine; Visit Provider Internal Medicine
DX: I50.21 Acute systolic (congestive) heart failure (principal); R94.39 Abnormal result of other cardiovascular function study; E11.9 Type 2 diabetes mellitus without complications; E11.621 Type 2 diabetes mellitus with foot ulcer; I25.10 Atherosclerotic heart disease of native coronary artery without angina pectoris; G62.9 Polyneuropathy, unspecified; M10.9 Gout, unspecified; R79.89 Other specified abnormal findings of blood chemistry; I42.8 Other cardiomyopathies; R05.8 Other specified cough; Z82.49 Family history of ischemic heart disease and other diseases of the circulatory system; I11.0 Hypertensive heart disease with heart failure
CPT/HCPCS: 36415; 36416; 71045; 78452; 80048; 80053; 80061; 81001; 82009; 82803; 82962; 83036; 83605; 83880; 84484; 85025; 85378; 87637; 93005; 93017; 93306; 93458; 94640; 96361; 96367; 96372; 96374; 96375; 96376; 99152; 99153; 99285; A9500; C1769; C1887; C1894; G0378; J1644; J1650; J1815; J2250; J2270; J2405; J2785; J3010; J3490; J7030; J7626; J9999; Q0163; Q9967

== ENCOUNTER → 2025-04-21 15:49 | Outpatient (BNVA) | payer MEDICAID, SELFPAY | PROVIDERS: PCP Family Medicine; Visit Provider Nurse Practitioner Family | DX: I10 Essential (primary) hypertension (principal) | CPT/HCPCS: 36415; 83880 ==

== ENCOUNTER → 2025-05-13 11:16 | Outpatient (BNVA) | payer MEDICAID, SELFPAY | PROVIDERS: PCP Family Medicine; Visit Provider Student in an Organized Health Care Education/Training Program | DX: M25.561 Pain in right knee (principal); M25.562 Pain in left knee; M17.11 Unilateral primary osteoarthritis, right knee | CPT/HCPCS: 73560; 73565 ==

== ENCOUNTER 2025-08-04 11:19 | Outpatient (CLI) | payer MEDICAID, SELFPAY ==
--- NOTE | 2025-08-04 12:45 | USCV_ITS ---
Lucita Dunaway Age: 60 Gender: F : 1965 Exam Date: 08/04/2025 11:37 Ordering Phys: Ivory Alvarenga NP Technologist: Exam Location: [facility] – [place] Indication: poor ef follow up BP: 140 / 98 HR: 62 Rhythm: Sinus Technical Quality: Adequate MEASUREMENTS (Male / Female) Normal Values 2D ECHO LV Diastolic Diameter PLAX 4.6 cm 4.2 - 5.9 / 3.9 - 5.3 cm IVS Diastolic Thickness 1.7 cm 0.6 - 1.0 / 0.6 - 0.9 cm IVS Systolic Thickness 1.9 cm LVPW Diastolic Thickness 1.5 cm 0.6 - 1.0 / 0.6 - 0.9 cm LVPW Systolic Thickness 2.4 cm LVOT Diameter 2.1 cm LV Ejection Fraction 2D Teich 28.2 % LV Ejection Fraction MOD 4C 45.0 % LV Ejection Fraction MOD 2C 23.1 % LV Ejection Fraction 2C AL 20.4 % LA Diameter 4.2 cm RA Systolic Volume 4C AL 43.2 ml RA Systolic Volume 4C MOD 42.1 ml Aorta at Sinotubular Diameter 3.1 cm IVC Diameter 1.9 cm M-MODE LA Ao Ratio MM 1.6 AV Cusp Separation MM 3.0 cm DOPPLER AV Peak Velocity 188.0 cm/s LVOT Peak Velocity 95.0 cm/s AV Area Cont Eq vti 2.2 cm squared AV Area Cont Eq pk 1.8 cm squared MV Peak Velocity 116.0 cm/s MV Area PHT 2.4 cm squared Mitral E to A Ratio 0.7 TV Peak Velocity 237.0 cm/s TR Peak Velocity 263.0 cm/s TR Peak Gradient 27.7 mmHg TV Peak E Velocity 93.0 cm/s PV Peak Velocity 107.0 cm/s FINDINGS Left Ventricle Mild concentric LVH. Mild global hypokinesis with more hypo and akinesis of inferior and inferoseptal septal wall segments. Overall LVEF 45%. Right Ventricle Normal right ventricular size and systolic function. Right Atrium Normal right atrial size. Left Atrium Normal left atrial size. IA Septum Mitral Valve Mild mitral valve regurgitation. Aortic Valve Tricuspid Valve Trace tricuspid valve regurgitation. Pulmonic Valve Pericardium Aorta Normal size aortic root and proximal ascending aorta. IVC CONCLUSIONS Limited echo to assess LV systolic function. Estimated LVEF 45%. Compared to last echo on 04/08/2025, LVEF has improved from 30% to 45%. Antolin Andujar MD (Electronically Signed) Final Date: 04 August 2025 14:02 S
== END 2025-08-04 11:20 | disposition home or self-care (01) ==
LOC: RAD 11:20
PROVIDERS: PCP Family Medicine; Visit Provider Nurse Practitioner Family
DX: I50.21 Acute systolic (congestive) heart failure (principal); I34.0 Nonrheumatic mitral (valve) insufficiency; I51.7 Cardiomegaly
CPT/HCPCS: 93308